=== PATIENT | male | born 1950 | race Caucasian/White ===

== ENCOUNTER 2016-04-14 07:06 | Observation (INO) | payer OTHER ==
[~2016-04-14] VITALS: Ht 185.4 cm; Wt 88.5 kg
[2016-04-14] MEDS ORDERED: ASPIRIN 81 MG CHEW PO STA (07:25)
[2016-04-14] MEDS ORDERED: NITROGLYCERIN 0.4 MG SL PER TAB CHARGE SL PRN ×2 (07:30→10:00)
[2016-04-14] MEDS ORDERED: ATOR-24 PO (07:32)
[2016-04-14 07:39] LABS: BASO % 0.8 %; BASO ABS # 0.08 K/uL (0-0.2); COMPLETE YES; EOS % 3.7 %; HEMATOCRIT 43.3 % (42-52); IG% 0.3 %; LYMPH % 30.8 %; LYMPH ABS # 3.13 K/uL (1.2-3.4); MEAN CELL VOLUME 87.1 fL (80-100); MEAN CORPUSCULAR HEMOGLOBIN 30.8 pg (25-34); MEAN CORPUSCULAR HGB CONC 35.3 g/dl (32-36); MEAN PLATELET VOLUME 11.6 fL (7.4-10.4); MONO % 8.6 %; NEUT % 55.8 %; PLATELET COUNT 172 K/uL (130-400); RED BLOOD COUNT 4.97 M/uL (4.7-6.1); WHITE BLOOD COUNT 10.16 K/uL (4.8-10.8)
--- NOTE | 2016-04-14 07:53 | EMERGENCY ROOM VISIT NOTE ---
History Report prepared by Sophia: Curly Packer Under the Supervision of: Dr. Ana Barrientos M.D. First contact with patient: 07:16 Chief Complaint: CHEST PAIN Stated Complaint: CHEST PAIN History of Present Illness The patient is a 65 year old male who presents to the Emergency Room with complaints of sudden discomfort that started 1 hour prior to arrival when he was drinking coffee. The patient describes the discomfort as intense and stabbing. The discomfort radiates from his left chest to his back, neck and left arm. The patient normally has left leg pain from his history of sciatica, but thinks that this discomfort is currently at baseline and not worsened by his current symptoms. The patient notes that the discomfort in his chest is significantly reduced since his arrival at the ED and rates his current discomfort as a 2.5 out of 10 in severity. He notes that this morning he was short of breath with the discomfort, but does not feel he is short of breath now since the discomfort has subsided. He does note that the discomfort is worse with deep breaths. The patient was nauseous and had one episode of vomiting earlier this morning, but these symptoms have since resolved. The patient did not take any medicine or Aspirin prior to arrival. He has never experienced these symptoms before. Over the past few days he denies experiencing any trouble with exertion noting that he felt fine on a recent hike and while he was walking in the snow. He also denies recent illness. 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 A total of 10 systems reviewed and were otherwise negative. Past Medical & Surgical Medical Problems: (1) Chest pain (2) Gallbladder problem Surgical Problems: (1) Cholecystectomy planned Family History FH: hypertension Heart disease Kidney stone Social History Marital Status: Housing Status: lives with significant other Occupation Status: unemployed Current/Historical Medications Scheduled Aspirin (Aspirin EC Low Dose), 81 MG PO QAM Atorvastatin (Lipitor), 40 MG PO DAILY Pantoprazole (Pantoprazole Sodium), 40 MG PO QAM Scheduled PRN Nitroglycerin (Nitrostat), 0.4 MG SL UD PRN for Chest Pain Allergies Coded Allergies: No Known Allergies (Unverified , 04/14/16) Physical Exam Vital Signs Date Time Temp Pulse Resp B/P Pulse Ox O2 Delivery O2 Flow Rate FiO2 04/14/16 09:03 48 16 117/68 98 Nasal Cannula 3.0 04/14/16 08:10 91 Nasal Cannula 3.0 04/14/16 08:07 88 Room Air 04/14/16 07:58 47 16 93/59 95 Room Air 04/14/16 07:49 66 18 109/62 92 Room Air 04/14/16 07:44 57 18 125/83 95 Room Air 04/14/16 07:18 55 04/14/16 07:13 36.4 54 18 130/75 95 Room Air 04/14/16 07:13 95 Room Air 04/14/16 07:13 95 Room Air Physical Exam Vital signs reviewed. General: Generally well-appearing male, in some discomfort. HEENT: No scleral icterus, PERRLA, neck supple. Atraumatic. Cardiovascular: Regular rate and rhythm, no extra sounds. Pulmonary: Clear to auscultation bilaterally, normal work of breathing. Abdomen: Soft, nontender, nondistended, positive bowel sounds. Musculoskeletal: Atraumatic, no peripheral edema. Neurologic: Patient awake alert and oriented x 3, full strength in all 4 extremities. Cranial nerves 2 through 12 grossly intact. Skin: Warm, dry, no rash Medical Decision & Procedures ER Provider Diagnostic Interpretation: X-ray results as stated below per my interpretation and radiologist interpretation. Other radiology results as stated below per my review and radiologist interpretation: CHEST ONE VIEW PORTABLE CLINICAL HISTORY: chest pain dyspnea COMPARISON STUDY: No previous studies for comparison. FINDINGS: The bones soft tissues and hemidiaphragms are normal. The cardiomediastinal silhouette is normal. The lungs are clear. The pulmonary vasculature is normal. IMPRESSION: Negative chest. Electronically signed by: Kevyn Hutchinson M.D. 04/14/2016 8:20 AM Dictated Date/Time: 04/14/2016 8:[address] ANGIOGRAPHY OF THE CHEST WITH AND WITHOUT CONTRAST DISSECTION PROTOCOL CLINICAL HISTORY: Left-sided chest pain. Back pain. COMPARISON STUDY: Chest radiograph performed earlier today. TECHNIQUE: Unenhanced and arterial phase images of the chest were obtained. Injection of 93 cc of Optiray 320 IV was uneventful. Sagittal and coronal reconstructions were viewed as well as maximal intensity projections on an independent 3-D workstation. FINDINGS: The caliber of the thoracic aorta is normal. There is no intramural hematoma or dissection within the thoracic aorta. The size of the heart is normal. There is no pericardial effusion. No enlarged thoracic lymph nodes are present. Central airways are patent. There is no consolidation to suggest pneumonia. Note is made of a 1 cm groundglass density within the right upper lobe shown on image 108 of 346. There is also a subtle 6 cm groundglass density within the right upper lobe shown on image 102. A 5 mm perifissural nodule within the right middle lobe is noted on image 163. Groundglass opacities within the lower lobe suggest atelectasis. Bony thorax is unremarkable. Visualized portions of the upper abdomen partially visualize a water attenuation left renal lesion that measures at least 9.6 cm. Although incompletely imaged on since exam, this likely reflects a cyst. There are a few subcentimeter hypodense hepatic lesions. The gallbladder surgically absent. IMPRESSION: 1. No thoracic aortic dissection. 2. No acute findings within the chest. 3. A few groundglass nodules within the right upper lobe, the largest of which measures 1 cm. This could reflect a minimal infectious or inflammatory etiology although a low-grade neoplasm could appear similar. A follow-up chest CT in 6 months is recommended. 4. Partially visualized left renal lesion which likely reflects a large cyst. Electronically signed by: Ace Perez M.D. 04/14/2016 8:55 AM Dictated Date/Time: 04/14/2016 8:41 AM Laboratory Results Test 04/14/16 07:20 04/14/16 07:36 Immature Granulocyte % (Auto) 0.3 % White Blood Count 10.16 K/uL (4.8-10.8) Red Blood Count 4.97 M/uL (4.7-6.1) Hemoglobin 15.3 g/dL (14.0-18.0) Hematocrit 43.3 % (42-52) Mean Corpuscular Volume 87.1 fL (80-100) Mean Corpuscular Hemoglobin 30.8 pg (25-34) Mean Corpuscular Hemoglobin Concent 35.3 g/dl (32-36) Platelet Count 172 K/uL (130-400) Mean Platelet Volume 11.6 fL (7.4-10.4) Neutrophils (%) (Auto) 55.8 % Lymphocytes (%) (Auto) 30.8 % Monocytes (%) (Auto) 8.6 % Eosinophils (%) (Auto) 3.7 % Basophils (%) (Auto) 0.8 % Neutrophils # (Auto) 5.67 K/uL (1.4-6.5) Lymphocytes # (Auto) 3.13 K/uL (1.2-3.4) Monocytes # (Auto) 0.87 K/uL (0.11-0.59) Eosinophils # (Auto) 0.38 K/uL (0-0.5) Basophils # (Auto) 0.08 K/uL (0-0.2) Immature Granulocyte # (Auto) 0.03 K/uL (0.00-0.02) Prothrombin Time 10.7 SECONDS (9.0-12.0) Prothromb Time International Ratio 1.0 (0.9-1.1) Activated Partial Thromboplast Time 24.9 SECONDS (21.0-31.0) Partial Thromboplastin Ratio 1.0 Total Bilirubin 0.7 mg/dl (0.2-1) Direct Bilirubin 0.1 mg/dl (0-0.2) Aspartate Amino Transf (AST/SGOT) 26 U/L (15-37) Alanine Aminotransferase (ALT/SGPT) 49 U/L (12-78) Alkaline Phosphatase 92 U/L (45-117) Total Protein 7.9 gm/dl (6.4-8.2) Albumin 4.1 gm/dl (3.4-5.0) Lipase 150 U/L (73-393) Bedside Troponin I 0.000 ng/ml (0-0.045) Laboratory results per my review. Medications Administered Medications (Trade) Dose Ordered Sig/Matilda Route Start Time Stop Time Status Last Admin Dose Admin Nitroglycerin (Nitrostat Tab) 0.4 mg Q5M PRN SL 04/14/16 07:30 04/14/16 10:19 DC 04/14/16 07:43 0.4 MG Aspirin (Aspirin Chew) 324 mg NOW STAT PO 04/14/16 07:25 04/14/16 07:28 DC 04/14/16 07:43 324 MG Ondansetron HCl 4 mg 4 mg STK-MED ONCE .ROUTE 04/14/16 07:54 04/14/16 07:56 DC 04/14/16 07:59 4 MG Sodium Chloride (Nss 250ml) 250 ml @ 999 mls/hr Q16M STAT IV 04/14/16 08:00 04/14/16 08:15 DC 04/14/16 08:00 999 MLS/HR ECG Indication: chest pain Rate (beats per minute): 51 Rhythm: sinus bradycardia Findings: 1st degree AV block, LBBB, no acute ischemic change Comparison ECG Date: no prior available ED Course 0718: Past medical records reviewed. The patient was evaluated in room A11. A complete history and physical examination was performed. 0725: Ordered Aspirin 324 mg PO. 0730: Ordered Nitrostat Tab 0.4 mg SL/ Chest Pain. 0754: Ordered Zofran Inj 4 mg .ROUTE. 0757: Ordered Zofran Inj 4 mg IV. 0800: Ordered NSS 250 ml @ 999 mls/hr IV. 0810: At this time, I reevaluated the patient and he is resting. I updated him and his on the treatment plan. 0845: Ordered Ioversol 125 ml IV/ Interaction Checking. 0930: At this time, I discussed the patient's case with Rozina Lazaro and she agreed to accept the patient for further evaluation. Medical Decision Differential Diagnosis: Acute coronary syndrome, pulmonary embolus, aortic dissection, musculoskeletal pain, pneumonia, pleural effusion, pneumothorax This patient was evaluated and appeared to be in no significant distress. IV access was obtained and laboratory work was drawn. Patient was placed on the monitoring specialist and found to be in a normal sinus rhythm. EKG reveals a left bundle branch block for which the patient and physician are not aware. Patient was given aspirin to chew. He was given nitroglycerin sublingual. Patient's chest pain did improve. Patient's troponin is negative. CT scan of the chest was performed without pulmonary embolus, this study is negative for PE and dissection. Patient's case was discussed with the hospitalist service. He'll be evaluated for further management. Consults Time Called: [phone] Consulting Physician: Rozina Landrey PA-C - Hospitalist [facility] Returned Call: 0930 At this time, I discussed the patient's case with Rozina Reardon PA-C and she agreed to accept the patient for further evaluation. Impression Primary Impression: Chest pain radiating to upper extremity Additional Impression: New onset left bundle branch block (LBBB) Scribe Attestation The scribe's documentation has been prepared under my direction and personally reviewed by me in its entirety. I confirm that the note above accurately reflects all work, treatment, procedures, and medical decision making performed by me. Departure Information Dispostion Being Evaluated By Hospitalist Prescriptions Pantoprazole (Pantoprazole Sodium) 40 Mg Tab 40 MG PO QAM for 14 Days, #14 TAB 2 Refills 30 minutes before first meal of the day Prov: Vern Mark MD 04/15/16 Aspirin (Aspirin EC Low Dose) 81 Mg Ectab 81 MG PO QAM for 30 Days, #30 TABS 2 Refills with food Prov: Vern Mark MD 04/15/16 Nitroglycerin (Nitrostat) 0.4 Mg/1 Tab Subl 0.4 MG SL UD Y for Chest Pain, #20 TABS 2 Refills As needed for chest pain; may take every 5 minutes for maximum of 3 tablets in 15 minutes Prov: Vern Mark MD 04/15/16 Referrals Meena De Leon M.D. (PCP) Problem Qualifiers
[2016-04-14] MEDS ORDERED: ONDANSETRON INJ 2 MG/ML 2 ML VIAL ONE (07:54)
[2016-04-14 07:57] LABS: BUN/CREATININE RATIO 22.9 (10-20); CALCIUM 8.8 mg/dl (8.5-10.1); CREATININE 1.1 mg/dl (0.60-1.40); MAGNESIUM 2.1 mg/dl (1.8-2.4); POTASSIUM 3.9 mmol/L (3.5-5.1)
[2016-04-14] MEDS ORDERED: ONDANSETRON INJ 2 MG/ML 2 ML VIAL IV STA (07:57)
[2016-04-14 08:00] LABS: CKMB/CK RATIO 0.7 (0-3.0)
[2016-04-14] MEDS ORDERED: SODIUM CHLORIDE 0.9% 250ML 250 ML IV STA (08:00)
--- NOTE | 2016-04-14 08:21 | DIAGNOSTIC IMAGING REPORT ---
CHEST ONE VIEW PORTABLE CLINICAL HISTORY: chest pain dyspnea COMPARISON STUDY: No previous studies for comparison. FINDINGS: The bones soft tissues and hemidiaphragms are normal. The cardiomediastinal silhouette is normal. The lungs are clear. The pulmonary vasculature is normal. IMPRESSION: Negative chest. Electronically signed by: Kevyn Hutchinson M.D. 04/14/2016 8:20 AM Dictated Date/Time: 04/14/2016 8:18 AM
[2016-04-14] MEDS ORDERED: OPTIRAY 320 IV PRN (08:45)
--- NOTE | 2016-04-14 08:56 | DIAGNOSTIC IMAGING REPORT ---
CT ANGIOGRAPHY OF THE CHEST WITH AND WITHOUT CONTRAST DISSECTION PROTOCOL CLINICAL HISTORY: Left-sided chest pain. Back pain. COMPARISON STUDY: Chest radiograph performed earlier today. TECHNIQUE: Unenhanced and arterial phase images of the chest were obtained. Injection of 93 cc of Optiray 320 IV was uneventful. Sagittal and coronal reconstructions were viewed as well as maximal intensity projections on an independent 3-D workstation. FINDINGS: The caliber of the thoracic aorta is normal. There is no intramural hematoma or dissection within the thoracic aorta. The size of the heart is normal. There is no pericardial effusion. No enlarged thoracic lymph nodes are present. Central airways are patent. There is no consolidation to suggest pneumonia. Note is made of a 1 cm groundglass density within the right upper lobe shown on image 108 of 346. There is also a subtle 6 cm groundglass density within the right upper lobe shown on image 102. A 5 mm perifissural nodule within the right middle lobe is noted on image 163. Groundglass opacities within the lower lobe suggest atelectasis. Bony thorax is unremarkable. Visualized portions of the upper abdomen partially visualize a water attenuation left renal lesion that measures at least 9.6 cm. Although incompletely imaged on since exam, this likely reflects a cyst. There are a few subcentimeter hypodense hepatic lesions. The gallbladder surgically absent. IMPRESSION: 1. No thoracic aortic dissection. 2. No acute findings within the chest. 3. A few groundglass nodules within the right upper lobe, the largest of which measures 1 cm. This could reflect a minimal infectious or inflammatory etiology although a low-grade neoplasm could appear similar. A follow-up chest CT in 6 months is recommended. 4. Partially visualized left renal lesion which likely reflects a large cyst. Electronically signed by: Ace Perez M.D. 04/14/2016 8:55 AM Dictated Date/Time: 04/14/2016 8:41 AM
[2016-04-14] MEDS ORDERED: ONDANSETRON INJ 2 MG/ML 2 ML VIAL IV PRN (10:00)
[2016-04-14] MEDS ORDERED: MoRPHine SULFATE 2 MG/ML CARP IV PRN (10:00)
[2016-04-14] MEDS ORDERED: ACETAMINOPHEN 325 MG TAB PO PRN (10:00)
--- NOTE | 2016-04-14 10:19 | History and Physical ---
History & Physical Date & Time of Service: Apr 14, 2016 at 09:58 Chief Complaint: Chest Pain Primary Care Physician: Meena De Leon M.D. History of Present Illness Source: patient This is a 65 y/o male with PMHx of Dyslipidemia who presents to the ED c/o chest pain that began this morning. Pt reports that around 0600 he was pouring his morning coffee when he developed acute onset chest pain. He describes the chest pain as 8/10 L sided chest pain that radiated into the back, down the L arm and into the jaw. Pain was slightly worse with deep inspiration but unchanged with exertion. He did not take anything for his pain at home. Sxs were assoc with diaphoresis, SOB, nausea and one episode of vomiting. Pt has never had symptoms like this before. He is relatively active and hiked in the snow 3 days ago with no issues. He does have a + FmHx of father with [place] in his 50s. Pt has a prior tobacco history. Pt currently lives at home with , Tracey, who is the regional refrigerated cdl truck driver of [facility] [employer]. Pt denies fever/ chills, palpitations, abd pain, bowel or bladder issues, LE edema, calf pain, lightheadedness/dizziness. In the ED, pt is pao with saturations dropping to 88% on room air. Pt is afebrile with no leukocytosis. Trop negative. EKG + LBBB (no previous EKG available for comparison). Pt is currently chest pain free. He will be admitted for further evaluation and treatment. Past Medical/Surgical History Medical Problems: (1) Gallbladder problem Status: Resolved Surgical Problems: (1) Cholecystectomy planned Status: Resolved Family History FH: hypertension Heart disease Kidney stone Social History Smoking Status: Former Smoker (12 pack year history; quit 1976) Alcohol Use: socially (1-2 glasses of wine per week) Drug Use: none Marital Status: Housing status: lives with family Occupational Status: unemployed Multi-Drug Resistant Organisms History of MDRO: No Allergies Coded Allergies: No Known Allergies (Unverified , 04/14/16) Home Medications Scheduled Atorvastatin (Lipitor), 40 MG PO DAILY Review of Systems Constitutional: + sweats, No chills, No fatigue, No fever, No weakness Eyes: No worsening of vision ENT: No hearing loss Respiratory: + shortness of breath (resolved), No cough, No sputum, No wheezing Cardiovascular: + chest pain, No claudication, No edema, No palpitations Abdomen: + nausea, + vomiting, No constipation, No diarrhea, No pain Musculoskeletal: No calf pain, No swelling Genitourinary - Male: No dysuria Neurologic: No weakness Psychiatric: No depression symptoms Endocrine: No fatigue Hematologic / Lymphatic: No abnormal bleeding/bruising Integumentary: No new/changing skin lesions Physical Exam Vital Signs Date Time Temp Pulse Resp B/P Pulse Ox O2 Delivery O2 Flow Rate FiO2 04/14/16 09:03 48 16 117/ 98 Nasal Cannula 3.0 04/14/16 08:10 91 Nasal Cannula 3.0 04/14/16 08:07 88 Room Air 04/14/16 07:58 47 16 93/59 95 Room Air 04/14/16 07:49 66 18 109/62 92 Room Air 04/14/16 07:44 57 18 125/83 95 Room Air 04/14/16 07:18 55 04/14/16 07:13 36.4 54 18 130/75 95 Room Air 04/14/16 07:13 95 Room Air 04/14/16 07:13 95 Room Air General Appearance: WD/WN, no apparent distress, + pertinent finding (Pt is sitting up in bed with at bedside ) Head: normocephalic, atraumatic Eyes: normal inspection ENT: hearing grossly normal Neck: supple Respiratory/Chest: chest non-tender, lungs clear, normal breath sounds, no respiratory distress Cardiovascular: regular rate, rhythm, no edema, no murmur Abdomen/GI: normal bowel sounds, non tender, soft Back: normal inspection Extremities/Musculoskelatal: normal inspection, no calf tenderness, no pedal edema Neurologic/Psych: alert, normal mood/affect, oriented x 3 Skin: normal color, warm/dry Diagnostics Laboratory Results Results Past 24 Hours Test 04/14/16 07:20 04/14/16 07:36 Range/Units White Blood Count 10.16 4.8-10.8 K/uL Red Blood Count 4.97 4.7-6.1 M/uL Hemoglobin 15.3 14.0-18.0 g/dL Hematocrit 43.3 42-52 % Mean Corpuscular Volume 87.1 80-100 fL Mean Corpuscular Hemoglobin 30.8 25-34 pg Mean Corpuscular Hemoglobin Concent 35.3 32-36 g/dl Platelet Count 172 130-400 K/uL Mean Platelet Volume 11.6 7.4-10.4 fL Neutrophils (%) (Auto) 55.8 % Lymphocytes (%) (Auto) 30.8 % Monocytes (%) (Auto) 8.6 % Eosinophils (%) (Auto) 3.7 % Basophils (%) (Auto) 0.8 % Neutrophils # (Auto) 5.67 1.4-6.5 K/uL Lymphocytes # (Auto) 3.13 1.2-3.4 K/uL Monocytes # (Auto) 0.87 0.11-0.59 K/uL Eosinophils # (Auto) 0.38 0-0.5 K/uL Basophils # (Auto) 0.08 0-0.2 K/uL RDW Standard Deviation 41.5 36.4-46.3 fL RDW Coefficient of Variation 12.9 11.5-14.5 % Immature Granulocyte % (Auto) 0.3 % Immature Granulocyte # (Auto) 0.03 0.00-0.02 K/uL Sodium Level 142 136-145 mmol/L Potassium Level 3.9 3.5-5.1 mmol/L Chloride Level 104 98-107 mmol/L Carbon Dioxide Level 26 21-32 mmol/L Anion Gap 12.0 3-11 mmol/L Blood Urea Nitrogen 25 7-18 mg/dl Creatinine 1.10 0.60-1.40 mg/dl Est Creatinine Clear Calc Drug Dose 75.6 ml/min Estimated GFR () 81.2 Estimated GFR (Non- 70.1 BUN/Creatinine Ratio 22.9 10-20 Random Glucose 123 70-99 mg/dl Calcium Level 8.8 8.5-10.1 mg/dl Magnesium Level 2.1 1.8-2.4 mg/dl Total Bilirubin 0.7 0.2-1 mg/dl Direct Bilirubin 0.1 0-0.2 mg/dl Aspartate Amino Transf (AST/SGOT) 26 15-37 U/L Alanine Aminotransferase (ALT/SGPT) 49 12-78 U/L Alkaline Phosphatase 92 45-117 U/L Total Creatine Kinase 160 39-308 U/L Creatine Kinase MB 1.1 0.5-3.6 ng/ml Creatine Kinase MB Ratio 0.7 0-3.0 Total Protein 7.9 6.4-8.2 gm/dl Albumin 4.1 3.4-5.0 gm/dl Lipase 150 73-393 U/L Bedside Troponin I 0.000 0-0.045 ng/ml Diagnostic Radiology CT CHEST IMPRESSION: 1. No thoracic aortic dissection. 2. No acute findings within the chest. 3. A few groundglass nodules within the right upper lobe, the largest of which measures 1 cm. This could reflect a minimal infectious or inflammatory etiology although a low-grade neoplasm could appear similar. A follow-up chest CT in 6 months is recommended. 4. Partially visualized left renal lesion which likely reflects a large cyst. CXR IMPRESSION: Negative chest. EKG EKG: sinus pao at 51 bpm with 1* A block and LBBB; no previous EKG available for comparison Impression Assessment and Plan CHEST PAIN R/O ACS -pt presented with L sided chest pain radiating to the back, down L arm and into L neck assoc with diaphoresis, SOB and N/V -RFs include + FmHx, prior tobacco use and dyslipidemia -EKG + LBBB (no previous EKG available for comparison); -Serial troponin is negative so far -ECHO: The left ventricle is normal in size. * Ejection Fraction = 65-70%. * Septal motion is consistent with conduction abnormality. * The right ventricular systolic function is normal. * The left atrial size is normal. * Right atrial size is normal. * No significant valvular pathologhy. -started on ASA and cont statin -nitro and morphine PRN chest pain -consult cardiology, Dr. Mckinney-appreciate input DYSLIPIDEMIA -cont statin DVT PROPHYLAXIS -subq heparin CODE STATUS -FULL CODE status DISPO Observation status until further workup is complete. Pt seen in collaboration with Dr. May. Please see his addendum for further details. Thanks! Attending Addendum: The patient was seen and examined Admitted with typical Angina No prior cardiac history EKG -LBBB ,no prior EKG to compare Troponin x2 -negative O/E HEENT-unremarkable Chest-clear to ausucltate bilaterally Heart-regular,no murmur appreciated Abdomen-benign,no masses,bowel sound present Extremities-negative for any edema Lbs ,Imaging studies and EKG noted Chest pain r/o ACS May have Reflux disease and the pain could be Musculoskeletal Serial Lui,EKG,ECHO and Cardiology evaluation Agree with the assessment and plan. Dr Casi May VTE Prophylaxis VTE Risk Assessment Done? Y/N: Yes Risk Level: Moderate
[2016-04-14] MEDS ORDERED: IV FLUIDS COMPLETED PRN (10:30)
[2016-04-14 10:48] VITALS: BP 127/80; PULSE 58; TEMP 36.4; O2SAT 96; Ht 185.4 cm; Wt 88.5 kg
--- NOTE | 2016-04-14 11:18 | CARDIOLOGY CONSULTATION ---
DATE OF CONSULTATION: 04/14/2016 REFERRING: [facility] service. HISTORY: This is a 65-year-old with no prior history of heart disease. This morning he was getting a cup of coffee and had the sudden onset of severe left-sided chest discomfort radiating to his back and down his left shoulder. The discomfort lasted for approximately 2 hours. He came to the Emergency Department where he was given aspirin and sublingual nitroglycerin. He states the nitroglycerin did not really help his discomfort. Eventually, however, his pain has completely resolved. He is now resting comfortably. He is fairly active and has not had any activity related chest, arm or back discomfort. He has had no progressive shortness of breath. He denies heart palpitations or tachycardia. After admission to the Emergency Department, his first set of cardiac markers was negative. He does have left bundle-branch block on his EKG with no prior studies available for comparison. He also has a first-degree AV block. He is a nonsmoker with no prior history of diabetes. He has no history of hypertension or kidney disease. He does have a history of dyslipidemia for which he takes Lipitor. His father at an early age due to heart disease; however, he was on dialysis with a history of heavy cigarette smoking and diabetes. ALLERGIES: No known medical allergies. PAST MEDICAL HISTORY: As outlined above, the patient has minimal past medical history. He has no prior history of heart disease, kidney disease, diabetes, hypertension or strokes. SOCIAL HISTORY: He is a nonsmoker. He lives with his . FAMILY MEDICAL HISTORY: Father at an early age due to diabetes and heart disease. REVIEW OF SYSTEMS: A 10-point review of systems is negative except for the history of chief complaint. PHYSICAL EXAMINATION: GENERAL: He is alert and oriented, in no acute distress. VITAL SIGNS: Blood pressure is 117/70, pulse is regular at 50 beats per minute, he is afebrile. HEENT: Normocephalic. Pupils are equal and reactive to light. Extraocular muscles are intact bilaterally. Mucous membranes are moist. NECK: The neck veins are flat. Carotids have good upstrokes bilaterally without bruits. Thyroid is nonpalpable. RESPIRATORY: Breath sounds equal bilaterally and clear to auscultation. CARDIOVASCULAR: Heart has a regular rhythm. Normal S1 and S2. No S3 or S4. No cardiac rubs or murmurs. GASTROINTESTINAL: Abdomen is soft, nontender, without organomegaly. EXTREMITIES: Free of edema, digit clubbing, or cyanosis. NEUROLOGIC: Grossly intact. SKIN: Warm to touch. LYMPH NODES: Negative to palpation. LABORATORY DATA: Cardiac markers are negative. EKG shows a sinus rhythm with first-degree AV block and left bundle-branch block. Creatinine is 1.1, potassium is 3.9. IMPRESSION: 1. Newly discovered conduction abnormalities on the EKG with a first-degree atrioventricular block and left bundle-branch block. 2. Chest pain, rule out acute coronary syndrome. RECOMMENDATIONS: The patient will have an echocardiogram completed. He will also have additional cardiac markers drawn in a few hours. Depending on the outcome of these studies, we will have further recommendations. I would not anticoagulate him unless his cardiac markers become positive. Antiplatelet agents are okay for now. Thank you.
[2016-04-14 11:30] VITALS: BP 147/87; PULSE 57; TEMP 36.8; O2SAT 97
[2016-04-14] MEDS ORDERED: PNEUMOCOCCAL ADMINISTRATION CHARGE ONE (11:30)
[2016-04-14] MEDS ORDERED: PNEUMOCOCCAL POLYSACCHARIDES 25 MCG/0.5 ML VIAL/SYR IM. ONE (11:30)
[2016-04-14] MEDS ORDERED: INFLUENZA VIRUS QUAD VACCINE 0.5 ML SYR IM. ONE (11:45)
[2016-04-14] MEDS ORDERED: INFLUENZA ADMINISTRATION CHARGE ONE (11:45)
[2016-04-14 12:18] LABS: PROTHROMBIN TIME (PATIENT) 10.7 SECONDS (9.0-12.0)
[2016-04-14] MEDS: HEPARIN SOD 5000 UNIT/0.5 ML CARP SQ SCH ×2 (14:00→22:00)
--- NOTE | 2016-04-14 14:42 | ECHOCARDIOGRAM REPORT ---
*NOTICE TO RECEIVING DEMOCRAT AGENCY This information is strictly Confidential and protected under [place] law. [place] law prohibits you from making any further disclosure of this information unless further disclosure is expressly permitted by the written consent of the person to whom it pertains or is authorized by law. A general authorization for the release of medical or other information is not sufficient for this purpose. Hospital accepts no responsibility if the information is made available to any other person, INCLUDING THE PATIENT. Interpretation Summary * Name: GIANFRANCO PRADO Study Date: 04/14/2016 11:40 AM BP: 93/59 mmHg * Patient Location: [facility] HR: 53 * : 1950 (M/d/yyyy) Gender: Male Height: 73 in * Age: 65 yrs Ethnicity: [place] Weight: 195 lb * Ordering Physician: Rozina Reardon * Performed By: Rhonda Banks * * Reason For Study: CHEST PAIN * BSA: 2.1 m2 * -- Conclusions -- * The left ventricle is normal in size. * Ejection Fraction = 65-70%. * Septal motion is consistent with conduction abnormality. * The right ventricular systolic function is normal. * The left atrial size is normal. * Right atrial size is normal. * No significant valvular pathologhy. Procedure Details * A complete two-dimensional transthoracic echocardiogram was performed (2D, M-mode, Doppler and color flow Doppler). Left Ventricle * The left ventricle is normal in size. * There is normal left ventricular wall thickness. * Ejection Fraction = 65-70%. * Septal motion is consistent with conduction abnormality. Right Ventricle * The right ventricle is normal size. * The right ventricular systolic function is normal. Atria * The left atrial size is normal. * Right atrial size is normal. * The interatrial septum is intact with no evidence for an atrial septal defect. Mitral Valve * The mitral valve anatomy is normal. * Significant mitral regurgitation is absent. Tricuspid Valve * The tricuspid valve is not well visualized, but is grossly normal. * Significant tricuspid regurgitation is absent. Aortic Valve * The aortic valve is normal in structure and function. Pulmonic Valve * The pulmonic valve is not well seen, but is grossly normal. * There is no significant pulmonary regurgitation. Great Vessels * The aortic root and proximal ascending aorta are normal sized. Pericardium/Pleural * There is no pericardial effusion. MMode 2D Measurements and Calculations IVSd 1.2 cm IVSs 1.4 cm LVIDd 4.6 cm LVIDs 2.9 cm LVPWd 1.1 cm LVPWs 1.5 cm IVS/LVPW 1.1 FS 37.7 % EDV(Teich) 97.9 ml ESV(Teich) 31.5 ml EF(Teich) 67.8 % EDV(cubed) 98.1 ml ESV(cubed) 23.8 ml EF(cubed) 75.8 % % IVS thick 20.7 % % LVPW thick 30.2 % LV mass(C)d 195.1 grams LV mass(C)dI 91.7 grams/m\S\2 LV mass(C)s 140.7 grams LV mass(C)sI 66.1 grams/m\S\2 SV(Teich) 66.4 ml SI(Teich) 31.2 ml/m\S\2 SV(cubed) 74.4 ml SI(cubed) 34.9 ml/m\S\2 Ao root diam 3.4 cm Ao root area 9.0 cm\S\2 ACS 1.5 cm LA dimension 4.5 cm asc Aorta Diam 3.4 cm LA/Ao 1.3 LVOT diam 2.1 cm LVOT area 3.3 cm\S\2 LVAd ap4 34.3 cm\S\2 LVLd ap4 8.5 cm EDV(MOD-sp4) 111.9 ml EDV(sp4-el) 117.1 ml LVAs ap4 17.1 cm\S\2 LVLs ap4 6.8 cm ESV(MOD-sp4) 39.2 ml ESV(sp4-el) 36.5 ml EF(MOD-sp4) 64.9 % EF(sp4-el) 68.8 % LVAd ap2 33.2 cm\S\2 LVLd ap2 8.1 cm EDV(MOD-sp2) 110.5 ml EDV(sp2-el) 115.4 ml LVAs ap2 18.4 cm\S\2 LVLs ap2 7.2 cm ESV(MOD-sp2) 39.3 ml ESV(sp2-el) 39.9 ml EF(MOD-sp2) 64.4 % EF(sp2-el) 65.4 % LVLd %diff -4.89 % EDV(MOD-bp) 114.0 ml LVLs %diff 5.0 % ESV(MOD-bp) 39.4 ml EF(MOD-bp) 65.5 % SV(MOD-sp4) 72.6 ml SI(MOD-sp4) 34.1 ml/m\S\2 SV(MOD-sp2) 71.2 ml SI(MOD-sp2) 33.4 ml/m\S\2 SV(MOD-bp) 74.6 ml SI(MOD-bp) 35.1 ml/m\S\2 SV(sp4-el) 80.6 ml SI(sp4-el) 37.9 ml/m\S\2 SV(sp2-el) 75.5 ml SI(sp2-el) 35.5 ml/m\S\2 Doppler Measurements and Calculations MV E max kim 69.0 cm/sec MV A max kim 77.6 cm/sec MV E/A 0.89 MV V2 max 76.2 cm/sec MV max PG 2.3 mmHg MV V2 mean 42.3 cm/sec MV mean PG 0.84 mmHg MV V2 VTI 28.5 cm MVA(VTI) 2.8 cm\S\2 MV dec time 0.26 sec Ao V2 max 137.4 cm/sec Ao max PG 7.6 mmHg Ao max PG (full) 2.5 mmHg Ao V2 mean 87.0 cm/sec Ao mean PG 3.6 mmHg Ao mean PG (full) 1.3 mmHg Ao V2 VTI 27.4 cm BETTINA(I,A) 2.9 cm\S\2 BETTINA(I,D) 2.9 cm\S\2 BETTINA(V,A) 2.7 cm\S\2 BETTINA(V,D) 2.7 cm\S\2 LV V1 max PG 5.1 mmHg LV V1 mean PG 2.3 mmHg LV V1 max 112.5 cm/sec LV V1 mean 69.8 cm/sec LV V1 VTI 23.9 cm MR max kim 468.5 cm/sec MR max PG 87.8 mmHg SV(Ao) 247.4 ml SI(Ao) 116.2 ml/m\S\2 SV(LVOT) 79.0 ml SI(LVOT) 37.1 ml/m\S\2 PA V2 max 87.4 cm/sec PA max PG 3.1 mmHg PI end-d kim 85.9 cm/sec TR max kim 244.8 cm/sec
[2016-04-14 16:00] VITALS: BP 129/76; PULSE 74; TEMP 37.2; O2SAT 92
[2016-04-14] MEDS ORDERED: PANTOprazole SOD 40 MG TAB PO ONE (18:00)
[2016-04-14 20:00] VITALS: BP 109/64; PULSE 78; TEMP 37.5; O2SAT 92
[2016-04-14 23:45] LABS: CKMB/CK RATIO 0.6 (0-3.0)
[2016-04-15] VITALS: BP 108/62; PULSE 80; TEMP 36.5; O2SAT 92; O2SAT 93
[2016-04-15 04:00] VITALS: BP 112/65; PULSE 71; TEMP 36.7; O2SAT 94
[2016-04-15] MEDS: HEPARIN SOD 5000 UNIT/0.5 ML CARP SQ SCH (05:42)
[2016-04-15 07:39] VITALS: BP 118/74; PULSE 58; TEMP 36.5; O2SAT 91
[2016-04-15 07:54] LABS: HEMATOCRIT 40.4 % (42-52); MEAN CELL VOLUME 89.8 fL (80-100); MEAN CORPUSCULAR HEMOGLOBIN 31.6 pg (25-34); MEAN CORPUSCULAR HGB CONC 35.1 g/dl (32-36); MEAN PLATELET VOLUME 11.4 fL (7.4-10.4); PLATELET COUNT 157 K/uL (130-400); WHITE BLOOD COUNT 8.78 K/uL (4.8-10.8)
[2016-04-15 08:26] LABS: CALCIUM 8.4 mg/dl (8.5-10.1); CREATININE 0.93 mg/dl (0.60-1.40); MAGNESIUM 2.3 mg/dl (1.8-2.4); POTASSIUM 3.9 mmol/L (3.5-5.1)
[2016-04-15 08:29] LABS: CHOLESTEROL/HDL RATIO 2.8; PHOSPHORUS 2.7 mg/dl (2.5-4.9)
[2016-04-15] MEDS ORDERED: ATORVASTATIN 40 MG TAB PO SCH (09:00)
[2016-04-15] MEDS ORDERED: ASPIRIN 81 MG ECTAB PO SCH (09:00)
[2016-04-15] MEDS ORDERED: PANTOprazole SOD 40 MG TAB PO SCH (09:00)
--- NOTE | 2016-04-15 09:11 | Progress Note ---
Medicine Progress Note Date & Time of Visit: Apr 15, 2016 at 09:09. Subjective patient states he feels better today resting in bed, comfortable denies recurrence of chest pain no dyspnea, dizziness, nausea/vomiting, palpitations no other symptoms Objective Last 8 Hrs Date Time Temp Pulse Resp B/P Pulse Ox O2 Delivery O2 Flow Rate FiO2 04/15/16 07:39 36.5 58 18 118/74 91 Room Air 04/15/16 04:00 Room Air 04/15/16 04:00 36.7 71 18 112/65 94 Room Air Physical Exam: General- oriented x 3, not in distress, speaks in sentences with no effort Head- atraumatic Eyes- anicteric ENT- oropharynx clear Neck- supple, no JVD, no adenopathy Lungs- clear to auscultation b/l Heart- normal rate, regular rhythm; no murmurs Abdomen- normal bowel sounds, soft, nontender Extremities- no pretibial edema, no calf tenderness Neuro- alert, oriented x 3; no gross focal deficits Skin- warm & dry Laboratory Results: Last 24 Hours Test 04/14/16 11:30 04/14/16 12:15 04/14/16 17:28 04/14/16 23:12 Creatine Kinase MB Ratio 0.6 Creatine Kinase MB 0.7 ng/ml 0.5 ng/ml 0.6 ng/ml Troponin I < 0.015 ng/ml < 0.015 ng/ml < 0.015 ng/ml Total Creatine Kinase 105 U/L Test 04/15/16 07:41 White Blood Count 8.78 K/uL Red Blood Count 4.50 M/uL Hemoglobin 14.2 g/dL Hematocrit 40.4 % Mean Corpuscular Volume 89.8 fL Mean Corpuscular Hemoglobin 31.6 pg Mean Corpuscular Hemoglobin Concent 35.1 g/dl RDW Standard Deviation 43.4 fL RDW Coefficient of Variation 13.2 % Platelet Count 157 K/uL Mean Platelet Volume 11.4 fL Sodium Level 141 mmol/L Potassium Level 3.9 mmol/L Chloride Level 106 mmol/L Carbon Dioxide Level 24 mmol/L Anion Gap 11.0 mmol/L Blood Urea Nitrogen 21 mg/dl Creatinine 0.93 mg/dl Est Creatinine Clear Calc Drug Dose 89.5 ml/min Estimated GFR () 99.5 Estimated GFR (Non- 85.8 BUN/Creatinine Ratio 22.0 Random Glucose 100 mg/dl Calcium Level 8.4 mg/dl Phosphorus Level 2.7 mg/dl Magnesium Level 2.3 mg/dl Triglycerides Level 77 mg/dl Cholesterol Level 150 mg/dl HDL Cholesterol 53 mg/dl LDL Cholesterol, Calculated 82 mg/dl VLDL Cholesterol, Calculated 15 mg/dl Cholesterol/HDL Ratio 2.8 Assessment & Plan CHEST PAIN R/O ACS -RF: include + FmHx, prior tobacco use and dyslipidemia -EKst degree AV block and LBBB (no previous EKG available for comparison); Cardiac markers x 3: negative -ECHO: The left ventricle is normal in size. * Ejection Fraction = 65-70%. * Septal motion is consistent with conduction abnormality. * The right ventricular systolic function is normal. * The left atrial size is normal. * Right atrial size is normal. * No significant valvular pathologhy. -- started on Aspirin Atorvastatin continued -- Dr. Mckinney consulted awaiting further recommendations DYSLIPIDEMIA -cont statin DVT PROPHYLAXIS -subq heparin CODE STATUS -FULL CODE status DISPO d/c home when cleared by Cardiology Current Inpatient Medications: Current Inpatient Medications Medications (Trade) Dose Ordered Sig/Matilda Route Start Time Stop Time Status Last Admin Dose Admin Ioversol (Optiray 320) 125 ml UD PRN IV 04/14/16 08:45 04/18/16 08:44 Acetaminophen (Tylenol Tab) 650 mg Q4H PRN PO 04/14/16 10:00 05/14/16 09:59 04/14/16 13:35 650 MG Ondansetron HCl (Zofran Inj) 4 mg Q6H PRN IV 04/14/16 10:00 05/14/16 09:59 Nitroglycerin (Nitrostat Tab) 0.4 mg UD PRN SL 04/14/16 10:00 05/14/16 09:59 Aspirin (Ecotrin Tab) 81 mg QAM PO 04/15/16 09:00 05/15/16 08:59 04/15/16 07:54 81 MG Atorvastatin Calcium (Lipitor Tab) 40 mg DAILY PO 04/15/16 09:00 05/15/16 08:59 04/15/16 07:54 40 MG Morphine Sulfate (MoRPHine SULFATE INJ) 2 mg Q4H PRN IV 04/14/16 10:00 04/28/16 09:59 Heparin Sodium (Porcine) (Heparin Sq 5000 Unit/0.5ml) 5,000 unit Q8H SQ 04/14/16 14:00 05/14/16 13:59 Miscellaneous (Iv Fluids Completed) 1 ea PRN PRN N/A 04/14/16 10:30 04/14/17 10:29 Pantoprazole Sodium (Protonix Tab) 40 mg QAM PO 04/15/16 09:00 05/15/16 08:59 04/15/16 07:54 40 MG
--- NOTE | 2016-04-15 11:36 | CARDIOLOGY PROGRESS NOTE ---
DATE: 04/15/2016 DATE: 04/15/2016. FOLLOW-UP VISIT SUBJECTIVE: The patient is a 65-year-old male who had chest pain yesterday morning. He was admitted to the hospital. His cardiac markers have been negative and he has had no additional chest pain. He does have a newly discovered left bundle branch block on his EKG with a first degree AV block. Echocardiography was performed that shows essentially normal LV function other than his conduction abnormality. At this point, I believe the patient may be discharged and have a pharmacologic nuclear stress test at our office tomorrow. I have made arrangements for that to happen. OBJECTIVE: VITAL SIGNS: Blood pressure is 118/74, pulse is regular at 60, he is afebrile. GENERAL: He is alert and oriented in no acute distress. HEAD, EYES, EARS, NOSE, AND THROAT: Normocephalic. Pupils are equal and reactive to light. Extraocular muscles are intact bilaterally. NECK: The neck veins are flat. Carotids have good upstrokes bilaterally without bruits. Thyroid is not palpable. RESPIRATORY: Breath sounds equal bilaterally and clear to auscultation. CARDIOVASCULAR: Heart has a regular rhythm. Normal S1, S2. No S3, S4. No cardiac rubs or murmurs. GASTROINTESTINAL: Abdomen is soft, nontender without organomegaly. EXTREMITIES: Free of edema, digit clubbing, or cyanosis. NEUROLOGIC: Grossly intact. SKIN: Warm to touch. LYMPH NODES: Negative to palpation. IMPRESSION: 1. Atypical chest pain. 2. Conduction abnormalities on the EKG including a left bundle branch block and first degree arterioventricular block. RECOMMENDATIONS: As outlined above, the patient will have an outpatient pharmacologic stress test through our office. We will then have followup with him.
[2016-04-15 11:39] VITALS: BP 145/84; PULSE 57; TEMP 36.5; O2SAT 92
[2016-04-15] MEDS ORDERED: ASPEC81 PO (12:45)
[2016-04-15] MEDS ORDERED: NTRSLP4 SL (12:45)
[2016-04-15] MEDS ORDERED: PRT40 PO (12:45)
--- NOTE | 2016-04-15 12:48 | Discharge Instructions ---
Discharge Instructions Admission Reason for Admission: Chest Pain Discharge Discharge Diagnosis / Problem: CHEST PAIN Discharge Goals Goal(s): Diagnostic testing, Therapeutic intervention Activity Recommendations Activity Limitations: as noted below (no heavy exertion until re-evaluated by Primary Care Physician) . Instructions / Follow-Up Instructions / Follow-Up PLEASE REVIEW YOUR NEW MEDICATION LIST AND FOLLOW INSTRUCTIONS CAREFULLY. [facility] WILL BE CALLING YOU REGARDING SCHEDULE FOR THE STRESS TEST TOMORROW 04/16/16. FOLLOW UP WITH PRIMARY CARE PHYSICIAN- DR. SMITH ON Thursday04/18/16 AT 2:20PM. AVOID ACIDIC AND SPICY FOOD, CARBONATED AND ALCOHOLIC BEVERAGES. ALWAYS TAKE ASPIRIN WITH A FULL STOMACH. RETURN TO ER IMMEDIATELY IF WITH RECURRENCE OF SYMPTOMS. Current Hospital Diet Patient's current hospital diet: AHA Diet (Heart Healthy) Discharge Diet Recommended Diet: AHA Diet (Heart Healthy) Pending Studies Studies pending at discharge: yes List of pending studies: LEXISCAN STRESS TEST; REPEAT CT SCAN OF THE CHEST IN 6 MONTHS Laboratory Results Lipid Panel Test 04/15/16 07:41 Range/Units Triglycerides Level 77 0-150 mg/dl Cholesterol Level 150 0-200 mg/dl HDL Cholesterol 53 mg/dl Cholesterol/HDL Ratio 2.8 LDL Cholesterol, Calculated 82 mg/dl Medical Emergencies . Who to Call and When: Medical Emergencies: If at any time you feel your situation is an emergency, please call 911 immediately. . Non-Emergent Contact Non-Emergency issues call your: Primary Care Provider . Past History Medical & Surgical History: (1) New onset left bundle branch block (LBBB) (2) Chest pain radiating to upper extremity . "Provider Documentation" section prepared by Vern Mark. VTE Core Measure Inpt VTE Proph given/why not?: Unfractionated heparin SQ
--- NOTE | 2016-04-15 12:59 | Discharge Summary ---
Discharge Summary Admission Date: Apr 14, 2016 at 09:54 Discharge Date: Apr 15, 2016 Discharge Disposition: Home Principal Diagnosis: ATYPICAL CHEST PAIN Secondary Diagnoses/Problems: NEW LEFT BUNDLE BRANCH BLOCK, 1ST DEGREE AV BLOCK; RIGHT UPPER LOBE LUNG NODULES Procedures: Echo: * -- Conclusions -- * The left ventricle is normal in size. * Ejection Fraction = 65-70%. * Septal motion is consistent with conduction abnormality. * The right ventricular systolic function is normal. * The left atrial size is normal. * Right atrial size is normal. * No significant valvular pathologhy. CT Chest: The caliber of the thoracic aorta is normal. There is no intramural hematoma or dissection within the thoracic aorta. The size of the heart is normal. There is no pericardial effusion. No enlarged thoracic lymph nodes are present. Central airways are patent. There is no consolidation to suggest pneumonia. Note is made of a 1 cm groundglass density within the right upper lobe shown on image 108 of 346. There is also a subtle 6 cm groundglass density within the right upper lobe shown on image 102. A 5 mm perifissural nodule within the right middle lobe is noted on image 163. Groundglass opacities within the lower lobe suggest atelectasis. Bony thorax is unremarkable. Visualized portions of the upper abdomen partially visualize a water attenuation left renal lesion that measures at least 9.6 cm. Although incompletely imaged on since exam, this likely reflects a cyst. There are a few subcentimeter hypodense hepatic lesions. The gallbladder surgically absent. Impression: 1. No thoracic aortic dissection. 2. No acute findings within the chest. 3. A few groundglass nodules within the right upper lobe, the largest of which measures 1 cm. This could reflect a minimal infectious or inflammatory etiology although a low-grade neoplasm could appear similar. A follow-up chest CT in 6 months is recommended. 4. Partially visualized left renal lesion which likely reflects a large cyst. Consultations: Mechanical Energy Engineer: Dr. Mckinney Pending Studies/Follow-Up: Stress Test 04/16/16; Repeat CT chest in 6 months to ff up Lung Nodules Medication Reconciliation New Medications: Aspirin (Aspirin EC Low Dose) 81 Mg Ectab 81 MG PO QAM for 30 Days, #30 TABS 2 Refills with food Nitroglycerin (Nitrostat) 0.4 Mg/1 Tab Subl 0.4 MG SL UD PRN for Chest Pain, #20 TABS 2 Refills As needed for chest pain; may take every 5 minutes for maximum of 3 tablets in 15 minutes Pantoprazole (Pantoprazole Sodium) 40 Mg Tab 40 MG PO QAM for 14 Days, #14 TAB 2 Refills 30 minutes before first meal of the day Continued Medications: Atorvastatin (Lipitor) 40 Mg Tab 40 MG PO DAILY, TAB Admission Information HPI (per Admitting provider): This is a 65 y/o male with PMHx of Dyslipidemia who presents to the ED c/o chest pain that began this morning. Pt reports that around 0600 he was pouring his morning coffee when he developed acute onset chest pain. He describes the chest pain as 8/10 L sided chest pain that radiated into the back, down the L arm and into the jaw. Pain was slightly worse with deep inspiration but unchanged with exertion. He did not take anything for his pain at home. Sxs were assoc with diaphoresis, SOB, nausea and one episode of vomiting. Pt has never had symptoms like this before. He is relatively active and hiked in the snow 3 days ago with no issues. He does have a + FmHx of father with DE in his 50s. Pt has a prior tobacco history. Pt currently lives at home with , Tracey, who is the regional training manager of [employer]. Pt denies fever/ chills, palpitations, abd pain, bowel or bladder issues, LE edema, calf pain, lightheadedness/dizziness. In the ED, pt is pao with saturations dropping to 88% on room air. Pt is afebrile with no leukocytosis. Trop negative. EKG + LBBB (no previous EKG available for comparison). Pt is currently chest pain free. He will be admitted for further evaluation and treatment. Physical Exam (per Admitting): General Appearance: WD/WN, no apparent distress, + pertinent finding (Pt is sitting up in bed with at bedside ) Head: normocephalic, atraumatic Eyes: normal inspection ENT: hearing grossly normal Neck: supple Respiratory/Chest: chest non-tender, lungs clear, normal breath sounds, no respiratory distress Cardiovascular: regular rate, rhythm, no edema, no murmur Abdomen/GI: normal bowel sounds, non tender, soft Back: normal inspection Extremities/Musculoskelatal: normal inspection, no calf tenderness, no pedal edema Neurologic/Psych: alert, normal mood/affect, oriented x 3 Skin: normal color, warm/dry Hospital Course ATYPICAL CHEST PAIN ACUTE CORONARY SYNDROME RULED OUT -risk factors include family history, prior tobacco use and dyslipidemia -EKst degree AV block and LBBB (no previous EKG available for comparison); Cardiac markers x 3: negative -ECHO: The left ventricle is normal in size. * Ejection Fraction = 65-70%. * Septal motion is consistent with conduction abnormality. * The right ventricular systolic function is normal. * The left atrial size is normal. * Right atrial size is normal. * No significant valvular pathology. - CT Chest: no dissection -- started on Aspirin Atorvastatin continued -- Dr. Mckinney consulted, recommend outpatient Stress Test 04/16/16 LEFT BUNDLE BRANCH BLOCK 1ST DEGREE AV BLOCK no previous EKGs for comparison outpatient ff up with Cardiology RIGHT UPPER LOBE NODULES seen on CT chest "A few groundglass nodules within the right upper lobe, the largest of which measures 1 cm. This could reflect a minimal infectious or inflammatory etiology although a low-grade neoplasm could appear similar. A follow-up chest CT in 6 months is recommended." - repeat CT chest in 6 months DYSLIPIDEMIA -continue statin DVT PROPHYLAXIS -subq heparin given Disposition d/c home today Stress Test tomorrow 04/16/16 Ff up with PCP Dr. Smith in Thursday04/18/16 Total time spent on discharge = 35 minutes This includes examination of the patient, discharge planning, medication reconciliation, and communication with other providers. Discharge Instructions Discharge Instructions Admission Reason for Admission: Chest Pain Discharge Discharge Diagnosis / Problem: CHEST PAIN Discharge Goals Goal(s): Diagnostic testing, Therapeutic intervention Activity Recommendations Activity Limitations: as noted below (no heavy exertion until re-evaluated by Primary Care Physician) . Instructions / Follow-Up Instructions / Follow-Up PLEASE REVIEW YOUR NEW MEDICATION LIST AND FOLLOW INSTRUCTIONS CAREFULLY. [facility] WILL BE CALLING YOU REGARDING SCHEDULE FOR THE STRESS TEST TOMORROW 04/16/16. FOLLOW UP WITH PRIMARY CARE PHYSICIAN- DR. SMITH ON Thursday04/18/16 AT 2:20PM. AVOID ACIDIC AND SPICY FOOD, CARBONATED AND ALCOHOLIC BEVERAGES. ALWAYS TAKE ASPIRIN WITH A FULL STOMACH. RETURN TO ER IMMEDIATELY IF WITH RECURRENCE OF SYMPTOMS. Current Hospital Diet Patient's current hospital diet: AHA Diet (Heart Healthy) Discharge Diet Recommended Diet: AHA Diet (Heart Healthy) Pending Studies Studies pending at discharge: yes List of pending studies: LEXISCAN STRESS TEST; REPEAT CT SCAN OF THE CHEST IN 6 MONTHS Laboratory Results Lipid Panel Test 04/15/16 07:41 Range/Units Triglycerides Level 77 0-150 mg/dl Cholesterol Level 150 0-200 mg/dl HDL Cholesterol 53 mg/dl Cholesterol/HDL Ratio 2.8 LDL Cholesterol, Calculated 82 mg/dl Medical Emergencies . Who to Call and When: Medical Emergencies: If at any time you feel your situation is an emergency, please call 911 immediately. . Non-Emergent Contact Non-Emergency issues call your: Primary Care Provider . Past History Medical & Surgical History: (1) New onset left bundle branch block (LBBB) (2) Chest pain radiating to upper extremity . "Provider Documentation" section prepared by Vern Mark. VTE Core Measure Inpt VTE Proph given/why not?: Unfractionated heparin SQ
[2016-04-15 13:12] VITALS: BP 145/84; PULSE 57; TEMP 36.5; O2SAT 92
== END 2016-04-15 13:45 | disposition home or self-care (01) ==
LOC: ENRESERVTM → ENRESERVDT → C.EDB 07:08 → C.2T 09:54
PROVIDERS: ADMIT Internal Medicine; ATTEND Internal Medicine
DX: R07.89 Other chest pain (principal); I44.7 Left bundle-branch block, unspecified; I44.0 Atrioventricular block, first degree; R91.8 Other nonspecific abnormal finding of lung field; E78.5 Hyperlipidemia, unspecified; Z51.81 Encounter for therapeutic drug level monitoring; Z79.899 Other long term (current) drug therapy; Z79.82 Long term (current) use of aspirin; Z87.891 Personal history of nicotine dependence; Z82.49 Family history of ischemic heart disease and other diseases of the circulatory system; Z84.1 Family history of disorders of kidney and ureter; Z83.3 Family history of diabetes mellitus

== ENCOUNTER 2022-10-28 10:03 | Inpatient (IN) ==
[2022-10-28] MEDS ORDERED: fentaNYL citrate PF 100 MCG/2 ML VIAL IM ONE (10:10)
[2022-10-28] MEDS ORDERED: METHOCARBAMOL 750 MG TABLET PO STA (10:10)
--- NOTE | 2022-10-28 10:12 | Emergency Department Note ---
Impression & Plan Intractable back pain, Ambulatory dysfunction, Herniated lumbar intervertebral disc ED Provider Note HISTORY OF PRESENT ILLNESS: Patient is a 73-year-old male presenting with low back pain and bilateral hip pain. Patient reports he was gardening and digging potatoes 3 days ago and developed his back pain. States that he has been laying in a recliner for the last 2 days secondary to immense pain with movement. Denies any direct injury to the back. He has a history of multiple herniated disks and states this feels similar. He denies any saddle anesthesia. Reports pain is into the bilateral hips and radiates down his bilateral legs. Denies any fevers. Denies any abdom inal pain. Denies any nausea or vomiting. Denies any chest pain denies any dysuria or hematuria. He was given 50 mg IV Toradol with EMS prehospital. Patient has been on high-dose steroids at home for his continued back pain, but it does not seem to be helping ROS: as above PHYSICAL EXAM: Constitutional: Patient appears in no acute distress. HENT: Head: Normocephalic and atraumatic. Eyes: EOMI, PERRL Mouth/Throat: Mucous membranes moist. Neck: Trachea midline. Neck supple. Abdominal: Abdomen soft, no tenderness, rebound or guarding. Back: No midline spinal tenderness, no paraspinal tenderness, no CVA tenderness. Musculoskeletal: No edema, tenderness or deformity noted. Skin: Warm and dry. No rash, erythema, pallor or cyanosis Psychiatric: Appropriate mood and affect for situation. Neurological: Alert and keenly responsive. CN II-XII grossly intact, moving all extremities equally and fully. MDM: - Vitals signs stable. - History obtained via patient. Patient presents with low back pain. Patient reports he was gardening and digging potatoes 3 days ago and developed back pain. He has been unable to get up out of his recliner in the last 3 days secondary to immense pain. Denies any bowel or bladder incontinence. Denies any direct injury to the back. Denies any fevers. Denies any numbness or tingling down his legs. He has been on steroids for the last 2 days. - Chronic conditions affecting care: none - Differential diagnoses include, but are not limited to: Fracture; cauda equina; muscle spasm - Order placed for continuous cardiac monitoring. At this time, monitor showed rate of 55 bpm with normal sinus rhythm, per my interpretation. - External medical records reviewed. EMS run sheet reviewed. Patient was vitally stable in route. He was given 15 mg of IV Toradol prehospital - CT lumbar spine wo contrast negative for acute pathology. - MRI lumbar wo contrast showed left posterior lateral disc extrusion at L5-S1 causing central canal stenosis and impingement on the left-sided nerve roots - Patient was given 750 mg PO robaxin and 50 mcg IV fentanyl in ER. - Patient unable to get up and ambulate in the emergency department secondary to continued back pain. Discussed admission for observation for pain control, to which patient was agreeable. - Discussion was had with social director about patient's case and need for admission - Hospitalist consulted for admission - [facility] ASSESSMENT AND PLAN: Diagnosis: intractable back pain; ambulatory dysfunction; herniated lumbar disc Plan: admit Past Med/Surg History Social History Smoking Status: Former smoker Feels Safe at Home: Yes Allergies Allergies Allergy/AdvReac Type Severity Reaction Status Date / Time No Known Allergies Allergy Unverified 10/28/22 11:18 Home Meds Home Medications Medication Instructions Recorded Confirmed atorvastatin 40 mg tablet 40 mg PO DAILY #0 tabs 04/14/16 10/28/22 Mometasone Daily Nasal Rinse See Rx Instructions .Route .COMPLEX 10/28/22 acetaminophen 500 mg tablet 500 mg PO Q6H PRN Pain 10/28/22 10/28/22 Results & Data (ED) Vital Signs Vital Signs - 24 hr 10/28/22 10:13 10/28/22 10:17 10/28/22 10:15 Temperature 36.5 C Temperature Source Temporal Artery Scan Pulse Rate 50 L 48 L 48 L Pulse Rate from SpO2 Sensor 48 L Pulse Rhythm Regular Respiratory Rate 20 19 Respiratory Effort / Characteristics Non-Labored Spontaneous Respiratory Depth Normal Blood Pressure 176/83 H Blood Pressure Mean 114 Pulse Oximetry 95 94 Oxygen Delivery Method Room Air Sepsis Recent Fever Within 48 Hours No Sepsis New/Unexplained Change in Mental Status No Sepsis Action Taken by Nursing No Action Required 10/28/22 10:40 10/28/22 11:00 10/28/22 11:00 Temperature Temperature Source Pulse Rate 48 L 44 L Pulse Rate from SpO2 Sensor 48 L 44 L Pulse Rhythm Respiratory Rate 16 26 H Respiratory Effort / Characteristics Respiratory Depth Blood Pressure 151/77 H Blood Pressure Mean 92 Pulse Oximetry 96 93 Oxygen Delivery Method Sepsis Recent Fever Within 48 Hours Sepsis New/Unexplained Change in Mental Status Sepsis Action Taken by Nursing 10/28/22 11:30 10/28/22 11:30 10/28/22 12:00 Temperature Temperature Source Pulse Rate 44 L Pulse Rate from SpO2 Sensor 44 L Pulse Rhythm Respiratory Rate 19 Respiratory Effort / Characteristics Respiratory Depth Blood Pressure 151/74 H 147/65 H Blood Pressure Mean 110 95 Pulse Oximetry 91 Oxygen Delivery Method Sepsis Recent Fever Within 48 Hours Sepsis New/Unexplained Change in Mental Status Sepsis Action Taken by Nursing 10/28/22 12:00 10/28/22 12:30 10/28/22 12:30 Temperature Temperature Source Pulse Rate 45 L 45 L Pulse Rate from SpO2 Sensor 46 L 45 L Pulse Rhythm Respiratory Rate 15 17 Respiratory Effort / Characteristics Respiratory Depth Blood Pressure 148/70 H Blood Pressure Mean 105 Pulse Oximetry 93 93 Oxygen Delivery Method Room Air Sepsis Recent Fever Within 48 Hours Sepsis New/Unexplained Change in Mental Status Sepsis Action Taken by Nursing 10/28/22 13:00 10/28/22 14:18 10/28/22 13:01 Temperature Temperature Source Pulse Rate 60 46 L Pulse Rate from SpO2 Sensor 61 Pulse Rhythm Respiratory Rate 16 Respiratory Effort / Characteristics Respiratory Depth Blood Pressure 156/72 H Blood Pressure Mean 114 Pulse Oximetry 94 Oxygen Delivery Method Room Air Sepsis Recent Fever Within 48 Hours Sepsis New/Unexplained Change in Mental Status Sepsis Action Taken by Nursing 10/28/22 13:56 10/28/22 14:00 10/28/22 14:00 Temperature Temperature Source Pulse Rate 49 L Pulse Rate from SpO2 Sensor 52 L 50 L Pulse Rhythm Respiratory Rate 19 Respiratory Effort / Characteristics Respiratory Depth Blood Pressure 136/75 Blood Pressure Mean 97 Pulse Oximetry 92 90 Oxygen Delivery Method Sepsis Recent Fever Within 48 Hours Sepsis New/Unexplained Change in Mental Status Sepsis Action Taken by Nursing 10/28/22 14:30 10/28/22 14:30 10/28/22 15:00 Temperature Temperature Source Pulse Rate 45 L Pulse Rate from SpO2 Sensor 46 L Pulse Rhythm Respiratory Rate 19 Respiratory Effort / Characteristics Respiratory Depth Blood Pressure 131/71 132/73 Blood Pressure Mean 107 98 Pulse Oximetry 92 Oxygen Delivery Method Room Air Sepsis Recent Fever Within 48 Hours Sepsis New/Unexplained Change in Mental Status Sepsis Action Taken by Nursing 10/28/22 15:00 10/28/22 15:30 10/28/22 15:30 Temperature Temperature Source Pulse Rate 48 L 51 L Pulse Rate from SpO2 Sensor 48 L 51 L Pulse Rhythm Respiratory Rate 19 18 Respiratory Effort / Characteristics Respiratory Depth Blood Pressure 149/76 H Blood Pressure Mean 110 Pulse Oximetry 92 92 Oxygen Delivery Method Sepsis Recent Fever Within 48 Hours Sepsis New/Unexplained Change in Mental Status Sepsis Action Taken by Nursing 10/28/22 16:00 10/28/22 16:00 Temperature Temperature Source Pulse Rate 52 L Pulse Rate from SpO2 Sensor 52 L Pulse Rhythm Respiratory Rate 21 Respiratory Effort / Characteristics Respiratory Depth Blood Pressure 146/84 H Blood Pressure Mean 121 Pulse Oximetry 92 Oxygen Delivery Method Sepsis Recent Fever Within 48 Hours Sepsis New/Unexplained Change in Mental Status Sepsis Action Taken by Nursing Administered Medications Discontinued Medications Fentanyl Citrate (Fentanyl Citrate Pf 100 Mcg/2 Ml Vial) 50 mcg IM NOW ONE Stop: 10/28/22 10:11 Last Admin: 10/28/22 10:21 Dose: 50 mcg Documented By: KAROLINA Methocarbamol (Methocarbamol 750 Mg Tablet) 750 mg PO NOW STA Stop: 10/28/22 10:11 Last Admin: 10/28/22 10:42 Dose: 750 mg Documented By: KAROLINA Imaging Data Radiologist's Impression: Lumbar Spine CT 10/28/22 10:10 CT lumbar spine wo con CLINICAL HISTORY: low back pain TECHNIQUE: Multidetector row helical CT of the lumbar spine was performed without administration of intravenous contrast. Coronal and sagittal reformations were obtained. Automated dose lowering techniques and/or adjustment according to patient size were utilized for this exam. CT DOSE: 1193.84 mGy.cm Comparison: None available at the time of this dictation. FINDINGS: For counting purposes, the last complete intervertebral disc space is considered L5-S1. No acute fractures are identified. Vertebral body heights and disk spaces are well maintained. Vertebral body alignment is within normal limits. Partial visualization of bilateral renal cysts. Atherosclerotic disease is seen in the aorta. IMPRESSION: No evidence of acute bony injury. ACT 112: Negative or not required by law. Electronically signed by: Rashid Calixto M.D. 10/28/2022 11:01 AM Lumbar Spine MRI 10/28/22 12:46 MRI OF THE LUMBAR SPINE WITHOUT IV CONTRAST CLINICAL HISTORY: Low back pain. COMPARISON STUDY: CT scan of the lumbar spine dated 10/28/2022. TECHNIQUE: MRI of the spine is performed utilizing various T1 and T2-weighted sequences in the axial and sagittal planes. IV contrast was not administered for this examination. The examination is significantly degraded by motion artifact. FINDINGS: Vertebral body height and alignment are maintained throughout the lumbar spine. Transitional lumbosacral segment will be labeled S1 for the purposes of this examination. The transverse and spinous processes appear intact. There is no evidence of spondylolysis. No destructive bony lesion is seen. Tiny anterior osteophytes are noted. Intervertebral discs: Disc desiccation and loss of height is seen throughout the lumbar spine. Spinal cord: The visualized spinal cord is normal in morphology and signal intensity. The conus medullaris terminates at the level of L1. The nerve roots of the cauda equina are normal in morphology. L1-L2: The central canal and neural foramina are patent. This level is only assessed on the sagittal sequences. L2-L3: There is minimal posterior disc bulge which abuts the transiting nerve roots. There is no significant acquired compromise of the central canal. The neural foramina are patent. L3-L4: There is minimal posterior disc bulge. This abuts the transiting nerve roots. In conjunction with hypertrophy of the ligamentum flavum, there is mild acquired compromise of the central canal. The minimum AP canal diameter measures 8 mm. The neural foramina are patent. L4-L5: There is broad-based posterior disc bulge which abuts the transiting nerve roots. No significant acquired compromise of the central canal is identified. Lateral disc bulges contribute to bilateral subarticular stenosis, left greater than right. In conjunction with facet arthropathy, there is mild left neural foraminal stenosis. The right neural foramen is patent. L5-S1: There is a left posterior disc extrusion, best seen on axial image #17. This impinges on the transiting left-sided nerve roots. The extruded fragment measures up to 10 mm. There is hltc-ey-tlcbglto central canal stenosis at this level with a minimum AP diameter of 7 mm. In conjunction with facet arthropathy, there is moderate left and ffbk-ji-caypdivt right neural foraminal stenosis. Sacrum: The visualized sacrum is normal in morphology and signal intensity. Soft tissues: The paraspinous soft tissues are normal in appearance. Left renal cysts are partially visualized. The retroperitoneal structures are otherwise grossly unremarkable but incompletely evaluated. IMPRESSION: 1. No acute bony abnormality is identified. 2. Left posterolateral disc extrusion at L5-S1 which contributes to central canal stenosis and impinges in the transiting left-sided nerve roots. 3. Mild spondylotic change at additional levels as above. See discussion for detailed level by level analysis. 4. Additional findings as above. Dictated: 10/28/2022 1:52 PM Transcribed: 10/28/2022 2:12 PM Vincent [id number]_Dov [id number] Electronically signed by: Wade Brooks M.D. 10/28/2022 3:09 PM Discharge Plan Visit Data Chief Complaint: Back Injury/Pain ED Provider: Leslie Coleman Discharge Problem: Intractable back pain, Ambulatory dysfunction, Herniated lumbar intervertebral disc Forms Stand Alone Forms: My [facility] Prescriptions Prescriptions: No Action atorvastatin 40 mg Tablet 40 mg PO DAILY Qty: 0 acetaminophen [Tylenol Ex Str Rapid Release] 500 mg Tablet 500 mg PO Q6H PRN (Reason: Pain) Mometasone Daily Nasal Rinse See Rx Instructions .ROUTE .COMPLEX Rx Instructions: Use to rinse nasal cavities every morning Referrals Referrals: PCP,NO [Physician] -
--- NOTE | 2022-10-28 11:02 | CT Scan Report ---
CT lumbar spine wo con CLINICAL HISTORY: low back pain TECHNIQUE: Multidetector row helical CT of the lumbar spine was performed without administration of i ntravenous contrast. Coronal and sagittal reformations were obtained. Automated dose lowering techniq ues and/or adjustment according to patient size were utilized for this exam. CT DOSE: 1193.84 mGy.cm Comparison: None available at the time of this dictation. FINDINGS: For counting purposes, the last complete intervertebral disc space is considered L5-S1. No acute fractures are identified. Vertebral body heights and disk spaces are well maintained. Verteb ral body alignment is within normal limits. Partial visualization of bilateral renal cysts. Atheroscl erotic disease is seen in the aorta. IMPRESSION: No evidence of acute bony injury. ACT 112: Negative or not required by law. Electronically signed by: Rashid Calixto M.D. 10/28/2022 11:01 AM
--- NOTE | 2022-10-28 15:10 | Magnetic Resonance Report ---
MRI OF THE LUMBAR SPINE WITHOUT IV CONTRAST CLINICAL HISTORY: Low back pain. COMPARISON STUDY: CT scan of the lumbar spine dated 10/28/2022. TECHNIQUE: MRI of the spine is performed utilizing various T1 and T2-weighted sequences in the axial and sagittal planes. IV contrast was not administered for this examination. The examination is signif icantly degraded by motion artifact. FINDINGS: Vertebral body height and alignment are maintained throughout the lumbar spine. Transitiona l lumbosacral segment will be labeled S1 for the purposes of this examination. The transverse and spi nous processes appear intact. There is no evidence of spondylolysis. No destructive bony lesion is se en. Tiny anterior osteophytes are noted. Intervertebral discs: Disc desiccation and loss of height is seen throughout the lumbar spine. Spinal cord: The visualized spinal cord is normal in morphology and signal intensity. The conus medul carmelina terminates at the level of L1. The nerve roots of the cauda equina are normal in morphology. L1-L2: The central canal and neural foramina are patent. This level is only assessed on the sagittal sequences. L2-L3: There is minimal posterior disc bulge which abuts the transiting nerve roots. There is no sign ificant acquired compromise of the central canal. The neural foramina are patent. L3-L4: There is minimal posterior disc bulge. This abuts the transiting nerve roots. In conjunction w ith hypertrophy of the ligamentum flavum, there is mild acquired compromise of the central canal. The minimum AP canal diameter measures 8 mm. The neural foramina are patent. L4-L5: There is broad-based posterior disc bulge which abuts the transiting nerve roots. No significa nt acquired compromise of the central canal is identified. Lateral disc bulges contribute to bilatera l subarticular stenosis, left greater than right. In conjunction with facet arthropathy, there is mil d left neural foraminal stenosis. The right neural foramen is patent. L5-S1: There is a left posterior disc extrusion, best seen on axial image #17. This impinges on the t ransiting left-sided nerve roots. The extruded fragment measures up to 10 mm. There is exzv-gc-ixzpqx te central canal stenosis at this level with a minimum AP diameter of 7 mm. In conjunction with facet arthropathy, there is moderate left and pisc-yi-utmejdpk right neural foraminal stenosis. Sacrum: The visualized sacrum is normal in morphology and signal intensity. Soft tissues: The paraspinous soft tissues are normal in appearance. Left renal cysts are partially v isualized. The retroperitoneal structures are otherwise grossly unremarkable but incompletely evaluat ed. IMPRESSION: 1. No acute bony abnormality is identified. 2. Left posterolateral disc extrusion at L5-S1 which contributes to central canal stenosis and imping es in the transiting left-sided nerve roots. 3. Mild spondylotic change at additional levels as above. See discussion for detailed level by level analysis. 4. Additional findings as above. Dictated: 10/28/2022 1:52 PM Transcribed: 10/28/2022 2:12 PM Vincent [id number] [id number] Electronically signed by: Wade Brooks M.D. 10/28/2022 3:09 PM
--- NOTE | 2022-10-28 17:14 | History & Physical Report ---
Date of Service October 28, 2022 Assessment & Plan (1) Herniated lumbar intervertebral disc: Plan: Admit to [facility] Patient presenting from home with reports of intractable back pain x 4 days. Patient reports history of chronic low back pain for the past several years and has taken courses of oral steroids and steroid injections. In the ED, lumbar spine MRI shows left posterolateral disc extrusion at L5-S1 which contributes to central canal stenosis and impinges in the transiting left- sided nerve roots. Strength strong and equal BLE, no urinary or bowel dysfunction Received IV fentanyl and methocarbamol in the ED with improvement in symptoms Pain control with scheduled Tylenol, oxycodone and Valium for breakthrough pain Spine Ortho consult, case discussed with Dr. Courtney, will hold on steroids for now In anticipation of possible procedure, will keep n.p.o. after midnight and check CBC, BMP, CXR, and EKG. Patient currently without cardiopulmonary complaints (2) LBBB (left bundle branch block): Plan: History of chronic LBBB and bradycardia EKG (3) Elevated BP without diagnosis of hypertension: Plan: BP elevated, likely situational/due to pain Continue to monitor, provide antihypertensive agent if persisting (4) Dyslipidemia: Plan: Continue statin DVT PROPHYLAXIS SCDs due to possible invasive procedure Patient seen in collaboration with Dr. Pavon. I spent a total of 60 minutes coordinating, documenting, and providing care for this patient excluding time spent in the performance of separately billed services. This included personally reviewing all current laboratories and imag ing studies, medication reconciliation, outpatient chart review, and discussion with specialists. History of Present Illness Chief Complaint: Back pain Primary Care Provider: Byron Bryan DO 72 year old male with PMH HLD, chronic rhinitis, and other problems listed below who presents to the ED for evaluation of back pain. History obtained from the patient and review of outpatient PCP records. Patient reports ongoing back issues for the past several years and has taken courses of oral steroids and injections. Patient reports working in his garden 4 days ago and had sudden onset low back pain. Pain radiates into the groin and down the inside of the left leg. Patient reports having left over steroids and oxycodone. He started taking Prednisone 40mg 3 days ago. Initially he was starting to feel improvement however when he tried to put on pants yesterday the pain returned. He has not been able to ambulate and required EMS assistance today to get out of bed and came to the ED. Patient reports he otherwise has been feeling well recently. No other recent illnesses, fever or chills. Denies chest pain and shortness of breath. No lightheadedness, dizziness, diaphoresis, or syncopal events. Denies abdominal pain, nausea, vomiting, and diarrhea. No urinary symptoms. In the ED, lumbar spine MRI left posterolateral disc extrusion at L5-S1 which contributes to central canal stenosis and impinges in the transiting left-sided nerve roots. Patient was given fentanyl and methocarbamol and reports improvement in his symptoms. Allergies Allergy/AdvReac Type Severity Reaction Status Date / Time No Known Allergies Allergy Unverified 10/28/22 11:18 Home Medications Medication Instructions Recorded Confirmed Type atorvastatin 40 mg tablet 40 mg PO DAILY #0 tabs 04/14/16 10/28/22 History Mometasone Daily Nasal Rinse See Rx Instructions .Route .COMPLEX 10/28/22 10/28/22 History Past Med/Surg History Medical History Allergic rhinitis Dyslipidemia LBBB (left bundle branch block) Surgical History (Updated 10/28/22 @ 17:02 by TOMASZ Fountain) H/O sinus surgery History of cholecystectomy Social History Smoking Status: Former smoker Feels Safe at Home: Yes Physical Exam Constitutional: WD/WN, vitals as above Eyes: PERRL, conjunctivae normal, anicteric sclerae ENMT: external ear and nose normal, oropharynx normal Respiratory: normal respiratory effort, lungs clear to auscultation Cardiovascular: Rate/Rhythm: regular rhythm and + bradycardic Vessels: normal peripheral pulses Extremities: no edema Gastrointestinal (Abdomen): normal bowel sounds, soft, nontender, no hepatosplenomegaly Musculoskeletal: strength strong and equal BLE Skin: no rashes, warm and dry Neurologic: PERRL, EOMI, accommodation nl, no face palsy, no dysarthria Psychiatric: A+Ox3, euthymic affect Results & Data Results & Data Vital Signs (Past 12 Hours) Vital Signs Temp Pulse Resp BP Pulse Ox O2 Del Method 10/28/22 16:00 52 L 21 92 10/28/22 16:00 146/84 H 10/28/22 15:30 51 L 18 92 10/28/22 15:30 149/76 H 10/28/22 15:00 48 L 19 92 10/28/22 15:00 132/73 10/28/22 14:30 45 L 19 92 Room Air 10/28/22 14:30 131/71 10/28/22 14:00 49 L 19 90 10/28/22 14:00 136/75 10/28/22 13:56 92 10/28/22 13:01 156/72 H 10/28/22 14:18 46 L 10/28/22 13:00 60 16 94 Room Air 10/28/22 12:30 45 L 17 93 10/28/22 12:30 148/70 H 10/28/22 12:00 45 L 15 93 Room Air 10/28/22 12:00 147/65 H 10/28/22 11:30 44 L 19 91 10/28/22 11:30 151/74 H 10/28/22 11:00 44 L 26 H 93 10/28/22 11:00 151/77 H 10/28/22 10:40 48 L 16 96 10/28/22 10:15 48 L 19 94 10/28/22 10:17 48 L 10/28/22 10:13 36.5 C 50 L 20 176/83 H 95 Room Air Diagnostic Findings Lumbar Spine CT 10/28/22 10:10 CT lumbar spine wo con CLINICAL HISTORY: low back pain TECHNIQUE: Multidetector row helical CT of the lumbar spine was performed without administration of intravenous contrast. Coronal and sagittal reformations were obtained. Automated dose lowering techniques and/or adjustment according to patient size were utilized for this exam. CT DOSE: 1193.84 mGy.cm Comparison: None available at the time of this dictation. FINDINGS: For counting purposes, the last complete intervertebral disc space is considered L5-S1. No acute fractures are identified. Vertebral body heights and disk spaces are well maintained. Vertebral body alignment is within normal limits. Partial visualization of bilateral renal cysts. Atherosclerotic disease is seen in the aorta. IMPRESSION: No evidence of acute bony injury. ACT 112: Negative or not required by law. Electronically signed by: Rashid Calixto M.D. 10/28/2022 11:01 AM Lumbar Spine MRI 10/28/22 12:46 MRI OF THE LUMBAR SPINE WITHOUT IV CONTRAST CLINICAL HISTORY: Low back pain. COMPARISON STUDY: CT scan of the lumbar spine dated 10/28/2022. TECHNIQUE: MRI of the spine is performed utilizing various T1 and T2-weighted sequences in the axial and sagittal planes. IV contrast was not administered for this examination. The examination is significantly degraded by motion artifact. FINDINGS: Vertebral body height and alignment are maintained throughout the lumbar spine. Transitional lumbosacral segment will be labeled S1 for the purposes of this examination. The transverse and spinous processes appear intact. There is no evidence of spondylolysis. No destructive bony lesion is seen. Tiny anterior osteophytes are noted. Intervertebral discs: Disc desiccation and loss of height is seen throughout the lumbar spine. Spinal cord: The visualized spinal cord is normal in morphology and signal intensity. The conus medullaris terminates at the level of L1. The nerve roots of the cauda equina are normal in morphology. L1-L2: The central canal and neural foramina are patent. This level is only assessed on the sagittal sequences. L2-L3: There is minimal posterior disc bulge which abuts the transiting nerve roots. There is no significant acquired compromise of the central canal. The neural foramina are patent. L3-L4: There is minimal posterior disc bulge. This abuts the transiting nerve roots. In conjunction with hypertrophy of the ligamentum flavum, there is mild acquired compromise of the central canal. The minimum AP canal diameter measures 8 mm. The neural foramina are patent. L4-L5: There is broad-based posterior disc bulge which abuts the transiting nerve roots. No significant acquired compromise of the central canal is identified. Lateral disc bulges contribute to bilateral subarticular stenosis, left greater than right. In conjunction with facet arthropathy, there is mild left neural foraminal stenosis. The right neural foramen is patent. L5-S1: There is a left posterior disc extrusion, best seen on axial image #17. This impinges on the transiting left-sided nerve roots. The extruded fragment measures up to 10 mm. There is [id number] central canal stenosis at this level with a minimum AP diameter of 7 mm. In conjunction with facet arthropathy, there is moderate left and [id number] right neural foraminal stenosis. Sacrum: The visualized sacrum is normal in morphology and signal intensity. Soft tissues: The paraspinous soft tissues are normal in appearance. Left renal cysts are partially visualized. The retroperitoneal structures are otherwise grossly unremarkable but incompletely evaluated. IMPRESSION: 1. No acute bony abnormality is identified. 2. Left posterolateral disc extrusion at L5-S1 which contributes to central canal stenosis and impinges in the transiting left-sided nerve roots. 3. Mild spondylotic change at additional levels as above. See discussion for de tailed level by level analysis. 4. Additional findings as above. Dictated: 10/28/2022 1:52 PM Transcribed: 10/28/2022 2:12 PM Vincent [id number] Electronically signed by: Wade Brooks M.D. 10/28/2022 3:09 PM Code Status & VTE Plan VTE Prophylaxis Plan VTE Prophylaxis will be ordered: Yes Supervising Physician Co-Signing Physician Notes Patient presenting from home with reports of intractable back pain x 4 days. Patient reports history of chronic low back pain for the past several years and has taken courses of oral steroids and steroid injections. In the ED, lumbar spine MRI shows left posterolateral disc extrusion at L5-S1 which contributes to central canal stenosis and impinges in the transiting left- sided nerve roots. ortho consult for now npo past midnight for possible proceedure ordered labs in am
[2022-10-28 18:34] LABS: Basophils # (auto) 0.07 K/uL (0.00-0.20); Basophils % (auto) 0.9 %; Hematocrit (blood only) 41.3 % (42.0-52.0); Hemoglobin 14.4 g/dl (14.0-18.0); Immature Granulocytes # (auto) 0.01 K/uL (0.01-0.20); Immature Granulocytes % (auto) 0.1 %; Lymphocytes # (auto) 2.87 K/uL (1.20-3.40); Lymphocytes % (auto) 36.2 %; Mean Corpuscular Hemoglobin 30.7 pg (25.0-34.0); Mean Corpuscular Hgb Conc 34.9 g/dL (32.0-36.0); Mean Corpuscular Volume 88.1 fL (80.0-100.0); Monocytes # (auto) 0.86 K/uL (0.11-0.59); Monocytes % (auto) 10.9 %; Neutrophils # (auto) 4.11 K/uL (1.40-6.50); Neutrophils % (auto) 51.9 %; Platelet Count 184 K/uL (130-400); RDW Coefficient of Variation 12.6 % (11.5-14.5); RDW Standard Deviation 40.8 fL (36.4-46.3); Red Blood Count 4.69 M/uL (4.70-6.10); White Blood Count 7.92 K/ul (4.8-10.8)
[2022-10-28 18:51] LABS: BUN Creatinine Ratio 36.4 (10-20); Calcium 8.9 mg/dl (8.6-10.3); Creatinine Clr Calc Pharmacy 80.8 ml/min; Est GFR (African American) 99.5 ml/min; Est GFR (Non-African American) 85.8 ml/min; Potassium 3.5 mmol/L (3.5-5.1)
--- NOTE | 2022-10-28 19:21 | XRay Report ---
SINGLE VIEW CHEST CLINICAL HISTORY: Preoperative examination. FINDINGS: An AP, portable, upright chest radiograph is compared to chest x-ray and chest CT dated 04/02. The heart is enlarged and noting atherosclerotic calcification of the thoracic aorta. The pul monary vasculature is noncongested. Chronic interstitial thickening is previous. There is chronic courtney vation of the right hemidiaphragm with mild bibasilar atelectasis. No airspace consolidation or large pleural effusion is identified No pneumothorax is seen. The skeletal structures are osteopenic. 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 Cholecystectomy clips are seen in the righ t upper quadrant. IMPRESSION: Mild cardiomegaly with no active disease in the chest. ACT 112: Negative or not required by law. Electronically signed by: Wade Brooks M.D. 10/28/2022 7:20 PM
[2022-10-28] MEDS ORDERED: oxyCODONE HCL IR 5 MG TAB (IMMEDIATE RELEASE) PO PRN (19:24)
[2022-10-28] MEDS ORDERED: diazePAM 5 MG TABLET PO PRN (19:24)
[2022-10-28] MEDS: ACETAMINOPHEN 500 MG TAB PO SCH (19:52)
[2022-10-29] MEDS: ACETAMINOPHEN 500 MG TAB PO SCH ×2 (03:47→11:06)
--- OUTSIDE RECORDS SUMMARY | 2022-10-29 06:55 | External Medical Summary | Summary of Care ---
Author Name Unknown Organization [place] [address] Care Team Providers Care Pari Mutuel Clerk Name Role Phone IrvinByron Loraine CHESTER Primary Care Provider [phone] Reason for Visit * Reason Comments Follow Up Encounter Details Date Type Department Care Team Description 12/19/2021 Office Visit Otolaryngology Allergy [facility] [address] [place] [address] Tegan Lakhani CRNP [address] [place], [place] [id number] Postoperative state*; Chronic pansinusitis; Nasal polyposis Allergies No known active allergiesdocumented as of this encounter (statuses as of 12/23/2021) Medications Medication Sig Dispensed Refills Start Date End Date Status IBUPROFEN 200 MG PO CAPS as needed 0 Active Coenzyme Q10 (COQ10) 100 MG CAPS Take 1 Tab by mouth daily. 0 Active nitroglycerin (NITROSTAT) 0.[address] 1 Tab under the tongue as needed. 1 tab every 5 minutes x 3 as needed for CP 0 04/15/2016 Active predniSONE 10 MG Oral Tablet (Deltasone) Take 4 tab daily x 3 days, then 3 tab daily x 3 days, 2 tab daily x 3 days, then 1 tab daily x 3 days. 30 Tablet 0 06/28/2021 Active Additional Information Patient not taking. Informant: Patient, Reported on 10/28/2021 Atorvastatin Calcium 40 MG Oral Tablet (Lipitor)Indication s:Dyslipidemia TAKE ONE TABLET BY MOUTH EVERY DAY 90 Tablet 1 07/25/2021 Active documented as of this encounter (statuses as of 12/23/2021) Active Problems Problem Noted Date Left bundle branch block 07/24/2020 Dyslipidemia 07/24/2020 Osteoarthritis of toe joint(s) 0 ADVANCE DIRECTIVE INFORMATION 04/24/2005 Overview: No, Advance Directive brochure offered , patient declined. Other allergic rhinitis 01/12/2004 Overview: ICD-10 update of inactive term Sciatica documented as of this encounter (statuses as of 12/23/2021) Immunizations Name Administration Dates Next Due COVID-19 mRNA, LNP-s, No Pre serve, 2-Dose Series (Moderna) 01/14/2021,05/01/2020,04/03/2020 COVID-19, LNP-s, No Preserve , Clinton-sucrose, Ages 12+ (Pfizer) 09/23/2021 H1N1 2009 Influenza, IM 04/17/2009 Seasonal Influenza, Quadriva lent Hd (Fluzone Hd) 11/12/2021,11/19/2020 Seasonal Influenza, Quadriva lent, No Preserve, 6 Mons & Above, IM 12/02/2019 Seasonal Influenza, Quadriva lent, No Preserve, IM 03/13/2015 Seasonal Influenza, Split, I IV3, With Preserve, Inj 12/11/2011,12/05/2008,01/01/2008,12/16,12/14/2002,12/29/2001 12/15/2003 TDAP (age 10 and older)(Boostrix) 03/13/2015 Zoster Vaccine Recombinant (Shingrix) 03/18/2019 documented as of this encounter Social History Tobacco Use Types Packs/Day Years Used Date Former Smoker Quit: 03/02 Smokeless Tobacco: Never Used Alcohol Use Standard Drinks/Week Comments Yes 0 (1 standard drink = 0.6 oz pur e alcohol) 1-2 wine/week Alcohol Habits Answer Date Recorded How often do you have a drink containing alcohol ? Not asked How many drinks containing a lcohol do you have on a typical day when you are drinking? Not asked How often do you have six or more drinks on one occasion? Not asked Comment: 1-2 wine/week 03/13/2015 Food Insecurity Answer Date Recorded Within the past 12 months, y ou worried that your food would run out before you got money to buy more. Never true 07/24/2020 Within the past 12 months, t he food you bought just didn't last and you didn't have money to get more. Never true 07/24/2020 Sex Assigned at Date Recorded Not on file Job Start Date Occupation Industry Not on file Not on file Not on file documented as of this encounter Last Filed Vital Signs Vital Sign Reading Time Taken Comments Blood Pressure - - Pulse - - Temperature 36.7 C (98 F) 12/19/2021 11:13 AM EDT Respiratory Rate - - Oxygen Saturation - - Inhaled Oxygen Concentration - - Weight - - Height - - Body Mass Index - - documented in this encounter Patient Instructions * Patient Instructions* TOMASZ Armenta - 12/19/2021 11:32 AM EDT -You may use Mometasone irrigations 1-2 times daily to help with nasal congestion. -Follow up as needed. You may follow up in the [facility] as well. 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 DATE OF PROCEDURE:10/28/2021 PRE-OP DIAGNOSIS:Chronic rhinosinusitis with nasal polyposis POST-OP DIAGNOSIS:Same PROCEDURE: Stereotactic guided revision endoscopic sinus surgery (CPT 93881) Revision leftmaxillary antrostomy Revision bilateraltotal ethmoidectomies (CPT 51639) Bilateral sphenoidotomies (CPT 65567) BilateralEndoscopic polypectomy (CPT 94740) Today, Huan is doing well since his last visit. He was able to use Flonase while visiting the . He is back to using mometasone irrigations once daily since Thursday. Still having nasal congestion bilaterally. Huan is noticing more of a sense of smell since recovering from surgery. Patient Active Problem List Diagnosis Code Sciatica M54.30 Other allergic rhinitis J30.89 ADVANCE DIRECTIVE INFORMATION Osteoarthritis of toe joint(s) Left bundle branch block I44.7 Dyslipidemia E78.5 Past Medical History: Diagnosis Date Combined forms of age-related cataract of both eyes Dyslipidemia Hereditary and idiopathic peripheral neuropathy Sciatica Shingles 11/30/2014 left T10 area Past Surgical History: Procedure Laterality Date COLONOSCOPY W/ BIOPSY (RECTUM) 06/25/01 normal exam. midly tortuous sigmoid COLONOSCOPY, DIAGNOSTIC (RECTUM) 04/28/2019 serrated adenomatous polyp, repeat 3 yrs / COLONOSCOPY FLEXIBLE PROXIMAL DIAGNOSTIC performed by Rhonda Curtis DO at ENDOSCOPY [facility] CT PELVIS W CONTRAST [facility]-a few sigmoid diverticula present, equivocal thickening versus fold in theupper rectum, no pelvic mass lesions suspected that would cause femoral neuropathy EMG, 2 EXTREMITIES 04/22/01 This a minimally abnormal NCV showing minor evidence of a sensorimotor polyneuropathy with demyelinating features. The EMG is too limited to draw any conclusions regarding any isolated involvement ofthe L femoral nerve. EMG, 2 EXTREMITIES 06/17/01 --there is monor evidence of a sensorimotor neuropathy with demyelinating features.this is unchanged from a prior study. IMPACT TOOTH REM BONY W/COMP age 38 wisdom teeth MRI L SPINE WO CONTRAST 12/14/00 611--normal lumbar spine MRI MRI PELVIS WO CONTRAST 04/26/01 [facility]--subtle edema type changes in the left lower iliac bone and adjacent left paraspinal musculature.This could indicate some subtle prior trauma or stress related change.No abnormal soft tissue massis detected. NASAL ENDOSCOPY,TOTAL ETHMOIDECTOMY Bilateral 10/28/2021 NASAL SINUS ENDOSCOPY WITH ETHMOIDECTOMY TOTAL performed by Daron Cerda MD [place] [facility] [place]/EXPLOR MAXIL SINUS Bilateral 10/28/2021 NASAL SINUS ENDOSCOPY MAXILLARY ANTROSTOMY performed by Daron Cerda MD at [place] [facility] [place]AL/SINUS ENDOSCOPY, SURGICAL Bilateral 10/28/2021 NASAL SINUS ENDOSCOPY SURGICAL WITH SPHENOIDOTOMY performed by Daron Cerda MD at [place] [facility] [place] NASAL/SINUS ENDOSCOPY, SURGICAL Bilateral 10/28/2021 NASAL SINUS ENDOSCOPY SURGICAL performed by Daron Cerda MD at [facility] REMOVAL OF TONSILS, UNDER AGE 12 age 5 REMOVE GALLBLADDER 1998 STEREOTACTIC CRANIAL EXTRADURAL NAVIGATION Bilateral 10/28/2021 STEREOTACTIC CRANIAL EXTRADURAL NAVIGATION performed by Daron Cerda MD at [facility] Current Outpatient Medications Medication Sig Dispense Refill Coenzyme Q10 (COQ10) 100 MG CAPS Take 1 Tab by mouth daily. Atorvastatin Calcium 40 MG Oral Tablet (Lipitor) TAKE ONE TABLET BY MOUTH EVERY DAY 90 Tablet 1 IBUPROFEN 200 MG PO CAPS as needed (Patient not taking: ) nitroglycerin (NITROSTAT) 0.[address] 1 Tab under the tongue as needed. 1 tab every 5 minutes x 3 as needed for CP (Patient not taking: Reported on 10/28/2021 ) predniSONE 10 MG Oral Tablet (Deltasone) Take 4 tab daily x 3 days, then 3 tab daily x 3 days, 2 tab daily x 3 days, then 1 tab daily x 3 days. (Patient not taking: Reported on 10/28/2021 ) 30 Tablet 0 No current facility-administered medications for this visit. Review of patient's allergies indicates: No Known Allergies Family History Problem Relation Age of Onset Diabetes Father age 74 Hypertension Father renal failure, heart failure Heart Disorder Father No Past Hx Mother age 82- s/p trauma Stroke Brother CVA age 62 No Past Hx Brother age 61 No Past Hx Brother age 48 No Past Hx Brother age 54 No Past Hx Daughter No Past Hx Son Diabetes Daughter Type I diabetes-onset age 13 Social History Tobacco Use Smoking status: Former Smoker Quit date: 03/02/1976 Years since quittin.8 Smokeless tobacco: Never Used Substance Use Topics Alcohol use: Yes Comment: 1-2 wine/week Vaping/E-Cigarette Use Vaping/E-Cigarette Use Never User Vaping/E-Cigarette Substances Vaping/E-Cigarette Devices Negative for constitutional, eyes, cardiac, pulmonary, hepatic, renal, digestive, hematologic, epileptic, syncopal, musculo-skeletal, mental health, integumentary, hypertensive, lipid, arthritic, diabetic, thyroid or neurologic disorders (except as listed in the PMH and Problem List). Pertinent Physical Exam: General: Alert and appropriately verbally conversant without hoarseness. Procedure: In order to better assess the nasal chambers and paranasal sinuses, endoscopy was performed. The nose was decongested with topical oxymetazoline 0.05% spray and anesthetized with topical Lidocaine 4% spray. A rigid 30 degree scope was used to examine each side of the nose. See nasal exam for findings noted. Patient tolerated procedure well. Procedure performed by: Dr. Cerda. Nose: Examination of the nose revealed septum is non-obstructing. The turbinates are normal in appearance. No lesions, masses, polyps, or mucopurulence. Maxillary antrostomies patient along with bilateral ethmoidectomies, no debris or purulence noted. Post op edema is no longer present. Oral cavity: Examination of the oral cavity revealed no mass lesions or infection. The palate was noted to be intact without evidence of clefting. The tongue exhibited normal mobility. Oropharynx: Mucosa was moist without lesion or inflammation. Uvula midline. Impression and Plan: ICD-10-CM 1. Postoperative state Z98.890 2. Chronic pansinusitis J32.4 3. Nasal polyposis J33.9 Patient Instructions -You may use Mometasone irrigations 1-2 times daily to help with nasal congestion. -Follow up as needed. You may follow up in the [place] area as well. Follow Up: Return if symptoms worsen or fail to improve. The patient was seen and examined with Dr. Daron Cerda. TOMASZ Duarte Otolaryngology Allergy [address] [address] 12/19/2021 documented in this encounter Plan of Treatment Upcoming Encounters Date Type Specialty Care Team Description 03/18/2022 Office Visit Family Medicine Byron Bryan, DO [address] [facility] [place] [id number] Scheduled Procedures Name Priority Associated Diagnoses Date/Ti me COLONOSCOPY FLEXIBLE PROXIMAL DIAGNOSTIC Recall History of colon polyps Health Maintenance Due Date Last Done Comments Pneumococcal Vaccine: 65+ Years (1 - PCV) 1956 Zoster Vaccines (2 of 2) 05/13/2019 03/18/2019 Depression Screening, Annual for Pts 12 and Over 03/18/2020 03/18/2019 COVID-19 Vaccine (5 - Booster for Moderna series) 11/18/2021 09/23/2021, 01/14/2021, 05/01/2020, Additional history exists COLONOSCOPY-EVERY 3 YRS AGES 18-100 04/28/2022 04/28/2019, 04/28/2019 DTaP,Tdap,and Td Vaccines (2 - Td or Tdap) 03/13/2025 03/13/2015 Lipid Panel 08/10/2025 08/10/2020, 03/0 08/2019, 04/15/2016, Additional history exists ABDOMINAL AORTIC ANEURYSM (AAA) SCREENING Completed 03/29/2019, 12/04/2006, 05/14/2005 Influenza Vaccine (FLU shot) Completed , 11/19/2020, 12/02/2019, Additional history exists GARDASIL-HPV IMMUNIZATION SERIES Aged Out No longer eligible based on patient's age to complete this topic Hepatitis B Aged Out No longer eligi ble based on patient's age to complete this topic MENINGOCOCCAL (MENACTRA/MENVEO) Aged Out No longer eligible based on patient's age to complete this topic documented as of this encounter Implants Not on filedocumented as of this encounter Visit Diagnoses Diagnosis Postoperative state- Primary Other postprocedural status Chronic pansinusitis Other chronic sinusitis Nasal polyposis Unspecified nasal polyp documented in this encounter Advance Directives Documents on File Type Date Recorded 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 Assistant Expl 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 Advanced Directive Advanced Directive Advanced Directive Advanced Directive Advanced Directive Advanced Directive Advanced Directive Advanced Directive Advanced Directive Advanced Directive Advanced Directive Advanced Directive Advanced Directive Advanced Directive Advanced Directive Advanced Directive Advanced Directive Advanced Directive Advanced Directive Advanced Directive Advanced Directive Advanced Directive Advanced Directive Advanced Directive Advanced Directive Advanced Directive Advanced Directive Advanced Directive Advanced Directive Advanced Directive Advanced Directive 10/28/2021 11:59 AM Care Teams Pari Mutuel Clerk Relationship Specialty Start Date End Date Byron Bryan, DO [address] [place] [address] PCP - General Family Medicine 05/31/20 documented as of this encounter
--- OUTSIDE RECORDS SUMMARY | 2022-10-29 06:55 | External Medical Summary | Summary of Care ---
Author Name Unknown Organization [place] [address] Care Team Providers Care Websphere Portal Developer Name Role Phone IrvinByron Loraine CHESTER Primary Care Provider [phone] Reason for Visit * Reason Comments Follow Up Encounter Details Date Type Department Care Team Description 11/14/2021 Office Visit Otolaryngology Allergy [address] [address] Tegan Lakhani CRNP [address] [place], [place] [phone] Chronic pansinusitis*; Nasal polyposis; Postoperative state; Chronic rhinitis Allergies No known active allergiesdocumented as of this encounter (statuses as of 11/14/2021) Medications Medication Sig Dispensed Refills Start Date [...] as of this encounter (statuses as of 11/14/2021) Active Problems Problem Noted Date Left bundle branch block 07/24/2020 Dyslipidemia 07/24/2020 Osteoarthritis of toe joint(s) 0 ADVANCE DIRECTIVE INFORMATION 04/24/2005 Overview: No, Advance Directive brochure offered , patient declined. Other allergic rhinitis 01/12/2004 Overview: ICD-10 update of inactive term Sciatica documented as of this encounter (statuses as of 11/14/2021) Immunizations Name Administration Dates Next Due COVID-19 [...] on file documented as of this encounter Patient Instructions * Patient Instructions* TOMASZ Armenta - 11/14/2021 8:49 AM EDT -Please use Mometasone irrigations 1-2 times daily depending on your schedule. -May use Flonase while traveling. -Follow up in about 5-6 weeks. 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 OPERATIVE RECORD [place], [place] [address] Huan Prado MR # [id number] LOCATION: OR (Operating Room 18) SERVICE: Otolaryngology - Head &Neck Surgery - Facial Plastic Surgery DATE OF PROCEDURE:10/28/2021 PRE-OP DIAGNOSIS:Chronic rhinosinusitis with nasal polyposis POST-OP DIAGNOSIS:Same PROCEDURE: Stereotactic guided revision endoscopic sinus surgery (CPT 63665) Revision leftmaxillary antrostomy Revision bilateraltotal ethmoidectomies (CPT 92233) Bilateral sphenoidotomies (CPT 83702) BilateralEndoscopic polypectomy (CPT 84879) SURGEON:Daron Cerda MD, FACS, FAOAA Today, Huan is doing well since surgery. Denies any nasal congestion and notes that air flow is improving throughout nasal cavity. He is using mometasone irrigations twice daily with no concerns. Notes that debris are no longer present whenirrigating since last evening. Anosmia still present, but able to get slight hints of smells. Patient Active Problem List Diagnosis Code Sciatica [...] performed by Rhonda Curtis DO at [facility]COPY [facility] CT PELVIS W CONTRAST [facility]-a few sigmoid [...] performed [place] D[place] Cerda [place] [facility] [place]/EXPLOR MAXIL SINUS Bilateral 10/28/2021 NASAL SINUS ENDOSCOPY MAXILLARY ANTROSTOMY performed by Daron Cerda MD [place] [facility] [place]/SINUS ENDOSCOPY, SURGICAL Bilateral 10/28/2021 NASAL SINUS ENDOSCOPY SURGICAL WITH SPHENOIDOTOMY performed by Daron Cerda MD [place] [facility] [place]/SINUS ENDOSCOPY, SURGICAL Bilateral 10/28/2021 NASAL SINUS ENDOSCOPY SURGICAL performed by Daron Cerda MD at [facility] REMOVAL OF TONSILS, UNDER AGE 12 age 5 REMOVE GALLBLADDER 1998 STEREOTACTIC CRANIAL EXTRADURAL NAVIGATION Bilateral 10/28/2021 STEREOTACTIC CRANIAL EXTRADURAL NAVIGATION performed by Daron Cerda MD at [facility] Current Outpatient Medications Medication Sig Dispense Refill IBUPROFEN 200 MG PO CAPS as needed (Patient not taking: ) Coenzyme Q10 (COQ10) 100 MG CAPS Take 1 Tab by mouth daily. nitroglycerin (NITROSTAT) 0.[address] 1 [...] Reported on 10/28/2021 ) 30 Tablet 0 Atorvastatin Calcium 40 MG Oral Tablet (Lipitor) TAKE ONE TABLET BY MOUTH EVERY DAY 90 Tablet 1 No current facility-administered medications for this visit. [...] Former Smoker Quit date: 03/02/1976 Years since quittin.7 Smokeless tobacco: Never Used Substance Use Topics [...] 0.05% spray and anesthetized with topical Lidocaine 4%spray. A rigid 30 degree scope was used to examine each side of the nose. See nasal exam for findings noted. Patient tolerated procedure well. Procedure performed by: TOMASZ Duarte Nose: Examination of the nose revealed septum [...] Uvula midline. Impression and Plan: ICD-10-CM 1. Chronic pansinusitis J32.4 2. Nasal polyposis J33.9 3. Postoperative state Z98.890 4. Chronic rhinitis J31.0 Patient Instructions -Please use Mometasone irrigations 1-2 times daily depending on your schedule. -May use Flonase while traveling. -Follow up in about 5-6 weeks. Follow Up: Return in about 5 weeks (around 12/19/2021). TOMASZ Duarte Otolaryngology Allergy [address] [address] 11/14/2021 documented in this encounter Plan of Treatment Upcoming Encounters Date Type Specialty Care Team Description 12/19/2021 Office Visit Otolaryngology Tegan Lakhani CRNP [address] [place] [address] 03/18/2022 Office Visit Family Medicine Byron Bryan DO [address] [place] [address] Scheduled Procedures Name Priority Associated Diagnoses Date/Ti me COLONOSCOPY FLEXIBLE PROXIMAL DIAGNOSTIC Recall History of colon polyps Health Maintenance Due Date Last Done Comments Pneumococcal Vaccine: 65+ Years (1 - PCV) 1956 Zoster Vaccines (2 of 2) 05/13/2019 03/18/2019 Depression Screening, Annual for Pts 12 and Over 03/18/2020 03/18/2019 COVID-19 Vaccine (5 - Booster for Moderna series) 01/24/2022 09/23/2021, 01/14/2021, 05/01/2020, Additional history exists COLONOSCOPY-EVERY 3 YRS AGES 18-100 04/28/2022 04/28/2019, 04/28/2019 DTaP,Tdap,and Td Vaccines (2 - Td or Tdap) 03/13/2025 03/13/2015 Lipid Panel 08/10/2025 08/10/2020, 03/08/2019, 04/15/2016, Additional history exists ABDOMINAL AORTIC ANEURYSM [...] as of this encounter Visit Diagnoses Diagnosis Chronic pansinusitis- Primary Other chronic sinusitis Nasal polyposis Unspecified nasal polyp Postoperative state Other postprocedural status Chronic rhinitis documented in this encounter Advance Directives Documents on File Type Date Recorded 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
--- OUTSIDE RECORDS SUMMARY | 2022-10-29 06:55 | External Medical Summary ---
Author Name Unknown Address Unknown Organization K01:[facility] - [address] [place] [address] Laboratory Report Ordering Provider Test Date Status TENZIN POPE 03/19/2022 08:29:52 Final Observation Date Value Abnormality Reference (Units ) Status Triglyceride 03/19/2022 08:29:52 129 <=174 ( mg/dL) Final Performing Location [facility] - [address] [place] [address]
--- OUTSIDE RECORDS SUMMARY | 2022-10-29 06:55 | External Medical Summary ---
Author Name Unknown Address Unknown Organization K01:[facility] - [address] [place] [address] Laboratory Report Ordering Provider Test Date Status AIMEE BAUER 03/19/2022 08:29:52 Final Observation Date Value Abnormality Reference (Units ) Status PSA 03/19/2022 08:29:52 1.34 <4.10 (ng/ mL) Final Performing Location [facility] - [address] [place] [address]
--- OUTSIDE RECORDS SUMMARY | 2022-10-29 06:55 | External Medical Summary ---
Author Name Unknown Address Unknown Organization K01:[facility] [place] - [address] [place] [address] Laboratory Report Ordering Provider Test Date Status GEETA CARRIZALES 10/28/2021 15:26:00 Final Observation Date Value Abnormality Reference (Units ) Status Bacteria identified in Unspecified specimen by Culture 10/28/2021 15:26:00 [id number]^STAPHY LOCOCCUS AUREUS Abnormal Final Performing Location LABORATORY [facility] [place] - [address] [place] [address] Ordering Provider Test Date Status GEETA CARRIZALES 10/28/2021 15:26:00 Final Observation Date Value Abnormality Reference (Units ) Status Clindamycin 10/28/2021 15:26:00 <=0.25 Susceptible Final Erythromycin susceptibility 10/28/2021 15:26:00 <=0.25 Susceptible Final Oxacillinsusceptibility 10/28/2021 15:26:00 <=0.25 Susceptible Final Penicillin susceptibility 10/28/2021 15:26:00 0.06 Resistant Final Tetracyclinesusceptibility 10/28/2021 15:26:00 <=1 Susceptible Final TMP-SMZ susceptibility 10/28/2021 15:26:00 <=10 Susceptible Final Vancomycinsusceptibility 10/28/2021 15:26:00 <=0.5 Susceptible Final Performing Location LABORATORY [facility] - [facility] [address] [address]
--- OUTSIDE RECORDS SUMMARY | 2022-10-29 06:55 | External Medical Summary | Summary of Care ---
Author Name Unknown Organization [place] [address] Care Team Providers Care Swabber Name Role Phone Irvin Byron Loraine CHESTER Primary Care Provider [phone] Reason for Visit * Reason Comments Outpatient Testing Encounter Details Date Type Department Care Team Description 03/19/2022 Laboratory Laboratory [facility] [place] [address] [place] [address] [facility] [address] [place] [address] Encounter for long-term (current) use of medications; Dyslipidemia; Swelling of right foot; Screening PSA (prostate specific antigen) Allergies No known active allergiesdocumented as of this encounter (statuses as of 03/19/2022) Medications Medication Sig Dispensed Refills Start Date End Date Status IBUPROFEN 200 MG PO CAPS as needed 0 Active Coenzyme Q10 (COQ10) 100 MG CAPS Take 1 Tab by mouth daily. 0 Active nitroglycerin (NITROSTAT) 0.[address] 1 Tab under the tongue as needed. 1 tab every 5 minutes x 3 as needed for CP 0 04/15/2016 Active Atorvastatin Calcium 40 MG Oral Tablet (Lipitor)Indications: Dyslipidemia Take 1 Tablet by mouth in the morning. 90 Tablet 3 03/18/2022 Active predniSONE 20 MG Oral Tablet (Deltasone) 1 tab 3 times a day for 3 days, then 1 tab 2 times a day for 3 days, then 1 tab daily for 3 days 18 Tablet 0 03/18/2022 Active documented as of this encounter (statuses as of 03/19/2022) Active Problems Problem Noted Date Left bundle branch block 07/24/2020 Dyslipidemia 07/24/2020 Osteoarthritis of toe joint(s) 0 ADVANCE DIRECTIVE INFORMATION 04/24/2005 Overview: No, Advance Directive brochure offered , patient declined. Other allergic rhinitis 01/12/2004 Overview: ICD-10 update of inactive term Sciatica documented as of this encounter (statuses as of 03/19/2022) Immunizations Name Administration Dates Next Due COVID-19 [...] Influenza, Split, I IV3, With Preserve, Inj 12/11/2011,12/05/2008,01/01/2008 TDAP (age 10 and older)(Boostrix) 03/13/2015 Zoster Vaccine Recombinant (Shingrix) 03/18/2019 documented as of this encounter Social History Tobacco Use Types Packs/Day Years Used Date Smoking Tobacco: Former Cigarettes Q uit: 03/02/1976 Smokeless Tobacco: Never Alcohol Use Standard Drinks/Week Comments Yes 0 (1 standard drink = 0.6 oz pur e alcohol) 1-2 wine/week Food Insecurity Answer Date Recorded Within the [...] on file documented as of this encounter Plan of Treatment Upcoming Encounters Date Type Specialty Care Team Description 06/02/2022 Office Visit Ophthalmology Dyllan Briones MD [address] [id number] 07/04/2022 Office Visit Cardiology Ashutosh Mckinney, DO [address] [place] [address] 03/20/2023 Office Visit Family Medicine Byron Bryan, DO [address] [facility] [place] [address] Pending Results Name Type Priority Associated Diagnoses Date /Time COMPREHENSIVE METABOLIC PANEL Lab Routine Encounter for long-term (current) use of medications 03/19/2022 8:29 AM EST LIPID PANEL WITH DIRECT LDL IF TG IS HIGH Lab Routine Dyslipidemia Encounter for long-term (current) use of medications 03/19/2022 8:29 AM EST URIC ACID Lab Routine Swelling of right foot 03/19/2022 8:29 AM EST PSA Lab Routine Screening PSA (prostate specific antigen) 03/19/2022 8:29 AM EST Scheduled Procedures Name Priority Associated Diagnoses Date/Ti [...] this topic documented as of this encounter Medical Devices Not on filedocumented as of this encounter Visit Diagnoses Diagnosis Encounter for long-term (current) use of medications Encounter for long-term (current) use of other medications Dyslipidemia Other and unspecified hyperlipidemia Swelling of right foot Screening PSA (prostate specific antigen) Special screening for malignant neoplasm of prostate documented in this encounter Care Teams Swabber Relationship Specialty Start Date End Date Byron Bryan, DO [address] [place] [address] PCP - General Family Medicine 05/31/20 documented as of this encounter
--- OUTSIDE RECORDS SUMMARY | 2022-10-29 06:55 | External Medical Summary | Summary of Care ---
Author Name Unknown Organization [place] [address] Care Team Providers Care Lactation Nurse Name Role Phone Carmelo Bryane Loraine CHESTER Primary Care Provider [phone] Reason for Visit * Reason Onset Date Comments Medication Administration 11/12/2021 Flu an d/or Pneumo Inj Encounter Details Date Type Department Care Team Description 11/12/2021 Immunization Ancillary [facility] [address] [facility] [place] [address] Sp, Flu Shot Clinic [address] [facility] [place] [address] Need for prophylactic vaccination and inoculation against influenza Allergies No known active allergiesdocumented as of this encounter (statuses as of 11/12/2021) Medications Medication Sig Dispensed Refills Start Date [...] as of this encounter (statuses as of 11/12/2021) Active Problems Problem Noted Date Left bundle branch block 07/24/2020 Dyslipidemia 07/24/2020 Osteoarthritis of toe joint(s) 0 ADVANCE DIRECTIVE INFORMATION 04/24/2005 Overview: No, Advance Directive brochure offered , patient declined. Other allergic rhinitis 01/12/2004 Overview: ICD-10 update of inactive term Sciatica documented as of this encounter (statuses as of 11/12/2021) Immunizations Name Administration Dates Next Due COVID-19 [...] this encounter Patient Instructions * Patient Instructions* Aracely Louis LPN - 11/12/2021 8:48 AM EDT ~~PATIENT INSTRUCTIONS FOR FLU SHOT~~ Possible side effects of influenza vaccine, (flu shot), are usually mild and include: 1. Soreness or redness at injection site 2. Low grade fever 3. Body aches You may use Tylenol/Acetaminophen as needed for these symptoms. LET YOUR DOCTOR KNOW IMMEDIATELY IF YOU HAVE DIFFICULTY BREATHING OR SWALLOWING, EXPERIENCE ITCHINGOF FEET OR HANDS, HAVE SWELLING OF EYES, FACE OR INSIDE OF NOSE. documented in this encounter Progress Notes * Aracely Louis LPN - 11/12/2021 8:48 AM EDT PRE - ADMINISTRATION DOCUMENTATION Are you experiencing any cold symptoms or fever? No Have you had Guillain-[place] Syndrome (an illness that causes paralysis) within the last 6 weeks? No Have you had the flu shot in the past? YES Have you ever had a reaction to the flu shot? No Aracely Louis LPN, 11/12/2021 8:48 AM Immunization Administration Documentation Time Out Procedure Performed: Yes Patient Identified (Ask Name/Date of ): Yes Does the patient have a fever greater than 101 degrees today? No Patient allergic to latex? No C Stock: No Immunization(s) verified: Yes, Immunization Name: Flu, VIS Sheet(s) given: Yes Verified Side and Site: Yes Verified Shot(s) with Parent(s)/Patient: Yes documented in this encounter Plan of Treatment Upcoming Encounters Date Type Specialty Care Team Description 11/14/2021 Office Visit Otolaryngology Tegan Lakhani CRNP [address] [place] [address] 03/18/2022 Office Visit Family Medicine Byron Bryan DO [address] [place] [address] Scheduled Procedures Name Priority Associated Diagnoses Date/Ti me COLONOSCOPY FLEXIBLE PROXIMAL DIAGNOSTIC Recall History of colon polyps Health Maintenance Due Date Last Done Comments Pneumococcal Vaccine: 65+ Years (1 - PCV) 1956 Zoster Vaccines (2 of 2) 05/13/2019 03/18/2019 Depression Screening, Annual for Pts 12 and Over 03/18/2020 03/18/2019 Influenza Vaccine (FLU shot) (#1) 2021 11/12/2021, 11/19/2020, 12/02/2019, Additional history exists COVID-19 Vaccine (5 - Booster for Moderna series) 01/24/2022 09/23/2021, 01/14/2021, 05/01/2020, Additional history exists COLONOSCOPY-EVERY 3 YRS AGES 18-100 04/28/2022 04/28/2019, 04/28/2019 DTaP,Tdap,and Td Vaccines (2 - Td or Tdap) 03/13/2025 03/13/2015 Lipid Panel 08/10/2025 08/10/2020, 0308/2019, 04/15/2016, Additional history exists ABDOMINAL AORTIC ANEURYSM (AAA) SCREENING Completed 03/29/2019, 12/04/2006, 05/14/2005 GARDASIL-HPV IMMUNIZATION SERIES Aged Out No longer eligible based on patient's age to complete this topic Hepatitis B Aged Out No longer eligi ble based on patient's age to complete this topic MENINGOCOCCAL (MENACTRA/MENVEO) Aged Out No longer eligible based on patient's age to complete this topic documented as of this encounter Implants Not on filedocumented as of this encounter Visit Diagnoses Diagnosis Need for prophylactic vaccination and inoculation against influenza documented in this encounter Advance Directives Documents on File Type Date Recorded 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
--- OUTSIDE RECORDS SUMMARY | 2022-10-29 06:55 | External Medical Summary | Summary of Care ---
Author Name Unknown Organization [place] [address] Care Team Providers Care Medical Affairs Leader Name Role Phone IrvinByron Loraine CHESTER Primary Care Provider [phone] Reason for Visit * Reason Comments Follow Up POST-OP sinus Encounter Details Date Type Department Care Team Description 11/05/2021 Office Visit Otolaryngology [facility] [address] [place], [place] [id number] Tegan Lakhani CRNP [address] [place] [address] Chronic pansinusitis*; Nasal polyposis; History of nasal polyp; Postoperative state Allergies No known active allergiesdocumented as of this encounter (statuses as of 11/05/2021) Medications Medication Sig Dispensed Refills Start Date [...] as of this encounter (statuses as of 11/05/2021) Active Problems Problem Noted Date Left bundle branch block 07/24/2020 Dyslipidemia 07/24/2020 Osteoarthritis of toe joint(s) 0 ADVANCE DIRECTIVE INFORMATION 04/24/2005 Overview: No, Advance Directive brochure offered , patient declined. Other allergic rhinitis 01/12/2004 Overview: ICD-10 update of inactive term Sciatica documented as of this encounter (statuses as of 11/05/2021) Immunizations Name Administration Dates Next Due COVID-19 mRNA, LNP-s, No Pre serve, 2-Dose Series (Moderna) 01/14/2021,05/01/2020,04/03/2020 COVID-19, LNP-s, No Preserve , [place]-sucrose, Ages 12+ (Pfizer) 09/23/2021 H1N1 2009 Influenza, IM 04/17/2009 Seasonal Influenza, Quadriva lent Hd (Fluzone Hd) 11/19/2020 Seasonal Influenza, Quadriva lent, No Preserve, 6 Mons & Above, IM 12/02/2019 Seasonal Influenza, Quadriva lent, No Preserve, IM 03/13/2015 Seasonal Influenza, Split, I IV3, With Preserve, Inj 12/11/2011,12/05/2008,01/01/2008,12/16,12/14/2002,12/29/2001 12/15/2003 TDAP (age 10 and older)(Boostrix) 03/13/2015 Zoster Vaccine Recombinant (Shingrix) 03/18/2019 documented as of this encounter Social History Tobacco Use Types Packs/Day Years Used Date Former Smoker Quit: 03/02 Smokeless Tobacco: Never Used Tobacco Cessation:Counseling Given: No Alcohol Use Standard Drinks/Week Comments Yes 0 [...] - - Temperature 36.7 C (98 F) 11/05/2021 10:10 AM EDT Respiratory Rate - - Oxygen Saturation - - Inhaled Oxygen Concentration - - Weight - - Height - - Body Mass Index - - documented in this encounter Patient Instructions * Patient Instructions* TOMASZ Armenta - 11/05/2021 10:43 AM EDT Continue Mometasone irrigations twice daily. Follow up in 2 weeks. documented in this encounter Progress Notes * TOMASZ Armenta - 11/05/2021 10:13 AM EDT Department of Otolaryngology - Head and Neck Surgery [place] [address] 11/05/2021 Interval History: Huan Prado is a 71 year old male seen for follow-up of chronic rhinosinusitis with nasal polyposis OPERATIVE RECORD [place], [place] [address] Huan Prado MR # [id number] LOCATION: OR (Operating Room 18) SERVICE: Otolaryngology - Head & Neck Surgery - Facial Plastic Surgery DATE OF PROCEDURE: 10/28/2021 PRE-OP DIAGNOSIS: Chronic rhinosinusitis with nasal polyposis POST-OP DIAGNOSIS: Same PROCEDURE: Stereotactic guided revision endoscopic sinus surgery (CPT 00828) Revision left maxillary antrostomy Revision bilateral total ethmoidectomies (CPT 82317) Bilateral sphenoidotomies (CPT 57277) Bilateral Endoscopic polypectomy (CPT 45528) SURGEON: Daron Cerda MD, FACS, FAOAA ASSISTANTS: Jannette Nguyễn DO\ ANESTHESIA: General endotracheal anesthesia OPERATIVE FINDINGS: 1. Extensive polyposis noted in the right middle meatus and ethmoid air cells 2. Extensive polyposis noted in the left middle meatus and ethmoid air cells 3. Severely inflamed nasal mucosa 4. Patent right maxillary antrostomy 5. Stenotic left maxillary antrostomy 6. Synechiae noted from bilateral middle turbinate to lateral nasal wall DRAINS and/or PACKS: None ESTIMATED BLOOD LOSS: 50 mL FLUIDS: 1000 mL crystalloid URINE: N/A SPECIMEN(s) OBTAINED and DISPOSITION: 1. Left sinonasal contents for permanent histopathology 2. Right sinonasal content for permanent histopathology 3. Right maxillary sinus culture Today, Huan is doing well postoperatively. He is using Mometasone irrigations twice daily along with midday saline irrigations with no concerns. Denies any epistaxis episodes. Sense of smell is starting to return. Patient Active Problem List Diagnosis Code Sciatica [...] performed by Rhonda Curtis DO at [facility] CT PELVIS W CONTRAST [facility]-a few [...] spine MRI MRI PELVIS WO CONTRAST 04/26/01 [facility]--subtle edema type changes in the left lower iliac bone and adjacent left paraspinal musculature.This could indicate some subtle prior trauma or stress related change.No abnormal soft tissue massis detected. NASAL ENDOSCOPY,TOTAL ETHMOIDECTOMY Bilateral 10/28/2021 NASAL SINUS ENDOSCOPY WITH ETHMOIDECTOMY TOTAL performed by Daron Cerda MD at OR [facility] NASAL ENDOSCOPY/EXPLOR MAXIL SINUS Bilateral 10/28/2021 NASAL SINUS ENDOSCOPY MAXILLARY ANTROSTOMY performed by Daron Cerda MD at OR [facility] NASAL/SINUS ENDOSCOPY, SURGICAL Bilateral 10/28/2021 NASAL SINUS ENDOSCOPY SURGICAL WITH SPHENOIDOTOMY performed by Daron Cerda MD at OR [facility] NASAL/SINUS ENDOSCOPY, SURGICAL Bilateral 10/28/2021 NASAL SINUS ENDOSCOPY SURGICAL performed by Daron Cerda MD at [facility] REMOVAL OF TONSILS, UNDER AGE 12 age 5 REMOVE GALLBLADDER 1998 STEREOTACTIC CRANIAL EXTRADURAL NAVIGATION Bilateral 10/28/2021 STEREOTACTIC CRANIAL EXTRADURAL NAVIGATION performed by Daron Cerda MD at OR [facility] Current Outpatient Medications Medication Sig Dispense Refill [...] appearance. No lesions, masses, polyps, or mucopurulence. Minimal debris suctioned from maxillary antrostomies bilaterally with no complications. Oral cavity: Examination of the oral cavity revealed no mass lesions or infection. The palate was noted to be intact without evidence of clefting. The tongue exhibited normal mobility. Oropharynx: Mucosa was moist without lesion or inflammation. Uvula midline. Impression and Plan: ICD-10-CM 1. Chronic pansinusitis J32.4 2. Nasal polyposis J33.9 3. History of nasal polyp Z87.09 4. Postoperative state Z98.890 Patient Instructions Continue Mometasone irrigations twice daily. Follow up in 2 weeks. The patient was seen and examined with Dr. Daron Cerda. TOMASZ Duarte Otolaryngology Allergy [address] [address] 11/05/2021 ENT Staff Note I performed a history and physical examination of the patient, including specifically status post revision endoscopic sinus surgery for nasal polyps. I have discussed the patient's management with TOMASZ Duarte. Please refer to the nurse practitioner's note for the documented findings and plan of care. Daron Cerda MD Otolaryngology Allergy [address] [address] documented in this encounter Nursing Notes * Jaimie Ford LPN - 11/05/2021 10:11 AM EDT Post-op pt for sinus surgery. No concerns from pt at this time. Jaimie Ford LPN documented in this encounter Plan of Treatment Upcoming Encounters Date Type Specialty Care Team Description 11/12/2021 Immunization Ancillary Sp, Flu Shot Clinic [address] [place] [address] 11/14/2021 Office Visit Otolaryngology Tegan Lakhani CRNP [address] [place] [address] 03/18/2022 Office Visit Family Medicine Byron Bryan DO [address] [place] [address] Scheduled Procedures Name Priority Associated Diagnoses Date/Ti me COLONOSCOPY FLEXIBLE PROXIMAL DIAGNOSTIC Recall History of colon polyps Health Maintenance Due Date Last Done Comments Pneumococcal Vaccine: 65+ Years (1 - PCV) 1956 Zoster Vaccines (2 of 2) 05/13/2019 03/18/2019 Depression Screening, Annual for Pts 12 and Over 03/18/2020 03/18/2019 Influenza Vaccine (FLU shot) (#1) 2021 11/19/2020, 12/02/2019, 03/13/2015, Additional history exists COVID-19 Vaccine (5 - [...] chronic sinusitis Nasal polyposis Unspecified nasal polyp History of nasal polyp Personal history of other specified diseases Postoperative state Other postprocedural status documented in this encounter Advance Directives Documents on File Type Date Recorded 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
--- OUTSIDE RECORDS SUMMARY | 2022-10-29 06:55 | External Medical Summary | Summary of Care ---
Author Name Unknown Organization [place] [address] Care Team Providers Care Business Programmer Name Role Phone LoyByron singletary Loraine CHESTER Primary Care Provider [phone] Encounter Details Date Type Department Care Team Description 06/28/2021 Telephone Otolaryngology [facility] [address] [facility] [place] [address] Marcel Rojas DO [address] [facility] [place] [address] Allergies No known active allergiesdocumented as of this encounter (statuses as of 12/25/2021) Medications Medication Sig Dispensed Refills Start Date [...] not taking. Informant: Patient, Reported on 10/28/2021 documented as of this encounter (statuses as of 12/25/2021) Active Problems Problem Noted Date Left bundle branch block 07/24/2020 Dyslipidemia 07/24/2020 Osteoarthritis of toe joint(s) 0 ADVANCE DIRECTIVE INFORMATION 04/24/2005 Overview: No, Advance Directive brochure offered , patient declined. Other allergic rhinitis 01/12/2004 Overview: ICD-10 update of inactive term Sciatica documented as of this encounter (statuses as of 12/25/2021) Immunizations Name Administration Dates Next Due COVID-19 mRNA, LNP-s, No Pre serve, 2-Dose Series (Moderna) 01/14/2021,05/01/2020,04/03/2020 H1N1 2009 Influenza, IM 04/17/2009 Seasonal Influenza, [...] on file documented as of this encounter Miscellaneous Notes * Telephone Encounter - PORTER Luna - 07/16/2021 8:39 AM EDT See other encounter * Telephone Encounter - PORTER Luna - 06/28/2021 8:02 AM EDT Please assist patient to schedule with Dr. Cerda for sinus revision. 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
--- OUTSIDE RECORDS SUMMARY | 2022-10-29 06:55 | External Medical Summary | Summary of Care ---
Author Name Unknown Organization [facility] Address [address] [place] [address] Phone [phone] Care Team Providers Care Windows Software Developer Name Role Phone Byron Bryan DO Primary Care Provider [phone] Reason for Visit * Reason Comments Eye Exam Encounter Details Date Type Department Care Team Description 06/02/2022 Office Visit Ophthalmology, [place] [address] [place] [address] Dyllan Briones MD [address] [place] [address] Combined forms of age-related cataract of both eyes*; Presbyopia Allergies No known active allergiesdocumented as of this encounter (statuses as of 06/02/2022) Medications Medication Sig Dispensed Refills Start Date [...] Active Atorvastatin Calcium 40 MG Oral Tablet (Lipitor)Indication s:Dyslipidemia Take 1 Tablet by mouth in the morning. 90 Tablet 3 03/18/2022 Active predniSONE 20 MG Oral Tablet (Deltasone) 1 tab 3 times a day for 3 days, then 1 tab 2 times a day for 3 days, then 1 tab daily for 3 days 18 Tablet 0 03/18/2022 Active Mometasone Furoate Powder Add 1.0 mg of mometasone to 240 mL nasal saline and irrigate both nasal passages twice daily. 60 g 7 04/03/2022 Active documented as of this encounter (statuses as of 06/02/2022) Active Problems Problem Noted Date Left bundle branch block 07/24/2020 Dyslipidemia 07/24/2020 Osteoarthritis of toe joint(s) 0 ADVANCE DIRECTIVE INFORMATION 04/24/2005 Overview: No, Advance Directive brochure offered , patient declined. Other allergic rhinitis 01/12/2004 Overview: ICD-10 update of inactive term Sciatica documented as of this encounter (statuses as of 06/02/2022) Immunizations Name Administration Dates Next Due COVID-19 [...] Cigarettes Q uit: 03/02/1976 Smokeless Tobacco: Never Tobacco Cessation:Counseling Given: No Alcohol Use Standard [...] on file documented as of this encounter Progress Notes * Dyllan Briones MD - 06/02/2022 2:01 PM EDT [facility] DEPARTMENT OF OPHTHALMOLOGY OUTPATIENT CLINIC NOTES PATIENT NAME: Huan Prado (71 year old male) PRIMARY CARE PHYSICIAN: Byron Bryan, DO CC: cataracts HPI: here to check cataracts - has difficulty driving and seeing TV; denies starbursts ROS: no eye pain POH: see below Past Medical History: Diagnosis Date Combined forms of age-related cataract of both eyes Dyslipidemia Hereditary and idiopathic peripheral neuropathy Sciatica Shingles 11/30/2014 left T10 area MEDS: Current Outpatient Medications Medication Sig Dispense Refill IBUPROFEN 200 MG PO CAPS as needed Coenzyme Q10 (COQ10) 100 MG CAPS Take 1 Tab by mouth daily. nitroglycerin (NITROSTAT) 0.[address] 1 Tab under the tongue as needed. 1 tab every 5 minutes x 3 as needed for CP Atorvastatin Calcium 40 MG Oral Tablet (Lipitor) Take 1 Tablet by mouth in the morning. 90 Tablet 3 predniSONE 20 MG Oral Tablet (Deltasone) 1 tab 3 times a day for 3 days, then 1 tab 2 times a day for 3 days, then 1 tab daily for 3 days 18 Tablet 0 Mometasone Furoate Powder Add 1.0 mg of mometasone to 240 mL nasal saline and irrigate both nasal passages twice daily. 60 g 7 No current facility-administered medications for this visit. ALL: Review of patient's allergies indicates: No Known Allergies PSH: Past Surgical History: Procedure Laterality Date COLONOSCOPY W/ BIOPSY (RECTUM) 06/25/01 normal exam. midly tortuous sigmoid COLONOSCOPY, DIAGNOSTIC (RECTUM) 04/28/2019 serrated adenomatous polyp, repeat 3 yrs / COLONOSCOPY FLEXIBLE PROXIMAL DIAGNOSTIC performed by Rhonda Curtis DO at ENDOSCOPY [facility] CT PELVIS W CONTRAST CCH-a few [...] performed [place] Cer[place] [facility] [place]/EXPLOR MAXIL SINUS Bilateral 10/28/2021 NASAL SINUS ENDOSCOPY MAXILLARY ANTROSTOMY performed by Daron Cerda MD [place] [facility] [place]/SINUS ENDOSCOPY, SURGICAL Bilateral 10/28/2021 NASAL SINUS ENDOSCOPY SURGICAL WITH SPHENOIDOTOMY performed by Daron Cerda MD [place] [facility]/SINUS ENDOSCOPY, SURGICAL Bilateral 10/28/2021 NASAL SINUS ENDOSCOPY SURGICAL performed by Daron Cerda MD [place] [facility] REMOVAL OF TONSILS, UNDER AGE 12 age 5 REMOVE GALLBLADDER 1998 STEREOTACTIC CRANIAL EXTRADURAL NAVIGATION Bilateral 10/28/2021 STEREOTACTIC CRANIAL EXTRADURAL NAVIGATION performed by Daron Cerda MD [place] [facility] FH: Family History Problem Relation Age of Onset [...] Diabetes Daughter Type I diabetes-onset age 13 SH: Social History Tobacco Use Smoking status: Former Types: Cigarettes Quit date: 03/02/1976 Years since quittin.2 Smokeless tobacco: Never Substance Use Topics Alcohol use: Yes Comment: 1-2 wine/week Vaping/E-Cigarette Use Vaping/E-Cigarette Use Never User Vaping/E-Cigarette Substances Vaping/E-Cigarette Devices EXAM VA cc OD (D) 20/60; VA cc OD (N) 20/25 VA cc OS (D) 20/60; VA cc OS (N) 20/25 PC OD: sph -3.50 cyl +1.25 axis 003 PC OS: sph -4.25 cyl +2.00 axis 178 Add OD +2.50 Add OS +2.50 MR OD: sph -4.50 cyl +1.50 axis 180 20/25 MR OS: sph -5.00 cyl +2.25 axis 5 20/25 Add OD +2.50 Add OS +2.50 EXTERNAL: CVF: Full OU Lids: WNL Conjunctiva: WNL OU Pupils: PERRL; no APD EOM: Full SLIT LAMP Cornea: clear OU Tear Film: WNL OU A/C: D/Q OU Lens: 1+ NS OD; 1+ NS OS Iris: WNL OU TA OD:19; OS: 19; 2:01 PM DILATED EXAM: Dilated with Mydriacyl 1% and Mydfrin 2.5%; advised re driving Lens used: 28 D and 90 D Vitreous: clear OU C/D: 0.3 OD; 0.3 OS Macula: WNL OD; WNL OS Periphery: WNL OD; WNL OS ASSESSMENT/PLAN Cataracts OU - watch Presbyopia - Rx glasses - pt advised of possible initial distortion RTC: 1 yr Dyllan Briones MD 06/02/2022 2:01 PM documented in this encounter Nursing Notes * CHRISTELLE Gallegos - 06/02/2022 1:49 PM EDT Pt here for yearly exam Distance vision getting worse VA cc OD (D) 20/60; VA cc OD (N) 20/25 VA cc OS (D) 20/60; VA cc OS (N) 20/25 PC OD: sph -3.50 cyl +1.25 axis 003 PC OS: sph -4.25 cyl +2.00 axis 178 Add OD +2.50 Add OS +2.50 documented in this encounter Plan of Treatment Upcoming Encounters Date Type Specialty Care Team Description 07/04/2022 Office Visit Cardiology Ashutosh Mckinney DO [address] [place] [address] 03/20/2023 Office Visit Family Medicine Byron Bryan DO [address] [facility] [place] [address] 06/03/2023 Office Visit Ophthalmology Dyllan Briones MD [address] [facility] [place] [address] Scheduled Orders Name Type Priority Associated Diagnoses Orde r Schedule DETERMINATION OF REFRACTIVE STATE Procedures Routine Presbyopia Ordered: 06/02/2022 Scheduled Procedures Name Priority Associated Diagnoses Date/Ti [...] Td or Tdap) 03/13/2025 03/13/2015 Lipid Panel 03/19/2027 03/19/2022, 07/31, 05/06/2019, Additional history exists ABDOMINAL AORTIC ANEURYSM (AAA) [...] as of this encounter Visit Diagnoses Diagnosis Combined forms of age-related cataract of both eyes- Primary Other and combined forms of senile cataract Presbyopia documented in this encounter Care Teams Windows Software Developer Relationship Specialty Start Date End Date Byron Bryan, DO [address] [place] [address] PCP - General Family Medicine 05/31/20 documented as of this encounter
--- OUTSIDE RECORDS SUMMARY | 2022-10-29 06:55 | External Medical Summary ---
Author Name Unknown Address Unknown Organization : Laboratory Report Ordering Provider Test Date Status GEETA CARRIZALES 10/28/2021 13:50:13 Final Observation Date Value Abnormality Reference (Units ) Status Glucose Point of Care 10/28/2021 13:50:13 88 70-120 (mg/dL) Final Performing Location
--- OUTSIDE RECORDS SUMMARY | 2022-10-29 06:55 | External Medical Summary | Summary of Care ---
Author Name Unknown Organization [place] [address] Care Team Providers Care Emergency Room Clinician Name Role Phone IrvinByron Loraine CHESTER Primary Care Provider [phone] Reason for Visit * Reason Comments Follow Up Encounter Details Date Type Department Care Team Description 12/19/2021 Office Visit Otolaryngology Allergy [facility] [address] [place] [address] Tegan Lakhani CRNP [address] [place], [place] [id number] Postoperative state*; Chronic pansinusitis; Nasal polyposis Allergies No known active allergiesdocumented as of this encounter (statuses as of 01/06/2022) Medications Medication Sig Dispensed Refills Start Date [...] 0 06/28/2021 Active Additional Information Patient not taking.Informant: Patient, Reported on 10/28/2021 Atorvastatin Calcium 40 MG Oral Tablet (Lipitor)Indication s:Dyslipidemia TAKE ONE TABLET BY MOUTH EVERY DAY 90 Tablet 1 07/25/2021 Active documented as of this encounter (statuses as of 01/06/2022) Active Problems Problem Noted Date Left bundle branch block 07/24/2020 Dyslipidemia 07/24/2020 Osteoarthritis of toe joint(s) 0 ADVANCE DIRECTIVE INFORMATION 04/24/2005 Overview: No, Advance Directive brochure offered , patient declined. Other allergic rhinitis 01/12/2004 Overview: ICD-10 update of inactive term Sciatica documented as of this encounter (statuses as of 01/06/2022) Immunizations Name Administration Dates Next Due COVID-19 [...] needed. You may follow up in the [place] area as well. 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 DATE OF PROCEDURE:10/28/2021 PRE-OP DIAGNOSIS:Chronic rhinosinusitis with nasal polyposis POST-OP DIAGNOSIS:Same PROCEDURE: Stereotactic guided revision endoscopic sinus surgery (CPT 12549) Revision leftmaxillary antrostomy Revision bilateraltotal ethmoidectomies (CPT 80143) Bilateral sphenoidotomies (CPT 03469) BilateralEndoscopic polypectomy (CPT 20872) Today, Huan is doing well since his last visit. He was able to use Flonase while visiting the . He is back to using mometasone irrigations once daily since Thursday. Still having nasal congestion bilaterally. uHan is noticing more of a sense of [...] performed by Rhonda Curtis DO at ENDOSCOPY [facility] CT PELVIS W CONTRAST CCH-a few [...] performed by Daron Cerda MD [place] [facility] [place]/EXPLOR MAXIL SINUS Bilateral 10/28/2021 NASAL SINUS ENDOSCOPY MAXILLARY ANTROSTOMY performed by Daron Cerda MD at [place] [facility] [place] NASAL/SINUS ENDOSCOPY, SURGICAL Bilateral 10/28/2021 NASAL SINUS ENDOSCOPY SURGICAL WITH SPHENOIDOTOMY performed by Daron Cerda MD at [facility] NASAL/SINUS ENDOSCOPY, SURGICAL Bilateral 10/28/2021 NASAL SINUS ENDOSCOPY SURGICAL performed by Daron Cerda MD at [facility] REMOVAL OF TONSILS, UNDER AGE 12 age 5 REMOVE GALLBLADDER 1998 STEREOTACTIC CRANIAL EXTRADURAL NAVIGATION Bilateral 10/28/2021 STEREOTACTIC CRANIAL EXTRADURAL NAVIGATION performed by Daron Cerda MD at [place] [facility] [place] Current Outpatient Medications Medication [...] needed. You may follow up in the [place] area as well. Follow Up: Return if symptoms worsen or fail to improve. The patient was seen and examined with Dr. Daron Cerda. TOMASZ Duarte Otolaryngology Allergy [address] [address] 12/19/2021 documented in this encounter Nursing Notes * Kelli Burch RN - 01/06/2022 12:29 PM EST Patient was scoped by provider with scope model number [id number]. documented in this encounter Plan of Treatment Upcoming Encounters Date Type Specialty Care Team Description 03/18/2022 Office Visit Family Medicine Byron Bryan, DO [address] [facility] [place] [address] Scheduled Procedures Name Priority Associated Diagnoses Date/Ti me COLONOSCOPY FLEXIBLE PROXIMAL DIAGNOSTIC Recall History of colon polyps Health Maintenance Due Date Last Done Comments Hepatitis B (1 of 3 - 3-dose series) 1950 Pneumococcal Vaccine: 65+ Years (1 - PCV) 1956 Zoster Vaccines (2 of 2) 05/13/2019 03/18/2019 Depression Screening, Annual for Pts 12 and Over 03/18/2020 03/18/2019 COVID-19 Vaccine (5 - Booster for Moderna series) 11/18/2021 09/23/2021, 01/14/2021, 05/01/2020, Additional history exists COLONOSCOPY-EVERY 3 YRS AGES 18-100 04/28/2022 04/28/2019, 04/28/2019 DTaP,Tdap,and Td Vaccines (2 - Td or Tdap) 03/13/2025 03/13/2015 Lipid Panel 08/10/2025 08/10/2020, 08/2019, 04/15/2016, Additional history exists ABDOMINAL AORTIC [...] Unspecified nasal polyp documented in this encounter Care Teams Emergency Room Clinician Relationship Specialty Start Date End Date Byron Bryan, DO [address] [place] [address] PCP - General Family Medicine 05/31/20 documented as of this encounter
--- OUTSIDE RECORDS SUMMARY | 2022-10-29 06:55 | External Medical Summary | Summary of Care ---
Author Name Unknown Organization [place] [address] Care Team Providers Care Nuclear Plant Instrument Technician Name Role Phone Byron Bryan DO Primary Care Provider [phone] Reason for Visit * Reason Onset Date Comments Test Results Lab 03/20/2022 Encounter Details Date Type Department Care Team Description 03/20/2022 Telephone Family Practice [facility] [address] [place] [address] Byron Bryan DO [address] [facility] [place] [address] Test Results Lab Allergies No known active allergiesdocumented as of this encounter (statuses as of 03/20/2022) Medications Medication Sig Dispensed Refills Start Date [...] as of this encounter (statuses as of 03/20/2022) Active Problems Problem Noted Date Left bundle branch block 07/24/2020 Dyslipidemia 07/24/2020 Osteoarthritis of toe joint(s) 0 ADVANCE DIRECTIVE INFORMATION 04/24/2005 Overview: No, Advance Directive brochure offered , patient declined. Other allergic rhinitis 01/12/2004 Overview: ICD-10 update of inactive term Sciatica documented as of this encounter (statuses as of 03/20/2022) Immunizations Name Administration Dates Next Due COVID-19 [...] encounter Miscellaneous Notes * Telephone Encounter - Byron Bryan, DO - 03/20/2022 2:46 PM EST Advice appreciated * Telephone Encounter - Siobhan Payne RPh - 03/20/2022 9:14 AM EST Reviewed recent lab results with patient. Kidney function stable Pt lipid panel elevated, ASCVD risk is 23.9% Results for orders placed or performed in visit on 03/19/22 LIPID PANEL WITH DIRECT LDL IF TG IS HIGH Result Value Ref Range Triglycerides 129 <=174 mg/dL Cholesterol 204 (H) <200 mg/dL HDL Cholesterol 45 >39 mg/dL Non-HDL Cholesterol 159 <=159 mg/dL LDL Cholesterol 133 (H) <=129 mg/dL Patient stated he was not taking his atorvastatin. He was out of town for awhile and was out of medication. Counseled pt on restarting medication and recommended to recheck lipid panel in 3 months. Offered to make lab appt, pt said he will take care of it when it gets closer. Counseled pt on dietary modifications such as increasing fruits vegetables and whole grains and limiting fats. Thanks, Siobhan Payne, PharmD Clinical Pharmacist Telepharmacy [phone] 03/20/2022 9:18 AM documented in this encounter Plan of Treatment Upcoming Encounters Date Type Specialty Care Team Description 06/02/2022 Office Visit Ophthalmology Dyllan Briones MD [address] [place] [address] 07/04/2022 Office Visit Cardiology Ashutosh Mckinney DO [address] [place] [address] 03/20/2023 Office Visit Family Medicine Byron Bryan DO [address] [place] [address] Scheduled Orders Name Type Priority Associated Diagnoses Orde r Schedule LIPID PANEL WITH DIRECT LDL IF TG IS HIGH Lab Routine Dyslipidemia Expected: 06/18/2022 (Approximate), Expires: 03/20/2023 ALT Lab Routine Dyslipidemia Expected: 06/18/2022 (Approximate), Expires: 03/20/2023 AST Lab Routine Dyslipidemia Expected: 06/18/2022 (Approximate), Expires: 03/20/2023 Scheduled Procedures Name Priority Associated Diagnoses Date/Ti [...] as of this encounter Visit Diagnoses Diagnosis Dyslipidemia Other and unspecified hyperlipidemia documented in this encounter Care Teams Nuclear Plant Instrument Technician Relationship Specialty Start Date End Date Byron Bryan, DO [address] [facility] [place] [address] PCP - General Family Medicine 05/31/20 documented as of this encounter
--- OUTSIDE RECORDS SUMMARY | 2022-10-29 06:55 | External Medical Summary | Summary of Care ---
Author Name Unknown Organization [place] [address] Care Team Providers Care Chief Of Safety And Protection Name Role Phone Byron Bryan DO Primary Care Provider [phone] Reason for Visit * Reason Onset Date Comments FYI 03/18/2022 Encounter Details Date Type Department Care Team Description 03/18/2022 Telephone Family Practice [facility] [address] [place] [address] Byron Bryan DO [address] [facility] [place] [address] FYI Allergies No known active allergiesdocumented as of this encounter (statuses as of 03/18/2022) Medications Medication Sig Dispensed Refills Start Date [...] as of this encounter (statuses as of 03/18/2022) Active Problems Problem Noted Date Left bundle branch block 07/24/2020 Dyslipidemia 07/24/2020 Osteoarthritis of toe joint(s) 0 ADVANCE DIRECTIVE INFORMATION 04/24/2005 Overview: No, Advance Directive brochure offered , patient declined. Other allergic rhinitis 01/12/2004 Overview: ICD-10 update of inactive term Sciatica documented as of this encounter (statuses as of 03/18/2022) Immunizations Name Administration Dates Next Due COVID-19 [...] Miscellaneous Notes * Telephone Encounter - PORTER Barrera - 03/18/2022 3:55 PM EST Pt declined colonoscopy at this time documented in this encounter Plan of Treatment Upcoming Encounters Date Type Specialty Care Team Description 03/19/2022 Laboratory [facility] [place] [address] [place] [address] 06/02/2022 Office Visit Ophthalmology Dyllan Briones MD [address] [facility] [place] [address] 07/04/2022 Office Visit Cardiology Ashutosh Mckinney, [address] [place] [address] 03/20/2023 Office Visit Family Medicine Byron Bryan, DO [address] [place] [address] Scheduled Procedures Name Priority Associated Diagnoses Date/Ti [...] Not on filedocumented as of this encounter Care Teams Chief Of Safety And Protection Relationship Specialty Start Date End Date Byron Bryan, DO [address] [place] [address] PCP - General Family Medicine 05/31/20 documented as of this encounter
--- OUTSIDE RECORDS SUMMARY | 2022-10-29 06:55 | External Medical Summary ---
Author Name Unknown Address Unknown Organization K09[facility] [place] [address] Laboratory Report Ordering Provider Test Date Status TENZIN POPE 03/19/2022 08:29:52 Final Observation Date Value Abnormality Reference (Units ) Status BUN 03/19/2022 08:29:52 25 Above high normal 6-20 (mg/dL) Final Creatinine 03/19/2022 08:29:52 0.9 0.6-1.2 (mg/dL) Final Glomerular filtration rate/1.73 sq M.predicted [Volume Rate/Area] in Serum, Plasma or Blood by Creatinine-based formula (CKD-EPI) 03/19/2022 08:29:52 87 >=60 (mL/min) Final Performing Location [facility] [place] [address]
--- OUTSIDE RECORDS SUMMARY | 2022-10-29 06:55 | External Medical Summary | Summary of Care ---
Author Name Unknown Organization [place] [address] Care Team Providers Care Architecture Technician Name Role Phone Byron Bryan DO Primary Care Provider [phone] Reason for Referral * Ancillary Services (Within 30 days (routine)) - Authorized Specialty Diagnoses / Procedures Referred By Contdottie t Referred To Contact Gastroenterology Diagnoses Special screening for malignant neoplasms, colon Byron Bryan DO [address] [place] [address] Referral ID Status Reason Start Date Expiration Date Visits Requested Visits Authorized [id number] Authorized Ancillary Services Required 03/18/2022 999 999 Question Answer Referral Priority Within 30 days (routine) Comments ALERT: Do not order for pediatric patients (18 years or younger). Cancel off screen and order PEDS GASTROENTEROLOGY CONSULT (Type: 1 visit only-Evaluate and Treat) The following Pt. Instructions are available: - Gastro Colonoscopy Prep Instructions [24071] - Gastro Colonoscopy Prep Instructions (Kinyarwanda Version) [[id number]] Go to the Pt. Instructions section within the Visit Navigator to access. Colonoscopy ASGE Guidelines: Average risk screening (begin at age 50, 10 year intervals) ADDITIONAL INFORMATION 1. Is the patient on Coumadin? No 2. Is the patient on Pradaxa? No Reason for Visit * Reason Comments Physical-Exam Encounter Details Date Type Department Care Team Description 03/18/2022 Office Visit Family Practice [facility] [place] [address] [place] [id number] Byron Bryan DO [address] [place] [address] Routine medical exam*; Special screening for malignant neoplasms, colon; Dyslipidemia; Swelling of right foot; Screening PSA [...] Active Atorvastatin Calcium 40 MG Oral Tablet (Lipitor)Indicat ions:Dyslipidemi a Take 1 Tablet by mouth in the morning. 90 Tablet 3 03/18/2022 Active predniSONE 20 MG Oral Tablet (Deltasone) 1 tab 3 times a day for 3 days, then 1 tab 2 times a day for 3 days, then 1 tab daily for 3 days 18 Tablet 0 03/18/2022 Active Atorvastatin Calcium 40 MG Oral Tablet (Lipitor)Indicat ions:Dyslipidemi a TAKE ONE TABLET BY MOUTH EVERY DAY 90 Tablet 0 01/11/2022 3 Discontinued(Refi ll) predniSONE 10 MG Oral Tablet (Deltasone) TAKE 4 TABLETS BY MOUTH DAILY FOR 3 DAYS THEN 3 TABLETS DAILY FOR 3 DAYS THEN 2 TABLETS DAILY FOR 3 DAYS THEN 1 TABLET DAILY FOR 3 DAYS 30 Tablet 0 06/28/2021 3 Discontinued([facility] List Clean Up) predniSONE 20 MG Oral Tablet (Deltasone)Indic ations:Swelling of right foot 1 tab 3 times a day for 3 days, then 1 tab 2 times a day for 3 days, then 1 tab daily for 3 days 18 Tablet 0 03/18/2022 3 Discontinued documented as of this encounter (statuses as [...] Sign Reading Time Taken Comments Blood Pressure 142/90 03/18/2022 3:03 PM EST Pulse 58 03/18/2022 3:03 PM EST Temperature 36.5 C (97.7 F) 03/18/2022 3:03 PM ES T Respiratory Rate 18 03/18/2022 3:03 PM EST Oxygen Saturation 97% 03/18/2022 3:03 PM EST Inhaled Oxygen Concentration - - Weight 91.8 kg (202 lb 6.4 oz) 03/18/2022 3:03 P M EST Height 185.4 cm (6' 1") 03/18/2022 3:03 PM EST Body Mass Index 26.7 03/18/2022 3:03 PM EST documented in this encounter Progress Notes * Byron Bryan, DO - 03/18/2022 3:38 PM EST Subjective: Huan Prado is a 71 year old male. Chief Complaint Patient presents with Physical-Exam HPI: Pt here for a physical. Feeling pretty good. PMHx, PSHx, SHx, FHx, Medications, and Allergies fully reviewed R foot swelled up and got hot and painful. thinks it could be from prior injury, wonders aboutgout. Started at [facility], lasted three weeks. Did improve over time. Can put on shoes and walk now. 3 weeks for swelling to go down. Not sure about fevers. No obvious wound. Put on prednisone andit helped. Colonoscopy discussed, will get done. Diet discussed. Some extra carbs. Cuts off fat. Not as much exercise because of his foot. Likes to loosen up and loose weights. Getting back to a point of exercise. No desire for PNA shot today. Mometasone compound helping with sinus lavage. Patient Active Problem List Diagnosis Code Sciatica M54.30 Other allergic rhinitis J30.89 ADVANCE DIRECTIVE INFORMATION Osteoarthritis of toe joint(s) Left bundle branch block I44.7 Dyslipidemia E78.5 Current Outpatient Medications Medication Sig Dispense Refill [...] TABLET BY MOUTH EVERY DAY 90 Tablet 0 No current facility-administered medications for this visit. Review of patient's allergies indicates: No Known Allergies OBJECTIVE: BP 142/90 | Pulse 58 | Temp 36.5 C (97.7 F) (Tympanic) | Resp 18 | Ht 1.854 m (6' 1") | Wt 91.8kg (202 lb 6.4 oz) | SpO2 97% | BMI 26.70 kg/m | BSA 2.17 m Estimated body mass index is 26.7 kg/m as calculated from the following: Height as of this encounter: 1.854 m (6' 1"). Weight as of this encounter: 91.8 kg (202 lb 6.4 oz). BP Readings from Last 3 Encounters: 03/18/22 142/90 10/28/21 149/80 08/22/21 158/82 Wt Readings from Last 3 Encounters: 03/18/22 91.8 kg (202 lb 6.4 oz) 10/28/21 84.6 kg (186 lb 8 oz) 08/22/21 85 kg (187 lb 4.8 oz) ROS: General: No change in weight, No weakness, No fatigue and No fevers, sweats, or chills Head: No significant headache and No recent significant head injury Eyes: No recent significant change in vision, No eye pain, redness, discharge, or excessive tearing, No diplopia and No h/o cataracts or glaucoma Ears: No recent change in hearing, No tinnitus or vertigo, No ear pain and No ear discharge Nose: No h/o frequent colds or sinusitis, No nasal stuffiness, No h/o hay fever and No significant epistaxis Throat/Oropharynx: No teeth or gum problems, No bleeding gums, No tongue complaints, No sore throatand No recent change in voice or hoarseness Neck: No complaint of lumps in neck, No swollen glands, No recent swelling in thyroid area and No significant pain in neck Respiratory: No cough, sputum, or hemoptysis, No wheezing, No shortness of breath and No recent change in breathing Cardiac: No chest pain, No shortness of breath, No dyspnea on exertion, No orthopnea, No paroxysmalnocturnal dyspnea, No edema, No palpitations and No syncope Gastrointestinal: No dysphagia, No significant heartburn, No significant change in appetite, No nausea, vomiting, diarrhea, or constipation, No hematemesis, No blood in stools or black tarry stools, No abdominal bloating or early satiety and No abdominal pain Urinary: No urinary frequency, No dysuria, No hematuria, No urinary urgency, No polyuria, No nocturia, No incontinence, No hesitancy and No sensation of incomplete voiding Musculoskeletal: as above Hematologic: No anemia, No easy bruising or abnormal bleeding and No history of transfusion Neurologic: No fainting or blackouts, No seizures, No paralysis or focal weakness, No numbness or tingling, No tremors and No significant problems with memory PHYSICAL EXAM: General: alert, healthy and no distress Head: Normocephalic, No masses, lesions, tenderness or abnormalities Ears: External ears normal, Canals clear, TM's Normal Nose: no mucosal erythema, no mucosal edema, no purulent discharge Oropharynx: no exudate, no erythema, lips, buccal mucosa, and tongue normal and mucous membranes are moist Neck: supple, no adenopathy, no bruits, thyroid normal size, non-tender, without nodularity Heart: regular rate & rhythm, no murmurs and no gallops Lungs: chest symmetric with normal AP diameter, no chest deformities noted, no chest wall tenderness, lungs clear to auscultation Abdomen: abdomen soft, non-tender, normal bowel sounds and no masses or organomegaly Extremities: swelling at the base of his big toe on the R ASSESSMENT/Plan Routine medical exam (Primary) Special screening for malignant neoplasms, colon - COLONOSCOPY, GI REFERRAL OP Dyslipidemia - Atorvastatin Calcium 40 MG Oral Tablet (Lipitor); Take 1 Tablet by mouth in the morning. Swelling of right foot - URIC ACID; Future; Expected date: 03/18/2022 Screening PSA (prostate specific antigen) - PSA; Future; Expected date: 03/18/2022 Other orders - predniSONE 20 MG Oral Tablet (Deltasone); 1 tab 3 times a day for 3 days, then 1 tab 2 times a day for 3 days, then 1 tab daily for 3 days I spent a total of 30 minutes on the date of service in preparation, delivery, and documentation ofthe care provided to this patient, excluding any time spent on the performance of any procedure or separately billable services. Appears very likely to be gout. The above was discussed and understanding was expressed. Byron Bryan DO documented in this encounter Nursing Notes * Shruthi Abdi LPN - 03/18/2022 3:00 PM EST Huan Prado presents for annual physical exam. Medications & HM reviewed. documented in this encounter Plan of Treatment Upcoming Encounters Date Type Specialty Care Team Description 03/19/2022 Laboratory [facility] [address] [place] [address] 06/02/2022 Office Visit Ophthalmology Dyllan Briones MD [address] [place] [address] 07/04/2022 Office Visit Cardiology Ashutosh Mckinney, [address] [place] [address] 03/20/2023 Office Visit Family Medicine Byron Bryan, DO [address] [place] [address] Scheduled Orders Name Type Priority Associated Diagnoses Orde r Schedule URIC ACID Lab Routine Swelling of right foot Expected: 03/18/2022 (Approximate), Expires: 03/18/2023 PSA Lab Routine Screening PSA (prostate specific antigen) Expected: 03/18/2022 (Approximate), Expires: 03/18/2023 Scheduled Procedures Name Priority Associated Diagnoses Date/Ti me COLONOSCOPY FLEXIBLE PROXIMAL DIAGNOSTIC Recall History of colon polyps Scheduled Referrals Name Type Priority Associated Diagnoses Orde r Schedule COLONOSCOPY, GI REFERRAL OP Referral Within 30 days (routine) Special screening for malignant neoplasms, colon Ordered: 03/18/2022 Health Maintenance Due Date Last Done Comments [...] as of this encounter Visit Diagnoses Diagnosis Routine medical exam- Primary Routine general medical examination at a health care facility Special screening for malignant neoplasms, colon Dyslipidemia Other and unspecified hyperlipidemia Swelling of right foot Screening PSA (prostate specific antigen) Special screening for malignant neoplasm of prostate documented in this encounter Care Teams Architecture Technician Relationship Specialty Start Date End Date Byron Bryan, DO [address] [place] [address] PCP - General Family Medicine 05/31/20 documented as of this encounter
--- OUTSIDE RECORDS SUMMARY | 2022-10-29 06:55 | External Medical Summary ---
Author Name Unknown Address Unknown Organization K01:[facility] [place] [address] [place] [id number] Laboratory Report Ordering Provider Test Date Status AIMEE BAUER 03/19/2022 08:29:52 Final Observation Date Value Abnormality Reference (Units ) Status Uric Acid 03/19/2022 08:29:52 6.8 3.4-7.0 (m g/dL) Final Performing Location [facility] - [address] [place] [id number]
--- OUTSIDE RECORDS SUMMARY | 2022-10-29 06:55 | External Medical Summary | Summary of Care ---
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 Name Role Phone LoyByron singletary Primary Care Provider [phone] Reason for Visit * Auth/Cert Specialty Diagnoses / Procedures Referred By Radha nolasco Referred To Contact Diagnoses Nasal polyposis Chronic pansinusitis Nasal polyposis [J33.9] Chronic pansinusitis [J32.4] Procedures STEREOTACTIC CRANIAL EXTRADURAL NAVIGATION NASAL ENDOSCOPY/EXPLOR MAXIL SINUS NASAL ENDOSCOPY,TOTAL ETHMOIDECTOMY NASAL/SINUS ENDOSCOPY, SURGICAL NASAL/SINUS ENDOSCOPY, SURGICAL STEREOTACTIC CRANIAL EXTRADURAL NAVIGATION NASAL SINUS ENDOSCOPY MAXILLARY ANTROSTOMY NASAL SINUS ENDOSCOPY WITH ETHMOIDECTOMY TOTAL NASAL SINUS ENDOSCOPY SURGICAL WITH SPHENOIDOTOMY NASAL SINUS ENDOSCOPY SURGICAL Referral ID Status Reason Start Date Expiration Date Visits Re quested Visits Authorized [id number] Encounter Details Date Type Department Care Team Description 10/28/2021 Hospital Encounter OR [facility], OPERATING ROOM [facility] [place] [address] [place] [address] Daron Cerda MD [address] [place] [address] Allergies No known active allergiesdocumented as of this encounter (statuses as of 10/29/2021) Medications Medication Sig Dispensed Refills Start Date [...] 10/28/2021 Atorvastatin Calcium 40 MG Oral Tablet (Lipitor)Indicati ons:Dyslipidemia TAKE ONE TABLET BY MOUTH EVERY DAY 90 Tablet 1 07/25/2021 Active oxyCODONE HCl 5 MG Oral Tablet (Oxy IR) Take by mouth 1 Tablet every 4 hours as needed for Pain, Breakthrough for up to 5 days. 8 Tablet 0 10/28/2021 11/02/2021 Active documented as of this encounter (statuses as of 10/29/2021) Active Problems Problem Noted Date Left bundle branch block 07/24/2020 Dyslipidemia 07/24/2020 Osteoarthritis of toe joint(s) 0 ADVANCE DIRECTIVE INFORMATION 04/24/2005 Overview: No, Advance Directive brochure offered , patient declined. Other allergic rhinitis 01/12/2004 Overview: ICD-10 update of inactive term Sciatica documented as of this encounter (statuses as of 10/29/2021) Immunizations Name Administration Dates Next Due COVID-19 [...] Sign Reading Time Taken Comments Blood Pressure 149/80 10/28/2021 5:30 PM EDT Pulse 98 10/28/2021 5:30 PM EDT Temperature 36.3 C (97.3 F) 10/28/2021 5:20 PM ED T Respiratory Rate 9 10/28/2021 5:30 PM EDT Oxygen Saturation 97% 10/28/2021 5:30 PM EDT Inhaled Oxygen Concentration - - Weight 84.6 kg (186 lb 8 oz) 10/28/2021 12:10 PM EDT Height 185.4 cm (6' 1") 10/28/2021 12:10 PM EDT Body Mass Index 24.61 10/28/2021 12:10 PM EDT documented in this encounter Discharge Instructions * Discharge Instr - AVS* Jannette Nguyễn, DO - 10/28/2021 4:36 PM EDT Discharge Date: 10/28/[address] Daron Cerda of the department of ENT at [phone] during business hours for any questions or test results. For after-hours emergencies call [phone] and have your doctor paged. The information below provides you with the instructions and the list of medications you need to betaking following discharge from the hospital. If you have any questions, please ask before leaving.Please carry this letter with you when you see your doctor in the clinic. If you have questions, you can reach us at the numbers above. Diet: Start with clear liquids (jello, tea, apple juice), avoid dairy products (milk, cheese, pudding, ice cream) and fried, greasy foods. Advance to unrestricted diet as tolerated. If nausea should occur, have clear liquids only until soft foods can be tolerated. Activity: A responsible adult must be with the patient for 24 hours after surgery. Rest today and tomorrow, and then increase activity as tolerated. No strenuous activity for 2 weeks. Driving: Okay to drive once off narcotic pain medications for more than 24 hours Date you may return to work or school: One week Follow up in one week with Dr. Daron Cerda Special Instructions: DISCHARGE INSTRUCTIONS FOR ENDOSCOPIC SINUS SURGERY Use mometasone sinus irrigations starting on 10/29/21 in the evening. Do this in the morning and evening every day after that. Use saline irrigations mid-day, every day. NASAL IRRIGATIONS: The purpose of irrigating is to clean the secretions from your nose to help decrease scarring. Thisis extremely important. Good post-operative irrigation on your part is essential for a successful outcome. Use the 240ml NeilMedTM sinus oil field operator (given to you at your pre-op appointment) to irrigate your nose/sinuses beginning the day after your surgery. Instructions: Place one packet of salt solution into the oil field operator and fill the bottle with DISTILLED WATER. You may warm the saline solution to make this more comfortable (it should be warm NOT HOT). Stand over the sink. Bend over at the waist (head facing toward the floor), insert the tip of the syringe into the nose. Open your mouth. With force, squeeze the solution into your nostril. Let the solution flow into the sink from your nose and mouth. Irrigate both nostrils with 240ml of saline solution (one bottle between both nostrils) 3 times daily. Continue to irrigate with this amount until we instruct you otherwise. You may wish to mix your own saline solution. The recipe is as follows: 3 teaspoons of aguilar/pickling salt (make sure it is NON-iodized salt) 2 teaspoons of baking soda 1 gallon of boiled or distilled water OTHER INSTRUCTIONS: SLEEPING - It is recommended that for the first few days after surgery that you sleep with your head elevated. This will decrease your post-operative nasal congestion. DIET - You may resume your normal diet as you feel up to it. A healthy, balanced diet is best for healing. ACTIVITY - You may resume light activity in 1-2 days. No strenuous physical activity is recommendedfor 2 weeks due to the risk of bleeding. If you feel tired over the first few days you should lie down and rest. MEDICATIONS - Resume your home medications. You will be given a prescription for pain medication when you leave the hospital. For mild discomfort take Tylenol, 2 every 4 to 6 hours as needed. For moderate discomfort, use your prescription as directed. DRIVING - Do not drive within 24 hours of receiving anesthesia. You are advised not to drive if youare taking prescription pain medication. PLEASE CALL OUR OFFICE IF YOU HAVE ANY OF THE FOLLOWING: Any vision problems Fever over 101 F Heavy or prolonged bright red bleeding from the nose Any questions or concerns documented in this encounter H&P Notes * Jannette Nguyễn DO - 10/28/2021 1:42 PM EDT HISTORY & PHYSICAL - Otolaryngology - Head & Neck Surgery Service [facility] [place] [id number] History and Physical Update: Name: Huan Prado Location: [place] [facility] [place] Date: 10/28/2021 Time: 1:43 PM CHIEF COMPLAINT: Nasal polyposis, chronic pansinusitis HISTORY OF PRESENT ILLNESS: The patient presents today for scheduled surgery. He denies any changes to health since last clinicvisit. Denies recent illness, or use of ASA, NSAID's, or any other Anticoagulants. MEDICAL HISTORY: Patient Active Problem List Diagnosis Code Sciatica [...] performed by Rhonda Curtis DO at END[facility]COPY [facility] CT PELVIS W CONTRAST CCH-a few [...] related change.No abnormal soft tissue massis detected. REMOVAL OF TONSILS, UNDER AGE 12 age 5 REMOVE GALLBLADDER 1998 Review of patient's allergies indicates: No Known Allergies Social History Tobacco Use Smoking status: Former Smoker Quit date: 03/02/1976 Years since quittin.6 Smokeless tobacco: Never Used Substance Use Topics Alcohol use: Yes Comment: 1-2 wine/week Vaping/E-Cigarette Use Vaping/E-Cigarette Substances Vaping/E-Cigarette Devices Family History Problem Relation Age of Onset [...] Diabetes Daughter Type I diabetes-onset age 13 REVIEW OF SYSTEMS: Negative for constitutional, eyes, cardiac, pulmonary, hepatic, renal, digestive, hematologic, epileptic, syncopal, musculo-skeletal, mental health, integumentary, hypertensive, lipid, arthritic, diabetic, thyroid or neurologic disorders (except as listed in the PMH and Problem List). PHYSICAL EXAM: Vital Signs: BP: / Pulse: Temp: 36.28 C (10/28/21 1322) Resp: SpO2: Lungs: The lungs were auscultated and breath sounds were clear bilaterally. Heart: Ausculation of the heart revealed a regular rate and rhythm without murmur. PLAN: NPO SCDs Ancef Proceed with surgery: Stereotactic guided revision endoscopic sinus surgery (CPT 42437) To include: bilateral maxillary antrostomies (CPT 79326) bilateral total ethmoidectomies (CPT 52313) bilateral sphenoidotomies (CPT 70055) endoscopic polypectomy (CPT 98228) [facility] NOTE 08/22/21: PATIENT: Huan Prado : 1950 DATE OF SERVICE: 08/22/2021 History of Present Illness The 71 year old male is seen at the request of Byron Bryan DO for evaluation of chronic rhinosinusitis with nasal polyps. Patient seen at the request of Dr. Rojas. Prior hx of sinus surgery with Dr Zmaudio approx 30 yrs ago. Approx last Fall he has began to note foul taste in the mouth, increased nasal congestion. Treated with several rounds of prednisone with limited temporary improvement. Patient reports no sense of smell for several years, he will have slight sense of smell while on prednisone. Patient denies asthma or aspirin sensitivity. Recent CT sinus imaging was reviewed with the patient and his spouse and reports: IMPRESSION Remote sinonasal postoperative changes. Evidence of chronic sinonasal polyposis. Small volume frothy secretions scattered throughout suggestive of superimposed acute on chronic disease. Further details above. Small multifocal bony thinning and probable dehiscences along the bilateral anterior paramidline skull base including the cribriform plate. Encephalocele or meningocele are unlikely yet cannot be excluded. Consider MRI prior to surgical intervention. Midline anterior frontal diploic space partially ossified structure, favoring a fibroosseous lesion, less likely osteoma. Although benign in appearance, assessment for stability is precluded without a remote comparison study. Anatomic variants as discussed. Subsequent MRI was obtained to evaluate the skull base defects. This reports: IMPRESSION 1. Similar opacification of bilateral frontal, ethmoid, sphenoid and maxillary sinuses and nasal polyps, compatible with sinonasal polyposis. No MRI evidence of definite dural defect or encephalocele. Patient Active Problem List Diagnosis Code Sciatica [...] yrs / COLONOSCOPY FLEXIBLE PROXIMAL DIAGNOSTIC performed byRhonda Curtis DO at [facility] CT PELVIS W CONTRAST CCH-a few sigmoid diverticula present, equivocal thickening versus fold in theupper rectum, no pelvic mass lesions suspected that would cause femoral neuropathy EMG, 2 EXTREMITIES 04/22/01 This a minimally abnormal NCV showing minor evidence of a sensorimotor polyneuropathy with demyelinating features. The EMG is too limited to draw any conclusions regarding any isolated involvementof the L femoral nerve. EMG, 2 EXTREMITIES 06/17/01 [...] related change.No abnormal soft tissue massis detected. REMOVAL OF TONSILS, UNDER AGE 12 age 5 REMOVE GALLBLADDER 1998 Current Outpatient Medications Medication Sig Dispense Refill IBUPROFEN 200 MG PO CAPS as needed Coenzyme Q10 (COQ10) 100 MG CAPS Take 1 Tab by mouth daily. nitroglycerin (NITROSTAT) 0.[address] 1 Tab under the tongue as needed. 1 tab every 5 minutes x 3 as needed for CP predniSONE 10 MG Oral Tablet (Deltasone) Take 4 tab daily x 3 days, then 3 tab daily x 3 days, 2 tab daily x 3 days, then 1 tab daily x 3 days. 30 Tablet 0 Atorvastatin Calcium 40 MG Oral Tablet (Lipitor) TAKE ONE TABLET BY MOUTH EVERY DAY 90 Tablet 1 No current facility-administered medications for this visit. Family History Problem Relation Age of Onset [...] Former Smoker Quit date: 03/02/1976 Years since quittin.5 Smokeless tobacco: Never Used Substance Use Topics Alcohol use: Yes Comment: 1-2 wine/week Vaping/E-Cigarette Use Vaping/E-Cigarette Substances Vaping/E-Cigarette Devices Review of Systems Negative for constitutional, eyes, cardiac, pulmonary, hepatic, renal, digestive, hematologic, epileptic, syncopal, musculo-skeletal, mental health, integumentary, hypertensive, lipid, arthritic, diabetic, thyroid or neurologic disorders (except as listed in the PMH and Problem List). Physical Examination: Vital Signs: Filed Vitals: 08/22/21 1018 BP: 158/82 Pulse: 53 Resp: 16 Temp: 36.6 C (97.8 F) TempSrc: Infrared Weight: 85 kg (187 lb 4.8 oz) Height: 1.854 m (6' 1") General: This is a healthy appearing male who appears his stated age. The patient is alert and oriented x 3 and is appropriately verbally conversant without hoarseness. Head/Face: The face was inspected and no cutaneous masses or lesions were visualized. There was no erythema or edema noted. Facial movement was symmetric without weakness. No skin lesions were detected. The parotid and submandibular glands were normal to palpation. Eyes: Extra-ocular muscle function was intact. No nystagmus was observed. Pupils were equal. Cranial Nerves: Cranial nerves II, III, IV, and were noted to be intact via extra-ocular muscle movement testing. Cranial nerve VII was noted to be intact and symmetric by facial movement. Cranialnerves IX and X were noted to be intact by gag reflex and palatal movement. Cranial nerve XII was noted to be intact by active and symmetric tongue movement. Nose: Examination of the nose revealed septum is non-obstructing. The turbinates are normal in appearance. Bilateral grade 3 nasal polyps noted. No obvious mucopus. Procedure: In order to better assess the nasal chambers and paranasal sinuses, endoscopy was performed. The nose was decongested with topical oxymetazoline 0.05% spray and anesthetized with topical Lidocaine 4%spray. A rigid 30 degree scope was used to examine each side of the nose. See nasal exam for findings noted. Patient tolerated procedure well. Oral cavity: Examination of the oral cavity revealed no mass lesions or infection. The palate was noted to be intact without evidence of clefting. The tongue exhibited normal mobility. Mucosa was moist without lesion. The lips were free of lesion. The gingiva was free of inflammation. Dentition: Unremarkable Oropharynx: Mucous membranes moist. No lesions or masses appreciated. Uvula midline. Tonsils unremarkable. Impression and Plan: ICD-10-CM 1. Nasal polyposis J33.9 2. Chronic pansinusitis J32.4 Patient Instructions - EKG and ECHO recently completed - BMP and COVID testing ordered - Surgery planned for 10/28/2021. - will arrange for topical mometasone irrigations twice daily. Dr. Cerda has placed a prescription with [facility] for your sinus rinse therapy. If you do not hear from the pharmacy in 2 days, please call [phone]. I have recommended: Stereotactic guided revision endoscopic sinus surgery (CPT 05108) To include: bilateral maxillary antrostomies (CPT 81463) bilateral total ethmoidectomies (CPT 73681) bilateral sphenoidotomies (CPT 41763) endoscopic polypectomy (CPT 15203) The procedure was discussed in detail and explained with the risk of bleeding, vision loss, CSF leak, infection (including meningitis), scarring, chronic crusting, nasoseptal perforation, nasolacrimal duct injury, loss of smell and general anesthesia. It was also discussed that the patient may havenasal obstruction and headaches for several days postoperatively. He verbalized understanding of the procedure and gave informed consent. The patient was agreeable with the plan and all questions were answered to their satisfaction. Daron Cerda MD Otolaryngology [place] [phone] documented in this encounter Nursing Notes * Sylwia Ortiz RN - 10/28/2021 5:03 PM EDT Dual Licensed Skin Assessment completed by ruth and nirmal. The patient is/has a N/A Skin Breakdown (includes non blanchable erythema): Yes - Surgical/Procedural changes only. * Pradeep Almeida RN - 10/28/2021 2:28 PM EDT Dual Licensed Skin Assessment completed by Mae Almeida RN and Nilda Goodrich RN The patient is/has a N/A Skin Breakdown (includes non blanchable erythema): No * Pily Kennedy RN - 10/25/2021 9:27 AM EDT Attempted to contact and unable to reach patient/parent/guardian at number provided. Message left informing the patient/parent/guardian that a telephone call to provide instructions will be received the business day prior to their scheduled appointment. Patient instructions sent via [employer] portal. Pre-operative chart review completed. NO ANESTHESIA EVAL REQUESTED PER CASE DOCUMENTATION. PREOP PATIENT INFORMATION AND EDUCATION: MEDICATION INSTRUCTIONS: The day of surgery/procedure, you may TAKE the following medications with a sip of water up to 2 hours prior to your arrival time: Atorvastatin AVOID/ DO NOT TAKE any medications the morning of surgery/procedure that are not listed above. STOP taking the following medications the noted number of days prior to surgery/procedure unless otherwise specified by your surgeon: Stop coenzyme Q10 as of today Please follow surgeon's instructions regarding use of Aspirin, Coumadin, Plavix, Eliquis, and any other blood thinner including NSAIDs (non-steroidal anti-inflammatory drugs, eg, Advil, Ibuprofen,Motrin, Aleve, Naproxen). 10 days prior to surgery/procedure Stop all Herbal supplements, Green Tea, Turmeric, Melatonin, CBD, THC, etc. Stop all Vitamins (including Vitamin E) 24 hours prior to surgery/procedure DO NOT consume any alcohol. DO NOT use medical marijuana. DO NOT smoke or use tobacco products of any kind after midnight prior to surgery. *Using any of these products may increase your risks of procedural complications. IF IT IS LESS THAN RECOMMENDED STOPPAGE TIME PLEASE STOP AT TIME OF NOTIFICATION. FASTING RECOMMENDATIONS: To reduce risk, it is important for all elective surgery patients to follow the specific fasting guidelines listed below. DO NOT EAT after midnight on the night prior to your surgery date. You are allowed to drink clear liquids up to two hours prior to arrival time to the hospital or surgery center. Examples of clear liquids include water, clear fruit juice without pulp, clear carbonated beverages, clear tea, and black coffee. Any drinks given by your surgical service take as directed. THE DAY BEFORE YOUR SURGERY: -Drink plenty of fluid the day before your surgery. Contact your surgeon's office if you develop any of the following within 2 weeks of surgery: A cold Infection Fever Shingles Chicken pox or exposure to chicken pox Open areas such as scrapes, cuts, machado or other skin conditions Rashes GENERAL INSTRUCTIONS FOR PREPARING FOR SURGERY: BATHING INSTRUCTIONS: Bathe the evening prior to and the morning of surgery/procedure. Cleanse your body using ONLY anti-bacterial soap (eg, Dial, Safeguard) or any specific soap/cleansers and instructions provided by your surgeon (eg, Chlorhexidine). -You should brush your teeth the morning of surgery. Do NOT apply any lotions, powders, sprays, creams, oils, make-up, or deodorants after bathing. No hairspray, or nail maori on fingers or toes. Day of surgery/procedure do not use tampons. If you wear contacts wear your eyeglasses if available otherwise bring your contact supplies with you to remove them prior to your surgery/procedure. If you wear glasses or dentures, please bring cases in which you can store them during your surgery. Please remove all piercings and jewelry and leave them at home. Wear comfortable and loose clothing. -Please leave all valuables at home. -If you use a CPAP and are staying overnight, please bring your mask and tubing with you to the hospital. -If you use an assistive mobility device (walker, cane, etc), please label it with your name and bring to hospital. -An escort dumpster driver is required if you are being discharged the same day of the surgery. You should have a responsible adult over the age of 18 [address] you home. This person should be present with youin the hospital at the time of discharge and for the first 24 hours after the surgery to support your needs. If you are taking a taxi home, you must have your responsible libertarian accompany you in the taxi ride home at the time of discharge. OR times subject to change. Please check voice[employer]ore[employer] messages the day/evening before your surgery forany updates. PRE-OP: You will be taken to the pre-op area where your vital signs (blood pressure, pulse and temperature)will be taken. Any preparations that need to be done will be done there. When it is time for your surgery, you will be taken to the operating room. PARENTS OF PEDIATRIC PATIENTS WILL BE ALLOWED TO STAY WITH THEIR CHILDREN UNTIL THEY ARE ESCORTED TO THE OPERATING ROOM OUTPATIENT SURGERY PATIENTS: After your surgery you will be taken to the Same Day Surgery Unit when you are awake and will go home from there. You will get instructions about your home care before you leave. Arrange to have someone drive you home from the hospital. You may not drive for 24 hours after anesthesia. You must havean adult stay with you at home for 24 hours after your operation. This is very important. If you are not able to comply with these guidelines, your Short Stay surgery cannot be done. ADMISSION PATIENTS: After your stay in the recovery area, you will be taken to your room. Your family may visit you in your room based on current visitation policy. If a next day discharge is expected, it is important to make arrangements for a dumpster driver to take you home. Please be aware our visitation policies are subject to change Professionals, attendants, caregivers or family members are allowable visitors for patients with intellectual, developmental or cognitive disabilities, communication barriers or behavioral concerns. Because patients' and families' needs vary, they will be taken into account when applying visitat ion restrictions. [place]: Contact # [phone] Directions to Surgical Suite in from the [place] Entrance The Surgical Waiting Room can be found in the Lobby of [facility]. Enter through Main Lobby Entrance and the Waiting Room is directly in front of you. Proceed to check in and give them your name. Directions to Surgical Suite from the East Entrance Enter the East entrance and follow the hallway to the J elevator. Take the J elevator up to Level 1. Continue down the long hallway to the main [facility] Lobby. The Surgical Waiting Room will be on your Right. Proceed to check in and give them your Name. Directions to Surgical Suite from the Parking Garage Enter the [facility] lobby and proceed down the corado to the left. At the end of the corado, turn right. Continue down the long hallway to the main [facility]. The Surgical Waiting Room will be on your Right. Proceed to check in and give them your Name. Pily Kennedy MSN, RN [facility] 10/25/2021 documented in this encounter Plan of Treatment Upcoming Encounters Date Type Specialty Care Team Description 11/05/2021 Office Visit Otolaryngology Tegan Lakhani CRNP [address] [place] [address] 11/12/2021 Immunization Ancillary Sp, Flu Shot Clinic [address] [place] [address] 03/18/2022 Office Visit Family Medicine Byron Bryan DO [address] [place] [address] Pending Results Name Type Priority Associated Diagnoses Date /Time CULTURE, SINUS, AEROBIC AND ANAEROBIC Lab Routine 10/28/2021 3:26 PM EDT SURGICAL PATHOLOGY Pathology Routine Nasal polyposis Chronic pansinusitis 10/28/2021 4:19 PM EDT Scheduled Orders Name Type Priority Associated Diagnoses Orde r Schedule GLUCOSE METER, POINT OF CARE (COMMUNICATION ORDER) Point of Care Testing STAT Perform Now for 1 Occurrences starting 10/28/2021 until 10/28/2021 EKG EKG Routine Ventricular ectopy One Time for 1 Occurrences starting 10/28/2021 until 10/28/2021 SURGICAL PATHOLOGY Pathology Routine Nasal polyposis Chronic pansinusitis Release Upon Ordering for 1 Occurrences starting 10/28/2021 Scheduled Procedures Name Priority Associated Diagnoses Date/Ti [...] Not on filedocumented as of this encounter Procedures Procedure Name Priority Date/Time Associated Diagnosis Comments CULTURE, SINUS, AEROBIC AND ANAEROBIC Routine 10/28/2021 3:26 PM EDT GLUCOSE METER, POINT OF CARE MACHO 10/28/2021 1:50 PM EDT documented in this encounter Results * GLUCOSE METER, POINT OF CARE (10/28/2021 1:50 PM EDT) Glucose Meter 88 70 - 120 mg/dL [facility] Specimen Blood - Whole blood sample ( specimen) [facility] [address] [place] [address] documented in this encounter Visit Diagnoses Diagnosis Ventricular ectopy Other premature beats Nasal polyposis Unspecified nasal polyp Chronic pansinusitis Other chronic sinusitis documented in this encounter Administered Medications Inactive Administered Medications - up to 3 most recent administrations Medication Order MAR Action Action Date Dose Rate Site Acetaminophen (Tylenol) tab 975 mg 975 mg, Oral, PREOP, First dose on Thu10/28/21 at 1315, Last dose on Thu10/28/21 at 1315, For 1 dose, Maximum 4 g acetaminophen/day. Avoid in patients with severe hepatic impairment or severe active liver disease. Administer 60 minutes prior to OR., Pre-Op Given 10/28/2021 2:22 PM EDT 975 mg isolyte-S pH 7.4 infusion Intravenous, at 25 mL/hr, All Patients EXCEPT Dialysis patients Plasma-LYTE 148, isolyte-S, and isolyte-S pH 7.4 are considered equivalent - including for MAR barcode scanning., CONTINUOUS, Starting on Thu10/28/21 at 1345, Until Thu10/28/21 at 2201, Pre-Op New Bag 10/28/2021 2:13 PM EDT 25 mL/hr 25 mL/h r lidocaine 1 % inj 1 mg 1 mg (0.1 mL), Percutaneous, ONCE PRN Other, Difficult IV starts requiring > 20 guage catheter and/ or by patient request, Starting on Thu10/28/21 at 1306, Until Thu10/28/21 at 1413, For 1 dose, Pre-Op Given 10/28/2021 2:13 PM EDT 1 mg documented in this encounter Active and Recently Administered Medications Times are shown in EDT. Scheduled Medication Order 10/26/2021 10/27/2021 10/28/2021 Acetaminophen (Tylenol) tab 975 mg (COMPLETED) 975 mg, Oral, PREOP, First dose on Thu10/28/21 at 1315, Last dose on Thu10/28/21 at 1315, For 1 dose, Maximum 4 g acetaminophen/day. Avoid in patients with severe hepatic impairment or severe active liver disease. Administer 60 minutes prior to OR., Pre-Op 1422 (Given - Provid er: Pradeep Almeida RN) ceFAZolin in dextrose (Ancef) ivpb 2 g (COMPLETED) 2 g, IV Piggyback, ONCE, 1 dose, On Thu10/28/21 at 1415 1437 (Given - Provid er: Chavo Rice MD) Continuous Medication Order 10/26/2021 10/27/2021 10/28/2021 isolyte-S pH 7.4 infusion Intravenous, at 25 mL/hr, All Patients EXCEPT Dialysis patients Plasma-LYTE 148, isolyte-S, and isolyte-S pH 7.4 are considered equivalent - including for MAR barcode scanning., CONTINUOUS, Starting on Thu10/28/21 at 1345, Until Thu10/28/21 at 2201, Pre-Op 1413 (New Bag - Prov ider: Pradeep Almeida RN) PRN Medication Order 10/26/2021 10/27/2021 10/28/2021 EPINEPHrine 4 mg in sodium chloride 0.9 % 16 mL (CANCELED) ONCE PRN INTRA PROCEDURE, Starting on Thu10/28/21 at 1621, Until Thu10/28/21 at 1646, Intra-Op 1621 (Given - Provid er: Jannette Nguyễn, DO - Comment: Administered PRN on cottonoids to nose.) EPINEPHrine 5 mg in sodium chloride 0.9 % 5 mL (CANCELED) ONCE PRN INTRA PROCEDURE, Starting on Thu10/28/21 at 1520, Until Thu10/28/21 at 1646, Intra-Op 1520 (Given - Provid er: Jannette Nguyễn, DO - Comment: Administered PRN on cottonoids to nose.) lidocaine 1 % inj 1 mg (COMPLETED) 1 mg (0.1 mL), Percutaneous, ONCE PRN Other, Difficult IV starts requiring > 20 guage catheter and/ or by patient request, Starting on Thu10/28/21 at 1306, Until Discontinued, For 1 dose, Pre-Op 1413 (Given - Provid er: Pradeep Almeida RN) lidocaine-epinephrine 0.5 %-1:[id number] inj (CANCELED) ONCE PRN INTRA PROCEDURE, Starting on Thu10/28/21 at 1505, Until Thu10/28/21 at 1646, Intra-Op 1505 (Given - Provid er: Jannette Nguyễn DO - Comment: Administered to nose.) oxymetazoline (Afrin) 0.05 % nasal spray (CANCELED) ONCE PRN INTRA PROCEDURE, Starting on Thu10/28/21 at 1452, Until Thu10/28/21 at 1646, Intra-Op 1452 (Given - Provid er: Daron Cerda MD - Comment: PRN) sodium chloride IR 0.9 % irrigation (CANCELED) ONCE PRN INTRA PROCEDURE, Starting on Thu10/28/21 at 1451, Until Thu10/28/21 at 1646, Intra-Op 1451 (Given - Provid er: Daron Cerda MD - Comment: PRN) documented in this encounter Advance Directives Documents on File Type Date 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
--- OUTSIDE RECORDS SUMMARY | 2022-10-29 06:55 | External Medical Summary | Summary of Care ---
Author Name Unknown Organization [place] [address] Care Team Providers Care Access Clinician Name Role Phone Juancarlos Yu DO Primary Care Provider [phone] Reason for Visit * Reason Comments eRx-Medication Refill Encounter Details Date Type Department Care Team Description 01/10/2022 Refill Family Practice [facility] [address] [facility] [place] [address] Juancarlos Yu DO [address] [facility] [place] [address] Encounter for long-term (current) use of medications*; Dyslipidemia Allergies No known active allergiesdocumented as of this encounter (statuses as of 03/14/2022) Medications Medication Sig Dispensed Refills Start Date [...] MOUTH EVERY DAY 90 Tablet 0 01/11/2022 Active predniSONE 10 MG Oral Tablet (Deltasone) Take 4 tab daily x 3 days, then 3 tab daily x 3 days, 2 tab daily x 3 days, then 1 tab daily x 3 days. 30 Tablet 0 06/28/2021 2 Discontinued([facility] prescription brought in as discontinued) Atorvastatin Calcium 40 MG Oral Tablet (Lipitor)Indicat ions:Dyslipidemi a TAKE ONE TABLET BY MOUTH EVERY DAY 90 Tablet 1 07/25/2021 2 Discontinued documented as of this encounter (statuses as of 03/14/2022) Active Problems Problem Noted Date Left bundle branch block 07/24/2020 Dyslipidemia 07/24/2020 Osteoarthritis of toe joint(s) 0 ADVANCE DIRECTIVE INFORMATION 04/24/2005 Overview: No, Advance Directive brochure offered , patient declined. Other allergic rhinitis 01/12/2004 Overview: ICD-10 update of inactive term Sciatica documented as of this encounter (statuses as of 03/14/2022) Immunizations Name Administration Dates Next Due COVID-19 [...] encounter Miscellaneous Notes * Telephone Encounter - Sultana Jain CPhT - 03/14/2022 2:44 PM EST Received message from [facility] regarding patient needing labs. Placed call to patient to advise. Spoke tpo patients . She will let patient know. Thank you, Sultana Jain CPhT Quilting Machine Operator [facility] 03/14/2022,2:44 PM * Telephone Encounter - Toshia Payne [facility] - 01/11/2022 7:54 AM ESTSigned Prescriptions: Disp Refills Atorvastatin Calcium 40 MG Oral Tablet (Li*90 Tab*0 Sig: TAKE ONE TABLET BY MOUTH EVERY DAY Authorizing Provider: JUANCARLOS YU Ordering User: TOSHIA PAYNE * Telephone Encounter - Toshia Payne [facility] - 01/11/2022 7:51 AM EST Provided 90 days supply with 0 refill(s). Per refill protocol patient should have Lipid panel, CMP on file within past year. Reviewed AMP report, Care Gaps/Health Maintenance, medications list, and for any routine labs typically ordered for this patient. Lab orders placed. Please contact patient to advise of labs ordered for blood draw.. Recommend patient to fast if ablefor labs. Patient may still have water and regular medications. Advise to obtain labs before his scheduled office visit 03/18/2022. Thanks, Toshia Payne, PharmD Clinical Pharmacist Telepharmacy [phone] 01/11/2022 7:52 AM documented in this encounter Plan of Treatment Upcoming Encounters Date Type Specialty Care Team Description 03/18/2022 Office Visit Family Medicine Juancarlos Yu, DO [address] [place] [address] 06/02/2022 Office Visit Ophthalmology Dyllan Briones MD [address] [id number] 07/04/2022 Office Visit Cardiology Ashutosh Mckinney, [address] [id number] Scheduled Orders Name Type Priority Associated Diagnoses Orde r Schedule COMPREHENSIVE METABOLIC PANEL Lab Routine Encounter for long-term (current) use of medications Expected: 01/11/2022 (Approximate), Expires: 01/11/2023 LIPID PANEL WITH DIRECT LDL IF TG IS HIGH Lab Routine Dyslipidemia Encounter for long-term (current) use of medications Expected: 01/11/2022 (Approximate), Expires: 01/11/2023 Scheduled Procedures Name Priority Associated Diagnoses Date/Ti [...] Diagnosis Encounter for long-term (current) use of medications- Primary Encounter for long-term (current) use of other medications Dyslipidemia Other and unspecified hyperlipidemia documented in this encounter Care Teams Access Clinician Relationship Specialty Start Date End Date Juancarlos Yu, DO [address] [place] [address] PCP - General Family Medicine 05/31/20 documented as of this encounter
--- OUTSIDE RECORDS SUMMARY | 2022-10-29 06:56 | External Medical Summary ---
Author Name Unknown Address Unknown Organization K01:[facility] - [address] [place] [address] Laboratory Report Ordering Provider Test Date Status GEETA CARRIZALES 10/25/2021 13:52:59 Final Observation Date Value Abnormality Reference (Units ) Status SARS Coronavirus 2 10/25/2021 13:52:59 Negative N egative Final Performing Location LABORATORY [facility] - [address] [place] [address]
--- OUTSIDE RECORDS SUMMARY | 2022-10-29 06:56 | External Medical Summary | Summary of Care ---
Author Name Unknown Organization [place] [address] Care Team Providers Care Coat Joiner Name Role Phone Juancarlos Yu DO Primary Care Provider [phone] Reason for Visit * Reason Comments eRx-Medication Refill Encounter Details Date Type Department Care Team Description 07/25/2021 Refill Family Practice [facility] [address] [facility] [place] [address] Juancarlos Yu DO [address] [facility] [place] [address] Dyslipidemia Allergies No known active allergiesdocumented as of this encounter (statuses as of 07/25/2021) Medications Medication Sig Dispensed Refills Start Date [...] 3 days. 30 Tablet 0 06/28/2021 Active Atorvastatin Calcium 40 MG Oral Tablet (Lipitor)Indicati ons:Dyslipidemia TAKE ONE TABLET BY MOUTH EVERY DAY 90 Tablet 1 07/25/2021 Active Atorvastatin Calcium 40 MG Oral Tablet (Lipitor)Indicati ons:Dyslipidemia TAKE ONE TABLET BY MOUTH EVERY DAY 90 Tablet 1 02/05/2021 07/25/2021 Discontinued documented as of this encounter (statuses as of 07/25/2021) Active Problems Problem Noted Date Left bundle branch block 07/24/2020 Dyslipidemia 07/24/2020 Osteoarthritis of toe joint(s) 0 ADVANCE DIRECTIVE INFORMATION 04/24/2005 Overview: No, Advance Directive brochure offered , patient declined. Other allergic rhinitis 01/12/2004 Overview: ICD-10 update of inactive term Sciatica documented as of this encounter (statuses as of 07/25/2021) Immunizations Name Administration Dates Next Due COVID-19 [...] encounter Miscellaneous Notes * Telephone Encounter - Ashutosh Porter [facility] - 07/25/2021 3:41 PM EDT Signed Prescriptions: Disp Refills Atorvastatin Calcium 40 MG Oral Tablet (Li*90 Tab*1 Sig: TAKE ONE TABLET BY MOUTH EVERY DAYAuthorizing Provider: JUANCARLOS YU User: ASHUTOSH AHMADI-- documented in this encounter Plan of Treatment Upcoming Encounters Date Type Specialty Care Team Description 07/27/2021 Imaging Radiology 08/08/2021 Office Visit Otolaryngology Daron Cerda MD [address] [place] [address] 10/29/2021 Office Visit Family Medicine Juancarlos Yu DO [address] [place] [address] Scheduled Procedures Name Priority Associated Diagnoses Date/Ti me COLONOSCOPY FLEXIBLE PROXIMAL DIAGNOSTIC Recall History of colon polyps Health Maintenance Due Date Last Done Comments Pneumococcal Vaccine: 65+ Years (1 - PCV) 1956 Zoster Vaccines (2 of 2) 05/13/2019 03/18/2019 Depression Screening, Annual for Pts 12 and Over 03/18/2020 03/18/2019 COVID-19 Vaccine (4 - Booster for Moderna series) 04/16/2021 01/14/2021, 05/01/2020, 04/03/2020 COLONOSCOPY-EVERY 3 YRS AGES 18-100 04/28/2022 04/28/2019, 04/28/2019 DIABETES SCREEN EVERY 3 YRS-AGE 45 AND ABOVE 08/11/2023 08/10/2020, 05/06/2019, 05/06/2019, Additional history exists DTaP,Tdap,and Td Vaccines (2 - Td or Tdap) 03/13/2025 03/13/2015 LIPID SCREEN EVERY 5 YRS-MEN AGE 35-75 08/10/2025 08/10/2020, 05/06/2019, 04/15/2016, Additional history exists ABDOMINAL AORTIC ANEURYSM (AAA) SCREENING Completed 03/29/2019, 12/04/2006, 05/14/2005 Influenza Vaccine (FLU shot) Completed , 12/02/2019, 03/13/2015, Additional history exists GARDASIL-HPV IMMUNIZATION SERIES Aged Out No longer eligible based on patient's age to complete this topic MENINGOCOCCAL (MENACTRA/MENVEO) Aged Out No longer eligible based on patient's age to complete this topic documented as of this encounter Implants Not on filedocumented as of this encounter Visit Diagnoses Diagnosis Dyslipidemia Other and unspecified hyperlipidemia documented in this encounter Advance Directives Documents on File Type Date 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 Advanced Directive Advanced Directive Advanced Directive Advanced Directive Advanced Directive Advanced Directive Advanced Directive Advanced Directive Advanced Directive Advanced Directive Advanced Directive Advanced Directive Advanced Directive Advanced Directive Advanced Directive Advanced Directive Advanced Directive Advanced Directive Advanced Directive Advanced Directive Care Teams Coat Joiner Relationship Specialty Start Date End Date Jauncarlos Yu, DO [address] [place] [address] PCP - General Family Medicine 05/31/20 documented as of this encounter
--- OUTSIDE RECORDS SUMMARY | 2022-10-29 06:56 | External Medical Summary | Summary of Care ---
Author Name Unknown Organization [place] [address] Care Team Providers Care Coil Binder Name Role Phone Byron Bryan DO Primary Care Provider [phone] Reason for Referral * Precert (Within 10 days (routine)) - Pending Review Specialty Diagnoses / Procedures Referred By Radha nolasco Referred To Contact Radiology Diagnoses Nasal polyposis Procedures CT SINUS IMAGE GUIDED WO CONTRAST Marcel Rojas DO [address] [place] [address] Referral ID Status Reason Start Date Expiration Date V isits Requested Visits Authorized [id number] Pending Review 07/05/2021 1 1 Reason for Visit * Reason Comments NEW PATIENT sinus issues and pos sible nasal polyps * Evaluate & Treat - Unlimited Visits (Within 10 days (routine)) - Closed Specialty Diagnoses / Procedures Referred By Radha nolasco Referred To Contact Otolaryngology Diagnoses History of nasal polyp Chronic rhinitis Byron Bryan DO [address] [facility] [place] [address] Referral ID Status Reason Start Date Expiration Date V isits Requested Visits Authorized [id number] Closed Specialty Services Required 06/07/2021 1 1 Encounter Details Date Type Department Care Team Description 06/28/2021 Office Visit Otolaryngology [facility] [address] [place] [address] Marcel Rojas DO [address] [place] [address] Nasal polyposis*; Chronic rhinitis; History of nasal polyp Allergies No known active allergiesdocumented as of this encounter (statuses as of 06/28/2021) Medications Medication Sig Dispensed Refills Start Date [...] Calcium 40 MG Oral Tablet (Lipitor)Indications: Dyslipidemia TAKE ONE TABLET BY MOUTH EVERY DAY 90 Tablet 1 02/05/2021 Active predniSONE 10 MG Oral Tablet (Deltasone) Take 4 tab daily x 3 days, then 3 tab daily x 3 days, 2 tab daily x 3 days, then 1 tab daily x 3 days. 30 Tablet 0 06/28/2021 Active documented as of this encounter (statuses as of 06/28/2021) Active Problems Problem Noted Date Left bundle branch block 07/24/2020 Dyslipidemia 07/24/2020 Osteoarthritis of toe joint(s) 0 ADVANCE DIRECTIVE INFORMATION 04/24/2005 Overview: No, Advance Directive brochure offered , patient declined. Other allergic rhinitis 01/12/2004 Overview: ICD-10 update of inactive term Sciatica documented as of this encounter (statuses as of 06/28/2021) Immunizations Name Administration Dates Next Due COVID-19 [...] Pressure - - Pulse - - Temperature 36.4 C (97.6 F) 06/28/2021 7:25 AM ED T Respiratory Rate - - Oxygen Saturation - - Inhaled Oxygen Concentration - - Weight 85.8 kg (189 lb 1.6 oz) 06/28/2021 7:25 A M EDT Height 181.6 cm (5' 11.5") 06/28/2021 7:25 AM ED T Body Mass Index 26.01 06/28/2021 7:25 AM EDT documented in this encounter Progress Notes * Marcel Rojas DO - 06/28/2021 8:22 AM EDT 06/28/2021 HISTORY OF PRESENT ILLNESS This 70 year old male is seen at the request of Byron Bryan DO for the initial evaluation ofnasal obstruction. The symptoms started many years ago and are constant. He had a previous sinus surgery for nasal polyps approximately 30 years ago. Was recently placed on a low-dose prednisone which he states seemed to help slightly but the symptoms of nasal obstruction and difficulty breathing through the nose returned after completion of the steroid course. He uses saline. He denies asthma. Denies sensitivity to NSAIDs. Problem List Patient Active Problem List Diagnosis Code Sciatica [...] COLONOSCOPY FLEXIBLE PROXIMAL DIAGNOSTIC performed by Rhonda Curtis, at ENDOSCOPY [facility] CT PELVIS W CONTRAST [facility]-a few sigmoid [...] spine MRI MRI PELVIS WO CONTRAST 04/26/01 [facility]--subtle edema type changes in the left lower iliac bone and adjacent left paraspinal musculature.This could indicate some subtle prior trauma or stress related change.No abnormal soft tissue massis detected. REMOVAL OF TONSILS, UNDER AGE 12 age 5 REMOVE GALLBLADDER 1998 Medications Current Outpatient Medications Medication Sig Dispense Refill predniSONE 10 MG Oral Tablet (Deltasone) Take 4 tab daily x 3 days, then 3 tab daily x 3 days, 2 tab daily x 3 days, then 1 tab daily x 3 days. 30 Tablet 0 IBUPROFEN 200 MG PO CAPS as needed [...] No current facility-administered medications for this visit. Allergies Review of patient's allergies indicates: No Known Allergies Family History Family History Problem Relation Age of Onset [...] Type I diabetes-onset age 13 Social History Social History Tobacco Use Smoking status: Former Smoker Quit date: 03/02/1976 Years since quittin.3 Smokeless tobacco: Never Used Substance Use Topics Alcohol use: Yes Comment: 1-2 wine/week Vaping/E-Cigarette Use Vaping/E-Cigarette Substances Vaping/E-Cigarette Devices Review of Systems Negative for constitutional, eyes, cardiac, pulmonary, hepatic, renal, digestive, hematologic, epileptic, syncopal, musculo-skeletal, mental health, integumentary, hypertensive, lipid, arthritic, diabetic, thyroid or neurologic disorders (except as listed in the PMH and Problem List). Physical Examination: Temp 36.4 C (97.6 F) | Ht 1.816 m (5' 11.5") | Wt 85.8 kg (189 lb 1.6 oz) | BMI 26.01 kg/m | BSA 2.08 m PHYSICAL EXAM General: This is a healthy appearing male who appears his stated age. The patient is alert and appropriately verbally conversant without hoarseness. Face: The face was inspected and no cutaneous masses or lesions were visualized. There was no erythema or edema noted. Facial movement was symmetric without weakness. No skin lesions were detected. There was no sinus tenderness elicited. The parotid and submandibular glands were normal to palpation. Eyes: Extra-ocular muscle function was intact. No nystagmus was observed. Pupils were equal. Cranial Nerves: Cranial nerves II, III, IV, and were noted to be intact via extra-ocular muscle movement testing. Cranial nerve VII noted to be intact and symmetric by facial movement. Nose: Examination of the nose revealed bilateral nasal polyps visible on anterior rhinoscopy.. The nasal septum was non-obstructing. The turbinates were without abnormality. Oral Cavity: Examination of the oral cavity revealed no mass lesions nor infection. The palate was noted to be intact without evidence of clefting. The tongue exhibited normal mobility. Mucosa was moist without lesion. The lips were free of lesion. Gums were free of inflammation. Dentition: Unremarkable Oropharynx: The oral pharynx was free of mass lesion or mucosal abnormality. The palate was noted to be without lesion. The uvula was normal appearing. The tonsils were surgically absent. Ears: Examination of the ears revealed that the auricles were normally formed with no lesions. Neck: Visualization and palpation of the neck revealed no mass lesions, no thyromegaly or thyroid masses. No skin lesions or inflammatory processes were detected. The cervical musculature was normal to palpation. Lymphatics (cervical): There were no palpable lymph nodes in the posterior triangle, submandibular triangle, jugulodigastric region, or central neck. Lungs: Breathing quietly. No use of accessory muscles. Heart: Regular rate. No JVD. Procedure: In order to assess the paranasal sinuses, endoscopy of the nose and paranasal sinuses was performed. The nose was decongested with topical oxymetazoline 0.05% spray and then anesthetized with topicalLidocaine 4% spray. The scope was used to examine each side of the nose. He had bilateral nasal polyps noted both medial and lateral to the middle turbinate.. The septum was non-obstructing. The nasopharynx was without lesion. The patient tolerated the procedure well. Assessment: 70-year-old male with chronic sinusitis with nasal polyposis, previous history of sinus surgery Plan: - discussed the options with him including observation, recurrent use of prednisone tapers versus surgery for excision. He would like to proceed with revision sinus surgery. Will refer him to Dr. Cerda at [facility] for consideration of revision Fess for his nasal polyposis. - CT sinus with fusion imaging ordered - provided patient with prednisone taper for symptomatic relief I spent a total of 45 minutes on the date of service in preparation, delivery, and documentation ofthe care provided to the above patient, excluding any time spent on the performance of any procedures or separately billable services. Marcel Rojas, , JAIMEE Lazaro Otolaryngology [facility] [place], [place] 06/28/2021 12:03 PM documented in this encounter Nursing Notes * Tegan Milner LPN - 06/28/2021 7:26 AM EDT Chief Complaint Patient presents with NEW PATIENT sinus issues and possible nasal polyps Patient presents today for sinus issues and possible nasal polyps. Pt states that he had nasal polyps in the past and they were removed about 35 years ago. Pt states he is having congestion, PND, sore throats. Has not been COVID tested. Pt has tried flonase, sudafed, and has tried xyzal. Pt does use a netipot a few times a week. Has not been allergy tested. documented in this encounter Plan of Treatment Upcoming Encounters Date Type Specialty Care Team Description 07/12/2021 Imaging Radiology 07/31/2021 Office Visit Family Medicine Byron Bryan DO [address] [place] [address] Scheduled Orders Name Type Priority Associated Diagnoses Orde r Schedule CT SINUS IMAGE GUIDED WO CONTRAST Medical Imaging Routine Nasal polyposis Expected: 07/05/2021, Expires: 07/28/2022 Scheduled Procedures Name Priority Associated Diagnoses Date/Ti me COLONOSCOPY FLEXIBLE PROXIMAL DIAGNOSTIC Recall History of colon polyps Health Maintenance Due Date Last Done Comments Pneumococcal Vaccine: 65+ Years (1 of 1 - PPSV23) 07/27/2015 Zoster Vaccines (2 of 2) 05/13/2019 03/18/2019 Depression Screening, Annual for Pts 12 and Over 03/18/2020 03/18/2019 COVID-19 Vaccine (4 - Booster for Moderna series) 06/14/2021 01/14/2021, 05/01/2020, 04/03/2020 COLONOSCOPY-EVERY 3 YRS AGES [...] as of this encounter Visit Diagnoses Diagnosis Nasal polyposis- Primary Unspecified nasal polyp Chronic rhinitis History of nasal polyp Personal history of other specified diseases documented in this encounter Advance Directives Documents on File Type Date Recorded Patient 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 Expl 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 Advanced Directive Advanced Directive Advanced Directive Advanced Directive Advanced Directive Advanced Directive Advanced Directive Advanced Directive Advanced Directive Advanced Directive Advanced Directive Advanced Directive Advanced Directive Advanced Directive Advanced Directive Advanced Directive Advanced Directive Care Teams Coil Binder Relationship Specialty Start Date End Date Byron Bryan, DO [address] [facility] [place] [address] PCP - General Family Medicine 05/31/20 documented as of this encounter
--- OUTSIDE RECORDS SUMMARY | 2022-10-29 06:56 | External Medical Summary | Summary of Care ---
Author Name Unknown Organization [place] [address] Care Team Providers Care Film Producer Name Role Phone IrvinByron Loraine [place] Primary Care Provider [phone] Encounter Details Date Type Department Care Team Description 09/23/2021 Immunization Pharmacy, [facility] [address] [facility] [place] [address] [place] [address] Vaccine Pharmacy [facility] [address] [facility] [place] [address] Encounter for immunization* Allergies No known active allergiesdocumented as of this encounter (statuses as of 09/23/2021) Medications Medication Sig Dispensed Refills Start Date [...] as of this encounter (statuses as of 09/23/2021) Active Problems Problem Noted Date Left bundle branch block 07/24/2020 Dyslipidemia 07/24/2020 Osteoarthritis of toe joint(s) 0 ADVANCE DIRECTIVE INFORMATION 04/24/2005 Overview: No, Advance Directive brochure offered , patient declined. Other allergic rhinitis 01/12/2004 Overview: ICD-10 update of inactive term Sciatica documented as of this encounter (statuses as of 09/23/2021) Immunizations Name Administration Dates Next Due COVID-19 [...] Encounters Date Type Specialty Care Team Description 10/08/2021 Laboratory [facility] [address] [place] [address] 10/25/2021 Nurse Only Ancillary [place], Pre Surgical Covid Testing Daniel [address] [place] [address] 10/28/2021 Hospital Encounter Surgery Daron Cerda MD [address] [place] [address] 10/28/2021 Surgery Surgery Daron Cerda MD [address] [place] [address] STEREOTACTIC CRANIAL EXTRADURAL NAVIGATION 11/05/2021 Office Visit Otolaryngology Tegan Lakhani CRNP [address] [place] [address] 03/18/2022 Office Visit Family Medicine Byron Bryan DO [address] [place] [address] Scheduled Procedures Name Priority Associated Diagnoses Date/Ti me STEREOTACTIC CRANIAL EXTRADURAL NAVIGATION Nasal polyposis Chronic pansinusitis 10/28/2021 2:03 PM EDT NASAL SINUS ENDOSCOPY MAXILLARY ANTROSTOMY Nasal polyposis Chronic pansinusitis 10/28/2021 2:03 PM EDT NASAL SINUS ENDOSCOPY WITH ETHMOIDECTOMY TOTAL Nasal polyposis Chronic pansinusitis 10/28/2021 2:03 PM EDT NASAL SINUS ENDOSCOPY SURGICAL WITH SPHENOIDOTOMY Nasal polyposis Chronic pansinusitis 10/28/2021 2:03 PM EDT NASAL SINUS ENDOSCOPY SURGICAL Nasal polyposis Chronic pansinusitis 10/28/2021 2:03 PM EDT COLONOSCOPY FLEXIBLE PROXIMAL DIAGNOSTIC Recall History of [...] this encounter Visit Diagnoses Diagnosis Encounter for immunization- Primary Need for other specified prophylactic vaccination against single bacterial disease Nasal polyposis Unspecified nasal polyp Chronic pansinusitis Other chronic sinusitis documented in this encounter Advance Directives Documents on File Type Date Recorded Patient Air Boatswain Expl anation Advanced Directive service a todd [...] Directive Advanced Directive Advanced Directive Care Teams Film Producer Relationship Specialty Start Date End Date Byron Bryan, DO [address] [place] [address] PCP - General Family Medicine 05/31/20 documented as of this encounter
--- OUTSIDE RECORDS SUMMARY | 2022-10-29 06:56 | External Medical Summary ---
Author Name Unknown Address Unknown Organization K01:[facility] [address] [place] [address] Laboratory Report Ordering Provider Test Date Status AIMEE BAUER 08/10/2020 08:35:07 Final Observation Date Value Abnormality Reference (Units ) Status Triglyceride 08/10/2020 08:35:07 125 <=174 ( mg/dL) Final Performing Location [facility] [address] [place] [address]
--- OUTSIDE RECORDS SUMMARY | 2022-10-29 06:56 | External Medical Summary | Summary of Care ---
Author Name Unknown Organization [place] [address] Care Team Providers Care Dairy Farm Manager Name Role Phone IrvinByron Loraine [place] Primary Care Provider [phone] Reason for Visit * Reason Onset Date Comments COVID-19 Screening 10/27/2021 Encounter Details Date Type Department Care Team Description 10/27/2021 Telephone COVID19 Screening [facility] DEPT CLOSED 12/11/20 [address] [place] [id number], Automated Provider COVID-19 Screening Allergies No known active allergiesdocumented as of this encounter (statuses as of 10/28/2021) Medications Medication Sig Dispensed Refills Start Date [...] as of this encounter (statuses as of 10/28/2021) Active Problems Problem Noted Date Left bundle branch block 07/24/2020 Dyslipidemia 07/24/2020 Osteoarthritis of toe joint(s) 0 ADVANCE DIRECTIVE INFORMATION 04/24/2005 Overview: No, Advance Directive brochure offered , patient declined. Other allergic rhinitis 01/12/2004 Overview: ICD-10 update of inactive term Sciatica documented as of this encounter (statuses as of 10/28/2021) Immunizations Name Administration Dates Next Due COVID-19 [...] encounter Miscellaneous Notes * Telephone Encounter - [place] - 10/28/2021 12:49 AM EDT Outreach Attempts IVR Call Oct 27 2021 4:06PM Answered - Success Results COVID: Negative IVR Message: Irene Pressley. Your COVID-19 from 10/25/2021 00:00:00 results are negative. This means you are NOT infected with coronavirus 19. If your cold/flu symptoms last longer than 7 days or get worse, contact your primary care physician. If you don't have a primary care physician, go to the nearest [facility] or urgent care clinic. To establish care with a [facility] provider, please call [phone]. Practice social distancing and good hand hygiene to keep yourself and others safe. Your results are also available for your reference in your [employer] account under 'Test & Lab Results.' If you are not enrolled in [employer], you can create an account by going to [email or web address]. You will also receive a letter in the mail with your results. If you are a [employer] [facility] staff member or employee, when you receive your result, please call [place] between 7 a.m. and 4 p.m. at [phone]. Notify them of your test results and for instructions on returning to work after your quarantine period. Press 1 if you would like to speak with a nurse, press 2 to hear this message again. documented in this encounter Plan of Treatment Upcoming Encounters Date Type Specialty Care Team Description 11/05/2021 Office Visit Otolaryngology Tegan Lakhani CRNP [address] [place] [address] 11/12/2021 Immunization Ancillary [facility] [address] [place] [address] 03/18/2022 Office Visit Family Medicine Byron Bryan, DO [address] [place] [address] Scheduled Procedures Name Priority Associated Diagnoses Date/Ti me STEREOTACTIC CRANIAL EXTRADURAL NAVIGATION Nasal polyposis Chronic pansinusitis 10/28/2021 1:43 PM EDT NASAL SINUS ENDOSCOPY MAXILLARY ANTROSTOMY Nasal polyposis Chronic pansinusitis 10/28/2021 1:43 PM EDT NASAL SINUS ENDOSCOPY WITH ETHMOIDECTOMY TOTAL Nasal polyposis Chronic pansinusitis 10/28/2021 1:43 PM EDT NASAL SINUS ENDOSCOPY SURGICAL WITH SPHENOIDOTOMY Nasal polyposis Chronic pansinusitis 10/28/2021 1:43 PM EDT NASAL SINUS ENDOSCOPY SURGICAL Nasal polyposis Chronic pansinusitis 10/28/2021 1:43 PM EDT COLONOSCOPY FLEXIBLE PROXIMAL DIAGNOSTIC Recall [...] Documents on File Type Date Recorded Patient Qc Tech Expl anation Advanced Directive service a todd [...] Directive Advanced Directive Advanced Directive Care Teams Dairy Farm Manager Relationship Specialty Start Date End Date Byron Bryan, DO [address] [place] [address] PCP - General Family Medicine 05/31/20 documented as of this encounter
--- OUTSIDE RECORDS SUMMARY | 2022-10-29 06:56 | External Medical Summary | Summary of Care ---
Author Name Unknown Organization [place] [address] Care Team Providers Care Tin Pot Operator Name Role Phone LoyByron singletary Loraine CHESTER Primary Care Provider [phone] Reason for Visit * Reason Comments Follow Up Encounter Details Date Type Department Care Team Description 05/01/2021 Office Visit Cardiology, [facility] [address] [facility] [place] [address] Ashutosh Mckinney DO [address] [facility] [place] [address] Left bundle branch block* Allergies No known active allergiesdocumented as of this encounter (statuses as of 05/01/2021) Medications Medication Sig Dispensed Refills Start Date [...] EVERY DAY 90 Tablet 1 02/05/2021 Active documented as of this encounter (statuses as of 05/01/2021) Active Problems Problem Noted Date Left bundle branch block 07/24/2020 Dyslipidemia 07/24/2020 Osteoarthritis of toe joint(s) 0 ADVANCE DIRECTIVE INFORMATION 04/24/2005 Overview: No, Advance Directive brochure offered , patient declined. Other allergic rhinitis 01/12/2004 Overview: ICD-10 update of inactive term Sciatica documented as of this encounter (statuses as of 05/01/2021) Immunizations Name Administration Dates Next Due COVID-19 [...] Sign Reading Time Taken Comments Blood Pressure 134/76 05/01/2021 7:46 AM EST Pulse 58 05/01/2021 7:46 AM EST Temperature 36 C (96.8 F) 05/01/2021 7:46 AM EST Respiratory Rate 12 05/01/2021 7:46 AM EST Oxygen Saturation - - Inhaled Oxygen Concentration - - Weight 87.5 kg (192 lb 12.8 oz) 05/01/2021 7:46 AM EST Height - - Body Mass Index 26.52 07/24/2020 6:48 PM EDT documented in this encounter Progress Notes * Ashutosh Mckinney, DO - 05/01/2021 8:12 AM EST Cardiology Outpatient Follow-up Huan Prado is a 70 year old male who is seen for follow-up of LBBB. HPI: This is a 70-year-old male patient with a history of chronic left bundle branch block. He returned today and has no new cardiac complaints. He feels well and has not had any progressive shortness of breath, orthopnea, activity related chest pain, syncope or presyncope. Past Medical History: Diagnosis Date Combined forms of age-related cataract of both eyes Dyslipidemia Hereditary and idiopathic peripheral neuropathy Sciatica Shingles 11/30/2014 left T10 area Patient Active Problem List Diagnosis Code Sciatica M54.30 Other allergic rhinitis J30.89 ADVANCE DIRECTIVE INFORMATION Osteoarthritis of toe joint(s) Left bundle branch block I44.7 Dyslipidemia E78.5 Past Surgical History: Procedure Laterality Date COLONOSCOPY W/ BIOPSY (RECTUM) 06/25/01 normal exam. midly tortuous sigmoid COLONOSCOPY, DIAGNOSTIC (RECTUM) 04/28/2019 serrated adenomatous polyp, repeat 3 yrs / COLONOSCOPY FLEXIBLE PROXIMAL DIAGNOSTIC performed by Rhonda Curtis DO at ENDOSCOPY [facility] CT PELVIS W CONTRAST CCH-a few [...] AGE 12 age 5 REMOVE GALLBLADDER 1998 Family History Problem Relation Age of Onset [...] Former Smoker Quit date: 03/02/1976 Years since quittin.1 Smokeless tobacco: Never Used Substance Use Topics Alcohol use: Yes Comment: 1-2 wine/week Drug use: No Review of patient's allergies indicates: No Known Allergies Current Outpatient Medications Medication Sig Dispense Refill [...] IBUPROFEN 200 MG PO CAPS as needed No current facility-administered medications for this visit. ROS: Review of Systems: See HPI for pertinent positives. All other review of systems is negative. PHYSICAL EXAMINATION BP 134/76 | Pulse 58 | Temp 36 C (96.8 F) | Resp 12 | Wt 87.5 kg (192 lb 12.8 oz) | BMI 26.52 kg/m | BSA 2.1 m Body mass index is 26.52 kg/m. General: no acute distress and stated age Head: normocephalic, no masses, lesions, tenderness or abnormalities Eyes: conjunctiva are pink and non-injected, sclera clear Neck: supple, no adenopathy, no bruits, normal jugular venous pulse, no hepatojugular reflux Chest: normal shape and normal respiratory effort Lungs: clear to auscultation and percussion Cardiac Exam: - regular rate & rhythm, no murmurs gallops or rubs - normal S1, normal S2 Pulses: 2(+) throughout Abdomen: abdomen soft, non-tender, no abnormal masses and no hepatosplenomegaly Musculoskeletal: no gait disturbance, no joint inflammation, no deforming arthritis Extremities: no edema and no cyanosis Neuro: grossly normal exam Laboratory Data Review: EKG reveals a sinus rhythm with a 1st degree AV block and left bundle branch block Impression: Chronic left bundle branch block Plan: Patient is doing well clinically and will continue his current medications. We will see him on an annual or as-needed basis. This chart was completed in part utilizing [employer] Speech Voice Recognition Software. Grammatical errors, random word insertions, prounoun errors, and incomplete sentences are an occasional consequence of this system due to software limitations, ambient noise, and hardware issues. Any formal questions or concerns about the content, text, or information contained within the body of this dictation should be directly addressed to the provider for clarification. Ashutosh Mckinney DO Cardiology[address] [address] 05/01/2021 documented in this encounter Nursing Notes * Urszula Brock LPN - 05/01/2021 7:44 AM EST Examination Room: 16 Name: uHan Prado Date of : (1950). Reason for Visit: routine Interim Hospitalization(s): denies Problems/Concerns: denies Chest Pain/SOB: denies [facility] Discussed: Yes [facility] is a way you can talk to your provider online through e-mail. Would you like to sign up? I can activate it for you? ALREADY ACTIVE Patient was instructed to not get up on the exam table until directed and assisted by their provider; patient is to remain seated in the chair/ wheelchair/ exam table for fall prevention and safety reasons. Patient is aware to have assistance to step down off exam table with personnel. Patient voiced full comprehension of instructions. documented in this encounter Plan of Treatment Upcoming Encounters Date Type Specialty Care Team Description 07/23/2021 Office Visit Family Medicine Byron Bryan, DO [address] [place] [address] Scheduled Orders Name Type Priority Associated Diagnoses Orde r Schedule EKG EKG Routine Left bundle branch block Ordered: 05/01/2021 Scheduled Procedures Name Priority Associated Diagnoses Date/Ti [...] as of this encounter Visit Diagnoses Diagnosis Left bundle branch block- Primary Other left bundle branch block documented in this encounter Advance Directives Documents on File Type Date Recorded Patient Certified Court/Medical Interpreter Expl 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 Advanced Directive Advanced Directive Advanced Directive Advanced Directive Advanced Directive Advanced Directive Advanced Directive Advanced Directive Advanced Directive Advanced Directive Advanced Directive Advanced Directive Advanced Directive Care Teams Tin Pot Operator Relationship Specialty Start Date End Date Byron Bryan, DO [address] [place] [address] PCP - General Family Medicine 05/31/20 documented as of this encounter"
--- OUTSIDE RECORDS SUMMARY | 2022-10-29 06:56 | External Medical Summary | Summary of Care ---
Author Name Unknown Organization [place] [address] Care Team Providers Care Dice Table Person Name Role Phone Carmelo Bryane Loraine CHESTER Primary Care Provider [phone] Reason for Visit * Reason Onset Date Comments Medication Administration 11/19/2020 Flu an d/or Pneumo Inj Encounter Details Date Type Department Care Team Description 11/19/2020 Immunization Ancillary [facility] [address] [place] [address] [facility] [address] [place] [address] Need for prophylactic vaccination and inoculation against influenza Allergies No Known Active Allergiesdocumented as of this encounter (statuses as of 11/19/2020) Medications Medication Sig Dispensed Refills Start Date [...] Active Atorvastatin Calcium 40 MG Oral Tablet (LIPITOR)Indications:D yslipidemia Take 1 Tab by mouth daily. 90 Tab 3 02/29/2020 Active documented as of this encounter (statuses as of 11/19/2020) Active Problems Problem Noted Date Left bundle branch block 07/24/2020 Dyslipidemia 07/24/2020 Osteoarthritis of toe joint(s) 0 ADVANCE DIRECTIVE INFORMATION 04/24/2005 Overview: No, Advance Directive brochure offered , patient declined. Other allergic rhinitis 01/12/2004 Overview: ICD-10 update of inactive term Sciatica documented as of this encounter (statuses as of 11/19/2020) Immunizations Name Administration Dates Next Due COVID-19 mRNA, LNP-s, No Pre serve, 2-Dose Series (Moderna) 05/01/2020,04/03/2020 H1N1 2009 Influenza, IM 04/17/2009 Seasonal Influenza, [...] 03/02 Smokeless Tobacco: Never Used Alcohol Use Drinks/Week oz/Week Comments Yes 1-2 wine/week Food Insecurity Answer Date Recorded [...] as of this encounter Progress Notes * Gabriella Joyner LPN - 11/19/2020 8:29 AM EDT PRE - ADMINISTRATION DOCUMENTATION Are you experiencing any cold symptoms or fever? No Have you had Guillain-Stratford Syndrome (an illness that causes paralysis) within the last 6 weeks? No Have you had the flu shot in the past? YES Have you ever had a reaction to the flu shot? No Gabriella Joyner LPN, 11/19/2020 8:29 AM Immunization Administration Documentation Time Out Procedure Performed: Yes Patient Identified (Ask Name/Date of ): Yes Does the patient have a fever greater than 101 degrees today? No Patient allergic to latex? No VFC Stock: No Immunization(s) verified: Yes, Immunization Name: Flu, VIS Sheet(s) given: Yes Verified Side and Site: Yes Verified Shot(s) with Parent(s)/Patient: Yes documented in this encounter Plan of Treatment Upcoming Encounters Date Type Specialty Care Team Description 12/10/2020 Office Visit Ophthalmology Dyllan Briones MD [address] [place] [id number] 04/24/2021 Cardiac Studies Cardiac Studies Gw, Bank Compliance Officer [address] [place] [address] [phone] 05/01/2021 Office Visit Cardiology Ashutosh Mckinney DO [address] [place] [address] 07/23/2021 Office Visit Family Medicine Byron Bryan, DO [address] [facility] [address] [phone] Health Maintenance Due Date Last Done Comments Pneumococcal Vaccine: 65+ Years (1 of 1 - PPSV23) 07/27/2015 Zoster Vaccines (2 of 2) 05/13/2019 03/18/2019 *DEPRESSION SCREENING,ANNUAL FOR PTS 12 AND OVER 03/20/2020 Influenza Vaccine (FLU shot) (#1) 2020 11/19/2020, 12/02/2019, 03/13/2015, Additional history exists COLONOSCOPY-EVERY 3 YRS AGES 18-100 04/28/2022 04/28/2019, 04/28/2019 DIABETES SCREEN EVERY 3 YRS-AGE 45 AND ABOVE 08/11/2023 08/10/2020, 05/06/2019, 05/06/2019, Additional history exists DTaP,Tdap,and Td Vaccines (2 - Td) 03/13/2025 03/13/2015 LIPID SCREEN EVERY 5 YRS-MEN AGE 35-75 08/10/2025 08/10/2020, 05/06/2019, 04/15/2016, Additional history exists ABDOMINAL AORTIC ANEURYSM (AAA) SCREENING Completed 03/29/2019, 12/04/2006, 05/14/2005 COVID-19 Vaccine Completed 05/01/2020, 04/03/2020 MENINGOCOCCAL (MENACTRA/MENVEO) Aged Out No longer eligible based on patient's age to complete this topic documented as of this encounter Implants Not on filedocumented as of this encounter Visit Diagnoses Diagnosis Need for prophylactic vaccination and inoculation against influenza documented in this encounter Advance Directives Documents on File Type Date Recorded Patient Exchange Teller Expl 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 Advanced Directive Advanced Directive Advanced Directive Advanced Directive Advanced Directive Advanced Directive Advanced Directive Advanced Directive Advanced Directive Advanced Directive Advanced Directive Advanced Directive
--- OUTSIDE RECORDS SUMMARY | 2022-10-29 06:56 | External Medical Summary | Summary of Care ---
Author Name Unknown Organization [place] [address] Care Team Providers Care Metal Weigher Name Role Phone LoyByron singletary Loraine CHESTER Primary Care Provider [phone] Reason for Visit * Reason Onset Date Comments Test Results 08/16/2021 Encounter Details Date Type Department Care Team Description 08/16/[address] [facility] [address] [place] [address] Eri Sherwood PA-C 132 [facility] [place] [address] Test Results Allergies No known active allergiesdocumented as of this encounter (statuses as of 08/21/2021) Medications Medication Sig Dispensed Refills Start Date [...] as of this encounter (statuses as of 08/21/2021) Active Problems Problem Noted Date Left bundle branch block 07/24/2020 Dyslipidemia 07/24/2020 Osteoarthritis of toe joint(s) 0 ADVANCE DIRECTIVE INFORMATION 04/24/2005 Overview: No, Advance Directive brochure offered , patient declined. Other allergic rhinitis 01/12/2004 Overview: ICD-10 update of inactive term Sciatica documented as of this encounter (statuses as of 08/21/2021) Immunizations Name Administration Dates Next Due COVID-19 [...] encounter Miscellaneous Notes * Telephone Encounter - Heidi Mendez LPN - 08/21/2021 10:24 AM EDT Patient verbalizes understanding of all instructions and explanations given. * Telephone Encounter - Heidi Mendez LPN - 08/21/2021 10:04 AM EDT Phone rang then went to busy. Sent MyG. * Telephone Encounter - Heidi Mendez LPN - 08/16/2021 12:56 PM EDT I left a message on patient's answering machine asking patient to call us back. * Telephone Encounter - Eri Sherwood PA-C - 08/16/2021 12:32 PM EDT Please let the patient know that I reviewed his MRI as Dr. Rojas is out of the office and there was no evidence of a skull base dehiscence. He should keep his follow up with Dr. Cerda as scheduled. documented in this encounter Plan of Treatment Upcoming Encounters Date Type Specialty Care Team Description 08/22/2021 Office Visit Otolaryngology Daron Cerda MD [address] [facility] [address] 10/29/2021 Office Visit Family Medicine Byron Bryan, DO [address] [facility] [place] [id number] Scheduled Procedures Name Priority Associated Diagnoses Date/Ti [...] Documents on File Type Date Recorded Patient Director Of Channel Marketing Expl 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 Advanced Directive Advanced Directive Advanced Directive Advanced Directive Advanced Directive Advanced Directive Advanced Directive Advanced Directive Advanced Directive Advanced Directive Advanced Directive Advanced Directive Advanced Directive Advanced Directive Advanced Directive Advanced Directive Advanced Directive Advanced Directive Advanced Directive Advanced Directive Advanced Directive Advanced Directive Care Teams Metal Weigher Relationship Specialty Start Date End Date Byron Bryan, DO [address] [place] [address] PCP - General Family Medicine 05/31/20 documented as of this encounter
--- OUTSIDE RECORDS SUMMARY | 2022-10-29 06:56 | External Medical Summary | Summary of Care ---
Author Name Unknown Organization [place] [address] Care Team Providers Care Wood Die Maker Name Role Phone LoyByron singletary Loraine CHESTER Primary Care Provider [phone] Reason for Visit * Reason Comments NEW PATIENT Sinus Problem Congestion Encounter Details Date Type Department Care Team Description 08/22/2021 Office Visit Otolaryngology Allergy [facility] [address] [place] [address] Daron Cerda MD [address] [place] [address] Nasal polyposis*; Chronic pansinusitis Allergies No known active allergiesdocumented as of this encounter (statuses as of 08/22/2021) Medications Medication Sig Dispensed Refills Start Date [...] as of this encounter (statuses as of 08/22/2021) Active Problems Problem Noted Date Left bundle branch block 07/24/2020 Dyslipidemia 07/24/2020 Osteoarthritis of toe joint(s) 0 ADVANCE DIRECTIVE INFORMATION 04/24/2005 Overview: No, Advance Directive brochure offered , patient declined. Other allergic rhinitis 01/12/2004 Overview: ICD-10 update of inactive term Sciatica documented as of this encounter (statuses as of 08/22/2021) Immunizations Name Administration Dates Next Due COVID-19 [...] Sign Reading Time Taken Comments Blood Pressure 158/82 08/22/2021 10:18 AM EDT Pulse 53 08/22/2021 10:18 AM EDT Temperature 36.6 C (97.8 F) 08/22/2021 10:18 AM E DT Respiratory Rate 16 08/22/2021 10:18 AM EDT Oxygen Saturation - - Inhaled Oxygen Concentration - - Weight 85 kg (187 lb 4.8 oz) 08/22/2021 10:18 AM EDT Height 185.4 cm (6' 1") 08/22/2021 10:18 AM EDT Body Mass Index 24.71 08/22/2021 10:18 AM EDT documented in this encounter Patient Instructions * Patient Instructions* Daron Cerda MD - 08/22/2021 11:10 AM EDT - EKG and ECHO recently completed - BMP and COVID testing ordered - Surgery planned for 10/28/2021. - will arrange for topical mometasone irrigations twice daily. Dr. Cerda has placed a prescription with [facility] for your sinus rinse therapy. If you do not hear from the pharmacy in 2 days, please call [phone]. I have recommended: Stereotactic guided revision endoscopic sinus surgery (CPT 87383) To include: bilateral maxillary antrostomies (CPT 38599) bilateral total ethmoidectomies (CPT 57097) bilateral sphenoidotomies (CPT 49978) endoscopic polypectomy (CPT 63701) The procedure was discussed in detail and [...] all questions were answered to their satisfaction. 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 Patient seen at the request of Dr. Rojas. Prior hx of sinus surgery with Dr Zamudio approx 30 yrs ago. Approx last Fall [...] performed by Rhonda Curtis DO at [facility]COPY [facility] CT PELVIS W CONTRAST [facility]-a [...] spine MRI MRI PELVIS WO CONTRAST [facility]/26/01 [facility]--subtle edema type changes in the left [...] Dr. Cerda has placed a prescription with [facility] for your sinus rinse therapy. If you do not hear from the pharmacy in 2 days, please call [phone]. I have recommended: Stereotactic guided revision endoscopic sinus surgery (CPT 89146) To include: bilateral maxillary antrostomies (CPT 01255) bilateral total ethmoidectomies (CPT 78422) bilateral sphenoidotomies (CPT 79148) endoscopic polypectomy (CPT 58529) The procedure was discussed in detail and [...] to their satisfaction. Daron Cerda MD Otolaryngology Allergy [place] [address] documented in this encounter Nursing Notes * ALEX Carrillo - 08/22/2021 10:18 AM EDT Huan presents today after being referred by his PCP and ENT provider for polyps. Patient states nasal congestion,, PND, and Sore throat. documented in this encounter Plan of Treatment Upcoming Encounters Date Type Specialty Care Team Description 10/25/2021 Nurse Only Ancillary [place], Pre Surgical Covid Testing Daniel [address] [place] [address] 10/29/2021 Office Visit Family Medicine Byron Bryan, DO [address] [place] [address] 11/05/2021 Office Visit Otolaryngology Tegan Lakhani CRNP [address] [place] [address] Scheduled Orders Name Type Priority Associated Diagnoses Orde r Schedule BASIC METABOLIC PANEL Lab Routine Chronic pansinusitis Nasal polyposis Ordered: 08/22/2021 SARS-COV-2 (COVID-19), NAAT Lab Routine Chronic pansinusitis Nasal polyposis Expected: 09/21/2021, Expires: 08/22/2022 Scheduled Procedures Name Priority Associated Diagnoses Date/Ti [...] Nasal polyposis- Primary Unspecified nasal polyp Chronic pansinusitis Other chronic sinusitis documented in this encounter Advance Directives Documents on File Type Date Recorded Patient Wind Up Operator Expl anation Advanced Directive service a todd [...] Directive Advanced Directive Advanced Directive Care Teams Wood Die Maker Relationship Specialty Start Date End Date Byron Bryan, DO [address] [place] [address] PCP - General Family Medicine 05/31/20 documented as of this encounter
--- OUTSIDE RECORDS SUMMARY | 2022-10-29 06:56 | External Medical Summary | Summary of Care ---
Author Name Unknown Organization [place] [address] Care Team Providers Care Ceramist Name Role Phone IrvinByron Loraine CHESTER Primary Care Provider [phone] Reason for Visit * Reason Comments Outpatient Testing Encounter Details Date Type Department Care Team Description 10/08/2021 Laboratory Laboratory [facility] [address] [place] [address] [facility] [address] [place] [id number] Arrived Allergies No known active allergiesdocumented as of this encounter (statuses as of 10/08/2021) Medications Medication Sig Dispensed Refills Start Date [...] as of this encounter (statuses as of 10/08/2021) Active Problems Problem Noted Date Left bundle branch block 07/24/2020 Dyslipidemia 07/24/2020 Osteoarthritis of toe joint(s) 0 ADVANCE DIRECTIVE INFORMATION 04/24/2005 Overview: No, Advance Directive brochure offered , patient declined. Other allergic rhinitis 01/12/2004 Overview: ICD-10 update of inactive term Sciatica documented as of this encounter (statuses as of 10/08/2021) Immunizations Name Administration Dates Next Due COVID-19 [...] Care Team Description 10/25/2021 Nurse Only Ancillary [place], Pre Surgical Covid Testing Daniel [address] [place] [address] 10/28/2021 Hospital Encounter Surgery Daron Cerda MD [address] [place] [address] 10/28/2021 Surgery Surgery Daron Cerda MD [address] [place], [place] [id number] STEREOTACTIC CRANIAL EXTRADURAL NAVIGATION 11/05/2021 Office Visit Otolaryngology Tegan Lakhani CRNP [address] [place] [id number] 03/18/2022 Office Visit Family Medicine Byron Bryan, DO [address] [place] [address] Scheduled Procedures Name Priority Associated Diagnoses Date/Ti [...] Documents on File Type Date Recorded Patient Senior Business Architect Expl anation Advanced Directive service a todd [...] Directive Advanced Directive Advanced Directive Care Teams Ceramist Relationship Specialty Start Date End Date Byron Bryan, DO [address] [place] [address] PCP - General Family Medicine 05/31/20 documented as of this encounter
--- OUTSIDE RECORDS SUMMARY | 2022-10-29 06:56 | External Medical Summary | Summary of Care ---
Author Name Unknown Organization [place] [address] Care Team Providers Care Construction Area Manager Name Role Phone IrvinByron Loraine CHESTER Primary Care Provider [phone] Reason for Visit * Reason Onset Date Comments COVID-19 Screening 10/26/2021 Encounter Details Date Type Department Care Team Description 10/26/2021 Telephone COVID19 Screening [facility] DEPT CLOSED 12/11/20 [address] [place] [id number], Automated Provider COVID-19 Screening Allergies No known active allergiesdocumented as of this encounter (statuses as of 10/27/2021) Medications Medication Sig Dispensed Refills Start Date [...] as of this encounter (statuses as of 10/27/2021) Active Problems Problem Noted Date Left bundle branch block 07/24/2020 Dyslipidemia 07/24/2020 Osteoarthritis of toe joint(s) 0 ADVANCE DIRECTIVE INFORMATION 04/24/2005 Overview: No, Advance Directive brochure offered , patient declined. Other allergic rhinitis 01/12/2004 Overview: ICD-10 update of inactive term Sciatica documented as of this encounter (statuses as of 10/27/2021) Immunizations Name Administration Dates Next Due COVID-19 [...] Miscellaneous Notes * Telephone Encounter - Covjenna Lee [facility] - 10/27/2021 1:51 AM EDT Outreach Attempts Oct 26 2021 9:01AM - Fail to reach patient IVR Message: Unsuccessful contact, no education provided documented in this encounter Plan of Treatment Upcoming Encounters Date Type Specialty Care Team Description 10/28/2021 Hospital Encounter Surgery Daron Cerda MD [address] [place] [address] 10/28/2021 Surgery Surgery Daron Cerda MD [address] [place] [address] STEREOTACTIC CRANIAL EXTRADURAL NAVIGATION 11/05/2021 Office Visit Otolaryngology Tegan Lakhani CRNP [address] [place] [address] 11/12/2021 Immunization Ancillary Sp, [facility] [address] [place] [address] 03/18/2022 Office Visit Family Medicine Byron Bryan DO [address] [place] [address] Scheduled Procedures Name Priority Associated Diagnoses Date/Ti ia STEREOTACTIC CRANIAL EXTRADURAL NAVIGATION Nasal polyposis Chronic [...] Documents on File Type Date Recorded Patient Ignition Specialist Expl anation Advanced Directive service a todd [...] Directive Advanced Directive Advanced Directive Care Teams Construction Area Manager Relationship Specialty Start Date End Date Byron Bryan, DO [address] [facility], [place] [id number] PCP - General Family Medicine 05/31/20 documented as of this encounter
--- OUTSIDE RECORDS SUMMARY | 2022-10-29 06:56 | External Medical Summary | Summary of Care ---
Author Name Unknown [place] [address] Care Team Providers Care Call Center Coordinator Name Role Phone IrvinByron Loraine CHESTER Primary Care Provider [phone] Reason for Visit * Reason Comments Follow Up Encounter Details Date Type Department Care Team Description 08/30/2020 Office Visit Ophthalmology, [place] [address] [place] [address] Dyllan Briones MD [address] [place], [place] [id number] Posterior vitreous detachment of right eye* Allergies No Known Active Allergiesdocumented as of this encounter (statuses as of 08/30/2020) Medications Medication Sig Dispensed Refills Start Date [...] as of this encounter (statuses as of 08/30/2020) Active Problems Problem Noted Date Left bundle branch block 07/24/2020 Dyslipidemia 07/24/2020 Osteoarthritis of toe joint(s) 0 ADVANCE DIRECTIVE INFORMATION 04/24/2005 Overview: No, Advance Directive brochure offered , patient declined. Other allergic rhinitis 01/12/2004 Overview: ICD-10 update of inactive term Sciatica documented as of this encounter (statuses as of 08/30/2020) Immunizations Name Administration Dates Next Due COVID-19 mRNA, LNP-s, No Pre serve, 2-Dose Series (Moderna) 05/01/2020,04/03/2020 H1N1 2009 Influenza, IM 04/17/2009 Seasonal Influenza, Quadriva lent, No Preserve, 6 [...] Progress Notes * Dyllan Briones MD - 08/30/2020 8:36 AM EDT [facility] DEPARTMENT OF OPHTHALMOLOGY OUTPATIENT CLINIC NOTES PATIENT NAME: Huan Prado (70 year old male) PRIMARY CARE PHYSICIAN: Byron Bryan DO CC: PVD HPI: here to check PVD OD - sees occasional flashing; frequency has been decreasing ROS: no showers of floaters POH: see below Past Medical History: Diagnosis Date Dyslipidemia Hereditary and idiopathic peripheral neuropathy Sciatica Shingles 11/30/2014 left T10 area Past Surgical History: Procedure Laterality Date COLONOSCOPY W/ BIOPSY (RECTUM) 06/25/01 normal exam. midly tortuous sigmoid COLONOSCOPY, DIAGNOSTIC (RECTUM) 04/28/2019 serrated adenomatous polyp, repeat 3 yrs / COLONOSCOPY FLEXIBLE PROXIMAL DIAGNOSTIC performed by Rhonda Curtis DO at ENDOSCOPY [facility] CT PELVIS W CONTRAST [facility]-a few sigmoid [...] spine MRI MRI PELVIS WO CONTRAST 04/26/01 [facility]--subtle edema type changes in the left lower iliac bone and adjacent left paraspinal musculature.This could indicate some subtle prior trauma or stress related change.No abnormal soft tissue massis detected. REMOVAL OF TONSILS, UNDER AGE 12 age 5 REMOVE GALLBLADDER 1998 Meds: Current Outpatient Medications Medication Sig Dispense Refill Atorvastatin Calcium 40 MG Oral Tablet (LIPITOR) Take 1 Tab by mouth daily. 90 Tab 3 Coenzyme Q10 (COQ10) 100 MG CAPS Take 1 Tab by mouth daily. nitroglycerin (NITROSTAT) 0.[address] 1 Tab under the tongue as needed. 1 tab every 5 minutesx 3 as needed for CP IBUPROFEN 200 MG PO CAPS as needed Allergies: Review of patient's allergies indicates: No Known Allergies EXAM: VA (CC) OD: 20/50-2 VA (CC) OS: 20/20-1 DILATED EXAM: Dilated with Mydriacyl 1% and Mydfrin 2.5%; advised re driving Lens used: 28 D and 90 D OD: PVD; no pigment cells; no RD/RT ASSESSMENT/PLAN PVD OD - warned of RD Sx RTC: 3 mo - dilated Dyllan Briones MD 08/30/2020 8:37 AM documented in this encounter Nursing Notes * Colleen Burk CMA - 08/30/2020 7:45 AM EDT Pt here for posterior vitreous detachment OD follow up. Pt states he is still having the occasionalflashes, but not as often. VA (CC) OD: 20/50-2 VA (CC) OS: 20/20-1 documented in this encounter Plan of Treatment Upcoming Encounters Date Type Specialty Care Team Description 12/10/2020 Office Visit Ophthalmology Dyllan Briones MD [address] [place] [address] [phone] 04/24/2021 Cardiac Studies Cardiac Studies Gw, Marketing Budget Analyst [address] [place] [address] [address] [phone] 05/01/2021 Office Visit Cardiology Ashutosh Mckinney, DO [address] [place] [address] [phone] 07/23/2021 Office Visit Family Medicine Byron Bryan, DO [address] [place] [address] [phone] Health Maintenance Due Date Last Done Comments Pneumococcal Vaccine: 65+ Years (1 of 1 - PPSV23) 07/27/2015 Zoster Vaccines (2 of 2) 05/13/2019 03/18/2019 *DEPRESSION SCREENING,ANNUAL FOR PTS 12 AND OVER 03/20/2020 Influenza Vaccine (FLU shot) (#1) 2020 12/02/2019, 03/13/2015, 12/11/2011, Additional history exists COLONOSCOPY-EVERY 3 YRS AGES [...] as of this encounter Visit Diagnoses Diagnosis Posterior vitreous detachment of right eye- Primary Vitreous degeneration documented in this encounter Advance Directives Documents on File Type Date Recorded Patient Raisin Washer Expl 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 Advanced Directive Advanced Directive Advanced Directive Advanced Directive Advanced Directive Advanced Directive Advanced Directive Advanced Directive Advanced Directive Advanced Directive Advanced Directive
--- OUTSIDE RECORDS SUMMARY | 2022-10-29 06:56 | External Medical Summary | Summary of Care ---
Author Name Unknown Organization [place] [address] Care Team Providers Care Blood Bank Assistant Name Role Phone LoyByron singletary Loraine CHESTER Primary Care Provider [phone] Reason for Referral * Precert (Within 10 days (routine)) - Pending Review Specialty Diagnoses / Procedures Referred By Radha nolasco Referred To Contact Radiology Diagnoses Nasal polyposis Procedures MRI FACE WITH/WITHOUT CONTRAST Marcel Rojas DO [address] [place] [address] Referral ID Status Reason Start Date Expiration Date V isits Requested Visits Authorized [id number] Pending Review 07/17/2021 1 1 Reason for Visit * Reason Onset Date Comments Test Results Imaging Study 07/15/2021 Encounter Details Date Type Department Care Team Description 07/15/2021 Telephone Otolaryngology [facility] [address] [place] [address] [address] Marcel Rojas DO [address] [place] [address] [address] Test Results Imaging Study Allergies No known active allergiesdocumented as of this encounter (statuses as of 07/17/2021) Medications Medication Sig Dispensed Refills Start Date [...] as of this encounter (statuses as of 07/17/2021) Active Problems Problem Noted Date Left bundle branch block 07/24/2020 Dyslipidemia 07/24/2020 Osteoarthritis of toe joint(s) 0 ADVANCE DIRECTIVE INFORMATION 04/24/2005 Overview: No, Advance Directive brochure offered , patient declined. Other allergic rhinitis 01/12/2004 Overview: ICD-10 update of inactive term Sciatica documented as of this encounter (statuses as of 07/17/2021) Immunizations Name Administration Dates Next Due COVID-19 [...] Telephone Encounter - PORTER Luna - 07/16/2021 8:46 AM EDT Spoke with patient's and the MRI has been scheduled. They are agreeable to date time and location and are aware that [place] will be reaching out to schedule. PORTER Luna * Telephone Encounter - Gabriella Klein LPN - 07/16/2021 8:17 AM EDT Message left with patient's spouse for patient to return call. Please see below and assist with scheduling. * Telephone Encounter - Marcel Rojas DO - 07/16/2021 7:35 AM EDT MRI ordered. Can we please let patient know that Dr. Cerda wants him to have this done prior to seeing him. Sofya, can you please help him schedule. Thanks Marcel Rojas DO, FACS [facility] Otolaryngology Head and Neck Surgery [place], [place] 07/16/2021 7:36 AM * Telephone Encounter - Shruthi Corbin LPN - 07/15/2021 3:34 PM EDT Patient aware of results and recommendations. Patient verbalized understanding. Aware he will be called to schedule with Dr. Cerda. * Telephone Encounter - Shruthi Corbin LPN - 07/15/2021 2:16 PM EDT Left message for pt to return call. * Telephone Encounter - Marcel Rojas DO - 07/15/2021 1:55 PM EDT Please let patient know that his sinus scan showed diffuse nasal polyps as seen clinically. Please help him get established with Dr. Cerda for consideration of sinus surgery. RUSS Crabtree, please note findings in Marcel Nazario's dictated read. Thanks much! Marcel Rojas DO, FACS [facility] Otolaryngology Head and Neck Surgery [place], [place] 07/15/2021 1:57 PM documented in this encounter Plan of Treatment Upcoming Encounters Date Type Specialty Care Team Description 07/27/2021 Imaging Radiology 08/08/2021 Office Visit Otolaryngology Daron Cerda MD [address] [facility] [address] 10/29/2021 Office Visit Family Medicine Byron Bryan DO [address] [place] [address] Scheduled Orders Name Type Priority Associated Diagnoses Orde r Schedule MRI FACE WITH/WITHOUT CONTRAST Medical Imaging Routine Nasal polyposis Expected: 07/17/2021, Expires: 08/16/2022 Scheduled Procedures Name Priority Associated Diagnoses Date/Ti [...] Diagnosis Nasal polyposis- Primary Unspecified nasal polyp documented in this encounter Advance Directives Documents on File Type Date Recorded Patient Drying Machine Tender Expl 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 Advanced Directive Advanced Directive Advanced Directive Advanced Directive Advanced Directive Advanced Directive Advanced Directive Advanced Directive Advanced Directive Advanced Directive Advanced Directive Advanced Directive Advanced Directive Advanced Directive Advanced Directive Advanced Directive Advanced Directive Advanced Directive Advanced Directive Advanced Directive Care Teams Blood Bank Assistant Relationship Specialty Start Date End Date Byron Bryan, DO [address] [place] [address] PCP - General Family Medicine 05/31/20 documented as of this encounter
--- OUTSIDE RECORDS SUMMARY | 2022-10-29 06:56 | External Medical Summary | Summary of Care ---
Author Name Unknown Organization [place] [address] Care Team Providers Care Computational Physicist Name Role Phone IrvinByron Loraine CHESTER Primary Care Provider [phone] Reason for Visit * Reason Comments Follow Up Encounter Details Date Type Department Care Team Description 12/10/2020 Office Visit Ophthalmology, [place] [address] [place] [address] Dyllan Briones MD [address] [place], [place] [id number] Combined forms of age-related cataract of both eyes*; Presbyopia Allergies No Known Active Allergiesdocumented as of this encounter (statuses as of 12/10/2020) Medications Medication Sig Dispensed Refills Start Date [...] as of this encounter (statuses as of 12/10/2020) Active Problems Problem Noted Date Left bundle branch block 07/24/2020 Dyslipidemia 07/24/2020 Osteoarthritis of toe joint(s) 0 ADVANCE DIRECTIVE INFORMATION 04/24/2005 Overview: No, Advance Directive brochure offered , patient declined. Other allergic rhinitis 01/12/2004 Overview: ICD-10 update of inactive term Sciatica documented as of this encounter (statuses as of 12/10/2020) Immunizations Name Administration Dates Next Due COVID-19 [...] Progress Notes * Dyllan Briones MD - 12/10/2020 4:29 PM EDT [facility] DEPARTMENT OF OPHTHALMOLOGY OUTPATIENT CLINIC NOTES PATIENT NAME: Huan Prado (70 year old male) PRIMARY CARE PHYSICIAN: Byron Bryan DO CC: cataracts HPI: here to check cataracts - has difficulty watching TV ROS: no eye pain POH: see below [...] performed by Rhonda Curtis DO at ENDOSCOPY [facility] CT PELVIS W CONTRAST CCH-a few [...] spine MRI MRI PELVIS WO CONTRAST 04/26/01 [facility]--subtle edema type changes in the left [...] allergies indicates: No Known Allergies EXAM: VA cc OD (D) 20/50; VA cc OD (N) 20/30 VA cc OS (D) 20/30; VA cc OS (N) 20/20 PC OD: sph -2.50 cyl +0.75 axis 9 PC OS: sph -3.50 cyl +1.50 axis 3 Add OD +2.25 Add OS +2.25 MR OD: sph -3.50 cyl +1.25 axis 180 20/20-1 MR OS: sph -4.25 cyl +2.00 axis 180 20/20 Add OD +2.50 Add OS +2.50 EXTERNAL: Lids: WNL Conjunctiva: WNL OU SLIT LAMP Cornea: clear OU Tear Film: WNL OU A/C: D/Q OU Lens: 1+ NS OU TA OD: 18; OS: 18; 4:29 PM ASSESSMENT/PLAN Cataracts OU - watch Presbyopia - Rx glasses - pt advised of possible initial distortion RTC: 1 yr Dyllan Briones MD 12/10/2020 4:29 PM documented in this encounter Nursing Notes * Colleen Burk CMA - 12/10/2020 4:10 PM EDT Pt here for 3 month follow up. VA cc OD (D) 20/50; VA cc OD (N) 20/30 VA cc OS (D) 20/30; VA cc OS (N) 20/20 PC OD: sph -2.50 cyl +0.75 axis 9 PC OS: sph -3.50 cyl +1.50 axis 3 Add OD +2.25 Add OS +2.25 documented in this encounter Plan of Treatment Upcoming Encounters Date Type Specialty Care Team Description 01/14/2021 Immunization Pharm[facility] [place], [facility] Vaccine [facility] [address] [place] [address] [phone] 04/24/2021 Cardiac Studies Cardiac Studies Gw, Yarder Boss [address] [place] [address] [phone] 05/01/2021 Office Visit Cardiology Ashutosh Mckinney DO [address] [address] [address] [phone] 07/23/2021 Office Visit Family Medicine Byron Bryan, DO [address] [facility], [place] [address] [phone] Scheduled Orders Name Type Priority Associated Diagnoses Orde r Schedule DETERMINATION OF REFRACTIVE STATE Procedures Routine Presbyopia Ordered: 12/10/2020 Health Maintenance Due Date Last Done Comments Pneumococcal Vaccine: 65+ Years (1 of 1 - PPSV23) 07/27/2015 Zoster Vaccines (2 of 2) 05/13/2019 03/18/2019 *DEPRESSION SCREENING,ANNUAL FOR PTS 12 AND OVER 03/20/2020 COVID-19 Vaccine (3 - Moderna risk 3-dose series) 05/29/2020 05/01/2020, 04/03/2020 COLONOSCOPY-EVERY 3 YRS AGES 18-100 [...] Completed , 12/02/2019, 03/13/2015, Additional history exists MENINGOCOCCAL (MENACTRA/MENVEO) Aged Out No longer eligible based on patient's age to complete this topic documented as of this encounter Implants Not on filedocumented as of this encounter Visit Diagnoses Diagnosis Combined forms of age-related cataract of both eyes- Primary Other and combined forms of senile cataract Presbyopia documented in this encounter Advance Directives Documents on File Type Date Recorded Patient Mannequin Molder Expl 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 Advanced Directive Advanced Directive Advanced Directive Advanced Directive Advanced Directive Advanced Directive Advanced Directive Advanced Directive Advanced Directive Advanced Directive Advanced Directive Advanced Directive Advanced Directive
--- OUTSIDE RECORDS SUMMARY | 2022-10-29 06:56 | External Medical Summary | Summary of Care ---
Author Name Unknown Organization [place] [address] Care Team Providers Care Manager Support Name Role Phone LoyByron singletary Primary Care Provider [phone] Encounter Details Date Type Department Care Team Description 01/14/2021 Immunization Pharmacy, [facility] [address] [facility] [place] [address] [place] [address] Vaccine Pharmacy [facility] [address] [facility] [place] [address] Encounter for immunization* Allergies No known active allergiesdocumented as of this encounter (statuses as of 01/14/2021) Medications Medication Sig Dispensed Refills Start Date [...] as of this encounter (statuses as of 01/14/2021) Active Problems Problem Noted Date Left bundle branch block 07/24/2020 Dyslipidemia 07/24/2020 Osteoarthritis of toe joint(s) 0 ADVANCE DIRECTIVE INFORMATION 04/24/2005 Overview: No, Advance Directive brochure offered , patient declined. Other allergic rhinitis 01/12/2004 Overview: ICD-10 update of inactive term Sciatica documented as of this encounter (statuses as of 01/14/2021) Immunizations Name Administration Dates Next Due COVID-19 [...] Encounters Date Type Specialty Care Team Description 04/24/2021 Cardiac Studies Cardiac Studies 05/01/2021 Office Visit Cardiology Ashutosh Mckinney, DO [address] [place] [address] 07/23/2021 Office Visit Family Medicine Byron Bryan, DO [address] [place], [place] [address] Scheduled Procedures Name Priority Associated Diagnoses Date/Ti me COLONOSCOPY FLEXIBLE PROXIMAL DIAGNOSTIC Recall History of colon polyps Health Maintenance Due Date Last Done Comments Pneumococcal Vaccine: 65+ Years (1 of 1 - PPSV23) 07/27/2015 Zoster Vaccines (2 of 2) 05/13/2019 03/18/2019 *DEPRESSION SCREENING,ANNUAL FOR PTS 12 AND OVER 03/20/2020 COVID-19 Vaccine (4 - Booster for Moderna series) 07/14/2021 01/14/2021, 05/01/2020, 04/03/2020 COLONOSCOPY-EVERY 3 YRS AGES [...] specified prophylactic vaccination against single bacterial disease documented in this encounter Advance Directives Documents on File Type Date Recorded Patient Manager Banking Expl 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 Advanced Directive Advanced Directive Advanced Directive Advanced Directive Advanced Directive Advanced Directive Advanced Directive Advanced Directive Advanced Directive Advanced Directive Advanced Directive Advanced Directive Advanced Directive Care Teams Manager Support Relationship Specialty Start Date End Date Byron Bryan, DO [address] [place] [address] PCP - General Family Medicine 05/31/20 documented as of this encounter
--- OUTSIDE RECORDS SUMMARY | 2022-10-29 06:56 | External Medical Summary ---
Author Name Unknown Address Unknown Organization K09:[facility] [address] [place] [address] Laboratory Report Ordering Provider Test Date Status GEETA CARRIZALES 10/08/2021 08:00:40 Final Observation Date Value Abnormality Reference (Units ) Status BUN 10/08/2021 08:00:40 17 6-20 (mg/dL) Final Creatinine 10/08/2021 08:00:40 1.0 0.6-1.2 (mg/dL) Final Glomerular filtration rate/1.73 sq M.predicted [Volume Rate/Area] in Serum, Plasma or Blood by Creatinine-based formula (CKD-EPI) 10/08/2021 08:00:40 82 >=60 (mL/min) Final Performing Location [facility] [place] [place] [address]
--- OUTSIDE RECORDS SUMMARY | 2022-10-29 06:56 | External Medical Summary ---
Author Name Unknown Address Unknown Organization K09:[facility] [address] [place] [address] Laboratory Report Ordering Provider Test Date Status AIMEE BAUER 08/10/2020 08:35:06 Final Observation Date Value Abnormality Reference (Units ) Status BUN 08/10/2020 08:35:06 21 Above high normal 6-20 (mg/dL) Final Creatinine 08/10/2020 08:35:06 1.0 0.6-1.2 (mg/dL) Final Glomerular filtration rate/1.73 sq M.predicted [Volume Rate/Area] in Serum, Plasma or Blood by Creatinine-based formula (CKD-EPI) 08/10/2020 08:35:06 77.8 >=60.0 (mL/min) Final Performing Location [facility] [place] [address]
--- OUTSIDE RECORDS SUMMARY | 2022-10-29 06:57 | External Medical Summary ---
Author Name Unknown Address [facility] [address] [place] [id number] Phone Organization K01:[place] [address] [facility] [address] Laboratory Report Ordering Provider Test Date Status TISHA WILLOUGHBY 05/06/2019 08:40:00 Final Observation Date Value Abnormality Reference (Units ) Status PSA 05/06/2019 13:48 1.11 <4.1 (ng/mL) Final Performing Location [address] [address]
--- OUTSIDE RECORDS SUMMARY | 2022-10-29 06:57 | External Medical Summary | Summary of Care ---
Author Name Unknown Organization [place] [address] Care Team Providers Care Director Life Sales Name Role Phone Byron Bryan DO Primary Care Provider [phone] Reason for Visit * Reason Comments NEW PATIENT Encounter Details Date Type Department Care Team Description 07/24/2020 Office Visit Family [facility] [address] [facility] [place] [address] Byron Bryan DO 200 [facility] [place] [address] [phone] Left bundle branch block*; Dyslipidemia; BPH with obstruction/lower urinary tract symptoms Allergies No Known Active Allergiesdocumented as of this encounter (statuses as of 07/30/2020) Medications Medication Sig Dispensed Refills Start Date [...] as of this encounter (statuses as of 07/30/2020) Active Problems Problem Noted Date Left bundle branch block 07/24/2020 Dyslipidemia 07/24/2020 Osteoarthritis of toe joint(s) 0 ADVANCE DIRECTIVE INFORMATION 04/24/2005 Overview: No, Advance Directive brochure offered , patient declined. Other allergic rhinitis 01/12/2004 Overview: ICD-10 update of inactive term Sciatica documented as of this encounter (statuses as of 07/30/2020) Immunizations Name Administration Dates Next Due COVID-19 [...] Sign Reading Time Taken Comments Blood Pressure 124/72 07/24/2020 6:48 PM EDT Pulse 54 07/24/2020 6:48 PM EDT Temperature 36.3 C (97.4 F) 07/24/2020 6:48 PM ED T Respiratory Rate 16 07/24/2020 6:48 PM EDT Oxygen Saturation - - Inhaled Oxygen Concentration - - Weight 87.8 kg (193 lb 9.6 oz) 07/24/2020 6:48 P M EDT Height 181.6 cm (5' 11.5") 07/24/2020 6:48 PM ED T Body Mass Index 26.63 07/24/2020 6:48 PM EDT documented in this encounter Progress Notes * Byron Bryan, - 07/24/2020 7:00 PM EDT Subjective: Huan Prado is a 69 year old male. Chief Complaint Patient presents with NEW PATIENT HPI: Pt here to establish as a new patient. History of LBBB but no CAD. Goes through some scatica with his work. Allergies have been bad. Using some sudafed and flonase. Will tried claritin or braulio. PMHx, PSHx, SHx, FHx, Medications, and Allergies fully reviewed BP looks good. Weight down some. Can move all over. Diet okay but does like carbs. Gets exercise. Swims after eating. Does not want second shot for shingles. Bad experience from first. Patient Active Problem List Diagnosis Code Sciatica [...] IBUPROFEN 200 MG PO CAPS as needed Review of patient's allergies indicates: No Known Allergies OBJECTIVE: BP 124/72 | Pulse 54 | Temp 36.3 C (97.4 F) (Tympanic) | Resp 16 | Ht 1.816 m (5' 11.5") | Wt 87.8 kg (193 lb 9.6 oz) | BMI 26.63 kg/m | BSA 2.1 m Estimated body mass index is 26.63 kg/m as calculated from the following: Height as of this encounter: 1.816 m (5' 11.5"). Weight as of this encounter: 87.8 kg (193 lb 9.6 oz). BP Readings from Last 3 Encounters: 07/24/20 124/72 05/01/20 128/82 05/02/19 154/88 Wt Readings from Last 3 Encounters: 07/24/20 87.8 kg (193 lb 9.6 oz) 05/01/20 87.6 kg (193 lb 1.9 oz) 05/02/19 92.9 kg (204 lb 12.8 oz) ROS: General: No change in weight, [...] and No sensation of incomplete voiding Musculoskeletal: No joint pain or stiffness, No arthritis, No backache, No muscle pains or cramps and No joint swelling Hematologic: No anemia, No easy bruising or [...] sounds and no masses or organomegaly Extremities: less than 2 second capillary refill, no joint deformities, effusion, or inflammation ASSESSMENT/Plan Left bundle branch block (Primary) Dyslipidemia - COMPREHENSIVE METABOLIC PANEL; Future; Expected date: 07/24/2020 - LIPID PANEL WITH DIRECT LDL IF TG IS HIGH; Future; Expected date: 07/24/2020 BPH with obstruction/lower urinary tract symptoms - PSA; Future; Expected date: 07/24/2020 The above was discussed and understanding was expressed. Byron Bryan DO documented in this encounter Nursing Notes * Cammie Grove LPN - 07/24/2020 6:48 PM EDT Huan Prado presents as new patient to get established. Medications & HM reviewed/updated. documented in this encounter Plan of Treatment Upcoming Encounters Date Type Specialty Care Team Description 08/30/2020 Office Visit Ophthalmology Dyllan Briones MD [address] [place] [address] [phone] 04/24/2021 Cardiac Studies Cardiac Studies Gw, Entrepreneur [address] [place] [address] [phone] 05/01/2021 Office Visit Cardiology Ashutosh Mckinney DO [address] [place] [address] [phone] 07/23/2021 Office Visit Family Medicine Byron Bryan, DO [address] [place] [address] [phone] Scheduled Orders Name Type Priority Associated Diagnoses Orde r Schedule COMPREHENSIVE METABOLIC PANEL Lab Routine Dyslipidemia Expected: 07/24/2020 (Approximate), Expires: 07/24/2021 LIPID PANEL WITH DIRECT LDL IF TG IS HIGH Lab Routine Dyslipidemia Expected: 07/24/2020, Expires: 07/24/2021 PSA Lab Routine BPH with obstruction/lower urinary tract symptoms Expected: 07/24/2020 (Approximate), Expires: 07/24/2021 Health Maintenance Due Date Last Done Comments Pneumococcal Vaccine: 65+ Years (1 of 1 - PPSV23) 07/27/2015 Zoster Vaccines (2 of 2) 05/13/2019 03/18/2019 *DEPRESSION SCREENING,ANNUAL FOR PTS 12 AND OVER 03/20/2020 COLONOSCOPY-EVERY 3 YRS AGES 18-100 04/28/2022 04/28/2019, 04/28/2019 DIABETES SCREEN EVERY 3 YRS-AGE 45 AND ABOVE 05/05/2022 05/06/2019, 05/06/2019, 04/15/2016, Additional history exists LIPID SCREEN EVERY 5 YRS-MEN AGE 35-75 05/05/2024 05/06/2019, 04/15/2016, 03/19/2015, Additional history exists DTaP,Tdap,and Td Vaccines (2 - Td) 03/13/2025 03/13/2015 ABDOMINAL AORTIC ANEURYSM (AAA) SCREENING Completed 03/29/2019, 12/04/2006, 05/14/2005 Influenza Vaccine (FLU shot) Completed 04/2019, 03/13/2015, 12/11/2011, Additional history exists COVID-19 Vaccine Completed 05/01/2020, 04/03/2020 MENINGOCOCCAL (MENACTRA/MENVEO) Aged Out No longer eligible based on patient's age to complete this topic documented as of this encounter Implants Not on filedocumented as of this encounter Visit Diagnoses Diagnosis Left bundle branch block- Primary Other left bundle branch block Dyslipidemia Other and unspecified hyperlipidemia BPH with obstruction/lower urinary tract symptoms Hypertrophy of prostate with urinary obstruction and other lower urinary tract symptoms (LUTS) documented in this encounter Advance Directives Documents on File Type Date 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
--- OUTSIDE RECORDS SUMMARY | 2022-10-29 06:57 | External Medical Summary | Summary of Care ---
Author Name Unknown Organization [place] [address] Care Team Providers Care Die Barber Name Role Phone Sukhjinder Etienne MD Primary Care Provide r Reason for Referral * Precert (Within 10 days (routine)) Status Reason Specialty Diagnoses / Procedures Referred By Contact Referred To Contact Authorized Precert Cardiac Studies Diagnoses LBBB (left bundle branch block) Nonrheumatic mitral valve regurgitation Procedures ECHO, COMPLETE (2D), TRANS-THORACIC Kevyn Shetty PA-C [address] [place] [phone] Electronically signed by Kevyn Shetty PA-C at Reason for Visit * Reason Comments Follow Up Encounter Details Date Type Department Care Team Description 05/01/2020 Office Visit Cardiology, [facility] [address] [place] [address] [address] Kevyn Shetty PA-C [facility] [place] [address] [phone] LBBB (left bundle branch block)*; Dyslipidemia, goal LDL below 70; Nonrheumatic mitral valve regurgitation Allergies No Known Active Allergiesdocumented as of this encounter (statuses as of 05/04/2020) Medications Medication Sig Dispensed Refills Start Date [...] as of this encounter (statuses as of 05/04/2020) Active Problems Problem Noted Date Osteoarthritis of toe joint(s) 0 ADVANCE DIRECTIVE INFORMATION 04/24/2005 Overview: No, Advance Directive brochure offered , patient declined. Other allergic rhinitis 01/12/2004 Overview: ICD-10 update of inactive term Sciatica documented as of this encounter (statuses as of 05/04/2020) Immunizations Name Administration Dates Next Due H1N1 2009 Influenza, IM 04/17/2009 Seasonal Influenza, Quadriva lent, No Preserve, 6 Mons & Above, IM 12/02/2019 Seasonal Influenza, Quadriva lent, No Preserve, IM 03/13/2015 Seasonal Influenza, Trivalen t, with Preserve, 3yr & Above, Split 12/11/2011,12/05/2008,01/01/2008,12/16,12/14/2002,12/29/2001 12/15/2003 TDAP (age 10 and older)(Boostrix) 03/13/2015 Zoster Vaccine Recombinant (Shingrix) 03/18/2019 documented as of this encounter Social History Tobacco Use Types Packs/Day Years Used Date Former Smoker Quit: 03/02 Smokeless Tobacco: Never Used Alcohol Use Drinks/Week oz/Week Comments Yes 1-2 wine/week Sex Assigned at Date Recorded Not on file Job Start Date Occupation Industry Not on file Not on file Not on file documented as of this encounter Last Filed Vital Signs Vital Sign Reading Time Taken Comments Blood Pressure 128/82 05/01/2020 9:22 AM EST Pulse 60 05/01/2020 9:22 AM EST Temperature 36 C (96.8 F) 05/01/2020 9:22 AM EST Respiratory Rate 12 05/01/2020 9:22 AM EST Oxygen Saturation - - Inhaled Oxygen Concentration - - Weight 87.6 kg (193 lb 1.9 oz) 05/01/2020 9:22 A M EST Height - - Body Mass Index 25.48 04/20/2019 11:46 AM EST documented in this encounter Progress Notes * Kevyn Shetty PA-C - 05/01/2020 9:38 AM EST History of Present Illness: Huan Prado is a 69 year old male followed by Dr. Mckinney. He is heretoday for routine cardiology follow-up. Patient initially found to have a left bundle branch block back in 2017 after presenting to the hospital with atypical chest discomfort. At that time he had a normal resting echocardiogram and normalcardiac enzymes. He was referred for outpatient pharmacological stress testing. As per documentation, the study was felt to be essentially a negative study. Feeling well. No complaints or concerns. No interim ER evaluations or hospitalizations. No reportedchest pain, palpitations, shortness of breath, fluid retention, dizziness, near syncope, syncope, melena or hematochezia Patient Active Problem List Diagnosis Code Sciatica M54.30 Other allergic rhinitis J30.89 ADVANCE DIRECTIVE INFORMATION Osteoarthritis of toe joint(s) Review of patient's allergies indicates: No Known [...] minutes x 3 as needed for CP IBUPROFEN 200 MG PO CAPS as needed OBJECTIVE/PHYSICAL EXAMINATION: BP 128/82 | Pulse 60 | Temp 36 C (96.8 F) (Tympanic) | Resp 12 | Wt 87.6 kg (193 lb 1.9 oz) | BMI 25.48 kg/m | BSA 2.12 m General: A&Ox3. NAD. HEENT: Normocephalic. Atraumatic. PER. Conjunctiva pink, sclera clear. No carotid bruits. No JVD. Heart: RRR. + Gallop. No murmur. PMI is nondisplaced. Lungs: Clear to auscultation. Abdomen: +BS. Soft. Nontender. No masses or organomegaly. Extremities: No clubbing, cyanosis, or edema. Limited neurological examination is without focal deficits. Pulses: radial=2/4, posterior tibial=2/4. Data April 14, 2016 TTE Interpretation Summary ([facility], Dr. Mckinney): The left ventricle is normal in size. Ejection Fraction = 65-70%. Septal motion is consistent with conduction abnormality. The right ventricular systolic function is normal. The left atrial size is normal. Right atrial size is normal. No significant valvular pathologhy April 17, 2016 Pharmacologic Nuclear Stress Interpretation Summary (as per Dr. Knox): The pharmacologic nuclear stress test is inconclusive to the presence of artifact limiting the rest images. The stress SPECT images reveal a small sized anteroseptal perfusion defect mild intensity with normal perfusion to the remaining myocardium. The resting images were of poor technical quality and/or nondiagnostic due to artifact. The septal perfusion defect may be related to right bundle branch block rather than infarct or ischemia. The stress ECG is nondiagnostic due to the presence of underlying left bundle branch block. Gated SPECT imaging reveals mild septal dyskinesis compatible with underlying left bundle branch block. The left ventricular ejection fraction was calculated to be 65% (Normal). January 18, 2018 TTE Interpretation Summary (as per Dr. Mckinney): The septal motion is abnormal consistent with left bundle branch block. The left ventricular cavity size is normal. The qualitative LVejection fraction is 55-59% (normal). The right ventricular systolic function is normal as assessedby tricuspid annular plane systolic excursion (TAPSE) (normal >1.7 cm). The left atrium is normal sized (< 35 ml/m^2). The right atrial size is normal. Mild mitral regurgitation is present. Mild tricuspid regurgitation is present. May 2019 Zio Monitor: Patient had a min HR of 36 bpm, max HR of 141 bpm, and avg HR of 65 bpm. Predominant underlying rhythm was Sinus Rhythm. Bundle Branch Block/IVCD was present. Second Degree AVBlock-Mobitz I (Wenckebach) was present. Isolated SVEs were rare (<1.0%), SVE Couplets were rare(<1.0%), and SVE Triplets were rare (<1.0%). Isolated VEs were rare (<1.0%), VE Couplets were rare (<1.0%), and no VE Triplets were present. EKG today reveals sinus bradycardia at 53 bpm with a long first-degree AV block and a left bundle branch block. ASSESSMENT AND RECOMMENDATIONS/PLAN: 1. Hypertension. Controlled. If his blood pressure is persistently elevated I would recommend initiation of an ACEI or ARB initially. He has contraindications to beta-keerthi therapy. 2. Chronic left bundle branch block. Resting echocardiography requested to assess left ventricular systolic function. 3. Prior equivocal pharmacological stress testing, asymptomatic. 4. Mild mitral and tricuspid regurgitation. See above. Routine cardiology follow-up, or as needed. ER with emergencies. Kevyn Shetty PA-C Department of Cardiology documented in this encounter Procedure Notes * Casye Khan Jr., DO - 05/01/2020 9:31 AM EST Associated Order(s): EKG REASON FOR STUDY: routine CONCLUSIONS: Sinus bradycardia with 1st degree AV block left bundle branch block Cannot rule out Septal infarct , age undetermined Lateral infarct , age undetermined Abnormal ECG When compared with ECG of 02-MAY-2019 09:02, Premature atrial complexes are no longer Present Lateral infarct is now Present Ventricular Rate: 53 Atrial Rate: 53 OK Interval: 278 QRS Duration: 136 QT/QTc: 448/420 ms P-R-T Kirvin: 59 : 113 : -2 degrees documented in this encounter Nursing Notes * Urszula Brock LPN - 05/01/2020 9:21 AM EST Examination Room: 2 Name: Huan Prado Date of : (1950). Reason for Visit: routine Interim Hospitalization(s): denies Problems/Concerns: none Chest Pain/SOB: deneis [facility] you can [...] Encounters Date Type Specialty Care Team Description 05/31/2020 Office Visit Ophthal[facility]iones [facility] [address] [facility] [address] [phone] 07/24/2020 Office Visit Family Medicine Byron Bryan DO [address] [facility], [place] [address] [phone] 04/24/2021 Cardiac Studies Cardiac Studies Gw, Youth Counselor 1 [address] [facility] [place] [address] [phone] 05/01/2021 Office Visit Cardiology Ashutosh Mckinney DO [address] [place] [address] [phone] Scheduled Orders Name Type Priority Associated Diagnoses Orde r Schedule ECHO, COMPLETE (2D), TRANS-THORACIC Echocardiology Routine LBBB (left bundle branch block) Nonrheumatic mitral valve regurgitation Expected: 05/01/2021, Expires: 10/31/2021 Health Maintenance Due Date Last Done Comments [...] Completed 04/2019, 03/13/2015, 12/11/2011, Additional history exists MENINGOCOCCAL (MENACTRA/MENVEO) Aged Out No longer eligible based on patient's age to complete this topic documented as of this encounter Implants Not on filedocumented as of this encounter Procedures Procedure Name Priority Date/Time Associated Diagnosis Comments OK ECG ROUTINE ECG W/LEAST 12 LDS TRCG ONLY W/O I&R Routine 05/01/2020 9:31 AM EST LBBB (left bundle branch block) documented in this encounter Results * EKG (05/01/2020 9:31 AM EST) Specimen Procedure Note Casey Khan Jr., - 05/01/2020 9:31 AM EST REASON FOR STUDY: routine CONCLUSIONS: Sinus bradycardia with 1st degree AV block left bundle branch block Cannot rule out Septal infarct , age undetermined Lateral infarct , age undetermined Abnormal ECG When compared with ECG of 02-MAY-2019 09:02, Premature atrial complexes are no longer Present Lateral infarct is now Present Ventricular Rate: 53 Atrial Rate: 53 OK Interval: 278 QRS Duration: 136 QT/QTc: 448/420 ms P-R-T Kirvin: 59 : 113 : -2 degrees [facility] documented in this encounter Visit Diagnoses Diagnosis LBBB (left bundle branch block)- Primary Other left bundle branch block Dyslipidemia, goal LDL below 70 Other and unspecified hyperlipidemia Nonrheumatic mitral valve regurgitation documented in this encounter Advance Directives Documents on File Type Date Recorded 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
--- OUTSIDE RECORDS SUMMARY | 2022-10-29 06:57 | External Medical Summary ---
Author Name Unknown Address [address] [place] [address] Phone Organization [id number]:[facility] [address] [place] [address] Laboratory Report Ordering Provider Test Date Status SARAH RENEE 05/06/2019 08:40:00 Final Observation Date Value Abnormality Reference (Units ) Status Glucose 05/06/2019 10:36 98 70-120 (mg/dL ) Final Performing Location [facility] [place] [address] [place] [address]
--- OUTSIDE RECORDS SUMMARY | 2022-10-29 06:57 | External Medical Summary | Summary of Care ---
Author Name Unknown Organization [place] [address] Care Team Providers Care Cement Finishing Supervisor Name Role Phone Sukhjinder Etienne MD Primary Care Provide r Reason for Referral * Precert (Routine) Status Reason Specialty Diagnoses / Procedures Referred By Contact Referred To Contact Pending Review Precert Cardiac Studies Diagnoses LBBB (left bundle branch block) Procedures ECHO, COMPLETE (2D), TRANS-THORACIC Kevyn Shetty PA-C [address] [facility] [place] [address] Reason for Visit * Reason Comments Follow Up Encounter Details Date Type Department Care Team Description 05/02/2019 Office Visit Cardiology, [facility] [address] [place] [address] Kevyn Shetty PA-C [facility] [place] [address] [phone] LBBB (left bundle branch block)*; Dyslipidemia, goal LDL below 70; Bradycardia; Nonrheumatic mitral valve regurgitation; Hypertension, uncontrolled Allergies No Known Allergiesdocumented as of this encounter (statuses as of 05/02/2019) Medications Medication Sig Dispensed Refills Start Date End Date Status IBUPROFEN 200 MG PO CAPS as needed 0 Active Coenzyme Q10 (COQ10) 100 MG CAPS Take 1 Tab by mouth daily. 0 Active nitroglycerin (NITROSTAT) 0.[address] 1 Tab under the tongue as needed. 1 tab every 5 minutes x 3 as needed for CP 0 04/15/2016 Active atorvaSTATin (LIPITOR) 40 MG TabletIndications :Dyslipidemia Take 1 Tab by mouth daily. 90 Tab 3 03/18/2019 Active fluticasone (FLONASE ALLERGY RELIEF) 50 MCG/ACT nasal spray Administer 1 [place] into nostril daily. 0 05/02/2019 Discontinued (Patient preference/d iscontinuati on) documented as of this encounter (statuses as of 05/02/2019) Active Problems Problem Noted Date Osteoarthritis of toe joint(s) 0 ADVANCE DIRECTIVE INFORMATION 04/24/2005 Overview: No, Advance Directive brochure offered , patient declined. Other allergic rhinitis 01/12/2004 Overview: ICD-10 update of inactive term Sciatica documented as of this encounter (statuses as of 05/02/2019) Immunizations Name Administration Dates Next Due H1N1 2009 Influenza, IM 04/17/2009 Seasonal Influenza, Quadriva lent, No Preserve, IM [...] file Not on file Not on file Travel History Travel Start Travel End documented as of this encounter Last Filed Vital Signs Vital Sign Reading Time Taken Comments Blood Pressure 154/88 05/02/2019 8:46 AM EST Pulse 68 05/02/2019 8:46 AM EST Temperature - - Respiratory Rate 16 05/02/2019 8:46 AM EST Oxygen Saturation - - Inhaled Oxygen Concentration - - Weight 92.9 kg (204 lb 12.8 oz) 05/02/2019 8:46 AM EST Height - - Body Mass Index 27.02 04/20/2019 11:46 AM EST documented in this encounter Progress Notes * Kevyn Shetty PA-C - 05/02/2019 8:54 AM EST SUBJECTIVE: Huan Montanez is a 68 year old male followed by Dr. Mckinney. He is here today for routine cardiology follow-up. The patient is being evaluated by the undersigned for the first time today. Patient initially found to have a left bundle branch block back in 2017 after presenting to the hospital with atypical chest discomfort. At that time he had a normal resting echocardiogram and normalcardiac enzymes. He was referred for outpatient pharmacological stress testing with the resting portion uninterpretable due to a large amount of radioisotope uptake in the bowel as per Dr. Mckinney. Thestress portion of the study was better imaging but there was evidence of septal perfusion abnormalities due to the left bundle branch block and without comparison to a resting study the study had to be called equivocal. As per documentation, the study was felt to be essentially a negative study. Overall, patient feels the same if not better some better compared to when he was here last. He notes occasionally feeling lightheaded if doing something down low then getting up quickly. This is been present since childhood, without progression. He notes previously damaging his left shoulder, occasionally with some nonexertional discomfort into the left upper outer chest area. No exertional chest pain. No tachy palpitations. No new or worsening shortness of breath. No reported fluid retention.No syncope. Blood pressure was recently elevated upon presentation for colonoscopy. Blood pressure is elevated again today. Patient Active Problem List Diagnosis Code Sciatica M54.30 Other allergic rhinitis J30.89 ADVANCE DIRECTIVE INFORMATION Osteoarthritis of toe joint(s) Review of patient's allergies indicates: No Known Allergies Current Outpatient Medications Medication Sig Dispense Refill atorvaSTATin (LIPITOR) 40 MG Tablet Take 1 Tab by mouth daily. 90 Tab 3 Coenzyme Q10 (COQ10) 100 MG CAPS Take 1 Tab by mouth daily. nitroglycerin (NITROSTAT) 0.[address] 1 Tab under the tongue as needed. 1 tab every 5 minutes x 3 as needed for CP IBUPROFEN 200 MG PO CAPS as needed OBJECTIVE/PHYSICAL EXAMINATION: BP 154/88 | Pulse 68 | Resp 16 | Wt 204 lbs 12.8 oz (92.897kg) | BMI 27.02 kg/m | BSA 2.19 m General: A&Ox3. NAD. HEENT: Normocephalic. Atraumatic. PER. Conjunctiva pink, sclera clear. No carotid bruits. No JVD. Heart: RRR. + Gallop. No murmur. PMI is nondisplaced. Lungs: Clear to auscultation. Abdomen: +BS. Soft. Nontender. No masses or organomegaly. Extremities: No clubbing, cyanosis, or edema. Limited neurological examination is without focal deficits. Pulses: radial=2/4, posterior tibial=2/4. Data April 14, 2016 TTE Interpretation Summary ([facility], Dr. Mckinney): The left ventricle is normal [...] is present. Mild tricuspid regurgitation is present. EKG today demonstrates sinus bradycardia at 55 bpm with a first-degree AV block and premature atrial complexes. Left bundle branch block pattern. ASSESSMENT AND RECOMMENDATIONS/PLAN: 1. Hypertension, uncontrolled. Non pharmacologic treatment of hypertension discussed. I specifically discussed dietary salt restriction, regular aerobic exercise, limited alcohol intake, obtaining anadequate amount of sleep, avoiding stress. 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 I have asked that his blood pressure to be checked at home with readings to reading to be reported to the undersigned. If his blood pressure is persistently elevated I would recommend initiation ofan ACEI or ARB initially. He has contraindications to beta-keerthi therapy. 2. Chronic left bundle branch block. Resting echocardiography requested to assess left ventricular systolic function. 14-day Zio monitoring requested to assess for further conduction system disturbances. He is aware of the possible future need for permanent pacemaker implantation. 3. Prior equivocal pharmacological stress testing, asymptomatic. 4. Mild mitral and tricuspid regurgitation. See above. Routine laboratory work orders were placed, to be obtained with the fasting lipid panel previously ordered through his PCP (last labs were done at [facility] in 04/2016) Instructions written. Mr. Montanez states that he understands the proposed plan and verbally consents. Patient to call with any questions, concerns, etc. Follow-up with the above, routinely, or as needed. ER with emergencies. Kevyn Shetty PA-C Department of Cardiology documented in this encounter Nursing Notes * René Inman LPN - 05/02/2019 8:44 AM EST Examination Room: 2 Name: Huan Montanez Date of : (1950). Reason for Visit: follow up Interim Hospitalization(s): denies Problems/Concerns: none Chest Pain/SOB: denies [facility] is a way you can talk to your provider online through e-mail. Would you like to sign up? I can activate it for you? ALREADY ACTIVE documented in this encounter Plan of Treatment Upcoming Encounters Date Type Specialty Care Team Description 05/17/2019 Cardiac Studies Cardiac Studies Gw, Production Supervisor Off Shift [address] [place] [address] [phone] 06/01/2019 Immunization/Injection Ancillary Wilfred, Nurse Luciano Benton Daniel [address] [place] [address] [phone] 03/20/2020 Office Visit Family Medicine Sukhjinder Etienne MD [address] [place] [address] [phone] 05/01/2020 Office Visit Cardiology Kevyn Shetty PA-C [address] [place] [address] [phone] Scheduled Orders Name Type Priority Associated Diagnoses Orde r Schedule EKG EKG Routine LBBB (left bundle branch block) Ordered: 05/02/2019 ECHO, COMPLETE (2D), TRANS-THORACIC Echocardiology Routine LBBB (left bundle branch block) Expected: 05/09/2019, Expires: 08/02/2019 EXTERNAL EKG REVIEW AND INTERP Holter Routine LBBB (left bundle branch block) Expected: 05/02/2019, Expires: 08/02/2019 EXTERNAL EKG - HOOKUP ONLY Holter Routine LBBB (left bundle branch block) Expected: 05/02/2019, Expires: 08/02/2019 CBC Lab Routine Bradycardia Expected: 05/02/2019 (Approximate), Expires: 06/01/2020 COMPR METAB PANEL Lab Routine Bradycardia Expected: 05/02/2019 (Approximate), Expires: 08/02/2019 PSA Lab Routine Bradycardia Expected: 05/02/2019 (Approximate), Expires: 06/01/2020 TSH WITH FREE T4 IF INDICATED Lab Routine Bradycardia Expected: 05/02/2019 (Approximate), Expires: 07/31/2019 Health Maintenance Due Date Last Done Comments Pneumococcal Vaccine: 65+ Years (1 of 2 - PCV13) 07/27/2015 Influenza Vaccine (FLU shot) (#1) 2018 03/13/2015, 12/11/2011, 04/17/2009, Additional history exists DIABETES SCREEN EVERY 3 YRS-AGE 45 AND ABOVE 04/15/2019 04/15/2016, 04/14/2016, 03/19/2015, Additional history exists Zoster Vaccines (2 of 2) 05/13/2019 03/18/2019 LIPID SCREEN EVERY 5 YRS-MEN AGE 35-75 04/15/2021 04/15/2016, 03/19/2015, 04/13/2009, Additional history exists DTaP,Tdap,and Td Vaccines (2 - Td) 03/13/2025 03/13/2015 ABDOMINAL AORTIC ANEURYSM (AAA) SCREENING Completed 03/29/2019, 12/04/2006, 05/14/2005 MENINGOCOCCAL (MENACTRA/MENVEO) Aged Out No longer eligible based on patient's age to complete this topic documented as of this encounter Implants Not on filedocumented as of this encounter Visit Diagnoses Diagnosis LBBB (left bundle branch block)- Primary Other left bundle branch block Dyslipidemia, goal LDL below 70 Other and unspecified hyperlipidemia Bradycardia Other specified cardiac dysrhythmias Nonrheumatic mitral valve regurgitation Hypertension, uncontrolled Unspecified essential hypertension documented in this encounter Advance Directives Documents on File Type Date Recorded 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
--- OUTSIDE RECORDS SUMMARY | 2022-10-29 06:57 | External Medical Summary ---
Author Name Unknown Address [address] [place] [address] Phone Organization K09:[facility] [address] [place] [address] Laboratory Report Ordering Provider Test Date Status TISHA WILLOUGHBY 05/06/2019 08:40:00 Final Observation Date Value Abnormality Reference (Units ) Status BUN 05/06/2019 10:34 25 Above high normal 6-20 (mg/dL) Final Creatinine 05/06/2019 10:34 1.0 0.6-1.2 (mg/ dL) Final E Glom Filt Rate 05/06/2019 10:34 >60.0 >60 Final Performing Location [facility] [address] [place] [address]
--- OUTSIDE RECORDS SUMMARY | 2022-10-29 06:57 | External Medical Summary | Summary of Care ---
Author Name [place] [address] Care Team Providers Care Printer Slotter Helper Name Role Phone LoyByron singletary DO Primary Care Provider [phone] Reason for Visit * Reason Comments Other Encounter Details Date Type Department Care Team Description 05/31/2020 Office Visit Ophthalmology, [place] [address] [facility] [place] [address] Dyllan Briones MD [address] [facility] [place] [address] Posterior vitreous detachment, right* Allergies No Known Active Allergiesdocumented as of this encounter (statuses as of 05/31/2020) Medications Medication Sig Dispensed Refills Start Date [...] as of this encounter (statuses as of 05/31/2020) Active Problems Problem Noted Date Osteoarthritis of toe joint(s) 0 ADVANCE DIRECTIVE INFORMATION 04/24/2005 Overview: No, Advance Directive brochure offered , patient declined. Other allergic rhinitis 01/12/2004 Overview: ICD-10 update of inactive term Sciatica documented as of this encounter (statuses as of 05/31/2020) Immunizations Name Administration Dates Next Due H1N1 [...] Progress Notes * Dyllan Briones MD - 05/31/2020 8:17 AM EDT [facility] DEPARTMENT OF OPHTHALMOLOGY OUTPATIENT CLINIC NOTES PATIENT NAME: Huan Prado (69 year old male) PRIMARY CARE PHYSICIAN: Byron Bryan, DO CC: flashing HPI: flashing OD - unchanged ROS: no floaters POH: see below Past Medical History: Diagnosis Date Dyslipidemia Hereditary and idiopathic peripheral neuropathy Sciatica Shingles 11/30/2014 left T10 area Past Surgical History: Procedure Laterality Date COLONOSCOPY W/ BIOPSY (RECTUM) 06/25/01 normal exam. midly tortuous sigmoid COLONOSCOPY, DIAGNOSTIC (RECTUM) 04/28/2019 serrated adenomatous polyp, repeat 3 yrs / COLONOSCOPY FLEXIBLE PROXIMAL DIAGNOSTIC performed by Rhonda Curtis DO at [facility] CT PELVIS W CONTRAST [facility]-a few sigmoid [...] spine MRI MRI PELVIS WO CONTRAST 04/26/01 [facility]--subtle edema type changes in the left [...] No Known Allergies EXAM: [facility] (CC) OD: 2040-1 [facility] (CC) OS: 2020-1 DILATED EXAM: Dilated with Mydriacyl 1% and Mydfrin 2.5%; advised re driving Lens used: 28 D and 90 D PVD OD overlying optic nerve No RD/RT ASSESSMENT/PLAN PVD OD - advised of RD Sx RTC: 3 mo } Dyllan Briones MD 05/31/2020 8:18 AM documented in this encounter Nursing Notes * Ellie Chavarria OSA - 05/31/2020 8:00 AM EDT Pt here for 2 month return. Pt states he is still seeing flashes at times. VA (CC) OD: VA (CC) OS: documented in this encounter Plan of Treatment Upcoming Encounters Date Type Specialty Care Team Description 07/24/2020 Office Visit Family Medicine Byron Bryan, DO [address] [facility], [place] [address] [phone] 04/24/2021 Cardiac Studies Cardiac Studies Gw, Settlement Clerk [address] [place] [address] [phone] 05/01/2021 Office Visit Cardiology Ashutosh Mckinney, [address] [place] [address] [phone] Health Maintenance Due Date Last Done Comments [...] this encounter Visit Diagnoses Diagnosis Posterior vitreous detachment, right- Primary documented in this encounter Advance Directives Documents on File Type Date Recorded 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
--- OUTSIDE RECORDS SUMMARY | 2022-10-29 06:57 | External Medical Summary | Summary of Care ---
Author Name Unknown Organization [place] [address] Care Team Providers Care Hospice Rn Name Role Phone Sukhjinder Etienne MD Primary Care Provide r Reason for Referral * Ancillary Services (Within 30 days (routine)) Status Reason Specialty Diagnoses / Procedures Referred By Contact Referred To Contact Authorized Ancillary Services Required Gastroenterology Diagnoses Positive colorectal cancer screening using Cologuard test Sukhjinder Etienne MD [address] [facility] [place] [address] Reason for Visit * Reason Comments Abnormal Test Results Encounter Details Date Type Department Care Team Description 04/04/2019 Telephone Family Practice [facility] [address] [place] [address] Sukhjinder Etienne MD [address] [facility] [place] [address] [phone] Abnormal Test Results Allergies No Known Allergiesdocumented as of this encounter (statuses as of 04/05/2019) Medications Medication Sig Dispensed Refills Start Date End Date Status IBUPROFEN 200 MG PO CAPS as needed 0 Active aspirin 81 MG chewable tabletIndications:LB BB (left bundle branch block) Take 1 Tab by mouth daily. with food. 100 Tab 5 04/18/2016 Active Coenzyme Q10 (COQ10) 100 MG CAPS Take 1 Tab by mouth daily. 0 Active nitroglycerin (NITROSTAT) 0.[address] 1 Tab under the tongue as needed. 1 tab every 5 minutes x 3 as needed for CP 0 04/15/2016 Active fluticasone (FLONASE ALLERGY RELIEF) 50 MCG/ACT nasal spray Administer 1 [place] into nostril daily. 0 Active atorvaSTATin (LIPITOR) 40 MG TabletIndications:Dy slipidemia Take 1 Tab by mouth daily. 90 Tab 3 03/18/2019 Active documented as of this encounter (statuses as of 04/05/2019) Active Problems Problem Noted Date Osteoarthritis of toe joint(s) 0 ADVANCE DIRECTIVE INFORMATION 04/24/2005 Overview: No, Advance Directive brochure offered , patient declined. Other allergic rhinitis 01/12/2004 Overview: ICD-10 update of inactive term Sciatica documented as of this encounter (statuses as of 04/05/2019) Immunizations Name Administration Dates Next Due H1N1 [...] Travel End documented as of this encounter Miscellaneous Notes * Telephone Encounter - Rani Johnson RN - 04/05/2019 11:18 AM EST Called and spoke with pt's . They were just discussing results. Will call back later to schedule colonscopy * Telephone Encounter - Divina Ibarra LPN - 04/04/2019 7:00 PM EST Called pt, let message for a return call * Telephone Encounter - Sukhjinder Etienne MD - 04/04/2019 6:35 PM EST Nursing, please call and inform pt. Cologuard is positive I suggest pt proceed to colonoscopy to r/o precancerous polyps or colon cancer Referral signed pls schedule documented in this encounter Plan of Treatment Upcoming Encounters Date Type Specialty Care Team Description 04/28/2019 Hospital Encounter Endoscopy Rhonda Curtis, DO [address] [place] [address] [phone] 04/28/2019 Surgery Endoscopy Rhonda Curtis, DO [address] [place] [address] [phone] COLONOSCOPY FLEXIBLE PROXIMAL DIAGNOSTIC 05/02/2019 Office Visit Cardiology Kevyn Shetty PA-C [address] [place] [address] [phone] 06/01/2019 Immunization/Injecti on [facility], Nurse Luciano Sanchez [address] [place] [address] 03/20/2020 Office Visit Family Medicine Sukhjinder Etienne MD [address] [place] [address] [phone] Scheduled Referrals Name Type Priority Associated Diagnoses Orde r Schedule COLONOSCOPY, GI REFERRAL OP Referral Within 30 days (routine) Positive colorectal cancer screening using Cologuard test Ordered: 04/04/2019 Health Maintenance Due Date Last Done Comments [...] Td Vaccines (2 - Td) 03/13/2025 03/13/2015 *COLORECTAL CANCER SCREENING (COLONOSCOPY 10 YEARS; SIGMOIDOSCOPY 5 YEARS; COLOGUARD 3 YEARS; FOBT 1 YEAR),AGES 50-75 Completed 03/18/2019, 09/09/2018 ABDOMINAL AORTIC ANEURYSM (AAA) SCREENING Completed 03/29/2019, 12/04/2006, 05/14/2005 MENINGOCOCCAL (MENACTRA/MENVEO) Aged Out No longer eligible based on patient's age to complete this topic documented as of this encounter Implants Not on filedocumented as of this encounter Visit Diagnoses Diagnosis Positive colorectal cancer screening using Cologuard test- Primary documented in this encounter Advance Directives Documents on File Type Date 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
--- OUTSIDE RECORDS SUMMARY | 2022-10-29 06:57 | External Medical Summary ---
Author Name Unknown Address [address] [place] [address] [address] Phone Organization K09:[facility] [address] [place] [address] Laboratory Report Ordering Provider Test Date Status VÍCTORSARAH 05/06/2019 08:40:00 Final Observation Date Value Abnormality Reference (Units ) Status Fasting status Patient Ql Reported 05/06/2019 08:42 >8 HOURS (hours) Final Triglyceride 05/06/2019 13:40 75 0-174 (mg/dL) Final Performing Location [facility] [address] [place] [address]
--- OUTSIDE RECORDS SUMMARY | 2022-10-29 06:57 | External Medical Summary ---
Author Name Unknown Address [address] [address] Phone Organization K09:[facility] [address] [place] [address] Laboratory Report Ordering Provider Test Date Status SARAH RENEE 05/06/2019 08:40:00 Final Observation Date Value Abnormality Reference (Units ) Status AST (Aspartate aminotransferase) 05/06/2019 10:36 30 10-50 (U/L) Final Performing Location [facility] [address] [place] [address]
--- OUTSIDE RECORDS SUMMARY | 2022-10-29 06:57 | External Medical Summary | Summary of Care ---
Author Name [place] [address] Care Team Providers Care Body Sander Name Role Phone Sukhjinder Etienne MD Primary Care Provide r Reason for Visit * Reason Onset Date Comments Appointment 04/10/2020 Seeing white fla shes, spider webs Encounter Details Date Type Department Care Team Description 04/10/2020 Telephone Ophthalmology, [place] [address] [facility] [place] [address] Dyllan Briones MD [address] [place] [address] Appointment (Seeing white flashes, spider ... Allergies No Known Active Allergiesdocumented as of this encounter (statuses as of 04/10/2020) Medications Medication Sig Dispensed Refills Start Date [...] as of this encounter (statuses as of 04/10/2020) Active Problems Problem Noted Date Osteoarthritis of toe joint(s) 0 ADVANCE DIRECTIVE INFORMATION 04/24/2005 Overview: No, Advance Directive brochure offered , patient declined. Other allergic rhinitis 01/12/2004 Overview: ICD-10 update of inactive term Sciatica documented as of this encounter (statuses as of 04/10/2020) Immunizations Name Administration Dates Next Due H1N1 [...] encounter Miscellaneous Notes * Telephone Encounter - Ellie Chavarria OSA - 04/10/2020 10:48 AM EST Spoke with pt appointment scheduled tomorrow at 8:00. * Telephone Encounter - Yeny Howard OSA - 04/10/2020 10:05 AM EST New patient, spouse Dr. Prado calling, states on 04/07/20 patient starting having white flashed and spider webs in his vision. Asking if Dr. Briones can see patient. Dr. Prado can be reached back @ [phone]. Thank you. 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
--- OUTSIDE RECORDS SUMMARY | 2022-10-29 06:57 | External Medical Summary | Summary of Care ---
Author [place] [address] Care Team Providers Care Manager Paid Name Role Phone Sukhjinder Etienne MD Primary Care Provide r Reason for Visit * Reason Comments NEW PATIENT Encounter Details Date Type Department Care Team Description 04/11/2020 Office Visit Ophthalmology, [place] [address] [facility] [place] [address] Dyllan Briones MD [address] [place] [address] Photopsia* Allergies No Known Active Allergiesdocumented as of this encounter (statuses as of 04/11/2020) Medications Medication Sig Dispensed Refills Start Date [...] as of this encounter (statuses as of 04/11/2020) Active Problems Problem Noted Date Osteoarthritis of toe joint(s) 0 ADVANCE DIRECTIVE INFORMATION 04/24/2005 Overview: No, Advance Directive brochure offered , patient declined. Other allergic rhinitis 01/12/2004 Overview: ICD-10 update of inactive term Sciatica documented as of this encounter (statuses as of 04/11/2020) Immunizations Name Administration Dates Next Due H1N1 [...] Progress Notes * Dyllan Briones MD - 04/11/2020 8:08 AM EST [facility] DEPARTMENT OF OPHTHALMOLOGY OUTPATIENT CLINIC NOTES PATIENT NAME: Huan Prado (69 year old male) PRIMARY CARE PHYSICIAN: Sukhjinder Etienne MD CC: cobwebs HPI: c/o cobwebs OD for 4 days; also sees flashing (like filaments) ROS: no h/o trauma POH: see below Past Medical History: Diagnosis [...] IBUPROFEN 200 MG PO CAPS as needed ALL: Review of patient's allergies indicates: No Known Allergies PSH: Past Surgical History: Procedure Laterality Date COLONOSCOPY W/ BIOPSY (RECTUM) 06/25/01 normal exam. midly tortuous sigmoid COLONOSCOPY, DIAGNOSTIC (RECTUM) 04/28/2019 serrated adenomatous polyp, repeat 3 yrs / COLONOSCOPY FLEXIBLE PROXIMAL DIAGNOSTIC performed by Rhonda Curtis DO at ENDOS[facility] PELVIS W CONTRAST CCH-a few sigmoid [...] AGE 12 age 5 REMOVE GALLBLADDER 1998 FH: Family History Problem Relation Age of [...] wine/week Vaping/E-Cigarette Use Vaping/E-Cigarette Substances Vaping/E-Cigarette Devices EXAM VA cc OD (D) 20/30-2; VA cc OD (N) 20/20 VA cc OS (D) 20/30-1; VA cc OS (N) 20/20-1 PC OD: sph -2.50 cyl +0.75 axis 173 PC OS: sph -3.50 cyl +1.50 axis 1 Add OD +2.25 Add OS +2.25 EXTERNAL: CVF: Full OU Lids: WNL Conjunctiva: WNL OU Pupils: PERRL; no APD EOM: Full SLIT LAMP Cornea: clear OU Tear Film: WNL OU A/C: D/Q OU Lens: 1+ NS OD; 1+ NS OS Iris: WNL OU TA OD:16; OS: 16; 8:08 AM DILATED EXAM: Dilated with Mydriacyl 1% and Mydfrin 2.5%; advised re driving Lens used: 28 D and 90 D Vitreous: PVD OD; no pigment cells OD C/D: 0.4 OD; 0.4 OS Macula: WNL OD; WNL OS Periphery: WNL OD; WNL OS ASSESSMENT/PLAN Photopsia OD PVD OD - warned of RD Sx; brochure given RTC: 2 mo Dyllan Briones MD 04/11/2020 8:08 AM documented in this encounter Nursing Notes * Ellie Chavarria, PORTER - 04/11/2020 7:55 AM EST Pt c/o seeing cobwebs and flashes of light OD sx started 4 days ago. VA cc OD (D) 20/30-2; VA cc OD (N) VA cc OS (D) -1; VA cc OS (N) -1 PC OD: sph -2.50 cyl +0.75 axis 173 PC OS: sph -3.50 cyl +1.50 axis 1 Add OD +2.25 Add OS +2.25 documented in this encounter Plan of Treatment Upcoming Encounters Date Type Specialty Care Team Description 05/01/2020 Office Visit Cardiology Kevyn Shetty PA-C [address] [facility] [place] [address] 05/31/2020 Office Visit Ophthalmology Dyllan Briones MD 21 [facility] [place] [address] Health Maintenance Due Date Last Done Comments [...] as of this encounter Visit Diagnoses Diagnosis Photopsia- Primary Other visual distortions and entoptic phenomena documented in this encounter Advance Directives Documents on File Type Date Recorded Patient Assistant Store Manager Sales Expl 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 Advanced Directive Advanced Directive Advanced Directive Advanced Directive
--- OUTSIDE RECORDS SUMMARY | 2022-10-29 06:57 | External Medical Summary | Summary of Care ---
Author Name Unknown Organization [place] [address] Care Team Providers Care Manager Life Sciences Name Role Phone Sukhjinder Etienne MD Primary Care Provide r Reason for Visit * Reason Onset Date Comments Medication Refill 02/29/2020 Encounter Details Date Type Department Care Team Description 02/29/2020 Refill [facility] [address] [place] [address] Sukhjinder Etienne MD 132 [facility] [place] [address] [phone] Dyslipidemia Allergies No Known Active Allergiesdocumented as of this encounter (statuses as of 02/29/2020) Medications Medication Sig Dispensed Refills Start Date [...] Active Atorvastatin Calcium 40 MG Oral Tablet (LIPITOR)Indicatio ns:Dyslipidemia Take 1 Tab by mouth daily. 90 Tab 3 02/29/2020 Active atorvaSTATin (LIPITOR) 40 MG TabletIndications: Dyslipidemia Take 1 Tab by mouth daily. 90 Tab 3 03/18/2019 02/29/2020 Discontinued( Refill) documented as of this encounter (statuses as of 02/29/2020) Active Problems Problem Noted Date Osteoarthritis of toe joint(s) 0 ADVANCE DIRECTIVE INFORMATION 04/24/2005 Overview: No, Advance Directive brochure offered , patient declined. Other allergic rhinitis 01/12/2004 Overview: ICD-10 update of inactive term Sciatica documented as of this encounter (statuses as of 02/29/2020) Immunizations Name Administration Dates Next Due H1N1 [...] encounter Miscellaneous Notes * Telephone Encounter - Kayli Yu DO - 02/29/2020 3:32 PM EST Signed Prescriptions: Disp Refills Atorvastatin Calcium 40 MG Oral Tablet (LI*90 Tab 3 Sig: Take 1 Tab by mouth daily. Authorizing Provider: KAYLI YU * Telephone Encounter - Yesenia Jaimes LPN - 02/29/2020 3:13 PM EST Pending Prescriptions: Disp Refills Atorvastatin Calcium 40 MG Oral Tablet (L*90 Tab 3 Sig: Take 1 Tab by mouth daily. Last Office/Telemedicine Visit: 03/18/2019 Next Office Visit: 03/20/2020 Scheduled Provider(s): Sukhjinder Etienne MD Last date the medication was ordered: 03/18/19 Patient Active Problem List Diagnosis Code Sciatica M54.30 Other allergic rhinitis J30.89 ADVANCE DIRECTIVE INFORMATION Osteoarthritis of toe joint(s) Labs: CREATININE(mg/dL) Geraldo Dt/Tm Resulted Value Status 05/06/19 8:40A 05/06/19 1.0 FINAL POTASSIUM(mmol/L) Geraldo Dt/Tm Resulted Value Status 05/06/19 8:40A 05/06/19 4.5 FINAL TSH(uIU/mL) Geraldo Dt/Tm Resulted Value Status 05/06/19 8:40A 05/06/19 1.84 FINAL LDL (CALCULATED)(mg/dL) Geraldo Dt/Tm Resulted Value Status 05/06/19 8:40A 05/06/19 93 FINAL LDL DIRECT(REFLEX)(mg/dL) Geraldo Dt/Tm Resulted Value Status 05/06/19 8:40A 05/06/19 FINAL Value: NOT APPLICABLE ALT(U/L) Geraldo Dt/Tm Resulted Value Status 05/06/19 8:40A 05/06/19 31 FINAL Hemoglobin AIC Results: No HEMOGLOBIN, A1C components found * Telephone Encounter - Yesenia Jiames LPN - 02/29/2020 3:13 PM EST Message from Command Information: Refills have been requested for the following medications: atorvaSTATin (LIPITOR) 40 MG Tablet [Sukhjinder Etienne MD] Preferred pharmacy: [facility] [place] documented in this encounter Plan of Treatment Upcoming Encounters Date Type Specialty Care Team Description 03/20/2020 Office Visit Family Medicine Sukhjinder Etienne MD [address] [place] [address] [phone] 05/01/2020 Office Visit Cardiology Kevyn Shetty PA-C [address] [place] [address] [phone] Health Maintenance Due Date Last Done Comments Pneumococcal Vaccine: 65+ Years (1 of 1 - PPSV23) 07/27/2015 Zoster Vaccines (2 of 2) 05/13/2019 03/18/2019 COLONOSCOPY-EVERY 3 YRS AGES 18-100 04/28/2022 04/28/2019, [...] Documents on File Type Date Recorded 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
--- OUTSIDE RECORDS SUMMARY | 2022-10-29 06:57 | External Medical Summary | Summary of Care ---
Author Name Unknown Organization [facility] [place] [address] Care Team Providers Care Senior Research Associate Name Role Phone Sukhjinder Etienne MD Primary Care Provide r Reason for Visit * Reason Onset Date Comments Medication Administration 12/02/2019 Flu an d/or Pneumo Inj Encounter Details Date Type Department Care Team Description 12/02/2019 Immunization/I njection Ancillary 1st Floor, [place] [address] [place] [address] [facility] [address] [place] [address] Need for prophylactic vaccination and inoculation against influenza* Allergies No Known Active Allergiesdocumented as of this encounter (statuses as of 12/02/2019) Medications Medication Sig Dispensed Refills Start Date [...] 0 04/15/2016 Active atorvaSTATin (LIPITOR) 40 MG TabletIndications:Dysl ipidemia Take 1 Tab by mouth daily. 90 Tab 3 03/18/2019 Active documented as of this encounter (statuses as of 12/02/2019) Active Problems Problem Noted Date Osteoarthritis of toe joint(s) 0 ADVANCE DIRECTIVE INFORMATION 04/24/2005 Overview: No, Advance Directive brochure offered , patient declined. Other allergic rhinitis 01/12/2004 Overview: ICD-10 update of inactive term Sciatica documented as of this encounter (statuses as of 12/02/2019) Immunizations Name Administration Dates Next Due H1N1 [...] as of this encounter Progress Notes * Talisha Boykin LPN - 12/02/2019 11:16 AM EDT PRE - ADMINISTRATION DOCUMENTATION Are you allergic to latex? No Are you experiencing any cold symptoms or fever? No Have you had Guillain-Waldorf Syndrome (an illness that causes paralysis) within the last 6 weeks? No Have you had the flu shot in the past? YES Have you ever had a reaction to the flu shot? No Talisha Boykin LPN, 12/02/2019 11:16 AM Immunization Administration Documentation Time Out Procedure [...] Medicine Sukhjinder Etienne MD [address] [place] [address] [phone] 05/01/2020 Office Visit Cardiology Kevyn Shetty PA-C [address] [place] [address] [phone] Health Maintenance Due Date Last Done Comments Pneumococcal Vaccine: 65+ Years (1 of 1 - PPSV23) 07/27/2015 Zoster Vaccines (2 of 2) 05/13/2019 03/18/2019 Influenza Vaccine (FLU shot) (#1) 2019 12/02/2019, 03/13/2015, 12/11/2011, Additional history exists COLONOSCOPY-EVERY [...] Need for prophylactic vaccination and inoculation against influenza- Primary documented in this encounter Advance Directives Documents on File Type Date Recorded Patient Junior Marketing Associate Expl 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 Advanced Directive Advanced Directive
--- OUTSIDE RECORDS SUMMARY | 2022-10-29 06:57 | External Medical Summary ---
Author Name Unknown Address [address] [place] [address] Phone Organization K09:[facility] [place] [address] [place] [address] Laboratory Report Ordering Provider Test Date Status SARAH RENEE 05/06/2019 08:40:00 Final Observation Date Value Abnormality Reference (Units ) Status ALT (Alanine aminotransferase) 05/06/2019 10:36 31 10-50 (U/L) [place] [facility] [place] [address] [place] [address]
--- OUTSIDE RECORDS SUMMARY | 2022-10-29 06:57 | External Medical Summary ---
Author Name Unknown Address [address] [place] [address] Phone Organization K09:[facility] [address] [place] [address] Laboratory Report Ordering Provider Test Date Status TISHA WILLOUGHBY 05/06/2019 08:40:00 Final Observation Date Value Abnormality Reference (Units ) Status WBC, Total 05/06/2019 08:58 6.70 4.00-10.80 ( K/uL) Final RBC 05/06/2019 08:58 4.94 4.50-5.25 (M/ uL) Final Hemoglobin 05/06/2019 08:58 15.0 14.0-16.8 (g /dL) Final HCT 05/06/2019 08:58 44.6 40.0-48.4 (%) Final MCV 05/06/2019 08:58 90.3 82.0-99.5 (fL ) Final MCH 05/06/2019 08:58 30.4 27.0-34.0 (pg ) Final MCHC 05/06/2019 08:58 33.6 32.0-36.0 (g/ dL) Final RDW 05/06/2019 08:58 13.2 11.5-15.5 (%) Final Platelets 05/06/2019 08:58 207 140-400 (K/uL ) Final MPV 05/06/2019 08:58 10.8 6.6-11.1 (fL) Final Performing Location [facility] [address] [place] [address]
--- OUTSIDE RECORDS SUMMARY | 2022-10-29 06:57 | External Medical Summary | Summary of Care ---
Author Name Unknown Organization [place] [address] Care Team Providers Care Pain Medicine Physician Name Role Phone Sukhjinder Etienne MD Primary Care Provide r Reason for Visit * Reason Comments eRx-Medication Refill Encounter Details Date Type Department Care Team Description 03/01/2020 Refill Family Practice [facility] 132 [facility] [place] [address] Sukhjinder Etienne MD 132 [facility] [place] [id number] Dyslipidemia Allergies No Known Active Allergiesdocumented as of this encounter (statuses as of 03/03/2020) Medications Medication Sig Dispensed Refills Start Date [...] as of this encounter (statuses as of 03/03/2020) Active Problems Problem Noted Date Osteoarthritis of toe joint(s) 0 ADVANCE DIRECTIVE INFORMATION 04/24/2005 Overview: No, Advance Directive brochure offered , patient declined. Other allergic rhinitis 01/12/2004 Overview: ICD-10 update of inactive term Sciatica documented as of this encounter (statuses as of 03/03/2020) Immunizations Name Administration Dates Next Due H1N1 [...] encounter Miscellaneous Notes * Telephone Encounter - Bora Luna RPh - 03/03/2020 7:56 AM EST Refused Prescriptions: Disp Refills Atorvastatin Calcium 40 MG Oral Tablet (LI*90 Tab 3 Sig: TAKE ONE TABLET BY MOUTH EVERY DAYRefused By: BORA LUNA LReason for Refusal: Duplicate RequestReason for Refusal Comment: order sent 02/29/20 documented in this encounter Plan of Treatment Upcoming Encounters Date Type Specialty Care Team Description 03/20/2020 Office Visit Family Medicine Sukhjinder Etienne MD [address] [place] [address] [phone] 05/01/2020 Office Visit Cardiology Kevyn Shetty PA-C 132 [facility] [place] [address] [phone] Health Maintenance Due Date Last Done Comments [...] Documents on File Type Date Recorded 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
--- OUTSIDE RECORDS SUMMARY | 2022-10-29 06:57 | External Medical Summary ---
Author Name Unknown Address [facility] [address] Phone Organization K01:[facility] [address] [place] [id number] Laboratory Report Ordering Provider Test Date Status TISHA WILLOUGHBY 05/06/2019 08:40:00 Final Observation Date Value Abnormality Reference (Units ) Status TSH 05/06/2019 14:11 1.84 0.27-4.2 (uIU /mL) Final T4, Free 05/06/2019 14:11 NOT APPLICABLE 0.9-1.7 (ng/dL) Final Performing Location [facility] [address] [facility] [address]
--- OUTSIDE RECORDS SUMMARY | 2022-10-29 06:57 | External Medical Summary | Summary of Care ---
Author Name Unknown Organization [place] [address] Care Team Providers Care Shipping Inspector Name Role Phone Sukhjinder Etienne MD Primary Care Provide r Reason for Visit * Reason Comments Cardiology Study Encounter Details Date Type Department Care Team Description 05/02/2019 Cardiac Studies Cardiac Studies, [facility] [address] [place] [address] [employer], Nurse Cardio [facility] [address] [place] [address] [phone] LBBB (left bundle branch block)* Allergies No Known Allergiesdocumented as of this [...] Travel End documented as of this encounter Plan of Treatment Upcoming Encounters Date Type Specialty Care Team Description 05/17/2019 Cardiac Studies Cardiac Studies [facility], Industrial Analyst 1 [address] [place] [address] [phone] 06/01/2019 Immunization/Injection Ancillary [place], Nurse Luciano Sanchez [address] [place] [address] [phone] 03/20/2020 Office Visit Family Medicine Sukhjinder Etienne MD [address] [place] [address] [phone] 05/01/2020 Office Visit Cardiology Kevyn Shetty PA-C [address] [place] [id number] Health Maintenance Due Date Last Done Comments [...] block)- Primary Other left bundle branch block documented in this encounter Advance Directives Documents on File Type Date Recorded Patient Campaign Worker Expl anation Advanced Directive service a todd default Advanced Directive Advanced Directive Advanced Directive
--- OUTSIDE RECORDS SUMMARY | 2022-10-29 06:57 | External Medical Summary ---
Author Name Unknown Address Unknown Organization K01:[facility] [address] [place] [address] Laboratory Report Ordering Provider Test Date Status AIMEE BAUER 08/10/2020 08:35:07 Final Observation Date Value Abnormality Reference (Units ) Status PSA 08/10/2020 08:35:07 1.21 <4.10 (ng/ mL) Final Performing Location [facility] - [address] [place] [address]
--- OUTSIDE RECORDS SUMMARY | 2022-10-29 06:57 | External Medical Summary | Summary of Care ---
Author Name Unknown Organization [place] [address] Care Team Providers Care Environmental Geologist Name Role Phone Sukhjinder Etienne MD Primary Care Provide r Reason for Visit * Reason Comments Test Results Encounter Details Date Type Department Care Team Description 05/09/2019 Telephone Cardiology, [facility] 132 [facility] [place] [address] Kevyn Shetty PA-C [address] [place] [address] Test Results Allergies No Known Allergiesdocumented as of this encounter (statuses as of 05/09/2019) Medications Medication Sig Dispensed Refills Start Date [...] as of this encounter (statuses as of 05/09/2019) Active Problems Problem Noted Date Osteoarthritis of toe joint(s) 0 ADVANCE DIRECTIVE INFORMATION 04/24/2005 Overview: No, Advance Directive brochure offered , patient declined. Other allergic rhinitis 01/12/2004 Overview: ICD-10 update of inactive term Sciatica documented as of this encounter (statuses as of 05/09/2019) Immunizations Name Administration Dates Next Due H1N1 [...] encounter Miscellaneous Notes * Telephone Encounter - Homer Fine RN - 05/09/2019 1:36 PM EDT LMOM concerning the message from Kevyn Shetty that his lab work is all normal Explained to call the clinic if he has any further questions or concerns. * Telephone Encounter - Homer Fine RN - 05/09/2019 1:36 PM EDT ----- Message from Kevyn Shetty PA-C sent at 05/06/2019 2:29 PM EST ----- OK documented in this encounter Plan of Treatment Upcoming Encounters Date Type Specialty Care Team Description 05/17/2019 Cardiac Studies Cardiac Studies [place], Olericulturist 1 [address] [place] [address] [phone] 06/01/2019 Immunization/Injection Ancillary Nurse Luciano Hardin [address] [place] [address] [phone] 03/20/2020 Office Visit Family Medicine Sukhjinder Etienne MD [address] [place] [address] [phone] 05/01/2020 Office Visit Cardiology Kevyn Shetty PA-C [address] [place] [address] [phone] Health Maintenance Due Date Last Done Comments Pneumococcal Vaccine: 65+ Years (1 of 2 - PCV13) 07/27/2015 Influenza Vaccine (FLU shot) (#1) 2018 03/13/2015, 12/11/2011, 04/17/2009, Additional history exists Zoster Vaccines (2 of [...] Documents on File Type Date Recorded 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
--- OUTSIDE RECORDS SUMMARY | 2022-10-29 06:58 | External Medical Summary ---
Author Name Unknown Address [address] [place] [address] Phone Organization K0G:[facility] [address] [place] [address] Laboratory Report Ordering Provider Test Date Status SONJA BATISTA MD [id number] Final Obs # Observation Date Value Abnormality Reference Status Performing Location 0 BUN [id number] 22 Above high normal 6-20 Final [facility] [address] [place] [address] 1 Creatinine [id number] 0.9 0.7-1.3 Final [facility] [address] [place] [address]
--- OUTSIDE RECORDS SUMMARY | 2022-10-29 06:58 | External Medical Summary | Summary of Care ---
Author Name Unknown Organization [place] [address] Phone Care Team Providers Care Remelt Pan Tank Operator Name Role Phone Sukhjinder Etienne MD Primary Care Provide r Unavailable Reason for Visit * Reason Comments Previsit Planning Encounter Details Date Type Department Care Team Description 10/23/2017 Telephone Family Practice [facility] [address] [place] [address] Sukhjinder Etienne MD 132 [facility] [place] [address] [phone] Previsit Planning Allergies No Known Allergiesas of this encounter Medications Prescription Sig. Disp. Refills Start Date End Date Status IBUPROFEN 200 MG PO CAPS as needed Active aspirin 81 MG chewable tabletIndications:LBB B (left bundle branch block) Take 1 Tab by mouth daily. with food. 100 Tab 5 04/18/2016 Active Coenzyme Q10 (COQ10) 100 MG CAPS Take 1 Tab by mouth daily. Active nitroglycerin (NITROSTAT) 0.[address] 1 Tab under the tongue as needed. 1 tab every 5 minutes x 3 as needed for CP 04/15/2016 Active fluticasone (FLONASE ALLERGY RELIEF) 50 MCG/ACT nasal spray Administer 1 [place] into nostril daily. Active atorvaSTATin (LIPITOR) 40 MG TabletIndications:Dys lipidemia Take 1 Tab by mouth daily. 90 Tab 3 08/18/2017 Active as of this encounter Active Problems Problem Noted Date Osteoarthritis of toe joint(s) 0 ADVANCE DIRECTIVE INFORMATION 04/24/2005 Overview: No, Advance Directive brochure offered , patient declined. Other allergic rhinitis 01/12/2004 Overview: ICD-10 update of inactive term Sciatica as of this encounter Immunizations Name Dates Previously Given Next Due H1N1 2009 Influenza, IM 04/17/2009 Seasonal Influenza, Quadriva lent, No Preserve, IM 03/13/2015 Seasonal Influenza, Trivalen t, with Preserve, 3yr & Above, Split 12/11/2011,12/05/2008,01/01/2008,12/16,12/14/2002,12/29/2001 12/15/2003 TDAP (age 10 and older)(Boostrix) 03/13/2015 as of this encounter Social History Tobacco Use Types Packs/Day Years Used Date Former Smoker Quit: 03/02 Smokeless Tobacco: Never Used Alcohol Use Drinks/Week oz/Week Comments Yes 1-2 wine/week Sex Assigned at Date Recorded Not on file as of this encounter Miscellaneous Notes * Telephone Encounter - Fabiano Stapleton, MED ASSIST - 10/23/2017 7:42 AM EDT Formatting of this note may be different from the original. Patient contacted for Care Gaps Comprehensive Care Outreach. Last Office Visit: 04/18/2016 Outreach action taken: Contacted: Kenzei Message Sent Health Maintenance Due Topic Date Due *DEPRESSION SCREENING, ANNUAL FOR PTS 18 AND OVER 03/22/2015 PNEUMOCOCCAL ADULT 65 YRS AND OVER (1 of 2 - PCV13) 07/27/2015 *COLORECTAL CANCER SCREENING (COLONOSCOPY 10 YEARS; SIGMOIDOSCOPY 5 YEARS; COLOGUARD 3 YEARS; FOBT 1 YEAR),AGES 50-75 09/28/2017 in this encounter Plan of Treatment Upcoming Encounters Date Type Specialty Care Team Description 01/18/2018 Cardiac Studies Cardiac Studies Gw, Police Guard [address] [place] [address] [phone] 01/25/2018 Office Visit Cardiology Ashutosh Mckinney, [address] [place] [address] [phone] Health Maintenance Due Date Last Done Comments *DEPRESSION SCREENING, ANNUA L FOR PTS 18 AND OVER 03/22/2015 PNEUMOCOCCAL ADULT 65 YRS AN D OVER (1 of 2 - PCV13) 07/27/2015 *COLORECTAL CANCER SCREENING (COLONOSCOPY 10 YEARS; SIGMOIDOSCOPY 5 YEARS; COLOGUARD 3 YEARS; FOBT 1 YEAR),AGES 50-75 09/28/2017 Influenza Vaccine (FLU shot) (#1) 2017 03/13/2015, 12/11/2011, 12/05/2008, Additional history exists DIABETES SCREEN EVERY 3 YRS- AGE 45 AND ABOVE 04/15/2019 04/15/2016, 04/14/2016, 03/19/2015, Additional history exists LIPID SCREEN EVERY 5 YRS-MEN AGE 35-75 04/15/2021 04/15/2016, 03/19/2015, 04/13/2009, Additional history exists DTaP,Tdap,and Td Vaccines (2 - Td) 03/13/20252015 ABDOMINAL AORTIC ANEURYSM (A AA) SCREENING Completed 12/04/2006, 05/14/2005 as of this encounter Implants Not on fileas of this encounter
--- OUTSIDE RECORDS SUMMARY | 2022-10-29 06:58 | External Medical Summary ---
Author Name Unknown Organization [facility] tem Support Name Relationship Address Phone LESTER CASILLAS MD PROV Unknown Unavailab le Laboratory Report Ordering Provider Test Date Status LESTER CASILLAS MD 02/11/2010 16:20-0500 F Obs # Observation Date Value ABNL Reference Status Pe rforming Location 1 Urate SerPl-mCnc 02/11/2010 22:19-0500 6.3 3.1-8.8 mg/dL Final
--- OUTSIDE RECORDS SUMMARY | 2022-10-29 06:58 | External Medical Summary | Summary of Care ---
Author Name Unknown Organization [place] [address] Care Team Providers Care Supervisor Throwing Department Name Role Phone Sukhjinder Etienne MD Primary Care Provide r Reason for Visit * Reason Comments Follow Up Encounter Details Date Type Department Care Team Description 04/12/2018 Office Visit Cardiology, [facility] 132 [place] [address] Ashutosh Mckinney, 132 [place] [address] [phone] LBBB (left bundle branch block)* Allergies No Known Allergiesdocumented as of this encounter (statuses as of 04/12/2018) Medications Medication Sig Dispensed Refills Start Date [...] RELIEF) 50 MCG/ACT nasal spray Administer 1 [place] into nostril daily. 0 Active atorvaSTATin (LIPITOR) 40 MG TabletIndications:Dy slipidemia Take 1 Tab by mouth daily. 90 Tab 3 08/18/2017 Active documented as of this encounter (statuses as of 04/12/2018) Active Problems Problem Noted Date Osteoarthritis of toe joint(s) 0 ADVANCE DIRECTIVE INFORMATION 04/24/2005 Overview: No, Advance Directive brochure offered , patient declined. Other allergic rhinitis 01/12/2004 Overview: ICD-10 update of inactive term Sciatica documented as of this encounter (statuses as of 04/12/2018) Immunizations Name Dates Previously Given Next Due H1N1 2009 Influenza, IM 04/17/2009 Seasonal Influenza, Quadriva lent, No Preserve, IM 03/13/2015 Seasonal Influenza, Trivalen t, with Preserve, 3yr & Above, Split 12/11/2011,12/05/2008,01/01/2008,12/16,12/14/2002,12/29/2001 12/15/2003 TDAP (age 10 and older)(Boostrix) 03/13/2015 documented as of this encounter Social History Tobacco Use Types Packs/Day Years Used Date Former Smoker Quit: 03/02 Smokeless Tobacco: Never Used Tobacco Cessation:Counseling Given: Yes Alcohol Use Drinks/Week oz/Week Comments Yes 1-2 wine/week Sex Assigned at Date Recorded Not on file Job Start Date Occupation Industry Not on file Not on file Not on file Travel History Travel Start Travel End documented as of this encounter Last Filed Vital Signs Vital Sign Reading Time Taken Blood Pressure 144/78 04/12/2018 3:20 PM EST Pulse 60 04/12/2018 3:20 PM EST Temperature - - Respiratory Rate 16 04/12/2018 3:20 PM EST Oxygen Saturation - - Inhaled Oxygen Concentration - - Weight 91.2 kg (201 lb 1.6 oz) 04/12/19 19 3:20 PM EST Height - - Body Mass Index 26.9 04/12/2018 3:20 PM EST documented in this encounter Progress Notes * Ashutosh Mckinney, DO - 04/12/2018 3:50 PM EST Indication: Follow-up visit for left bundle branch block Subjective: This is a 67-year-old male patient with a history of a left bundle branch block. He presented originally with atypical chest pain and had a negative nuclear stress test. He returned todayand has no new cardiac complaints. He has been doing well. He does exercise routinely with a cardio workout and has not experienced any shortness of breath or chest pain. He denies dizziness or lightheadedness. Review of patient's allergies indicates: No Known Allergies Current Outpatient Medications Medication Sig Dispense Refill atorvaSTATin (LIPITOR) 40 MG Tablet Take 1 Tab by mouth daily. 90 Tab 3 fluticasone (FLONASE ALLERGY RELIEF) 50 MCG/ACT nasal spray Administer 1 [place] into nostril daily. Coenzyme Q10 (COQ10) 100 MG CAPS Take 1 Tab by mouth daily. nitroglycerin (NITROSTAT) 0.[address] 1 Tab under the tongue as needed. 1 tab every 5 minutes x 3 as needed for CP aspirin 81 MG chewable tablet Take 1 Tab by mouth daily. with food. 100 Tab 5 IBUPROFEN 200 MG PO CAPS as needed BP 144/78 | Pulse 60 | Resp 16 | Wt 201 lbs 1.6 oz (91.218kg) | BMI 26.9 kg/m | BSA 2.16 m General: no acute distress and stated age [...] and no cyanosis Neuro: grossly normal exam Impression: 1. Chronic left bundle branch block Recommendations: Clinically the patient is doing well and will continue his current medications. I plan follow-up again on an annual or as-needed basis. This chart was completed in part utilizing [employer] Speech Voice Recognition Software. Grammatical errors, random word insertions, prounoun errors, and incomplete sentences are an occasional consequence of this system due to software limitations, ambient noise, and hardware issues. Any formal questions or concerns about the content, text, or information contained within the body of this dictation should be directly addressed to the provider for clarification. documented in this encounter Nursing Notes * Derrell Catherine LPN - 04/12/2018 3:20 PM EST Examination Room: 17 Name: Huan Prado Date of : (1950). Reason for Visit: f/u Interim Hospitalization(s): denies Problems/Concerns: denies cardiac concerns at this time Chest Pain/SOB: denies [facility] is a way you can talk to your provider online through e-mail. Would you like to sign up? I can activate it for you? ALREADY ACTIVE documented in this encounter Plan of Treatment Upcoming Encounters Date Type Specialty Care Team Description 04/12/2019 Office Visit Cardiology Ashutosh Mckinney DO 132 [facility] [place] [address] [phone] Scheduled Tests Name Priority Associated Diagnoses Order S chedule EKG Routine LBBB (left bundle branch block) Expected: 04/12/2018 (Approximate), Expires: 05/11/2019 Health Maintenance Due Date Last Done Comments *DEPRESSION SCREENING, ANNUAL FOR PTS 18 AND OVER 03/22/2015 PNEUMOCOCCAL ADULT 65 YRS AND OVER (1 of 2 - PCV13) 07/27/2015 *COLORECTAL CANCER SCREENING (COLONOSCOPY 10 YEARS; SIGMOIDOSCOPY 5 YEARS; COLOGUARD 3 YEARS; FOBT 1 YEAR),AGES 50-75 09/28/2017 Influenza Vaccine (FLU shot) (#1) 2017 03/13/2015, 12/11/2011, 04/17/2009, Additional history exists DIABETES SCREEN EVERY 3 YRS-AGE 45 AND ABOVE 04/15/2019 04/15/2016, 04/14/2016, 03/19/2015, Additional history exists LIPID SCREEN EVERY 5 YRS-MEN AGE 35-75 04/15/2021 04/15/2016, 03/19/2015, 04/13/2009, Additional history exists DTaP,Tdap,and Td Vaccines (2 - Td) 03/13/2025 03/13/2015 ABDOMINAL AORTIC ANEURYSM (AAA) SCREENING Completed 12/04/2006, 05/14/2005 MENINGOCOCCAL (MENACTRA) Aged Out No longer eligible based on patient's age to complete this topic documented as of this encounter Implants Not on filedocumented as of this encounter Visit Diagnoses Diagnosis LBBB (left bundle branch block)- Primary Other left bundle branch block documented in this encounter Advance Directives Patient has advance care planning documents on file. For more information, please contact: [place] [phone]"
--- OUTSIDE RECORDS SUMMARY | 2022-10-29 06:58 | External Medical Summary | Summary of Care ---
Author Name Unknown Organization [place] [address] Phone Care Team Providers Care Community Health Outreach Worker Name Role Phone Sukhjinder Smith MD Primary Care Provide r Unavailable Reason for Visit * Reason Comments [facility] Encounter Details Date Type Department Care Team Description 08/18/[address] [facility] 132 [facility] [place] [address] [facility] [address] [phone] Dyslipidemia* Allergies No Known Allergiesas of this encounter Medications Prescription Sig. Disp. Refills Start Date End Date Status IBUPROFEN 200 MG PO CAPS as needed Active aspirin 81 MG chewable tabletIndications: LBBB (left bundle branch block) Take 1 Tab [...] RELIEF) 50 MCG/ACT nasal spray Administer 1 [place] into nostril daily. Active atorvaSTATin (LIPITOR) 40 MG TabletIndications: Dyslipidemia Take 1 Tab by mouth daily. 90 Tab 3 08/18/2017 Active atorvaSTATin (LIPITOR) 40 MG Tablet Take 1 Tab by mouth daily. 90 Tab 1 08/28/2016 8 Discontinued as of this encounter Active Problems Problem [...] encounter Miscellaneous Notes * Telephone Encounter - Sukhjinder Smith MD - 08/18/2017 2:14 PM EDT Signed Prescriptions: Disp Refills atorvaSTATin (LIPITOR) 40 MG Tablet 90 Tab 3 Sig: Take 1 Tab by mouth daily. Authorizing Provider: SUKHJINDER SMITH * Telephone Encounter - Gabriella Joyner LPN - 08/18/2017 1:44 PM EDT Pending Prescriptions: Disp Refills atorvaSTATin (LIPITOR) 40 MG Tablet 90 Tab 3 Sig: Take 1 Tab by mouth daily. * Telephone Encounter - Yesenia Jaimes LPN - 08/18/2017 1:38 PM EDT Formatting of this note may be different from the original. Pending Prescriptions: Disp Refills atorvaSTATin (LIPITOR) 40 MG Tablet 90 Tab 3 Sig: Take 1 Tab by mouth daily. Last Office Visit: 04/18/2016 Next Office Visit: No Future Appointments Last date the medication was ordered: 08/28/16 Patient Active Problem List Diagnosis Code Sciatica M54.30 Other allergic rhinitis J30.89 ADVANCE DIRECTIVE INFORMATION Osteoarthritis of toe joint(s) Labs: CREATININE-OUTSIDE LAB(mg/dl) Geraldo Dt/Tm Resulted Value Status 04/15/16 04/22/16 0.93 FINAL POTASSIUM-OUTSIDE LAB(mmol/L) Geraldo Dt/Tm Resulted Value Status 04/15/16 04/22/16 3.9 FINAL TSH(uIU/mL) Geraldo Dt/Tm Resulted Value Status 04/13/08 8:26A 04/13/08 2.13 FINAL LDL (CALCULATED)-OUTSIDE LAB(mg/dl) Geraldo Dt/Tm Resulted Value Status 04/15/16 04/22/16 82 FINAL LDL (CALCULATED)(mg/dL) Geraldo Dt/Tm Resulted Value Status 03/19/15 8:35A 03/19/15 177* FINAL ALT-OUTSIDE LAB(U/L) Geraldo Dt/Tm Resulted Value Status 04/14/16 04/17/16 49 FINAL Hemoglobin AIC Results: No HEMOGLOBIN, A1C components found * Telephone Encounter - Yesenia Jaimes LPN - 08/18/2017 1:36 PM EDT Message from [employer]: Original authorizing provider: MD Huan Hollins LillyAlex Montanez would like a refill of the following medications: atorvaSTATin (LIPITOR) 40 MG Tablet [Sukhjinder Smith MD] Preferred pharmacy: [facility]- [place] Comment: Please send to [facility] Please reply to this message by electronic messaging. in this encounter Plan of Treatment Upcoming Encounters Date Type Specialty Care Team Description 01/18/2018 Cardiac Studies Cardiac Studies Gw, Servicenow Administrator 1 [address] [place] [address] [phone] 01/25/2018 Office Visit Cardiology Ashutosh Mckinney DO [address] [place] [address] [phone] Health Maintenance Due Date Last Done Comments *DEPRESSION SCREENING, JUANJOSE Payan FOR PTS 18 AND OVER 03/22/2015 PNEUMOCOCCAL ADULT 65 YRS AN D OVER (1 of 2 - PCV13) 07/27/2015 *COLORECTAL CANCER SCREENING (COLONOSCOPY 10 YEARS; SIGMOIDOSCOPY 5 YEARS; COLOGUARD 3 YEARS; FOBT 1 YEAR),AGES 50-75 04/05/2017 *LDL AFTER STARTING A STATIN 07/14/2017 Influenza Vaccine (FLU shot) (Season Ended) 2017 03/13/2015, 12/11/2011, 12/05/2008, Additional history exists [...] Implants Not on fileas of this encounter Visit Diagnoses Diagnosis Dyslipidemia - Primary Other and unspecified hyperlipidemia in this encounter
--- OUTSIDE RECORDS SUMMARY | 2022-10-29 06:58 | External Medical Summary ---
Author Name Unknown Address [address] [id number] Phone Organization K01:[facility] [address] [id number] Laboratory Report Ordering Provider Test Date Status SONJA BATISTA MD [id number] Final Obs # Observation Date Value Abnormality Reference Status Performing Location 0 Prostate specific Ag [Mass/volume] in Serum or Plasma [id number] 1.14 <4.1 Final [facility] [address] [facility] [address]
--- OUTSIDE RECORDS SUMMARY | 2022-10-29 06:58 | External Medical Summary | Summary of Care ---
Author Name Unknown Organization [place] [address] Care Team Providers Care Dinkey Locomotive Engineer Name Role Phone Sukhjinder Etienne MD Primary Care Provide r Unavailable Reason for Visit * Reason Comments Health Maintenance appt needed Encounter Details Date Type Department Care Team Description 12/29/2018 Telephone Family Practice [facility] [address] [place] [address] Sukhjinder Etienne MD 132 [facility] [place] [address] [phone] Health Maintenance (appt needed) Allergies No Known Allergiesdocumented as of this encounter (statuses as of 12/29/2018) Medications Medication Sig Dispensed Refills Start Date [...] RELIEF) 50 MCG/ACT nasal spray Administer 1 [place] into nostril daily. 0 Active atorvaSTATin (LIPITOR) 40 MG TabletIndications:Dy slipidemia Take 1 Tab by mouth daily. 90 Tab 3 07/20/2018 Active documented as of this encounter (statuses as of 12/29/2018) Active Problems Problem Noted Date Osteoarthritis of toe joint(s) 0 ADVANCE DIRECTIVE INFORMATION 04/24/2005 Overview: No, Advance Directive brochure offered , patient declined. Other allergic rhinitis 01/12/2004 Overview: ICD-10 update of inactive term Sciatica documented as of this encounter (statuses as of 12/29/2018) Immunizations Name Administration Dates Next Due H1N1 2009 Influenza, IM 04/17/2009 Seasonal Influenza, Quadriva lent, No Preserve, IM 03/13/2015 Seasonal Influenza, Trivalen t, with Preserve, 3yr & Above, Split 12/11/2011,12/05/2008,01/01/2008, 005,12/14/2002,12/29/2001 12/15/2003 TDAP (age 10 and older)(Boostrix) 03/13/2015 [...] encounter Miscellaneous Notes * Telephone Encounter - Nasreen Lewis LPN - 12/29/2018 10:33 AM EDT Patient contacted for Care Gaps Comprehensive Care Outreach. Last Office Visit: 04/18/2016 Next Office Visit: 01/10/2019 Scheduled Provider(s): Sukhjinder Etienne MD Health Maintenance Topic Date Due *DEPRESSION SCREENING,ANNUAL FOR PTS 12 AND OVER 03/22/2015 Pneumococcal Vaccine: 65+ Years (1 of 2 - PCV13) 07/27/2015 *COLORECTAL CANCER SCREENING (COLONOSCOPY 10 YEARS; SIGMOIDOSCOPY 5 YEARS; COLOGUARD 3 YEARS; FOBT 1 YEAR),AGES 50-75 09/21/2018 Influenza Vaccine (FLU shot) (1) 10/31/2018 DIABETES SCREEN EVERY 3 YRS-AGE 45 AND ABOVE 04/15/2019 LIPID SCREEN EVERY 5 YRS-MEN AGE 35-75 04/15/2021 DTaP,Tdap,and Td Vaccines (2 - Td) 03/13/2025 ABDOMINAL AORTIC ANEURYSM (AAA) SCREENING Completed MENINGOCOCCAL (MENACTRA) Aged Out Outreach action taken: appt needed Contacted: Outreach not indicated - Testing already scheduled/completed documented in this encounter Plan of Treatment Upcoming Encounters Date Type Specialty Care Team Description 01/10/2019 Office Visit Family Medicine Sukhjinder Etienne MD [address] [place] [address] [phone] 04/12/2019 Office Visit Cardiology Ashutosh Mckinney DO [address] [place] [address] [phone] Health Maintenance Due Date Last Done Comments *DEPRESSION SCREENING,ANNUAL FOR PTS 12 AND OVER 03/22/2015 Pneumococcal Vaccine: 65+ Years (1 of 2 - PCV13) 07/27/2015 *COLORECTAL CANCER SCREENING (COLONOSCOPY 10 YEARS; SIGMOIDOSCOPY 5 YEARS; COLOGUARD 3 YEARS; FOBT 1 YEAR),AGES 50-75 09/21/2018 09/09/2018 Influenza Vaccine (FLU shot) (#1) 2018 03/13/2015, [...] Documents on File Type Date Recorded Patient Dispute Specialist Expl anation Advanced Directive service a todd default Advanced Directive
--- OUTSIDE RECORDS SUMMARY | 2022-10-29 06:58 | External Medical Summary | Summary of Care ---
Author Name Unknown Organization [place] [address] Phone Care Team Providers Care Meter Repairer Name Role Phone Sukhjinder Etienne MD Primary Care Provide r Unavailable Encounter Details Date Type Department Care Team Description 12/07/2003 Orders Only [facility] DEPT CLOSED - 05/14/[address] [place] [address] Rad[facility] [place] [address] Josias Moreira MD [address] [place] [address] [place] [address] [phone] VACCINE FOR INFLUENZA* Allergies No Known Allergiesas of this encounter Medications No known medicationsas of this encounter Active Problems Problem Noted Date OA OF TOE(S) 02/12/2010 ADVANCE DIRECTIVE INFORMATION 04/24/2005 Overview: No, Advance Directive brochure offered , patient declined. Other allergic rhinitis 01/12/2004 Overview: ICD-10 update of inactive term SCIATICA as of this encounter Immunizations Name Dates Previously Given Next Due Seasonal Influenza, Trivalen t, with Preserve, 3yr & Above, Split 12/14/2002,12/29/2001 12/15/2003 as of this encounter Social History Tobacco Use Types Packs/Day Years Used Date Never Assessed Sex Assigned at Date Recorded Not on file as of this encounter Plan of Treatment Upcoming Encounters Date Type Specialty Care Team Description 01/18/2018 Cardiac Studies Cardiac Studies , Accountant Controller 1 132 [facility] [place] [address] [phone] 01/25/2018 Office Visit Cardiology Ashutosh Mckinney, DO [address] [place] [address] [phone] Health Maintenance Due Date Last Done Comments [...] fileas of this encounter Visit Diagnoses Diagnosis Need for influenza vaccinati on - Primary Need for prophylactic vaccination and inoculation against influenza in this encounter
--- OUTSIDE RECORDS SUMMARY | 2022-10-29 06:58 | External Medical Summary ---
Author Name Unknown Address [address] [place] [address] Phone Organization K0G:[facility] [address] [place] [address] Laboratory Report Ordering Provider Test Date Status SONJA BATISTA MD [id number] Final Obs # Observation Date Value Abnormality Reference Status Performing Location 0 hours fasting [id number] 12 Final [facility] Daniel Hardin [address] [address] 1 Triglyceride [id number] 125 <200 Final [facility] Daniel Hardin [address] [address]
--- OUTSIDE RECORDS SUMMARY | 2022-10-29 06:58 | External Medical Summary ---
Author Name Unknown Address [address] [place] [address] Phone Organization K0G:[facility] Daniel Hardin [address] [place] [address] Laboratory Report Ordering Provider Test Date Status SONJA BATISTA MD [id number] Final Obs # Observation Date Value Abnormality Reference Status Performing Location 0 WBC [id number] 6.39 4.00-10.80 Final [facility] Daniel Hardin [address] [place] [address] 1 RBC [id number] 5.10 4.50-5.25 Final [facility] Daniel Hardin [address] [place] [address] 2 Hemoglobin [id number] 15.8 14.0-16.8 Final [facility] Daniel Hardin [address] [place] [address] 3 HCT [id number] 46.9 40.0-48.4 Final [facility] Daniel Hardin [address] [place] [address] 4 MCV [id number] 92.0 82.0-99.5 Final [facility] Daniel Hardin [address] [place] [address] 5 MCH [id number] 31.0 27.0-34.0 Final [facility] Daniel Hardin [address] [place] [address] 6 [facility] [id number] 33.7 32.0-36.0 Final [facility] Daniel Hardin [address] [place] [address] 7 RDW [id number] 12.6 11.5-15.5 Final [facility] Daniel Hardin [address] [place] [address] 8 Platelets [id number] 199 140-400 Final [facility] Daniel Hardin [address] [place] [address] 9 MPV [id number] 11.8 Above high normal 6.6-11.1 Final [facility] Daniel Hardin [address] [place] [address]
--- OUTSIDE RECORDS SUMMARY | 2022-10-29 06:58 | External Medical Summary ---
Author Name Unknown Address Unknown Organization GEXACT:Performed at [facility] [address] [place], [place] [id number] Laboratory Report Ordering Provider Test Date Status SARAH RENEE 09/09/2018 12:49:00 Final Observation Date Value Abnormality Reference Status Noninv colon ca DNA+occ bld scrn Stl Ql 12/10/2018 13:24 CANCELLED KIT NOT RETURNED Not Applicable Final Performing Location Performed at [facility] [address] [place] [id number]
--- OUTSIDE RECORDS SUMMARY | 2022-10-29 06:58 | External Medical Summary | Summary of Care ---
Author Name Unknown Organization [place] [address] Care Team Providers Care Chief Passenger Ship Steward/Stewardess Name Role Phone Sukhjinder Etienne MD Primary Care Provide r Reason for Visit * Reason Comments Physical-Exam Shingrix Encounter Details Date Type Department Care Team Description 03/18/2019 Office Visit Family Practice [facility] [address] [facility] [place] [address] Sukhjinder Etienne MD 132 [facility] [place] [id number] Physical exam, annual*; Dyslipidemia; Need for vaccination for zoster; Screen for colon cancer; Tobacco use disorder Allergies No Known Allergiesdocumented as of this encounter (statuses as of 03/18/2019) Medications Medication Sig Dispensed Refills Start Date End Date Status IBUPROFEN 200 MG PO CAPS as needed 0 Active aspirin 81 MG chewable tabletIndications :LBBB (left bundle branch block) Take 1 Tab [...] RELIEF) 50 MCG/ACT nasal spray Administer 1 [place] into nostril daily. 0 Active atorvaSTATin (LIPITOR) 40 MG TabletIndications :Dyslipidemia Take 1 Tab by mouth daily. 90 Tab 3 03/18/2019 Active atorvaSTATin (LIPITOR) 40 MG TabletIndications :Dyslipidemia Take 1 Tab by mouth daily. 90 Tab 3 07/20/2018 03/18/2019 Discontinued (Refill) documented as of this encounter (statuses as of 03/18/2019) Active Problems Problem Noted Date Osteoarthritis of toe joint(s) 0 ADVANCE DIRECTIVE INFORMATION 04/24/2005 Overview: No, Advance Directive brochure offered , patient declined. Other allergic rhinitis 01/12/2004 Overview: ICD-10 update of inactive term Sciatica documented as of this encounter (statuses as of 03/18/2019) Immunizations Name Administration Dates Next Due H1N1 2008 Influenza, IM 04/17/2009 Seasonal Influenza, Quadriva lent, [...] Sign Reading Time Taken Comments Blood Pressure 120/82 03/18/2019 2:06 PM EST Pulse 62 03/18/2019 2:06 PM EST Temperature 36.2 C (97.1 F) 03/18/2019 2:06 PM ES T Respiratory Rate 16 03/18/2019 2:06 PM EST Oxygen Saturation - - Inhaled Oxygen Concentration - - Weight 89.8 kg (198 lb) 03/18/2019 2:06 PM EST Height - - Body Mass Index 26.48 04/18/2016 2:23 PM EST documented in this encounter Progress Notes * Sukhjinder Etienne MD - 03/18/2019 4:04 PM EST 03/18/2019 Author: Sukhjinder Etienne MD Assessment/Plan Medications Discontinued During This Encounter Medication Reason atorvaSTATin (LIPITOR) 40 MG Tablet Refill Pt is a 68 year old male here for the following problems/concerns: (Z00.00) Physical exam, annual (primary encounter diagnosis) Plan: GLUCOSE Encouraged low fat diet and exercise. Trauma prevention. Avoid tobacco Seat beat use encouraged Smoke detector use encouraged. (E78.5) Dyslipidemia Plan: atorvaSTATin (LIPITOR) 40 MG Tablet, AST, ALT, LIPID PANEL WITH DIRECT LDL IF TRIGLYCERIDE IS ELEVATED (Z23) Need for vaccination for zoster Plan: ZOSTER VACCINE RECOMB, 2 DOSE, IM (SHINGRIX) (Z12.11) Screen for colon cancer Plan: COLOGUARD (F17.200) Tobacco use disorder Plan: US AAA SCREEN, VASCULAR LAB Patient and or guardian communicated understanding and agreement of treatment plan including medications and there common side effects if indicated. All questions answered. Follow Up: Return in about 1 year (around 03/18/2020) for Needs NV shingles shot appt in 2-6 months.| For: Needs NV shingles shot appt in 2-6 months CC/HPI: Huan Montanez is a 68 year old male Chief Complaint Patient presents with Physical-Exam Shingrix Brief Clinical History Mr. Montanez is a 68 year old man last seen in Family Medicine today (03-18-19). He is not due for eval of any conditions. Nursing Notes: Alina Carlisle LPN 03/18/19 1417 Signed Pt here for f/u and wants Shingles vaccine. Has some spots on arm to be looked at, and refills. Here for PE Pt feels fine Interested in shingles shot Problem list: Patient Active Problem List Diagnosis Code Sciatica M54.30 Other allergic rhinitis J30.89 ADVANCE DIRECTIVE INFORMATION Osteoarthritis of toe joint(s) Past Medical History: Past Medical History: Diagnosis Date Hereditary and idiopathic peripheral neuropathy Sciatica Shingles 11/2014 left T10 area Past Surgical History: Past Surgical History: Procedure Laterality Date COLONOSCOPY W/ BIOPSY (RECTUM) 06/25/01 normal exam. midly tortuous sigmoid CT PELVIS W CONTRAST CCH-a few sigmoid [...] AGE 12 age 5 REMOVE GALLBLADDER 1998 Medication List: Current Outpatient Medications Medication Sig Dispense Refill [...] IBUPROFEN 200 MG PO CAPS as needed fluticasone (FLONASE ALLERGY RELIEF) 50 MCG/ACT nasal spray Administer 1 [place] into nostril daily. Allergies: Patient has no known allergies. Problem list, Past Medical History, Family history and social history reviewed and updated in [facility] EHR ROS: No nausea, vomiting or diarrhea. No chest pain or shortness of breath, No fatigue. No fevers, chillor night sweats. All other ROS examined in detail and are negative except as documented in HPI. Vitals: BP 120/82 | Pulse 62 | Temp (Src) 97.1 (Tympanic) | Resp 16 | Wt 198 lbs (89.812kg) | BMI 26.48 kg/m | BSA 2.14 m BMI: 26.48 kg/m Exam: General: alert, healthy and no distress Head: Normocephalic, No masses, lesions, tenderness or abnormalities Eye Exam: PERRLA, EOMI, Conjunctiva are pink and non-injected, fundi benign, sclera clear Ears: External ears normal, Canals clear, TM's Normal Nose: no mucosal erythema, no mucosal edema, no purulent discharge Oropharynx: no exudate, no erythema, lips, buccal mucosa, and tongue normal and dentition normal Neck: supple, no adenopathy, thyroid normal size, non-tender, without nodularity, trachea midline Heart: regular rate & rhythm, no murmurs and no gallops Lungs: chest symmetric with normal AP diameter, no chest deformities noted, no chest wall tenderness, lungs clear to auscultation Abdomen: abdomen soft, non-tender, no masses, no hepatosplenomegaly, no rebound or guarding Extremities: no edema, no clubbing, no cyanosis Neuro Exam: alert & oriented x 3 with fluent speech, no focal motor/sensory deficits, gait normal, reflexes normal and symmetric Assessment and plan located at the top of the page * Alina Carlisle LPN - 03/18/2019 2:15 PM EST Does the patient have active shingles? No If, yes, patient must wait to receive vaccine till after rash is gone. Does the patient have an illness today with a fever more than 101?F? No Has the patient ever had a serious allergic reaction after receiving a vaccination? No Has the patient had a blood test showing they are not immune to Chicken Pox (rare)? No If yes, should get Chicken pox vaccine instead of shingrix. Shingrix Vaccine Information Sheet has been provided. Alina Carlisle LPN 03/18/2019 2:15 PM IMMUNIZATION ADMINISTRATION DOCUMENTATION Time Out Procedure Performed: Yes Patient Identified (Ask Name/Date of ): Yes Patient allergic to latex?No VFC Stock? No Immunization(s) verified: Yes, Immunization Name: Shingrix, VIS Sheet(s) given: Yes Verified Side and Site: Yes Verified Shot(s) with Parent(s)/Patient: Yes Shingrix was administered per clinic protocol. Patient received the Shingrix VIS (Vaccine Information Sheet). Alina Carlisle LPN, 03/18/2019, 2:15 PM documented in this encounter Nursing Notes * Alina Carlisle LPN - 03/18/2019 2:00 PM EST Pt here for f/u and wants Shingles vaccine. Has some spots on arm to be looked at, and refills. documented in this encounter Plan of Treatment Upcoming Encounters Date Type Specialty Care Team Description 03/29/2019 Imaging Radiology 05/02/2019 Office Visit Cardiology Kevyn Shetty PA-C [address] [place] [address] [phone] 06/01/2019 Immunization/Injection Ancillary [place], Nurse Luciano Sanchez [address] [place] [address] 03/20/2020 Office Visit Family Medicine Sukhjinder Etienne MD [address] [place] [address] [phone] Scheduled Orders Name Type Priority Associated Diagnoses Order Schedule US AAA SCREEN, VASCULAR LAB Medical Imaging Routine Tobacco use disorder Expected: 03/18/2019 (Approximate), Expires: 03/17/2020 AST Lab Routine Dyslipidemia Expected: 03/18/2019 (Approximate), Expires: 03/18/2020 ALT Lab Routine Dyslipidemia Expected: 03/18/2019 (Approximate), Expires: 03/18/2020 LIPID PANEL WITH DIRECT LDL IF TRIGLYCERIDE IS ELEVATED Lab Routine Dyslipidemia Expected: 03/18/2019 (Approximate), Expires: 03/18/2020 GLUCOSE Lab Routine Physical exam, annual Expected: 03/18/2019 (Approximate), Expires: 03/17/2020 COLOGUARD Lab Unrestricted Lab Screen for colon cancer Ordered: 03/18/2019 Health Maintenance Due Date Last Done Comments Zoster Vaccines (1 of 2) 2000 *DEPRESSION SCREENING,ANNUAL FOR PTS 12 AND OVER [...] as of this encounter Visit Diagnoses Diagnosis Physical exam, annual- Primary Routine general medical examination at a health care facility Dyslipidemia Other and unspecified hyperlipidemia Need for vaccination for zoster Need for prophylactic vaccination and inoculation against other viral diseases Screen for colon cancer Special screening for malignant neoplasms, colon Tobacco use disorder documented in this encounter Advance Directives Documents on File Type Date Recorded Patient [place] Machine Feeder Expl anation Advanced Directive service a todd default Advanced Directive"
--- OUTSIDE RECORDS SUMMARY | 2022-10-29 06:58 | External Medical Summary | Summary of Care ---
Author Name Unknown Organization [place] [address] Care Team Providers Care Calender Operator Helper Name Role Phone Sukhjinder Etienne MD Primary Care Provide r Unavailable Reason for Visit * Reason Comments Previsit Planning Encounter Details Date Type Department Care Team Description 09/09/2018 Telephone Family Practice [facility] [address] [place] [address] Sukhjinder Etienne MD 132 [facility] [place] [address] [phone] Previsit Planning Allergies No Known Allergiesdocumented as of this encounter (statuses as of 09/09/2018) Medications Medication Sig Dispensed Refills Start Date [...] RELIEF) 50 MCG/ACT nasal spray Administer 1 [place] into nostril daily. 0 Active atorvaSTATin (LIPITOR) 40 MG TabletIndications:Dy slipidemia Take 1 Tab by mouth daily. 90 Tab 3 07/20/2018 Active documented as of this encounter (statuses as of 09/09/2018) Active Problems Problem Noted Date Osteoarthritis of toe joint(s) 0 ADVANCE DIRECTIVE INFORMATION 04/24/2005 Overview: No, Advance Directive brochure offered , patient declined. Other allergic rhinitis 01/12/2004 Overview: ICD-10 update of inactive term Sciatica documented as of this encounter (statuses as of 09/09/2018) Immunizations Name Administration Dates Next Due H1N1 [...] Telephone Encounter - Nasreen Lewis LPN - 09/09/2018 12:45 PM EDT Patient contacted for Care Gaps Comprehensive Care Outreach. Last Office Visit: 04/18/2016 Next Office Visit: No Future Appointments Health Maintenance Due Topic Date Due *DEPRESSION SCREENING, ANNUAL FOR PTS 18 AND OVER 03/22/2015 PNEUMOCOCCAL ADULT 65 YRS AND OVER (1 of 2 - PCV13) 07/27/2015 *COLORECTAL CANCER SCREENING (COLONOSCOPY 10 YEARS; SIGMOIDOSCOPY 5 YEARS; COLOGUARD 3 YEARS; FOBT 1 YEAR),AGES 50-75 09/28/2017 Outreach action taken: Labs Ordered: Cologuard Appointments Scheduled:PCP Contacted: Spoke with patient - documented in this encounter Plan of Treatment Upcoming Encounters Date Type Specialty Care Team Description 01/10/2019 Office Visit Family Medicine Sukhjinder Etienne MD [address] [place] [address] [phone] 04/12/2019 Office Visit Cardiology Ashutosh Mckinney, DO [address] [place] [address] [phone] Scheduled Orders Name Type Priority Associated Diagnoses Orde r Schedule COLOGUARD Lab Unrestricted Lab Screening for malignant neoplasm of colon Ordered: 09/09/2018 Health Maintenance Due Date Last Done Comments *DEPRESSION SCREENING, ANNUAL FOR PTS 18 AND OVER 03/22/2015 PNEUMOCOCCAL ADULT 65 YRS AND OVER (1 of 2 - PCV13) 07/27/2015 *COLORECTAL CANCER SCREENING (COLONOSCOPY 10 YEARS; SIGMOIDOSCOPY 5 YEARS; COLOGUARD 3 YEARS; FOBT 1 YEAR),AGES 50-75 09/28/2017 Influenza Vaccine (FLU shot) (#1) 2018 03/13/2015, [...] as of this encounter Visit Diagnoses Diagnosis Screening for malignant neoplasm of colon- Primary documented in this encounter Advance Directives Documents on File Type Date Recorded Patient Cambering Machine Operator Expl anation Advanced Directive service a todd default Advanced Directive
--- OUTSIDE RECORDS SUMMARY | 2022-10-29 06:58 | External Medical Summary | Summary of Care ---
Author Name Unknown Organization [place] [address] Care Team Providers Care Solar Sales Advisor Name Role Phone Sukhjinder Etienne MD Primary Care Provide r Unavailable Reason for Visit * Reason Comments Previsit Planning cologuard Encounter Details Date Type Department Care Team Description 11/26/2018 Telephone Family Practice [facility] [address] [facility] [place] [address] Sukhjinder Etienne MD 132 [facility] [place] [address] [phone] Previsit Planning (cologuard ) Allergies No Known Allergiesdocumented as of this encounter (statuses as of 11/26/2018) Medications Medication Sig Dispensed Refills Start Date [...] RELIEF) 50 MCG/ACT nasal spray Administer 1 [place] into nostril daily. 0 Active atorvaSTATin (LIPITOR) 40 MG TabletIndications:Dy slipidemia Take 1 Tab by mouth daily. 90 Tab 3 07/20/2018 Active documented as of this encounter (statuses as of 11/26/2018) Active Problems Problem Noted Date Osteoarthritis of toe joint(s) 0 ADVANCE DIRECTIVE INFORMATION 04/24/2005 Overview: No, Advance Directive brochure offered , patient declined. Other allergic rhinitis 01/12/2004 Overview: ICD-10 update of inactive term Sciatica documented as of this encounter (statuses as of 11/26/2018) Immunizations Name Administration Dates Next Due H1N1 [...] Telephone Encounter - Nasreen Lewis LPN - 11/26/2018 9:58 AM EDT Patient contacted for Care Gaps Comprehensive Care Outreach. Last Office Visit: 04/18/2016 Next Office Visit: 01/10/2019 Scheduled Provider(s): Sukhjinder Etienne MD Health Maintenance Topic Date Due Pneumococcal Vaccine: 65+ Years (1 of 2 - PCV13) 07/27/2015 *COLORECTAL CANCER SCREENING (COLONOSCOPY 10 YEARS; SIGMOIDOSCOPY 5 YEARS; COLOGUARD 3 YEARS; FOBT 1 YEAR),AGES 50-75 09/21/2018 Influenza Vaccine (FLU shot) (1) 10/31/2018 DIABETES SCREEN EVERY 3 YRS-AGE 45 AND ABOVE 04/15/2019 Outreach action taken: cologuard kit Contacted: Left message. documented in this encounter Plan of Treatment Upcoming Encounters Date Type Specialty Care Team Description 01/10/2019 Office Visit Family Medicine Sukhjinder Etienne MD [address] [place] [address] [phone] 04/12/2019 Office Visit Cardiology Ashutosh Mckinney DO [address] [place] [address] [phone] Health Maintenance Due Date Last Done Comments *DEPRESSION SCREENING,ANNUAL FOR PTS 12 AND OVER 03/22/2015 Pneumococcal Vaccine: 65+ Years (1 of 2 - PCV13) 07/27/2015 *COLORECTAL CANCER SCREENING (COLONOSCOPY 10 YEARS; SIGMOIDOSCOPY 5 YEARS; COLOGUARD 3 YEARS; FOBT 1 YEAR),AGES 50-75 09/21/2018 Influenza Vaccine (FLU shot) (#1) 2018 03/13/2015, [...] Documents on File Type Date Recorded Patient Internal Carver Expl anation Advanced Directive service a todd default Advanced Directive
--- OUTSIDE RECORDS SUMMARY | 2022-10-29 06:58 | External Medical Summary ---
Author Name Unknown Address Unknown Organization [facility]:Performed at [facility] [address] [place], [place] [id number] Laboratory Report Ordering Provider Test Date Status SARAH RENEE 03/18/2019 14:26:00 Final Observation Date Value Abnormality Reference (Units ) Status Noninv colon ca DNA+occ bld scrn Stl Ql 04/04/2019 17:17 Positive Not Applicable Final Performing Location Performed at [facility] [address] [place] [id number]
--- OUTSIDE RECORDS SUMMARY | 2022-10-29 06:58 | External Medical Summary | Summary of Care ---
Author Name Unknown Organization [place] [address] Care Team Providers Care Automotive Heavy Mechanic Name Role Phone Sukhjinder Etienne MD Primary Care Provide r Reason for Referral * Precert (Routine) Status Reason Specialty Diagnoses / Procedures Referred By Contact Referred To Contact Pending Review Precert Cardiac Studies Diagnoses LBBB (left bundle branch block) Procedures ECHO, COMPLETE (2D), TRANS-THORACIC Ashutosh Mckinney, DO 132 [facility] [place] [address] Reason for Visit * Reason Comments Cardiology Study Echo Encounter Details Date Type Department Care Team Description 01/18/2018 Cardiac Studies Cardiac Studies, [facility] 132 [facility] [place] [address] Gw, [employer] [address] [facility] [place] [address] [phone] LBBB (left bundle branch block)* Allergies No Known Allergiesas of this encounter Medications Medication Sig Dispensed Refills Start Date [...] RELIEF) 50 MCG/ACT nasal spray Administer 1 [place] into nostril daily. 0 Active atorvaSTATin (LIPITOR) [...] Name Dates Previously Given Next Due H1N1 2008 Influenza, IM 04/17/2009 [...] file Travel History Travel Start Travel End as of this encounter Progress Notes * Arlyn Kapadia TECH - 01/18/2018 1:49 PM EST Echo completed today by [employer] per provider order. in this encounter Plan of Treatment Upcoming Encounters Date Type Specialty Care Team Description 01/25/2018 Office Visit Cardiology Ashutosh Mckinney, DO 132 [facility] [place] [address] [phone] Health Maintenance Due Date Last Done Comments *DEPRESSION SCREENINGJUANJOSE FOR PTS 18 AND OVER 03/22/2015 PNEUMOCOCCAL [...] fileas of this encounter Visit Diagnoses Diagnosis LBBB (left bundle branch block)- Primary Other left bundle branch block in this encounter Advance Directives Patient has advance care planning documents on file. For more information, please contact: [place] [address]
--- OUTSIDE RECORDS SUMMARY | 2022-10-29 06:58 | External Medical Summary | Summary of Care ---
Author Name Unknown Organization [place] [address] Phone Care Team Providers Care Staffing Branch Manager Name Role Phone Sukhjinder Etienne MD Primary Care Provide r Reason for Referral * Precert (Routine) Status Reason Specialty Diagnoses / Procedures Referred By Contact Referred To Contact Pending Review Precert Cardiac Studies Diagnoses LBBB (left bundle branch block) Procedures ECHO, COMPLETE (2D), TRANS-THORACIC Ashutosh Mckinney, [address] [facility] [place] [place] [address] Reason for Visit * Reason Comments FOLLOW UP Encounter Details Date Type Department Care Team Description 01/27/2017 Office Visit Cardiology, [facility] [address] [place] [address] Ashutosh Mckinney, [facility] [address] [phone] Studies, Nurse Arrival Cardiac, RN [address] [facility] [place] [place] [address] [phone] LBBB (left bundle branch block)* Allergies No [...] RELIEF) 50 MCG/ACT nasal spray Administer 1 [place] into nostril daily. Active atorvaSTATin (LIPITOR) 40 MG Tablet Take 1 Tab by mouth daily. 90 Tab 1 08/28/2016 Active as of this encounter Active Problems [...] Not on file as of this encounter Last Filed Vital Signs Vital Sign Reading Time Taken Blood Pressure 134/68 01/27/2017 2:34 PM EST Pulse 64 01/27/2017 2:34 PM EST Temperature - - Respiratory Rate 12 01/27/2017 2:34 PM EST Oxygen Saturation - - Inhaled Oxygen Concentration - - Weight 90.1 kg (198 lb 11.2 oz) 017 2:34 PM EST Height - - Body Mass Index 26.58 01/27/2017 2:34 PM EST in this encounter Progress Notes * Ashutosh Mckinney, DO - 01/27/2017 2:25 PM EST Formatting of this note may be different from the original. Indication: Follow-up visit for left bundle branch block Subjective: This is a 66-year-old male patient who presented with atypical chest pain and newly discovered left bundle branch block. His pharmacologic nuclear stress test was equivocal and we decidedto follow him clinically. He has done well without any recurrence of chest pain. 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 He has no new complaints today. Review of patient's allergies indicates: No Known Allergies Current Outpatient Prescriptions Medication Sig Dispense Refill atorvaSTATin (LIPITOR) 40 MG Tablet Take 1 Tab by mouth daily. 90 Tab 1 fluticasone (FLONASE ALLERGY RELIEF) 50 MCG/ACT nasal spray Administer 1 [place] into nostril daily. Coenzyme Q10 (COQ10) 100 MG CAPS Take 1 Tab by mouth daily. nitroglycerin (NITROSTAT) 0.[address] 1 Tab under the tongue as needed. 1 tab every 5 minutes x 3 as needed for CP aspirin 81 MG chewable tablet Take 1 Tab by mouth daily. with food. 100 Tab 5 IBUPROFEN 200 MG PO CAPS as needed BP 134/68 | Pulse 64 | Resp 12 | Wt 198 lbs 11.2 oz (90.130kg) | BMI 26.58 kg/m | BSA 2.15 m General: no acute distress and stated [...] cyanosis Neuro: grossly normal exam Impression: 1. Atypical chest pain 2. Left bundle branch block Recommendations: Clinically the patient remained stable and is doing well. He is active and has an active walking program daily. At this point I believe that we may see him on an annual or as-needed basis however, prior to his next visit in 1 year I have asked that he have a repeat echocardiogram to screen him for cardiomyopathy with his left bundle branch block. This chart was completed in part utilizing Fluency Speech Voice Recognition Software. Grammatical errors, random word insertions, prounoun errors, and incomplete sentences are an occasional consequence of this system due to software limitations, ambient noise, and hardware issues. Any formal questions or concerns about the content, text, or information contained within the body of this dictation should be directly addressed to the provider for clarification. in this encounter Plan of Treatment Scheduled Tests Name Priority Associated Diagnoses Order S chedule ECHO, COMPLETE (2D), TRANS-THORACIC Routine LBBB (left bundle branch block) Expected: 01/27/2018 (Approximate), Expires: 02/26/2018 Health Maintenance Due Date Last Done Comments COLONOSCOPY-EVERY 10 YRS AGE S 50-75 06/20/2011 06/19/2001 (Done elsewhere) *DEPRESSION SCREENINGJUANJOSE FOR PTS 18 AND OVER 03/22/2015 ABDOMINAL AORTIC ANEURYSM (A AA) SCREENING 07/27/2015 PNEUMOCOCCAL ADULT 65 YRS AN D OVER (1 of 2 - PCV13) 07/27/2015 *ADVANCE DIRECTIVE NOT ON FILE 07/29/2015 Influenza Vaccine (FLU shot) (#1) 2016 03/13/2015, 12/11/2011, 12/05/2008, Additional history exists DIABETES SCREEN EVERY 3 YRS- AGE 45 AND ABOVE 04/15/2019 04/15/2016, 04/14/2016, 03/19/2015, Additional history exists LIPID SCREEN EVERY 5 YRS-MEN AGE 35-75 04/15/2021 04/15/2016, 03/19/2015, 04/13/2009, Additional history exists TETANUS EVERY 10 YEARS-TDAP (BOOSTRIX OR ADACEL) SUGGESTED IF NOT RECEIVED IN THE PAST. 03/13/2025 03/13/2015 as of this encounter Implants Not on fileas of this encounter Visit Diagnoses Diagnosis LBBB (left bundle branch blo ck) - Primary Other left bundle branch block in this encounter Insurance Payer Benefit Plan / Group Subscriber ID Type Phone Address [facility] [employer] [id number] [phone] [place] [address] as of this encounter"
--- OUTSIDE RECORDS SUMMARY | 2022-10-29 06:58 | External Medical Summary | Summary of Care ---
Author Name Unknown Organization [place] [address] Phone Care Team Providers Care City Sanitarian Name Role Phone Sukhjinder Etienne MD Primary Care Provide r Unavailable Encounter Details Date Type Department Care Team Description 01/12/[address] [facility] DEPT CLOSED - 05/14/[address] [place] [address] Rad[place] [address] Josias Moreira MD [address] [place] [address] [place] [address] [phone] ALLERGIC RHINITIS NEC* Allergies No Known Allergiesas of this encounter Medications Prescription Sig. Disp. Refills Start Date End Date Status FLONASE 50 MCG/ACT NA SUSPIndications:All ergic rhinitis due to other allergen two sprays each nostril once daily 3 BOTTLE 5 01/12/2004 09/10/2004 Discontinued as of this encounter Active Problems [...] Description 01/18/2018 Cardiac Studies Cardiac Studies Gw, Top Loader [address] [place] [address] [phone] 01/25/2018 Office Visit Cardiology Ashutosh Mckinney, DO [address] [address] [phone] Health Maintenance Due Date Last Done Comments [...] fileas of this encounter Visit Diagnoses Diagnosis Allergic rhinitis due to oth er allergen - Primary in this encounter
--- OUTSIDE RECORDS SUMMARY | 2022-10-29 06:58 | External Medical Summary | Summary of Care ---
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 Name Role Phone Sukhjinder Etienne MD Primary Care Provide r Unavailable Reason for Visit * Reason Comments [facility] Encounter Details Date Type Department Care Team Description 07/20/2018 Refill Family Practice [facility] [address] [place] [address] Sukhjinder Etienne MD [address] [facility] [place] [address] [phone] Dyslipidemia Allergies No Known Allergiesdocumented as of this encounter (statuses as of 07/20/2018) Medications Medication Sig Dispensed Refills Start Date [...] RELIEF) 50 MCG/ACT nasal spray Administer 1 [place] into nostril daily. 0 Active atorvaSTATin (LIPITOR) 40 MG TabletIndications :Dyslipidemia Take 1 Tab by mouth daily. 90 Tab 3 07/20/2018 Active atorvaSTATin (LIPITOR) 40 MG TabletIndications :Dyslipidemia Take 1 Tab by mouth daily. 90 Tab 3 08/18/2017 07/20/2018 Discontinued documented as of this encounter (statuses as of 07/20/2018) Active Problems Problem Noted Date Osteoarthritis of toe joint(s) 0 ADVANCE DIRECTIVE INFORMATION 04/24/2005 Overview: No, Advance Directive brochure offered , patient declined. Other allergic rhinitis 01/12/2004 Overview: ICD-10 update of inactive term Sciatica documented as of this encounter (statuses as of 07/20/2018) Immunizations Name Administration Dates Next Due H1N1 [...] Miscellaneous Notes * Telephone Encounter - Sukhjinder Etienne MD - 07/20/2018 4:51 PM EDT Signed Prescriptions: Disp Refills atorvaSTATin (LIPITOR) 40 MG Tablet 90 Tab 3 Sig: Take 1 Tab by mouth daily. Authorizing Provider: SUKHJINDER ETIENNE * Telephone Encounter - Ludmila Toro LPN - 07/20/2018 4:42 PM EDT Pending Prescriptions: Disp Refills atorvaSTATin (LIPITOR) 40 MG Tablet 90 Tab 3 Sig: Take 1 Tab by mouth daily. Last Office Visit: 04/18/2016 Next Office Visit: No Future Appointments Last date the medication was ordered: 08/18/17 Patient Active Problem List Diagnosis Code Sciatica [...] A1C components found * Telephone Encounter - Ludmila Toro LPN - 07/20/2018 4:41 PM EDT Message from Katerina: ----- Message from Provider, Katerina sent at 07/20/2018 4:41 PM EDT ----- Huan Montanez would like a refill of the following medications: atorvaSTATin (LIPITOR) 40 MG Tablet [Sukhjinder Etienne MD] Preferred pharmacy: [facility]- [place] documented in this encounter Plan of Treatment Upcoming Encounters Date Type Specialty Care Team Description 04/12/2019 Office Visit Cardiology Ashutosh Mckinney, [address] [facility] [place] [address] [phone] Health Maintenance Due Date Last Done Comments *DEPRESSION SCREENING, ANNUAL FOR PTS 18 AND OVER 03/22/2015 PNEUMOCOCCAL ADULT 65 YRS AND OVER (1 of 2 - PCV13) 07/27/2015 *COLORECTAL CANCER SCREENING (COLONOSCOPY 10 YEARS; SIGMOIDOSCOPY 5 YEARS; COLOGUARD 3 YEARS; FOBT 1 YEAR),AGES 50-75 09/28/2017 Influenza Vaccine (FLU shot) (Season Ended) 2018 03/13/2015, 12/11/2011, 04/17/2009, Additional history exists [...] Documents on File Type Date Recorded Patient Blood Donor Unit Assistant Expl anation Advanced Directive service a todd default Advanced Directive
--- OUTSIDE RECORDS SUMMARY | 2022-10-29 06:58 | External Medical Summary ---
Author Name Unknown Address [address] [id number] Phone Organization K01:[facility] [address] [id number] Laboratory Report Ordering Provider Test Date Status SONJA BATISTA MD [id number] Final Obs # Observation Date Value Abnormality Reference Status Performing Location 0 HIV4G RESULTS [id number] NONREACTIVE NR F minoal [facility] [address] [facility] [address]
[2022-10-29] MEDS ORDERED: ATORVASTATIN 40 MG TAB PO SCH ×2 (09:00→21:00)
--- NOTE | 2022-10-29 09:02 | Orthopedic Consultation ---
Date of Consultation October 29, 2022 Assessment & Plan (1) Herniated lumbar intervertebral disc: MRI lumbar spine performed last evening 10/28/2022 available for review. Demonstrates evidence of a lumbar disc herniation L5-S1 the left with a fragment compressing the traversing S1 nerve root. Plan I had lengthy discussion today with the patient and his reviewing his MRI findings and clinical presentation. We reviewed his options. In light of his severe pain and inability to ambulate and requirement for narcotic medications he would like to pursue surgery. He would require a lumbar laminectomy L5-S1 the left and removal of herniated fragment. Risk benefits pros cons and alternatives were outlined detail. Risk include but not limited to anesthesia blindness stroke paralysis nerve damage blood loss requiring transfusion infection requiring reoperation benefits of therapy marked improvement of his radiculopathy. At this time he is n.p.o. we will try for surgery today that he may be up and ambulating as soon as possible and return home. History of Present Illness Reason for Consultation: Left leg pain Attending Physician: Wojciech Mcconnell MD History of Present Illness This is a 72-year-old male who presents last evening the emergency room with severe left leg pain. Its been present for approximately 3 days. He has been essentially bedridden at home secondary to the pain. Denies any specific trauma fall or event but notes that the pain began after putting on a pair of pants. The pain radiates from the buttock posterior lateral thigh below the knee into the foot. Right lower extremity is asymptomatic. He is unable to ambulate secondary to the pain. He struggling with urinary retention. He does have numbness to the left lower extremity. Allergies Allergy/AdvReac Type Severity Reaction Status Date / Time No Known Allergies Allergy Unverified 10/28/22 11:18 Home Medications Medication Instructions Recorded Confirmed Type atorvastatin 40 mg tablet 40 mg PO DAILY #0 tabs 04/14/16 10/28/22 History Mometasone Daily Nasal Rinse See Rx Instructions .Route .COMPLEX 10/28/22 10/28/22 History Patient History Medical History Allergic rhinitis Dyslipidemia LBBB (left bundle branch block) Surgical History (Updated 10/28/22 @ 17:02 by TOMASZ Fountain) H/O sinus surgery History of cholecystectomy Social History Smoking Status: Former smoker Second Hand Exposure: No; Do You Dip or Chew Tobacco: No; Tobacco Cessation Education Requested by Patient: No Hx Alcohol Use: Yes Alcohol type: beer and wine Hx Substance Use: No Preferred Language: French Communication Ability: Effective Transportation Aide Required: No Beliefs That Will Affect Care: None Current Living Situation: Spouse Other Information That Helps Us Care for You: No Feels Safe at Home: Yes Safety Concerns: Feels Safe At This Time Assistive Devices: None Physical Exam Physical Exam: On exam he is most comfortable lying supine in bed with his knees bent. He exhibits symmetric +5-5 plantarflexion dorsiflexion quadriceps bilaterally. He is markedly positive straight leg raising on the left with a positive Lasegue's maneuver. The right is asymptomatic. Deep tendon reflexes diminished. Results & Data Vital Signs (Past 12 Hours) Vital Signs Temp Pulse Resp BP Pulse Ox O2 Del Method 10/29/22 08:16 36.5 C 46 L 16 175/81 H 93 Room Air 10/28/22 21:50 36.7 C 60 18 159/82 H 97 Room Air 10/28/22 21:54 Room Air 10/28/22 21:00 Room Air
[2022-10-29] MEDS ORDERED: Nursing to Pharmacy Communication SCH (09:45)
[2022-10-29] MEDS ORDERED: LACTATED RINGER'S 1,000 ML IV SCH (11:00)
--- NOTE | 2022-10-29 11:55 | Anesthesiology Consultation ---
Date of Service October 29, 2022 Assessment & Plan (1) Encounter for pre-operative examination: Chart Review Chart Review: Acceptable Risk for Surgery and Patient NOT seen in Pre Admission Testing Consults Requested none History Surgery Operation Date: 10/29/22 07:50 Proposed Procedures p Lumbar Laminectomy Left L5-S1 - Homer Courtney DO Height/Weight Height: 6 ft 1 in Weight: 87.4 kg Allergies Allergy/AdvReac Type Severity Reaction Status Date / Time No Known Allergies Allergy Unverified 10/28/22 11:18 Medications Home Medications Medication Instructions Recorded Confirmed Last Taken atorvastatin 40 mg tablet 40 mg PO DAILY #0 tabs 04/14/16 10/28/22 10/27/22 Mometasone Daily Nasal Rinse See Rx Instructions .Route .COMPLEX 10/28/22 10/28/22 Unknown Active Medications Generic Name Dose Route Start Last Admin Trade Name Freq PRN Reason Stop Dose Admin Acetaminophen 1,000 mg 10/28/22 20:00 10/29/22 11:06 Acetaminophen 500 Mg Tab PO 11/27/22 19:59 1,000 mg Q8H KWAKU Administration Lactated Ringer's 1,000 mls @ 80 mls/hr 10/29/22 11:00 10/29/22 11:06 Lr IV 11/28/22 10:59 80 mls/hr .[id number] KWAKU Administration Past Medical History Medical History (Updated 10/29/22 @ 11:56 by Piotr Gomez MD) Allergic rhinitis Dyslipidemia Elevated BP without diagnosis of hypertension Encounter for pre-operative examination LBBB (left bundle branch block) Past Surgical History Surgical History H/O sinus surgery History of cholecystectomy Social History Smoking Status: Former smoker Do You Dip or Chew Tobacco: No Hx Alcohol Use: Yes Alcohol type: beer and wine alcohol intake frequency: a few times a week Hx Substance Use: No substance use type: does not use Physical Exam Vital Signs Last Vital Signs Temp 36.5 C 10/29/22 08:16 Pulse 46 L 10/29/22 08:16 Resp 16 10/29/22 08:16 BP 175/81 H 10/29/22 08:16 Pulse Ox 93 10/29/22 08:16 O2 Del Method Room Air 10/29/22 08:16 Testing Laboratory Results 10/28/22 18:07 10/28/22 18:07 Electrocardiogram Date: 10/28/22 Sinus bradycardia with 1st degree A-V block Left bundle branch block Abnormal ECG When compared with ECG of 15-APR-2016 06:20, No significant change was fou Chest X-Ray Date: 10/28/22 SINGLE VIEW CHEST CLINICAL HISTORY: Preoperative examination. FINDINGS: An AP, portable, upright chest radiograph is compared to chest x-ray and chest CT dated 04/14/2016. The heart is enlarged and noting atherosclerotic calcification of the thoracic aorta. The pulmonary vasculature is noncongested. Chronic interstitial thickening is previous. There is chronic elevation of the right hemidiaphragm with mild bibasilar atelectasis. No airspace consolidation or large pleural effusion is identified No pneumothorax is seen. The skeletal structures are osteopenic. A chronic Hill-Sachs lesion is noted in the left humeral head. Cholecystectomy clips are seen in the right upper quadrant. IMPRESSION: Mild cardiomegaly with no active disease in the chest.
[2022-10-29] MEDS ORDERED: DEXAMETHASONE SOD INJ 4 MG/ML VIAL ONE ×2 (12:08→14:33)
[2022-10-29] MEDS ORDERED: ONDANSETRON INJ 2 MG/ML 2 ML VIAL ONE (12:08)
[2022-10-29] MEDS ORDERED: LIDOCAINE 2% 2 ML VIAL/AMP(20MG/ML) INFIL ONE (12:08)
[2022-10-29] MEDS ORDERED: ROCURONIUM BROMIDE 10 MG/ML 5 ML VIAL IV ONE ×2 (12:08→14:32)
[2022-10-29] MEDS ORDERED: PROPOFOL IV EMULSION 10 MG/ML 20 ML VIAL IV ONE (12:08)
[2022-10-29] MEDS ORDERED: fentaNYL citrate PF 100 MCG/2 ML VIAL ONE ×2 (12:09→14:41)
[2022-10-29] MEDS ORDERED: ePHEDrine sulfate 50 MG/ML AMP IV PRN (12:47)
[2022-10-29] MEDS ORDERED: fentaNYL citrate PF 100 MCG/2 ML VIAL IV PRN (12:47)
[2022-10-29] MEDS ORDERED: HYDROmorphone INJ 1 MG/ML SYRINGE IV PRN ×2 (12:47→15:55)
[2022-10-29] MEDS ORDERED: ATROPINE SULFATE 0.1 MG/ML 10ML SYR IV PRN (12:47)
[2022-10-29] MEDS ORDERED: ONDANSETRON INJ 2 MG/ML 2 ML VIAL IV PRN ×2 (12:47→15:55)
[2022-10-29] MEDS ORDERED: ceFAZolin 330 MG/ML 1 GM VIAL ONE (13:28)
[2022-10-29] MEDS ORDERED: BUPIVACAINE/EPINEPHRINE 0.25% 1:200,000 30 ML VIAL ONE (13:28)
--- NOTE | 2022-10-29 13:30 | Hospitalist Progress Note ---
Date of Service October 29, 2022 Assessment & Plan (1) Herniated lumbar intervertebral disc: Plan: Patient presenting from home with reports of intractable back pain x 4 days. Patient reports history of chronic low back pain for the past several years and has taken courses of oral steroids and steroid injections. In the ED, lumbar spine MRI shows left posterolateral disc extrusion at L5-S1 which contributes to central canal stenosis and impinges in the transiting left- sided nerve roots. Pain control with scheduled Tylenol, oxycodone and Valium for breakthrough pain Case reviewed by orthospine; plan for lumbar laminectomy of left L5-S1 today Pain control, PT OT after procedure. (2) LBBB (left bundle branch block): Plan: History of chronic LBBB and bradycardia EKG reviewed; sinus bradycardia with first-degree AV block, L BBB. Patient denies any chest pain or shortness of breath. (3) Elevated BP without diagnosis of hypertension: Plan: BP elevated, likely situational/due to pain Continue to monitor, provide antihypertensive agent if persisting (4) Dyslipidemia: Plan: Continue statin DVT PROPHYLAXIS SCDs for now Please note the above document was generated using voice recognition software. It may contain grammatical, syntax or spelling errors. Any formal questions or concerns about the content, text or information contained within the body of this dictation should be directly addressed to the provider for clarification Admission and Anticipated Discharge Date Admission Date: October 28, 2022 Subjective Patient seen and examined at bedside. He is lying in the bed comfortably; not in distress. Reports radiating pain from the buttock posterior to lateral thigh and below the knee into the foot. Review of Systems Review of Systems: All systems reviewed & are unremarkable except as noted in Subjective Results & Data Results & Data Vital Signs (Past 12 Hours) Vital Signs Temp Pulse Resp BP Pulse Ox O2 Del Method 10/29/22 12:40 181/96 H 10/29/22 12:30 36.6 C 51 L 20 179/100 H 95 Room Air 10/29/22 08:16 36.5 C 46 L 16 175/81 H 93 Room Air Laboratory Results Laboratory Results WBC 7.92 K/ul (4.8-10.8) 10/28/22 18:07 RBC 4.69 M/uL (4.70-6.10) L 10/28/22 18:07 Hgb 14.4 g/dl (14.0-18.0) 10/28/22 18:07 Hct 41.3 % (42.0-52.0) L 10/28/22 18:07 MCV 88.1 fL (80.0-100.0) 10/28/22 18:07 MCH 30.7 pg (25.0-34.0) 10/28/22 18:07 MCHC 34.9 g/dL (32.0-36.0) 10/28/22 18:07 RDW Std Deviation 40.8 fL (36.4-46.3) 10/28/22 18:07 RDW Coeff of Billy 12.6 % (11.5-14.5) 10/28/22 18:07 Plt Count 184 K/uL (130-400) 10/28/22 18:07 MPV 11.0 fL (9.4-12.4) 10/28/22 18:07 Immature Gran % (Auto) 0.1 % 10/28/22 18:07 Neut % (Auto) 51.9 % 10/28/22 18:07 Lymph % (Auto) 36.2 % 10/28/22 18:07 [place] % (Auto) 10.9 % 10/28/22 18:07 Eos % (Auto) 0.0 % 10/28/22 18:07 Baso % (Auto) 0.9 % 10/28/22 18:07 Neut # (Auto) 4.11 K/uL (1.40-6.50) 10/28/22 18:07 Lymph # (Auto) 2.87 K/uL (1.20-3.40) 10/28/22 18:07 [place] # (Auto) 0.86 K/uL (0.11-0.59) H 10/28/22 18:07 Eos # (Auto) 0.00 K/uL (0.00-0.50) 10/28/22 18:07 Baso # (Auto) 0.07 K/uL (0.00-0.20) 10/28/22 18:07 Immature Gran # (Auto) 0.01 K/uL (0.01-0.20) 10/28/22 18:07 Sodium 141 mmol/L (136-145) 10/28/22 18:07 Potassium 3.5 mmol/L (3.5-5.1) 10/28/22 18:07 Chloride 108 mmol/L (98-107) H 10/28/22 18:07 Carbon Dioxide 26 mmol/L (21-32) 10/28/22 18:07 Anion Gap 7 (3-11) 10/28/22 18:07 BUN 32 mg/dl (6-23) H 10/28/22 18:07 Creatinine 0.88 mg/dl (0.6-1.4) 10/28/22 18:07 Est Cr Clr Drug Dosing 80.8 ml/min 10/28/22 18:07 Est GFR ( Amer) 99.5 ml/min 10/28/22 18:07 Est GFR (Non-Af Amer) 85.8 ml/min 10/28/22 18:07 BUN/Creatinine Ratio 36.4 (10-20) H 10/28/22 18:07 Glucose 111 mg/dl (70-99(Fasting)) H 10/28/22 18:07 Calcium 8.9 mg/dl (8.6-10.3) 10/28/22 18:[address] 10/28/22 10:10 CT lumbar spine wo con CLINICAL HISTORY: low back pain TECHNIQUE: Multidetector row helical CT of the lumbar spine was performed without administration of intravenous contrast. Coronal and sagittal reformations were obtained. Automated dose lowering techniques and/or adjustment according to patient size were utilized for this exam. CT DOSE: 1193.84 mGy.cm Comparison: None available at the time of this dictation. FINDINGS: For counting purposes, the last complete intervertebral disc space is considered L5-S1. No acute fractures are identified. Vertebral body heights and disk spaces are well maintained. Vertebral body alignment is within normal limits. Partial visualization of bilateral renal cysts. Atherosclerotic disease is seen in the aorta. IMPRESSION: No evidence of acute bony injury. ACT 112: Negative or not required by law. Electronically signed by: Rashid Calixto M.D. 10/28/2022 11:01 AM Lumbar Spine MRI 10/28/22 12:46 MRI OF THE LUMBAR SPINE WITHOUT IV CONTRAST CLINICAL HISTORY: Low back pain. COMPARISON STUDY: CT scan of the lumbar spine dated 10/28/2022. TECHNIQUE: MRI of the spine is performed utilizing various T1 and T2-weighted sequences in the axial and sagittal planes. IV contrast was not administered for this examination. The examination is significantly degraded by motion artifact. FINDINGS: Vertebral body height and alignment are maintained throughout the lumbar spine. Transitional lumbosacral segment will be labeled S1 for the purposes of this examination. The transverse and spinous processes appear intact. There is no evidence of spondylolysis. No destructive bony lesion is seen. Tiny anterior osteophytes are noted. Intervertebral discs: Disc desiccation and loss of height is seen throughout the lumbar spine. Spinal cord: The visualized spinal cord is normal in morphology and signal intensity. The conus medullaris terminates at the level of L1. The nerve roots of the cauda equina are normal in morphology. L1-L2: The central canal and neural foramina are patent. This level is only assessed on the sagittal sequences. L2-L3: There is minimal posterior disc bulge which abuts the transiting nerve roots. There is no significant acquired compromise of the central canal. The neural foramina are patent. L3-L4: There is minimal posterior disc bulge. This abuts the transiting nerve roots. In conjunction with hypertrophy of the ligamentum flavum, there is mild acquired compromise of the central canal. The minimum AP canal diameter measures 8 mm. The neural foramina are patent. L4-L5: There is broad-based posterior disc bulge which abuts the transiting ner ve roots. No significant acquired compromise of the central canal is identified. Lateral disc bulges contribute to bilateral subarticular stenosis, left greater than right. In conjunction with facet arthropathy, there is mild left neural foraminal stenosis. The right neural foramen is patent. L5-S1: There is a left posterior disc extrusion, best seen on axial image #17. This impinges on the transiting left-sided nerve roots. The extruded fragment measures up to 10 mm. There is [id number] central canal stenosis at this level with a minimum AP diameter of 7 mm. In conjunction with facet arthropathy, there is moderate left and [id number] right neural foraminal stenosis. Sacrum: The visualized sacrum is normal in morphology and signal intensity. Soft tissues: The paraspinous soft tissues are normal in appearance. Left renal cysts are partially visualized. The retroperitoneal structures are otherwise grossly unremarkable but incompletely evaluated. IMPRESSION: 1. No acute bony abnormality is identified. 2. Left posterolateral disc extrusion at L5-S1 which contributes to central canal stenosis and impinges in the transiting left-sided nerve roots. 3. Mild spondylotic change at additional levels as above. See discussion for detailed level by level analysis. 4. Additional findings as above. Dictated: 10/28/2022 1:52 PM Transcribed: 10/28/2022 2:12 PM Vincent [id number] Electronically signed by: Wade Brooks M.D. 10/28/2022 3:09 PM Chest X-Ray 10/28/22 17:32 SINGLE VIEW CHEST CLINICAL HISTORY: Preoperative examination. FINDINGS: An AP, portable, upright chest radiograph is compared to chest x-ray and chest CT dated 04/14/2016. The heart is enlarged and noting atherosclerotic calcification of the thoracic aorta. The pulmonary vasculature is noncongested. Chronic interstitial thickening is previous. There is chronic elevation of the right hemidiaphragm with mild bibasilar atelectasis. No airspace consolidation or large pleural effusion is identified No pneumothorax is seen. The skeletal structures are osteopenic. A chronic Hill-Sachs lesion is noted in the left humeral head. Cholecystectomy clips are seen in the right upper quadrant. IMPRESSION: Mild cardiomegaly with no active disease in the chest. ACT 112: Negative or not required by law. Electronically signed by: Wade Brooks M.D. 10/28/2022 7:20 PM
--- NOTE | 2022-10-29 13:41 | History & Physical Bridge Note ---
Date of Service October 29, 2022 History & Physical Bridge Note I have examined the patient, reviewed the History & Physical and in the interval since the performance of the History & Physical I have noted the following changes of clinical significance: no changes noted Lumbar laminectomy L5-S1 on the left
[2022-10-29] MEDS ORDERED: ceFAZolin 2000MG 2,000 MG/15 ML SYR IV SCH (13:46)
[2022-10-29] MEDS ORDERED: ceFAZolin 2,000 MG/15 ML IV PUSH IV ONE (13:52)
[2022-10-29] MEDS ORDERED: FLOSEAL HEMOSTATIC MATRIX 10ML TOP ONE (14:28)
[2022-10-29] MEDS ORDERED: SUGAMMADEX SODIUM 200 MG/2 ML VIAL IV ONE (14:52)
--- NOTE | 2022-10-29 14:55 | Operative Report ---
Post Operative Report Pre & Post Diagnosis Operation Date: 10/29/22 07:50 Pre-Op Diagnosis: Herniated Lumbar Disc L5-S1 Left Post-Op Diagnosis: Herniated Lumbar Disc L5-S1 Left I identified the patient and participated in the time-out.: Yes Procedure Operation Date: 10/29/22 07:50 Actual Procedures Lumbar laminotomy L5-S1 on the left with excision of herniated free fragment Surgeon Homer Courtney DO Battery Plate Assembler Mariaa Flores Estimated Blood Loss 10 Findings Consistent with Post-Op Diagnosis Specimens None Indications This is a 72-year-old male who presents with severe radiculopathy and evidence of free fragments of disc material at L5-S1 left and is here for surgical removal. Description of Procedure Patient was met with identified informed sent obtained. Patient was then taken to the operative suite underwent a patient placed in a prone position jacks table top [place]ilton frame. All bony promises well-padded eyes inspected to ensure no external pressure placed monitor at this point the lumbar spine was prepped and draped in a sterile fashion. With the assistance of fluoroscopy identified the L5-S1 disc base and a small incision was created overlying the midline. Sharp dissection with assistance of Bovie cautery performed down to and exposing the interlaminar space at L5-S1 left. Self-retaining tractors placed. Small laminotomy was created and excised the lateral portion of ligamentum flavum and a portion of the medial facet to expose a severely compressed traversing nerve root. Was able to mobilize this medially and several large fragments of free disc material and endplate identified and removed. I did note a large annular tear at the 5 1 level. Area was explored several times to ensure all fragments addressed then copiously irrigated and closed with subcutaneous Vicryl and 4 Monocryl for final skin closure. Steri-Strips sterile dressings placed. Patient waken taken to PACU in stable condition. Please note Mariaa Flores was present at the entire procedure involved the patient positioning complex portion of the surgery and final skin closure. I attest to the content of the Intraoperative Record and any orders documented therein. Any exceptions are noted below.
--- NOTE | 2022-10-29 15:34 | Anesthesiology Progress Note ---
Date of Service October 29, 2022 Anesthesia Post Procedure Vital Signs Vital Signs: Temp Pulse Pulse Pulse Resp BP BP 10/29/22 15:25 68 15 141/78 H 10/29/22 15:15 73 16 145/71 H 10/29/22 15:09 97.2 F L 87 13 159/81 H 10/29/22 12:40 181/96 H 10/29/22 12:30 97.9 F 51 L 20 179/100 H 10/29/22 08:16 97.7 F 46 L 16 175/81 H 10/28/22 21:50 98.1 F 60 18 159/82 H 10/28/22 21:54 10/28/22 21:00 10/28/22 20:00 41 L 19 10/28/22 20:00 134/75 10/28/22 19:30 42 L 16 10/28/22 19:30 131/74 10/28/22 19:11 45 L 20 10/28/22 19:11 149/80 H 10/28/22 19:00 42 L 19 10/28/22 19:00 128/62 10/28/22 20:00 10/28/22 18:30 43 L 21 10/28/22 18:30 142/75 H 10/28/22 18:00 47 L 15 10/28/22 18:00 156/82 H 10/28/22 17:30 46 L 26 H 10/28/22 17:30 152/83 H 10/28/22 18:13 48 L 10/28/22 17:01 189/83 H 10/28/22 17:01 51 L 19 10/28/22 17:00 57 L 14 10/28/22 16:30 50 L 26 H 10/28/22 16:30 161/82 H 10/28/22 16:00 52 L 21 10/28/22 16:00 146/84 H Pulse Ox O2 Del Method O2 Flow Rate 10/29/22 15:25 98 Oxymask 10 10/29/22 15:15 100 Oxymask 10 10/29/22 15:09 100 Oxymask 10 10/29/22 12:40 10/29/22 12:30 95 Room Air 10/29/22 08:16 93 Room Air 10/28/22 21:50 97 Room Air 10/28/22 21:54 Room Air 10/28/22 21:00 Room Air 10/28/22 20:00 91 10/28/22 20:00 10/28/22 19:30 10/28/22 19:30 10/28/22 19:11 93 10/28/22 19:11 10/28/22 19:00 91 10/28/22 19:00 10/28/22 20:00 Room Air 10/28/22 18:30 92 Room Air 10/28/22 18:30 10/28/22 18:00 91 10/28/22 18:00 10/28/22 17:30 10/28/22 17:30 10/28/22 18:13 10/28/22 17:01 10/28/22 17:01 92 Room Air 10/28/22 17:00 93 10/28/22 16:30 90 10/28/22 16:30 10/28/22 16:00 92 10/28/22 16:00 Pain Intensity Back: Pain Intensity: 3 Transfer of Care Handoff Completed per policy Notes Mental Status: alert / awake / arousable and participated in evaluation Patient Amnestic to Procedure: Yes Nausea / Vomiting: adequately controlled Pain: adequately controlled Airway Patency, RR, SpO2: stable & adequate BP & HR: stable & adequate Hydration State: stable & adequate Anesthetic Complications: no major complications apparent and Pt Satisfied with anesthetic care
[2022-10-29] MEDS ORDERED: METOCLOPRAMIDE HCL INJ 5 MG/ML 2 ML VIAL IV PRN (15:55)
[2022-10-29] MEDS ORDERED: traMADol HCL 50 MG TABLET PO PRN (15:55)
[2022-10-29] MEDS ORDERED: PROMETHAZINE HCL 12.5 MG in SODIUM CHLORIDE 0.9% 50 ML IV PRN (15:55)
[2022-10-29] MEDS ORDERED: bisacodyL 10 MG SUPP PR PRN (15:55)
[2022-10-29] MEDS ORDERED: LORazepam 0.5 MG TAB PO PRN (15:55)
[2022-10-29] MEDS ORDERED: FAMOTIDINE 20 MG TAB PO PRN (15:55)
[2022-10-29] MEDS ORDERED: DO NOT ADMINISTER PNEUMOCOCCAL VACCINE PRN (15:55)
[2022-10-29] MEDS ORDERED: LORazepam 2 MG/1 ML VIAL IV PRN (15:55)
[2022-10-29] MEDS ORDERED: hydrOXYzine HCl 25 MG TAB PO PRN (15:55)
[2022-10-29] MEDS ORDERED: ACETAMINOPHEN 500 MG TAB PO PRN (15:55)
[2022-10-29] MEDS ORDERED: oxyCODONE HCL IR 5 MG TAB (IMMEDIATE RELEASE) PO PRN (15:55)
[2022-10-29] MEDS ORDERED: DO NOT ADMINISTER FLU VACCINE PRN (15:55)
[2022-10-29] MEDS ORDERED: ACETAMINOPHEN 1,000 MG/100 ML VIAL IV PRN (15:55)
[2022-10-29] MEDS ORDERED: ALUMINUM/MAGNESIUM SUSP 30 ML UDC PO PRN (15:55)
[2022-10-29] MEDS ORDERED: KETOROLAC 30 MG/ML VIAL IV PRN (15:55)
[2022-10-29] MEDS ORDERED: diphenhydrAMINE Capsule 25 MG CAP PO PRN (15:55)
[2022-10-29] MEDS ORDERED: NALOXONE HCL 0.4 MG/1 ML VIAL/CARP IV PRN (15:55)
[2022-10-29] MEDS ORDERED: ONDANSETRON 4 MG OD TAB PO PRN (15:55)
[2022-10-29] MEDS ORDERED: MAGNESIUM HYDROXIDE SUSP 30 ML UDC PO PRN (15:55)
[2022-10-29] MEDS ORDERED: HYDROmorphone INJ 0.5 MG/0.5 ML SYR IV PRN (15:55)
[2022-10-29] MEDS ORDERED: SOD PHOSPHATE/SOD BIPHOSPHATE ENEMA 132 ML BTL PR PRN (15:55)
[2022-10-29] MEDS: LACTATED RINGER'S 1,000 ML IV SCH (16:04)
--- NOTE | 2022-10-29 17:43 | Fluoroscopy Report ---
INTRAOPERATIVE RADIOGRAPHS CLINICAL HISTORY: L5-S1 laminectomy. Fluoro time: 4 seconds Ka,r: 2.44 mGy FINDINGS: 2 spot fluoroscopic views of the lumbar spine are presented. A surgical probe projects post eriorly at L5 on the initial image. A surgical probe projects immediately posterior to the inferior a spect of the L5 vertebral body on the second image. IMPRESSION: Intraoperative images from lumbar spinal surgery as above. Electronically signed by: Wade Brooks M.D. 10/29/2022 5:42 PM
[2022-10-29] MEDS: ceFAZolin 2000MG 2,000 MG/15 ML SYR IV SCH (20:17)
[2022-10-29] MEDS ORDERED: DOCUSATE SODIUM/SENNA 50/8.6MG TAB PO SCH (21:00)
[2022-10-30] MEDS: LACTATED RINGER'S 1,000 ML IV SCH (01:44)
[2022-10-30] MEDS: ceFAZolin 2000MG 2,000 MG/15 ML SYR IV SCH (05:49)
[2022-10-30] MEDS ORDERED: POLYETHYLENE (MIRALAX) 17 GM PACK PO SCH (06:00)
[2022-10-30 06:30] LABS: Basophils # (auto) 0.02 K/uL (0.00-0.20); Basophils % (auto) 0.2 %; Hematocrit (blood only) 43.8 % (42.0-52.0); Hemoglobin 15.7 g/dl (14.0-18.0); Immature Granulocytes # (auto) 0.03 K/uL (0.01-0.20); Immature Granulocytes % (auto) 0.2 %; Lymphocytes # (auto) 1.59 K/uL (1.20-3.40); Lymphocytes % (auto) 12.6 %; Mean Corpuscular Hemoglobin 30.5 pg (25.0-34.0); Mean Corpuscular Hgb Conc 35.8 g/dL (32.0-36.0); Mean Corpuscular Volume 85.2 fL (80.0-100.0); Mean Platelet Volume 10.9 fL (9.4-12.4); Monocytes # (auto) 0.99 K/uL (0.11-0.59); Monocytes % (auto) 7.8 %; Neutrophils # (auto) 10.01 K/uL (1.40-6.50); Neutrophils % (auto) 79.2 %; Platelet Count 197 K/uL (130-400); RDW Coefficient of Variation 12.3 % (11.5-14.5); RDW Standard Deviation 38.2 fL (36.4-46.3); Red Blood Count 5.14 M/uL (4.70-6.10); White Blood Count 12.64 K/ul (4.8-10.8)
[2022-10-30 06:48] LABS: BUN Creatinine Ratio 28.9 (10-20); Calcium 9.2 mg/dl (8.6-10.3); Creatinine Clr Calc Pharmacy 83.8 ml/min; Est GFR (African American) 98.5 ml/min; Potassium 4.2 mmol/L (3.5-5.1)
--- NOTE | 2022-10-30 08:37 | Orthopedic Progress Note ---
Date of Service October 30, 2022 Assessment & Plan (1) Herniated lumbar intervertebral disc: Plan: At this time he has done nicely postoperatively. He is okay for discharge per orthopedics. He will follow-up in 2 weeks in our office. Admission and Anticipated Discharge Date Admission Date: October 29, 2022 Subjective Patient has modest back pain left leg pain markedly improved Physical Exam Physical Exam: On exam patient is good strength testing. Is comfortable. Results & Data Vital Signs (Past 12 Hours) Vital Signs Temp Pulse Resp BP Pulse Ox O2 Del Method 10/30/22 07:12 36.5 C 51 L 16 160/72 H 95 Room Air 10/30/22 02:28 36.6 C 56 L 18 150/80 H 90 Room Air 10/29/22 22:53 36.6 C 60 18 132/74 94 Room Air 10/29/22 21:00 36.7 C 63 18 162/84 H 90 Room Air
[2022-10-30] MEDS ORDERED: dexAMETHasone 6 MG in SYRINGE 0 ML IV SCH (09:00)
--- NOTE | 2022-10-30 14:30 | Discharge Summary ---
Date of Service October 30, 2022 Admission HPI Per Admitting Provider 72 year old male with PMH HLD, chronic rhinitis, and other problems listed below who presents to the ED for evaluation of back pain. History obtained from the patient and review of outpatient PCP records. Patient reports ongoing back issues for the past several years and has taken courses of oral steroids and injections. Patient reports working in his garden 4 days ago and had sudden onset low back pain. Pain radiates into the groin and down the inside of the left leg. Patient reports having left over steroids and oxycodone. He started taking Prednisone 40mg 3 days ago. Initially he was starting to feel improvement however when he tried to put on pants yesterday the pain returned. He has not been able to ambulate and required EMS assistance today to get out of bed and came to the ED. Patient reports he otherwise has been feeling well recently. No other recent illnesses, fever or chills. Denies chest pain and shortness of breath. No lightheadedness, dizziness, diaphoresis, or syncopal events. Denies abdominal pain, nausea, vomiting, and diarrhea. No urinary symptoms. In the ED, lumbar spine MRI left posterolateral disc extrusion at L5-S1 which contributes to central canal stenosis and impinges in the transiting left-sided nerve roots. Patient was given fentanyl and methocarbamol and reports improvement in his symptoms. Admission Exam Per Admitting Provider Constitutional: WD/WN, vitals as above Eyes: PERRL, conjunctivae normal, anicteric sclerae ENMT: external ear and nose normal, oropharynx normal Respiratory: normal respiratory effort, lungs clear to auscultation Cardiovascular: Rate/Rhythm: regular rhythm and + bradycardic Vessels: normal peripheral pulses Extremities: no edema Gastrointestinal (Abdomen): normal bowel sounds, soft, nontender, no hepatosplenomegaly Musculoskeletal: strength strong and equal BLE Skin: no rashes, warm and dry Neurologic: PERRL, EOMI, accommodation nl, no face palsy, no dysarthria Psychiatric: A+Ox3, euthymic affect Principal Diagnosis Herniated lumbar disc L5-S1 status post left lumbar laminectomy Discharge Exam Constitutional: WD/WN, vitals as above, NAD, sitting up in bed, pleasant, conversing easily Respiratory: normal respiratory effort, lungs clear to auscultation, no wheeze, rales, rhonchi. Normal insp/exp effort, no accessory muscle use Cardiovascular: RRR, no murmur, no edema Vessels: no JVD or carotid bruit Chest: normal inspection of chest Abdomen: normal bowel sounds, soft, nontender, no hepatosplenomegaly Musculoskeletal: no cyanosis or clubbing, extremities motor strength 5/5. Dressing intact in the lower back; CDI Skin: no rashes, warm and dry normal turgor Neurologic: PERRL, EOMI, accommodation nl, no face palsy, no dysarthria CN's II- XI intact bilaterally and moves all extremities Psychiatric: A+Ox3, euthymic affect Discharge Data Allergies Allergy/AdvReac Type Severity Reaction Status Date / Time No Known Allergies Allergy Unverified 10/28/22 11:18 Consultations 10/28/22 16:43 ED Decision to Admit Stat 10/29/22 08:07 Consult Orthopedic Spine Surgery Routine Procedures Performed Operation Date: 10/29/22 07:50 Actual Procedures p Lumbar Laminectomy Left L5-S1(Bilateral) - Homer Courtney DO Ordered Studies 10/28/22 10:10 CT lumbar spine wo con Stat 10/28/22 12:46 MRI Lumbar Spine [MR lumbar spine wo con] Stat 10/29/22 FL spine 1V any level Routine Hospital Course (1) Herniated lumbar intervertebral disc: (2) LBBB (left bundle branch block): (3) Elevated BP without diagnosis of hypertension: (4) Dyslipidemia: Patient presenting from home with reports of intractable back pain x 4 days. Patient reports history of chronic low back pain for the past several years and has taken courses of oral steroids and steroid injections. In the ED, lumbar spine MRI shows left posterolateral disc extrusion at L5-S1 which contributes to central canal stenosis and impinges in the transiting left- sided nerve roots. Patient was admitted to medical floor; pain control with scheduled Tylenol, oxycodone and Valium for breakthrough pain Patient underwent lumbar laminectomy of left L5-S1 on October 29, 2022. Postoperative period was unremarkable. Patient reported improvement in the pain in lower back and legs. PT OT evaluation was done; patient was recommended to go home Patient blood pressure was on the higher side during the hospitalization; likely compounded by pain and the stress of surgery. He was recommended to measure his blood pressure at home and follow-up with PCP. Please note the above document was generated using voice recognition software. It may contain grammatical, syntax or spelling errors. Any formal questions or concerns about the content, text or information contained within the body of this dictation should be directly addressed to the provider for clarification Total Time Total Time Spent Total Time Spent (In Minutes): 40 Total Time Includes: Examination of the Patient, Discharge Planning, Medication Reconciliation, Communication With Other Providers and Other Discharge Plan Discharge Items Patient Disposition: Home - Self-Care Reason For Visit: DISC HERNIATION Discharge Diagnosis: Lumbar disc herniation with radiculopathy Activity: As commented below Non-emergency contact: Primary Care Provider Call non-emergency contact if: you have any medication questions Follow-up/Referrals: Byron Bryan DO [Primary Care Provider] - (Date & Time 11/04/2022 4:20 PM Provider Byron Bryan DO Department [facility] ) Diet: Regular Addtl Attending Provider Instructions: ACTIVITY RECOMMENDATIONS: SELF CARE INSTRUCTIONS AFTER A LAMINECTOMY 1. No prolonged sitting (less than 30 minutes for the first 3 weeks after surgery). 2. No bending, lifting more than 5 pounds, or twisting (roll like a log when turning in bed). 3. You may shower 3 days after surgery if no drainage from wound. Thoroughly dry wound. Do not soak in the tub. 4. Please walk as much as you can for exercise. Gradually increase the distance that you walk as your endurance increases. 5. You may drive in 7-10 days if you are comfortable and no longer requiring pain medications. SPECIAL CARE INSTRUCTIONS: VERY IMPORTANT TO READ AND REVIEW A. Your surgical incision has been closed with a cosmetic suture under the skin that will dissolve in about 6 weeks. In 14 days, you can use a pair of clean scissors and cut the suture that is left outside of the skin at the ends of your incision. B. Complications are uncommon, but please contact us if you have any signs or symptoms of: 1. wound infection (fever higher than 102.5 degrees F, redness, separation o f wound, drainage, or increasing pain from the incision) 2. blood clots in legs (pain, swelling, redness and warmth in legs) 3. urinary tract infection (fever higher than 102.5 degrees, burning upon urination or increased frequency of urination) 4. nerve problems (inability to walk on your toes or heels, numbness, loss of bowel or bladder control) 5. any other symptoms that concern you. C. Please call the office at if you have any concerns or questions about your operation or recovery. MANAGING PAIN AFTER SPINAL SURGERY 1. Narcotic medication is intended for short-term use and will be provided for surgical pain. Surgical pain usually lasts for a period of 4-6 weeks. Narcotic medication includes Percocet, Vicodin, Darvocet, Tylenol #3 or Lortab. 2. Longer-term pain is more appropriately treated with non-narcotic medication such as Tylenol ES. 3. Muscle spasm is not appropriately treated with narcotics. Muscle relaxers such as Soma, Flexeril or Skelaxin can be used along with Tylenol ES. 4. Remember that we all live with some "aches and pains". This is not unusual or uncommon after an injury or as we get older. 5. We will provide appropriate medication within the normal guidelines of their prescribed use. We will also be very cautious and aware of potential abuse and extended duration of patients' medication needs. 6. Please allow 2-3 days to process refills. Prescriptions will not be mailed but must be picked up at the office. FOLLOW UP VISIT: Keep your scheduled follow-up appointment. Any questions, please call the office at . Pending Studies at Discharge: No Stand-Alone Forms: My [facility] [employer], Smoking Cessation Medications and DC Order Prescriptions: New tramadol 50 mg tablet 50 mg PO Q6H PRN (Reason: pain, moderate) Qty: 20 0RF oxycodone 5 mg tablet 5 mg PO Q6H PRN (Reason: pain) Qty: 20 0RF Continued atorvastatin 40 mg Tablet 40 mg PO DAILY Qty: 0 Mometasone Daily Nasal Rinse See Rx Instructions .ROUTE .COMPLEX Rx Instructions: Use to rinse nasal cavities every morning Discharge Orders: Discharge Order (Routine); Ordered 10/30/22 Ordered By: Homer Taylor/Other Patient Handouts: Post-Op Tips: Back Admission Data Admit Date/Time: 10/29/22 14:57 Attending Provider: Wojciech Mcconnell Admit Provider: Trent Pavon Primary Care Provider: Byron Bryan Other Providers: Trent Pavon ; Homer Courtney Other Interventions: Discharge Summary Assessment (RN) Last Done: 10/30/22 11:46
--- NOTE | 2022-11-01 21:38 | Electrocardiogram Report ---
Test Reason : Blood Pressure : / mmHG Vent. Rate : 046 BPM Atrial Rate : 046 BPM P-R Int : 286 ms QRS Dur : 154 ms QT Int : 492 ms P-R-T Axes : 055 -28 092 degrees QTc Int : 430 ms Sinus bradycardia with 1st degree A-V block Left bundle branch block Abnormal ECG When compared with ECG of 15-APR-2016 06:20, No significant change was found Confirmed by Chris Lyon ([id number]) on 11/01/2022 9:37:39 PM Referred By: REFERRED SELF Confirmed By:Chris Lyon
== END 2022-10-30 12:17 | disposition home or self-care (01) | DRG 520 ==
LOC: EDINP 10:03 → ED 10:03 → SUATTDRO 17:00 → 3N 21:53